=== PATIENT | female | born 1940 | race African-American/Black ===

== ENCOUNTER 2016-09-16 16:55 | Inpatient (IN) | payer MEDICARE, MEDICAID ==
[2016-09-16] MEDS ORDERED: INFLUENZA ADLT QUAD (36MOS+) 2016-17 VAC 0.5 ML SYR IM PRN (18:24)
[2016-09-16] MEDS: NORMAL SALINE 250 ML with FUROSEMIDE 250 MG IV PRN ×2 (20:54)
[2016-09-16 21:13] LABS: HEMATOCRIT 34.2 % (36.0-47.0); HEMOGLOBIN 11.1 g/dL (12.0-15.5); HGB HCT DIFFERENCE -0.9; MEAN CORPUSCULAR HEMOGLOBIN 28.9 pg (27.0-33.4); MEAN CORPUSCULAR HGB CONC 32.5 g/dL (32.0-36.0); MEAN CORPUSCULAR VOLUME 89 fl (80-97); RED BLOOD COUNT 3.84 10^6/uL (3.72-5.28); RED CELL DISTRIBUTION WIDTH 15.8 % (11.5-14.0); WHITE BLOOD COUNT 6.5 10^3/uL (4.0-10.5)
[2016-09-16 21:17] LABS: ALANINE AMINOTRANSFERASE 18 U/L (9-52); ALBUMIN 3.6 g/dL (3.5-5.0); ALKALINE PHOSPHATASE 238 U/L (38-126); ANION GAP 11 (5-19); ASPARTATE AMINO TRANSFERASE 14 U/L (14-36); BILIRUBIN,TOTAL 0.5 mg/dL (0.2-1.3); BLOOD UREA NITROGEN 15 mg/dL (7-20); CALCIUM 8.7 mg/dL (8.4-10.2); CARBON DIOXIDE 20 mmol/L (22-30); CHLORIDE 110 mmol/L (98-107); GLUCOSE 204 mg/dL (75-110); POTASSIUM 4.3 mmol/L (3.6-5.0); SODIUM 141.3 mmol/L (137-145); TOTAL PROTEIN 7.4 g/dL (6.3-8.2)
[2016-09-16] MEDS ORDERED: OXYCODONE HCL IR 5 MG TABLET PO ONE (23:45)
[2016-09-17 05:20] LABS: APPEARANCE,URINE SLIGHTLY-CLOUDY; BILIRUBIN,URINE NEGATIVE (NEGATIVE); GLUCOSE, URINE NEGATIVE (NEGATIVE); KETONES,URINE NEGATIVE (NEGATIVE); LEUKOCYTE ESTERASE,URINE LARGE (NEGATIVE); NITRITE,URINE NEGATIVE (NEGATIVE); PROTEIN,URINE NEGATIVE (NEGATIVE); URINE SPECIFIC GRAVITY 1.004; UROBILINOGEN,URINE NEGATIVE mg/dL (<2.0)
[2016-09-17] MEDS: OXYCODONE HCL IR 5 MG TABLET PO PRN ×2 (05:39→12:14)
[2016-09-17 06:34] LABS: ANION GAP 11 (5-19); BLOOD UREA NITROGEN 15 mg/dL (7-20); CALCIUM 8.6 mg/dL (8.4-10.2); CARBON DIOXIDE 23 mmol/L (22-30); CHLORIDE 109 mmol/L (98-107); CREATININE RESULT 0.98 mg/dL (0.52-1.25); GLUCOSE 119 mg/dL (75-110); POTASSIUM 3.8 mmol/L (3.6-5.0)
[2016-09-17] MEDS: ENOXAPARIN SODIUM INJ 40 MG/0.4 ML DISP.SYRIN SUBCUT SCH (09:40)
--- NOTE | 2016-09-17 15:01 | XCELERA REPORT ---
[address] [address] Transthoracic Echocardiogram Report Name: CINDY FERRO Age: 76 yrs Gender: Female : 1940 Patient Status: Inpatient Patient Location: 5\S\532\S\A Study Date: 09/17/2016 02:23 PM Height: 60 in Weight: 194 lb BSA: 1.8 m2 Procedure: A complete two-dimensional transthoracic echocardiogram was performed (2D, M-mode, spectral and color flow Doppler). The study was technically adequate with some images being suboptimal in quality. Reason For Study: Pulmonary pressure Ordering Physician: SHARDA MAYS Performed By: Cynthia Tyson Interpretation Summary The left ventricular ejection fraction is normal. Doppler measurements suggest pseudonormalized left ventricular relaxation, which is associated with grade II/IV or mild to moderate diastolic dysfunction There is mild concentric left ventricular hypertrophy. The left ventricle is grossly normal size. Wall motion cannot be accurately commented on, but no definite regional wall motion abnormalities noted. The right ventricular systolic function is normal. The left atrial size is normal. The right atrium is normal in size There is a mild amount of mitral regurgitation There is no mitral valve stenosis. No aortic regurgitation is present. There is no aortic valve stenosis There is a trace or physiologic amount of tricuspid regurgitation Tricuspid regurgitation jet envelope not well defined to measure RV systolic pressure accurately. The aortic root is not well visualized but is probably normal size. The inferior vena cava appeared normal and decreased > 50% with respiration (RAP 5-10 mmHg) There is no pericardial effusion. MMode/2D Measurements \T\ Calculations RVDd: 2.3 cm LVIDd: 3.8 cm FS: 39.4 % Ao root diam: 2.6 cm IVSd: 1.2 cm LVIDs: 2.3 cm EDV(Teich): 60.9 ml LVPWd: 1.1 cm ESV(Teich): 17.8 ml Ao root area: 5.1 cm2 EF(Teich): 70.7 % LA dimension: 2.8 cm Doppler Measurements \T\ Calculations MV E max erika: MV P1/2t max erika: Ao V2 max: LV V1 max P.4 cm/sec 73.4 cm/sec 126.8 cm/sec 4.7 mmHg MV A max erika: MV P1/2t: 39.7 msec Ao max PG: LV V1 max: 144.4 cm/sec 6.4 mmHg 108.6 cm/sec MV E/A: 0.51 MVA(P1/2t): 5.5 cm2 MV dec slope: 542.0 cm/sec2 MV dec time: 0.14 sec PA V2 max: TR max erika: 108.1 cm/sec 248.4 cm/sec PA max P.7 mmHgTR max P.7 mmHg Left Ventricle The left ventricle is grossly normal size. There is mild concentric left ventricular hypertrophy. The left ventricular ejection fraction is normal. Doppler measurements suggest pseudonormalized left ventricular relaxation, which is associated with grade II/IV or mild to moderate diastolic dysfunction. Wall motion cannot be accurately commented on, but no definite regional wall motion abnormalities noted. Right Ventricle The right ventricle is grossly normal size. There is normal right ventricular wall thickness. The right ventricular systolic function is normal. Atria The right atrium is normal in size. The left atrial size is normal. Interarterial septum not well visualized and not well dopplered. Cannot comment on ASD/PFO presence. Mitral Valve There is mild mitral leaflet calcification. There is no mitral valve stenosis. There is a mild amount of mitral regurgitation. Aortic Valve The aortic valve is mildly calcified. There is no aortic valve stenosis. No aortic regurgitation is present. Tricuspid Valve The tricuspid valve is not well visualized, but is grossly normal. There is no tricuspid stenosis. There is a trace or physiologic amount of tricuspid regurgitation. Tricuspid regurgitation jet envelope not well defined to measure RV systolic pressure accurately. Pulmonic Valve The pulmonic valve is not well visualized. Great Vessels The aortic root is not well visualized but is probably normal size. The inferior vena cava appeared normal and decreased > 50% with respiration (RAP 5-10 mmHg). Effusions There is no pericardial effusion. : SHARDA MAYS > Dante Canchola
[2016-09-17] MEDS ORDERED: (PENDING PHARMACY ID) (Morphine Sulfate/Naltrexone [Embeda Er 50-2 Mg Capsule] 1 CAP) PO SCH (17:00)
[2016-09-17] MEDS ORDERED: (PENDING PHARMACY ID) (Valsartan [Diovan] 320 MG) PO SCH (17:00)
[2016-09-17] MEDS ORDERED: ONDANSETRON 4 MG TAB.RAPDIS PO ONE (17:30)
--- NOTE | 2016-09-17 17:37 | PDOC H&P ---
History of Present Illness Admission Date/PCP: 09/16/16 16:55 SHARDA MAYS MD History of Present Illness: CINDY FERRO is a 76 year old female, she came to the office with the daughter because of lower extremity swelling, she has a history of complicated rheumatoid arthritis and she is presently wheelchair bound. She was seen and evaluated in the office, she has lower extremity ,it was pitting edema on palpation of the lower extremity. The differential diagnosis included, pulmonary hypertension, Nephrotic syndrome, right ventricular heart failure, because of the many differential diagnoses and the fact that could not rule out any of the differential she was admitted directly from the office into the hospital for evaluation. Past Medical History Cardiac Medical History: Reports: Hypertension, Peripheral Vascular Disease GI Medical History: Reports: Gastroesophageal Reflux Disease Musculoskeltal Medical History: Reports: Arthritis - Rheumatoid and osteoarthritis Past Surgical History Past Surgical History: Reports: Cholecystectomy, Hysterectomy, Orthopedic Surgery - Hip, Knee Social History Smoking Status: Current Some Day Smoker Cigarettes Packs Per Day: 0.2 Number of Years Smokin Last Time Smoked: 09/16/2016 Frequency of Alcohol Use: None Hx Recreational Drug Use: No Drugs: None Hx Prescription Drug Abuse: No Family History Family History: Reviewed & Not Pertinent Parental Family History Reviewed: Yes Children Family History Reviewed: Yes Sibling(s) Family History Reviewed.: Yes Medication/Allergy Home Medications: Amlodipine Besylate [Norvasc 10 mg Tablet] 10 mg PO DAILY 09/17/16 Clonidine HCl [Catapres 0.2 mg Tablet] 0.2 mg PO BID 09/17/16 Cyclobenzaprine HCl [Flexeril 10 mg Tablet] 10 mg PO TID 09/17/16 Diphenoxylate HCl/Atropine [Lomotil 2.5-0.025 mg Tablet] 1 tab PO QID 09/17/16 Eluxadoline [Viberzi] 100 mg PO BID 09/17/16 Lipase/Protease/Amylase [Zenpep Dr 15,000 Units Capsule] 3 cap PO TID 09/17/16 Metoprolol Tartrate [Lopressor 100 mg Tablet] 100 mg PO BID 09/17/16 Morphine Sulfate/Naltrexone [Embeda ER 50-2 mg Capsule] 1 cap PO DAILY 09/17/16 Ondansetron [Zofran Odt 4 mg Tablet] 4 mg PO Q8 09/17/16 Oxycodone HCl/Acetaminophen [Percocet 10-325 mg Tablet] 1 tab PO Q6 09/17/16 Pantoprazole Sodium [Protonix] 40 mg PO DAILY 09/17/16 Valsartan [Diovan] 320 mg PO DAILY 09/17/16 Allergies/Adverse Reactions: sulfamethoxazole [From Bactrim] Allergy (Verified 06/01/16 01:17) trimethoprim [From Bactrim] Allergy (Verified 06/01/16:) Review of Systems Constitutional: ABSENT: chills, fever(s), headache(s), weight gain, weight loss Eyes: ABSENT: visual disturbances Ears: ABSENT: hearing changes Cardiovascular: ABSENT: chest pain, dyspnea on exertion, edema, orthropnea, palpitations Respiratory: ABSENT: cough, hemoptysis Gastrointestinal: ABSENT: abdominal pain, constipation, diarrhea, hematemesis, hematochezia, nausea, vomiting Genitourinary: ABSENT: dysuria, hematuria Musculoskeletal: ABSENT: joint swelling Integumentary: ABSENT: rash, wounds Neurological: ABSENT: abnormal gait, abnormal speech, confusion, dizziness, focal weakness, syncope Psychiatric: ABSENT: anxiety, depression, homidical ideation, suicidal ideation Endocrine: ABSENT: cold intolerance, heat intolerance, menstrual abnormalities, polydipsia, polyuria Hematologic/Lymphatic: ABSENT: easy bleeding, easy bruising, lymphadenopathy Physical Exam Vital Signs: Temp Pulse Resp BP Pulse Ox 98.4 F 108 H 20 146/62 H 97 09/17/16 15:33 09/17/16 15:33 09/17/16 15:33 09/17/16 15:33 09/17/16 15:33 Intake & Output 09/16/16 09/17/16 09/18/16 06:59 06:59 06:59 Intake Total 440 500 Balance 440 500 Weight 88.45 kg General appearance: PRESENT: no acute distress, well-developed, well-nourished Head exam: PRESENT: atraumatic, normocephalic Eye exam: PRESENT: conjunctiva pink, EOMI, PERRLA Ear exam: PRESENT: normal external ear exam Mouth exam: PRESENT: moist, tongue midline Neck exam: PRESENT: full ROM Respiratory exam: PRESENT: clear to auscultation jamel Cardiovascular exam: PRESENT: RRR Vascular exam: PRESENT: normal capillary refill GI/Abdominal exam: PRESENT: normal bowel sounds, soft Rectal exam: PRESENT: deferred Extremities exam: PRESENT: pedal edema Neurological exam: PRESENT: alert, awake, oriented to person, oriented to place , oriented to time, oriented to situation, CN II-XII grossly intact Psychiatric exam: PRESENT: appropriate affect, normal mood Skin exam: PRESENT: dry, intact, warm Results Laboratory Results: 09/16/16 20:55 09/17/16 06:00 09/16/16 09/16/16 09/17/16 20:55 20:55 04:40 WBC 6.5 RBC 3.84 Hgb 11.1 L Hct 34.2 L MCV 89 MCH 28.9 MCHC 32.5 RDW 15.8 H Plt Count 196 Sodium 141.3 Potassium 4.3 Chloride 110 H Carbon Dioxide 20 L Anion Gap 11 BUN 15 Creatinine 0.80 Est GFR ( Amer) > 60 Est GFR (Non-Af Amer) > 60 Glucose 204 H Calcium 8.7 Total Bilirubin 0.5 AST 14 ALT 18 Alkaline Phosphatase 238 H Total Protein 7.4 Albumin 3.6 Urine Color STRAW Urine Appearance SLIGHTLY-CLOUDY Urine pH 5.0 Ur Specific [place] 1.004 Urine Protein NEGATIVE Urine Glucose (UA) NEGATIVE Urine Ketones NEGATIVE Urine Blood NEGATIVE Urine Nitrite NEGATIVE Ur Leukocyte Esterase LARGE H Urine WBC (Auto) 22 Urine RBC (Auto) 1 09/17/16 06:00 WBC RBC Hgb Hct MCV MCH MCHC RDW Plt Count Sodium 143.0 Potassium 3.8 Chloride 109 H Carbon Dioxide 23 Anion Gap 11 BUN 15 Creatinine 0.98 Est GFR ( Amer) > 60 Est GFR (Non-Af Amer) 55 L Glucose 119 H Calcium 8.6 Total Bilirubin AST ALT Alkaline Phosphatase Total Protein Albumin Urine Color Urine Appearance Urine pH Ur Specific [place] Urine Protein Urine Glucose (UA) Urine Ketones Urine Blood Urine Nitrite Ur Leukocyte Esterase Urine WBC (Auto) Urine RBC (Auto) Impressions: Chest X-Ray 09/17/16 08:00 IMPRESSION: Prominence of the pulmonary vasculature and interstitium suggestive underlying edema and/or atypical infection. No focal infiltrates. Assessment & Plan - Diagnosis (1) Anasarca Is this a current diagnosis for this admission?: YesPlan: Patient is admitted for observation and she will be treated with furosemide infusion
[2016-09-17] MEDS ORDERED: (PENDING PHARMACY ID) (Oxycodone Hcl/Acetaminophen [Percocet 10-325 Mg Tablet] 1 TAB) PO SCH (18:00)
[2016-09-17] MEDS ORDERED: ELUXADOLINE 100 MG PO SCH (18:00)
[2016-09-17] MEDS ORDERED: PROTEASE PO SCH (18:00)
[2016-09-17] MEDS ORDERED: AMYLASE PO SCH (18:00)
[2016-09-17] MEDS ORDERED: LIPASE PO SCH (18:00)
[2016-09-17] MEDS ORDERED: AMLODIPINE BESYLATE 10 MG TABLET PO ONE (18:00)
[2016-09-17] MEDS: OXYCODONE-ACETAMINOPHEN 5-325 MG TABLET PO SCH (18:25)
[2016-09-17] MEDS: DIPHENOXYLATE HCL/ATROP SULF 2.5-0.025 MG TABLET PO SCH ×2 (18:26→21:42)
[2016-09-17] MEDS: OXYCODONE HCL IR 5 MG TABLET PO SCH (18:26)
[2016-09-17] MEDS ORDERED: VALSARTAN 160 MG TABLET PO ONE (18:30)
[2016-09-17] MEDS ORDERED: LANSOPRAZOLE 30 MG TAB.RAP.DR PO ONE (18:30)
[2016-09-17] MEDS: NORMAL SALINE 250 ML with FUROSEMIDE 250 MG IV PRN ×2 (20:39)
[2016-09-17] MEDS: CLONIDINE HCL 0.2 MG TABLET PO SCH (21:41)
[2016-09-17] MEDS: ONDANSETRON 4 MG TAB.RAPDIS PO SCH (21:42)
[2016-09-17] MEDS: CYCLOBENZAPRINE HCL 10 MG TABLET PO SCH (21:43)
[2016-09-17] MEDS: METOPROLOL TARTRATE 100 MG TABLET PO SCH (21:43)
[2016-09-18] MEDS: OXYCODONE-ACETAMINOPHEN 5-325 MG TABLET PO SCH ×4 (00:10→18:17)
[2016-09-18] MEDS: OXYCODONE HCL IR 5 MG TABLET PO SCH ×4 (00:10→18:06)
[2016-09-18] MEDS: CYCLOBENZAPRINE HCL 10 MG TABLET PO SCH ×3 (05:40→21:33)
[2016-09-18] MEDS: ONDANSETRON 4 MG TAB.RAPDIS PO SCH ×3 (05:40→21:33)
[2016-09-18 07:17] LABS: ANION GAP 11 (5-19); BLOOD UREA NITROGEN 16 mg/dL (7-20); CALCIUM 8.1 mg/dL (8.4-10.2); CARBON DIOXIDE 27 mmol/L (22-30); CHLORIDE 102 mmol/L (98-107); CREATININE RESULT 1.15 mg/dL (0.52-1.25); GLUCOSE 122 mg/dL (75-110); POTASSIUM 3.7 mmol/L (3.6-5.0); SODIUM 140.2 mmol/L (137-145)
[2016-09-18] MEDS: VALSARTAN 160 MG TABLET PO SCH (09:33)
[2016-09-18] MEDS: METOPROLOL TARTRATE 100 MG TABLET PO SCH ×2 (09:33→21:33)
[2016-09-18] MEDS: LANSOPRAZOLE 30 MG TAB.RAP.DR PO SCH (09:34)
[2016-09-18] MEDS: DIPHENOXYLATE HCL/ATROP SULF 2.5-0.025 MG TABLET PO SCH ×4 (09:34→21:33)
[2016-09-18] MEDS: ENOXAPARIN SODIUM INJ 40 MG/0.4 ML DISP.SYRIN SUBCUT SCH (09:34)
[2016-09-18] MEDS: CLONIDINE HCL 0.2 MG TABLET PO SCH ×2 (09:34→21:34)
[2016-09-18] MEDS: AMLODIPINE BESYLATE 10 MG TABLET PO SCH (09:34)
--- NOTE | 2016-09-18 12:04 | XCELERA REPORT ---
[address] [address] Lower Extremity Venous Evaluation Name: CINDY FERRO Age: 76 yrs Gender: Female : 1940 Patient Status: Inpatient Patient Location: 5\S\532\S\A Study Date: 09/17/2016 02:00 PM Procedure: Color flow and duplex imaging bilaterally of the veins of the lower extremities as well as the Common Femoral veins. Reason For Study: BiLat leg ulcers Ordering Physician: SHARDA MAYS Performed By: Cynthia Tyson Right Sided Venous Evaluation Normal vessel filling wall to wall, compression and augmentation as well as Colour flow down to the infrageniculate veins. Left Sided Venous Evaluation Normal vessel filling wall to wall, compression and augmentation as well as Colour flow down to the infrageniculate veins. Interpretation Summary No duplex evidence of DVT or obstruction in the bilateral lower extremities. : SHARDA MAYS > Lorenzo Sanderson
--- NOTE | 2016-09-18 12:13 | Physician Advisory Note ---
Physician Advisor ProgressNote .: Pursuant to the plan for [facility], I have reviewed the medical record for this patient. Physician Advisor Statement: Possible documentation opportunities if attending agrees: 1. "Medical necessity" please explicitly document the reasons patient needed to be in hospital each day she has been here, so information technology auditor can't just say, "This pt had leg swelling, but no SOB or hypoxemia or fever or other acute issue - plenty of pts are managed in office for leg swelling - no real need for hospital - could have just increased outpatient diuretic therapy and had her return in a week or 2", or "reasonable to come in for 1 night, but here was no real medical reason not to send her home 09/17", .... Considerations: - She did have persistent tachycardia on 09/17 - did that concern attending or factor in decision to not d/c her that day? What were concerns? - Risks of what specific morbidity/mortality/adverse event if not kept in hospital? - Why needed Lasix IV in hospital with close monitoring of electrolytes/renal fn rather than outpt care as above? - What made outpt care too risky in this case? - Was she significantly different than her baseline in some way that required hospital? - Etc. As always, if concerned about any unstable VS or abnormal labs, please comment on them & note what doing about them, & please document each day the potential clinical problems you are concerned could occur if pt not kept in hospital for tx at this time. Thanks for your help with documentation accuracy/specificity improvement! Yue Troncoso MD [facility], [facility] Physician Advisor, Fellow of Hospital Medicine
[2016-09-18 19:11] LABS: APPEARANCE,URINE SLIGHTLY-CLOUDY; BILIRUBIN,URINE NEGATIVE (NEGATIVE); GLUCOSE, URINE NEGATIVE (NEGATIVE); KETONES,URINE NEGATIVE (NEGATIVE); LEUKOCYTE ESTERASE,URINE LARGE (NEGATIVE); NITRITE,URINE NEGATIVE (NEGATIVE); PROTEIN,URINE NEGATIVE (NEGATIVE); URINE SPECIFIC GRAVITY 1.006; UROBILINOGEN,URINE NEGATIVE mg/dL (<2.0)
--- NOTE | 2016-09-18 19:51 | PDOC DISCHARGE SUMMARY ---
General - Admit/Disc Date/PCP Admission Date/Primary Care Provider: 09/18/16 12:22 SHARDA MAYS MD Discharge Date: 09/18/16 - Discharge Diagnosis (1) Anasarca Is this a current diagnosis for this admission?: Yes (2) Essential hypertension Is this a current diagnosis for this admission?: Yes (3) Chronic pain syndrome Is this a current diagnosis for this admission?: Yes (4) Rheumatoid arthritis Is this a current diagnosis for this admission?: Yes - Additional Information Discharge Diet: As Tolerated Discharge Activity: Activity As Tolerated Home Medications: Amlodipine Besylate [Norvasc 10 mg Tablet] 10 mg PO DAILY 09/17/16 Clonidine HCl [Catapres 0.2 mg Tablet] 0.2 mg PO Q12 09/17/16 Cyclobenzaprine HCl [Flexeril 10 mg Tablet] 10 mg PO TID 09/17/16 Diphenoxylate HCl/Atropine [Lomotil 2.5-0.025 mg Tablet] 1 tab PO QID 09/17/16 Eluxadoline [Viberzi] 100 mg PO BID 09/17/16 Lipase/Protease/Amylase [Zenpep Dr 15,000 Units Capsule] 3 cap PO TID 09/17/16 Metoprolol Tartrate [Lopressor 100 mg Tablet] 100 mg PO Q12 09/17/16 Morphine Sulfate/Naltrexone [Embeda ER 50-2 mg Capsule] 1 cap PO DAILY 09/17/16 Ondansetron [Zofran Odt 4 mg Tablet] 4 mg PO Q8 09/17/16 Oxycodone HCl/Acetaminophen [Percocet 10-325 mg Tablet] 1 tab PO Q6 09/17/16 Pantoprazole Sodium [Protonix] 40 mg PO DAILY 09/17/16 Valsartan [Diovan] 320 mg PO DAILY 09/17/16 History of Present Illness History of Present Illness: CINDY FERRO is a 76 year old female, she came to the office with the daughter because of lower extremity swelling, she has a history of complicated rheumatoid arthritis and she is presently wheelchair bound. She was seen and evaluated in the office, she has lower extremity ,it was pitting edema on palpation of the lower extremity. The differential diagnosis included, pulmonary hypertension, Nephrotic syndrome, right ventricular heart failure, because of the many differential diagnoses and the fact that could not rule out any of the differential she was admitted directly from the office into the hospital for evaluation. Hospital Course Hospital Course: Patient was admitted because of anasarca due to lower extremity edema, a 2D echo was done he showed a preserved ejection fraction of the left ventricle, there was no pulmonary hypertension, the serum albumin was normal. She was treated with furosemide infusion and she diuresed very well. 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 She is encouraged to use compression stockings. Physical Exam Vital Signs: Temp Pulse Resp BP Pulse Ox 98.1 F 77 16 102/53 L 96 09/18/16 15:08 09/18/16 15:08 09/18/16 12:00 09/18/16 15:08 09/18/16 15:08 Intake & Output 09/17/16 09/18/16 09/19/16 06:59 06:59 06:59 Intake Total 440 1297 972 Balance 440 1297 972 Weight 88.45 kg General appearance: PRESENT: no acute distress Eye exam: PRESENT: PERRLA Respiratory exam: PRESENT: clear to auscultation jamel Cardiovascular exam: PRESENT: +S1, +S2 GI/Abdominal exam: PRESENT: soft Extremities exam: PRESENT: other - No edema Neurological exam: PRESENT: alert, CN II-XII grossly intact Results Laboratory Results: 09/16/16 20:55 09/18/16 06:15 09/18/16 09/18/16 06:15 17:20 Sodium 140.2 Potassium 3.7 Chloride 102 Carbon Dioxide 27 Anion Gap 11 BUN 16 Creatinine 1.15 Est GFR ( Amer) 56 L Est GFR (Non-Af Amer) 46 L Glucose 122 H Calcium 8.1 L Urine Color YELLOW Urine Appearance SLIGHTLY-CLOUDY Urine pH 7.0 Ur Specific [place] 1.006 Urine Protein NEGATIVE Urine Glucose (UA) NEGATIVE Urine Ketones NEGATIVE Urine Blood SMALL H Urine Nitrite NEGATIVE Ur Leukocyte Esterase LARGE H Urine WBC (Auto) 62 Urine RBC (Auto) 4 09/17/16 18:10 NT-Pro-B Natriuret Pep 212 Impressions: Chest X-Ray 09/17/16 08:00 IMPRESSION: Prominence of the pulmonary vasculature and interstitium suggestive underlying edema and/or atypical infection. No focal infiltrates.
[2016-09-18] MEDS: NORMAL SALINE 250 ML with FUROSEMIDE 250 MG IV PRN ×2 (20:03)
[2016-09-19] MEDS: OXYCODONE-ACETAMINOPHEN 5-325 MG TABLET PO SCH ×2 (00:31→05:25)
[2016-09-19] MEDS: OXYCODONE HCL IR 5 MG TABLET PO SCH ×2 (00:31→05:26)
[2016-09-19] MEDS: CYCLOBENZAPRINE HCL 10 MG TABLET PO SCH (05:25)
[2016-09-19] MEDS: ONDANSETRON 4 MG TAB.RAPDIS PO SCH (05:25)
[2016-09-19 06:29] LABS: ANION GAP 14 (5-19); BLOOD UREA NITROGEN 19 mg/dL (7-20); CALCIUM 8.2 mg/dL (8.4-10.2); CARBON DIOXIDE 25 mmol/L (22-30); CHLORIDE 101 mmol/L (98-107); CREATININE RESULT 1.27 mg/dL (0.52-1.25); GLUCOSE 129 mg/dL (75-110); POTASSIUM 3.4 mmol/L (3.6-5.0); SODIUM 140.1 mmol/L (137-145)
[2016-09-19] MEDS: DIPHENOXYLATE HCL/ATROP SULF 2.5-0.025 MG TABLET PO SCH (09:17)
[2016-09-19] MEDS: METOPROLOL TARTRATE 100 MG TABLET PO SCH (09:17)
[2016-09-19] MEDS: LANSOPRAZOLE 30 MG TAB.RAP.DR PO SCH (09:17)
[2016-09-19] MEDS: CLONIDINE HCL 0.2 MG TABLET PO SCH (09:17)
[2016-09-19] MEDS: VALSARTAN 160 MG TABLET PO SCH (09:17)
[2016-09-19] MEDS: AMLODIPINE BESYLATE 10 MG TABLET PO SCH (09:17)
[2016-09-19] MEDS: ENOXAPARIN SODIUM INJ 40 MG/0.4 ML DISP.SYRIN SUBCUT SCH (09:17)
[2016-09-19 09:50] VITALS: BP 100/66
[2016-09-19] MEDS ORDERED: PHARMACY COMMUNICATION ORDER MC SCH (18:00)
== END 2016-09-19 11:46 | disposition home health service (06) | DRG 948 ==
LOC: 5 16:55 → OBSVTOIN 09-18 12:22
PROVIDERS: ADMIT Internal Medicine; ATTEND Internal Medicine
PROC: 3E0234Z Introduction of Serum, Toxoid and Vaccine into Muscle, Percutaneous Approach (ICD-10-PCS; principal; 2016-09-19)
DX: R60.1 Generalized edema (principal); I73.9 Peripheral vascular disease, unspecified; I10 Essential (primary) hypertension; G89.4 Chronic pain syndrome; M06.9 Rheumatoid arthritis, unspecified; F17.210 Nicotine dependence, cigarettes, uncomplicated; Z99.3 Dependence on wheelchair; Z23 Encounter for immunization
CPT/HCPCS: 36415; 71020; 80048; 80076; 81001; 83880; 85027; 90471; 90686; 93306; 93970; G0008; G0378; G0379; J1642; J1650; J1940; J3490; J7050; S0119

== ENCOUNTER 2016-09-19 16:28 | Inpatient (IN) | payer MEDICARE, MEDICAID ==
--- NOTE | 2016-09-19 16:57 | ER Document Report ---
ED GI/ - General Chief Complaint: Abdominal Pain Stated Complaint: WEAKNESS Notes: The patient is a 76-year-old female, past medical history chronic pancreatitis ( on enzyme replacement), presents with a few hours of nausea, vomiting and epigastric abdominal pain, exactly similar to her prior pancreatitis episodes. She was discharged earlier today from the hospital after she was treated for anasarca. She denies hematemesis, diarrhea, chest pain, shortness of breath, back pain, fevers, rash or urinary symptoms. TRAVEL OUTSIDE OF THE [place] IN LAST 30 DAYS: No - Related Data Allergies/Adverse Reactions: sulfamethoxazole [From Bactrim] Allergy (Verified 09/19/16 16:46) trimethoprim [From Bactrim] Allergy (Verified 09/19/16 16:46) Past Medical History - General Information source: Patient, Relative - Daughter - Social History Smoking Status: Unknown if Ever Smoked Frequency of alcohol use: None Family History: Reviewed & Not Pertinent Patient has suicidal ideation: No Patient has homicidal ideation: No - Past Medical History Cardiac Medical History: Reports: Hx Hypertension, Hx Peripheral Vascular Disease Neurological Medical History: Reports: Hx Cerebrovascular Accident - aphasia. Denies: Hx Seizures Renal/ Medical History: Denies: Hx Peritoneal Dialysis GI Medical History: Reports: Hx Gastroesophageal Reflux Disease, Hx Ulcer - peptic Musculoskeltal Medical History: Reports Hx Arthritis - Rheumatoid and osteoarthritis Psychiatric Medical History: Denies: Hx Depression Past Surgical History: Reports: Hx Abdominal Surgery - Ulcer, Hx Bowel Surgery, Hx Cholecystectomy, Hx Hysterectomy, Hx Orthopedic Surgery - Hip, Knee - Immunizations Hx Pneumococcal Vaccination: 07/20/11 Review of Systems - Review of Systems Notes: REVIEW OF SYSTEMS: CONSTITUTIONAL: -fevers, -chills EENT: -eye pain, -difficulty swallowing, -nasal congestion CARDIOVASCULAR:-chest pain, -syncope. RESPIRATORY: -cough, -SOB GASTROINTESTINAL: +abdominal pain, +nausea, +vomiting, -diarrhea GENITOURINARY: -dysuria, -hematuria MUSCULOSKELETAL: -back pain, -neck pain SKIN: -rash or skin lesions. HEMATOLOGIC: -easy bruising or bleeding. LYMPHATIC: -swollen, enlarged glands. NEUROLOGICAL: -altered mental status or loss of consciousness, -headache, - neurologic symptoms PSYCHIATRIC: -anxiety, -depression. ALL OTHER SYSTEMS REVIEWED AND NEGATIVE. Physical Exam - Vital signs Vitals: Resp 17 09/19/16 18:40 - Notes Notes: PHYSICAL EXAMINATION: GENERAL: Well-appearing, well-nourished and in no acute distress. HEAD: Atraumatic, normocephalic. EYES: Pupils equal round and reactive to light, extraocular movements intact, sclera anicteric, conjunctiva are normal. ENT: nares patent, oropharynx clear without exudates. Moist mucous membranes. NECK: Normal range of motion, supple without lymphadenopathy LUNGS: Breath sounds clear to auscultation bilaterally and equal. No wheezes rales or rhonchi. HEART: Tachycardic, regular rhythm ABDOMEN: Moderate tenderness over epigastric and RUQ. Soft, normoactive bowel sounds. No guarding, no rebound. No masses appreciated. EXTREMITIES: Normal range of motion, no pitting or edema. No cyanosis. NEUROLOGICAL: Cranial nerves grossly intact. Normal speech, normal gait. Normal sensory, motor, and reflex exams. PSYCH: Normal mood, normal affect. SKIN: Warm, Dry, normal turgor, no rashes or lesions noted. Course - Re-evaluation Re-evalutation: Patient remains with nausea and vomiting despite Zofran and Reglan. CT A/P and RUQ does not show any evidence of cholecystitis. The cause patient is on chronic pancreatic enzyme replacement, her lipase is always normal, even when she has a pancreatitis flare. Spoke to Dr. Polanco and he has accepted patient to telemetry Obs. - Vital Signs Vital signs: Temp Pulse Resp BP Pulse Ox 21 H 172/71 H 99 09/19/16 20:01 09/19/16 20:00 09/19/16 18:41 - Laboratory Result Diagrams: 09/19/16 18:00 09/19/16 18:00 Laboratory results interpreted by me: 09/19/16 09/19/16 18:00 18:00 RDW 15.9 H Seg Neutrophils % 82.7 H Lymphocytes % 11.8 L BUN 24 H Creatinine 1.38 H Est GFR ( Amer) 45 L Est GFR (Non-Af Amer) 37 L Glucose 198 H AST 13 L Alkaline Phosphatase 266 H Total Protein 8.5 H - Diagnostic Test Radiology reviewed: Image reviewed, Reports reviewed Radiology results interpreted by me: RUQ US: GB sludge, no evidence of cholecystitis CT A/P: NAD - EKG Interpretation by Me EKG shows normal: Sinus rhythm, [place], Intervals, QRS Complexes, ST-T Waves - ST Depression in lateral leads Rate: Tachycardia Discharge - Discharge Clinical Impression: Epigastric abdominal pain Pancreatitis, chronic Qualifiers: Pancreatitis type: other Qualified Code(s): K86.1 - Other chronic pancreatitis Intractable vomiting with nausea Qualifiers: Vomiting type: unspecified Qualified Code(s): R11.2 - Nausea with vomiting, unspecified Condition: Stable Disposition: ADMITTED OBSERVATION Admitting Provider: [facility] Unit Admitted: Telemetry
[2016-09-19] MEDS ORDERED: NORMAL SALINE 1000 ML 1,000 ML IV ONE (16:58)
[2016-09-19] MEDS ORDERED: MORPHINE SULFATE 10 MG/ML INJ IV ONE ×2 (17:06→19:46)
[2016-09-19] MEDS ORDERED: ONDANSETRON HCL INJ/PF 4 MG/2 ML SDV IV ONE (17:07)
[2016-09-19] MEDS ORDERED: FAMOTIDINE INJ/PF 20 MG/2 ML SDV IV ONE (17:08)
--- NOTE | 2016-09-19 18:52 | EKG REPORT ---
SEVERITY:- ABNORMAL ECG - SINUS TACHYCARDIA PROBABLE LEFT ATRIAL ABNORMALITY LVH WITH SECONDARY REPOLARIZATION ABNORMALITY : Confirmed by: Edu Dick MD 19-Sep-2016 18:51:32
[2016-09-19 19:12] LABS: ALANINE AMINOTRANSFERASE 20 U/L (9-52); ALBUMIN 4.1 g/dL (3.5-5.0); ALKALINE PHOSPHATASE 266 U/L (38-126); ANION GAP 16 (5-19); ASPARTATE AMINO TRANSFERASE 13 U/L (14-36); BILIRUBIN,TOTAL 0.6 mg/dL (0.2-1.3); BLOOD UREA NITROGEN 24 mg/dL (7-20); CALCIUM 8.8 mg/dL (8.4-10.2); CARBON DIOXIDE 26 mmol/L (22-30); CHLORIDE 100 mmol/L (98-107); CREATINE KINASE 75 U/L (30-135); CREATININE RESULT 1.38 mg/dL (0.52-1.25); GLUCOSE 198 mg/dL (75-110); LIPASE 36.5 U/L (23-300); POTASSIUM 3.7 mmol/L (3.6-5.0); SODIUM 141.9 mmol/L (137-145); TOTAL PROTEIN 8.5 g/dL (6.3-8.2)
[2016-09-19 19:13] LABS: ABSOLUTE LYMPHOCYTES (AUTO) 1.1 10^3/uL (0.5-4.7); ABSOLUTE MONOCYTES (AUTO) 0.5 10^3/uL (0.1-1.4); BASOPHILS % (AUTO) 0.4 % (0-2); EOSINOPHILS % (AUTO) 0.2 % (0-6); HEMATOCRIT 40.9 % (36.0-47.0); LYMPHOCYTES % (AUTO) 11.8 % (13-45); MEAN CORPUSCULAR HEMOGLOBIN 28.9 pg (27.0-33.4); MEAN CORPUSCULAR HGB CONC 32.5 g/dL (32.0-36.0); MEAN CORPUSCULAR VOLUME 89 fl (80-97); MONOCYTES % (AUTO) 4.9 % (3-13); RED CELL DISTRIBUTION WIDTH 15.9 % (11.5-14.0); SEGMENTED NEUTROPHILS % (AUTO) 82.7 % (42-78); WHITE BLOOD COUNT 9.7 10^3/uL (4.0-10.5)
[2016-09-19 19:26] LABS: HEMOGLOBIN 13.3 g/dL (12.0-15.5)
[2016-09-19] MEDS ORDERED: METOCLOPRAMIDE HCL INJ/PF 10 MG/2 ML SDV IV ONE (19:45)
[2016-09-19] MEDS ORDERED: HYDROMORPHONE HCL 2 MG TABLET PO PRN (22:42)
[2016-09-20] MEDS ORDERED: METOPROLOL TARTRATE 100 MG TABLET PO ONE (00:15)
[2016-09-20] MEDS ORDERED: CLONIDINE HCL 0.2 MG TABLET PO ONE (00:15)
[2016-09-20] MEDS: HYDROMORPHONE HCL INJ/PF 2 MG/ML AMPULE IV PRN ×5 (00:19→22:44)
[2016-09-20] MEDS: ONDANSETRON 4 MG TAB.RAPDIS PO PRN ×2 (11:09→22:44)
[2016-09-20] MEDS: NORMAL SALINE 1000 ML 1,000 ML IV PRN (11:11)
[2016-09-20 16:39] LABS: APPEARANCE,URINE CLOUDY; BILIRUBIN,URINE NEGATIVE (NEGATIVE); GLUCOSE, URINE NEGATIVE (NEGATIVE); KETONES,URINE 20 mg/dL (NEGATIVE); LEUKOCYTE ESTERASE,URINE MODERATE (NEGATIVE); NITRITE,URINE NEGATIVE (NEGATIVE); PROTEIN,URINE 30 mg/dL (NEGATIVE); URINE SPECIFIC GRAVITY 1.018; UROBILINOGEN,URINE NEGATIVE mg/dL (<2.0)
[2016-09-20] MEDS ORDERED: PANTOPRAZOLE SODIUM 40 MG VIAL IV ONE (17:00)
[2016-09-21] MEDS: HYDROMORPHONE HCL INJ/PF 2 MG/ML AMPULE IV PRN ×6 (02:43→22:44)
[2016-09-21] MEDS: PANTOPRAZOLE SODIUM 40 MG VIAL IV SCH (09:57)
--- NOTE | 2016-09-21 13:11 | PDOC H&P ---
History of Present Illness Admission Date/PCP: 09/19/16 21:14 SHARDA MAYS MD History of Present Illness: NICKO FERRO is a 76 year old female, she was recently discharged this morning, she came to the emergency room because she was vomiting coffee-ground vomitus On 06/01/2016 she had episode of upper GI bleed on that admission she had EGD that showed duodenal ulcer. In the emergency room she was evaluated CT scan of the abdomen and pelvis was done and it was negative. She was just discharged this morning when she was admitted for anasarca, she was treated with intravenous furosemide and she diuresed quite well. She denies any passage of black stool, there is no hematochezia, there is associated upper abdominal pain. Past Medical History Cardiac Medical History: Reports: Hypertension, Peripheral Vascular Disease GI Medical History: Reports: Gastroesophageal Reflux Disease, Peptic Ulcer Disease Musculoskeltal Medical History: Reports: Arthritis - Rheumatoid and osteoarthritis, Other - Disabling rheumatoid arthritis Psychiatric Medical History: Denies: Depression Past Surgical History Past Surgical History: Reports: Cholecystectomy, Hysterectomy, Orthopedic Surgery - Hip, Knee Social History Smoking Status: Never Smoker Frequency of Alcohol Use: None Hx Recreational Drug Use: No Drugs: None Hx Prescription Drug Abuse: No Family History Family History: Reviewed & Not Pertinent Parental Family History Reviewed: Yes Children Family History Reviewed: Yes Sibling(s) Family History Reviewed.: Yes Medication/Allergy Home Medications: Amlodipine Besylate [Norvasc 10 mg Tablet] 10 mg PO DAILY 09/17/16 Clonidine HCl [Catapres 0.2 mg Tablet] 0.2 mg PO Q12 09/17/16 Cyclobenzaprine HCl [Flexeril 10 mg Tablet] 10 mg PO Q8HP PRN 09/17/16 Lipase/Protease/Amylase [Zenpep Dr 15,000 Units Capsule] 3 cap PO MEALS Metoprolol Tartrate [Lopressor 100 mg Tablet] 100 mg PO Q12 09/17/16 Morphine Sulfate/Naltrexone [Embeda ER 50-2 mg Capsule] 1 cap PO DAILY 09/17/16 Ondansetron [Zofran Odt 4 mg Tablet] 4 mg PO Q8HP PRN 09/17/16 Pantoprazole Sodium [Protonix] 40 mg PO BID 09/17/16 Valsartan [Diovan] 320 mg PO DAILY 09/17/16 Loperamide HCl [Imodium 2 mg Capsule] 8 mg PO ONCEP PRN 09/19/16 Oxycodone HCl 15 mg PO Q8HP PRN 09/19/16 Allergies/Adverse Reactions: sulfamethoxazole [From Bactrim] Allergy (Verified 09/19/16 16:46) trimethoprim [From Bactrim] Allergy (Verified 09/19/16 16:46) Review of Systems Constitutional: ABSENT: chills, fever(s), headache(s), weight gain, weight loss Eyes: ABSENT: visual disturbances Ears: ABSENT: hearing changes Cardiovascular: ABSENT: chest pain, dyspnea on exertion, edema, orthropnea, palpitations Respiratory: ABSENT: cough, hemoptysis Gastrointestinal: PRESENT: abdominal pain, vomiting Genitourinary: ABSENT: dysuria, hematuria Musculoskeletal: ABSENT: joint swelling Integumentary: ABSENT: rash, wounds Neurological: ABSENT: abnormal gait, abnormal speech, confusion, dizziness, focal weakness, syncope Psychiatric: ABSENT: anxiety, depression, homidical ideation, suicidal ideation Endocrine: ABSENT: cold intolerance, heat intolerance, menstrual abnormalities, polydipsia, polyuria Hematologic/Lymphatic: ABSENT: easy bleeding, easy bruising, lymphadenopathy Physical Exam Vital Signs: Temp Pulse Resp BP Pulse Ox 98.3 F 112 H 12 196/74 H 98 09/21/16 10:50 09/21/16 10:50 09/21/16 10:50 09/21/16 10:50 09/21/16 10:50 Intake & Output 09/20/16 09/21/16 09/22/16 06:59 06:59 06:59 Intake Total 0 2244 Balance 0 2244 Weight 71 kg General appearance: PRESENT: no acute distress, well-developed, well-nourished Head exam: PRESENT: atraumatic, normocephalic Eye exam: PRESENT: conjunctiva pink, EOMI, PERRLA. ABSENT: scleral icterus Ear exam: PRESENT: normal external ear exam Mouth exam: PRESENT: moist, tongue midline Neck exam: PRESENT: full ROM Cardiovascular exam: PRESENT: RRR Pulses: PRESENT: normal dorsalis pedis pul, +2 pedal pulses bilateral Vascular exam: PRESENT: normal capillary refill GI/Abdominal exam: PRESENT: normal bowel sounds, soft, tenderness - There is tenderness in the epigastrium. Rectal exam: PRESENT: deferred Neurological exam: PRESENT: alert, awake, oriented to person, oriented to place , oriented to time, oriented to situation, CN II-XII grossly intact Psychiatric exam: PRESENT: appropriate affect, normal mood Skin exam: PRESENT: dry, intact, warm Results Laboratory Results: 09/20/16 16:06 Urine Color YELLOW Urine Appearance CLOUDY Urine pH 8.0 Ur Specific [place] 1.018 Urine Protein 30 H Urine Glucose (UA) NEGATIVE Urine Ketones 20 H Urine Blood NEGATIVE Urine Nitrite NEGATIVE Ur Leukocyte Esterase MODERATE H Urine WBC (Auto) 179 Urine RBC (Auto) 4 Impressions: Abdomen Ultrasound 09/19/16 17:13 IMPRESSION: No acute biliary inflammatory changes. Mild gallbladder sludge. Abdomen/Pelvis CT 09/19/16 17:14 IMPRESSION: NO ACUTE FINDING IN THE ABDOMEN OR PELVIS ON CT SCAN WITH IV CONTRAST. Assessment & Plan - Diagnosis (1) Upper gastrointestinal hemorrhage Is this a current diagnosis for this admission?: YesPlan: She recently had EGD done on 06/03/2016 and at that time she was found to have duodenal ulcer. She will be kept n.p.o. on should be treated with IV Protonix (2) Essential hypertension Is this a current diagnosis for this admission?: Yes (3) Rheumatoid arthritis Qualifiers: Rheumatoid arthritis location: unspecified site Rheumatoid factor presence: without rheumatoid factor Qualified Code(s): M06.00 - Rheumatoid arthritis without rheumatoid factor, unspecified site Is this a current diagnosis for this admission?: Yes (4) Duodenal ulcer Is this a current diagnosis for this admission?: Yes
[2016-09-21 14:17] LABS: ALANINE AMINOTRANSFERASE 26 U/L (9-52); ALBUMIN 3.8 g/dL (3.5-5.0); ALKALINE PHOSPHATASE 223 U/L (38-126); ANION GAP 16 (5-19); ASPARTATE AMINO TRANSFERASE 17 U/L (14-36); BILIRUBIN,TOTAL 0.5 mg/dL (0.2-1.3); BLOOD UREA NITROGEN 12 mg/dL (7-20); CALCIUM 9.3 mg/dL (8.4-10.2); CARBON DIOXIDE 18 mmol/L (22-30); CHLORIDE 111 mmol/L (98-107); CREATININE RESULT 0.69 mg/dL (0.52-1.25); GLUCOSE 132 mg/dL (75-110); POTASSIUM 4.2 mmol/L (3.6-5.0); SODIUM 144.5 mmol/L (137-145); TOTAL PROTEIN 7.8 g/dL (6.3-8.2)
[2016-09-21] MEDS: NORMAL SALINE 1000 ML 1,000 ML IV PRN (15:31)
--- NOTE | 2016-09-21 15:43 | PDOC PROGRESS REPORT ---
Subjective Progress Note for:: 09/21/16 Subjective:: She was admitted for observation because of vomiting coffee-ground, she had a history of duodenal ulcer, should be kept n.p.o. since admission, GI consultation will be requested for upper endoscopy Physical Exam Vital Signs: Temp Pulse Resp BP Pulse Ox 98.3 F 112 H 12 196/74 H 98 09/21/16 10:50 09/21/16 10:50 09/21/16 10:50 09/21/16 10:50 09/21/16 10:50 Intake & Output 09/20/16 09/21/16 09/22/16 06:59 06:59 06:59 Intake Total 0 2244 Balance 0 2244 Weight 71 kg General appearance: PRESENT: no acute distress Eye exam: PRESENT: PERRLA Cardiovascular exam: PRESENT: +S1, +S2 GI/Abdominal exam: PRESENT: soft, tenderness Results Laboratory Results: 09/21/16 13:15 09/20/16 09/21/16 16:06 13:15 Sodium 144.5 Potassium 4.2 Chloride 111 H Carbon Dioxide 18 L Anion Gap 16 BUN 12 Creatinine 0.69 Est GFR ( Amer) > 60 Est GFR (Non-Af Amer) > 60 Glucose 132 H Calcium 9.3 Total Bilirubin 0.5 AST 17 ALT 26 Alkaline Phosphatase 223 H Total Protein 7.8 Albumin 3.8 Urine Color YELLOW Urine Appearance CLOUDY Urine pH 8.0 Ur Specific [place] 1.018 Urine Protein 30 H Urine Glucose (UA) NEGATIVE Urine Ketones 20 H Urine Blood NEGATIVE Urine Nitrite NEGATIVE Ur Leukocyte Esterase MODERATE H Urine WBC (Auto) 179 Urine RBC (Auto) 4 Impressions: Abdomen Ultrasound 09/19/16 17:13 IMPRESSION: No acute biliary inflammatory changes. Mild gallbladder sludge. Abdomen/Pelvis CT 09/19/16 17:14 IMPRESSION: NO ACUTE FINDING IN THE ABDOMEN OR PELVIS ON CT SCAN WITH IV CONTRAST. Assessment & Plan - Diagnosis (1) Upper gastrointestinal hemorrhage Is this a current diagnosis for this admission?: YesPlan: She has not had any more vomiting since admission, but she has ongoing upper abdominal pain, she will need upper endoscopy in light of a history of duodenal ulcer, the issue though is on the upper endoscopy be done outpatient or most the upper endoscopy be done now, because she has ongoing upper abdominal pain and she is tender on palpation on the fact that she is wheelchair bound it is reasonable and proper to have the upper endoscopy done now. She has been n.p.o. since she was admitted a blood pressure is running high she will be started on a regular medication for blood pressure control and also clear liquid diet until seen by GI (2) Essential hypertension Is this a current diagnosis for this admission?: Yes (3) Rheumatoid arthritis Qualifiers: Rheumatoid arthritis location: unspecified site Rheumatoid factor presence: without rheumatoid factor Qualified Code(s): M06.00 - Rheumatoid arthritis without rheumatoid factor, unspecified site Is this a current diagnosis for this admission?: Yes (4) Duodenal ulcer Is this a current diagnosis for this admission?: Yes
[2016-09-21] MEDS ORDERED: METOPROLOL TARTRATE 100 MG TABLET PO ONE (16:00)
[2016-09-21] MEDS ORDERED: CLONIDINE HCL 0.2 MG TABLET PO ONE (16:00)
[2016-09-21] MEDS ORDERED: AMLODIPINE BESYLATE 10 MG TABLET PO ONE (16:00)
[2016-09-21] MEDS ORDERED: PROTEASE PO SCH (17:00)
[2016-09-21] MEDS ORDERED: AMYLASE PO SCH (17:00)
[2016-09-21] MEDS ORDERED: LIPASE PO SCH (17:00)
[2016-09-21] MEDS: CLONIDINE HCL 0.2 MG TABLET PO SCH (21:05)
[2016-09-21] MEDS: METOPROLOL TARTRATE 100 MG TABLET PO SCH (21:05)
[2016-09-22] MEDS: HYDROMORPHONE HCL INJ/PF 2 MG/ML AMPULE IV PRN ×5 (03:12→20:16)
[2016-09-22] MEDS: NORMAL SALINE 1000 ML 1,000 ML IV PRN ×2 (05:35→20:08)
[2016-09-22] MEDS ORDERED: (PENDING PHARMACY ID) (Valsartan [Diovan] 320 MG) PO SCH (10:00)
[2016-09-22] MEDS: PANTOPRAZOLE SODIUM 40 MG VIAL IV SCH (10:21)
--- NOTE | 2016-09-22 10:35 | Physician Advisory Note ---
Physician Advisor ProgressNote .: [facility] I have reviewed the medical record for this patient. Physician Advisor Statement: Possible documentation opportunities if attending agrees: 1. "UGIBleed, likely due to " (have to explicitly state whether suspected due to the recent duod ulcer or some other source - coders aren't allowed to assume anything) 2. "acute abdominal pain, likely due to " 3. "acute kidney injury, now resolved" (baseline Cr 0.6's -> 1.38 on arrival) 4. "hypertensive urgency" 5. "Medical necessity": Difficult to determine from documentation so far - please address points here & bolded points under "status". - Pt w/recurrent tachycardia 09/20- but this isn't commented on as concerning attending, so reviewer will assume this was not a concerning finding in this case, - Pt w/UGIBleed suspected, but no indication of amount or recurrence - or repeat H/H, so reviewer will assume this was a minor issue. - Pt using IV Dilaudid 5x on 09/20 & 6x on 09/21: needing due to severity of acute abd pain, or just for her chronic pain that she usually takes high dose Percocet q6h for? - Overall, is main reason she hasn't gone ahead & had EGD & been discharged because of lack of GI healthcare risk control consultant over weekend? If so, she should not be Inpt - it is simply "delay of care". However, if she is actually acutely ill & medically concerning/unstable, & reasons are documented, she could be appropriate to make Inpt. 6. ? - "acute metabolic acidosis developing 09/21, suspect due to ____" - or .... ? As always, if concerned about any unstable VS or abnormal labs, please comment on them & note what doing about them, & please document each day the potential clinical problems you are concerned could occur if pt not kept in hospital for tx at this time. Discussion: 74yo female w/ chronic co-morbidities including chronic pancreatitis with lipase levels now always nl even with pancreatitis flares - is on replacement enzymes, HTN, PVD, CVA/aphasia, GERD, PUD with UGIBleed 06/01/16, RA, bowel surgery - presented 3/3 PM to ED w/N/Vepigastric pain. She has just been d/c'd after tx for anasarca. (+) mod tenderness epigastirc/RUQ, still w/N/V after Zofran & Reglan in ED. HR 112, BP 196/74, U/S=mild GB sludge, no acute changes. CT= no acute changes. Cr 1.38. AP 266. Attending ordered NPO, IV PPI, IVF @70, prn Dilaudid, prn NGTube. Status: Pt with coffee ground emesis & epigastric tenderness per H&P. Recent duod ulcer w/UGIBleed. Came into ED on Thu PM. First MN (09/19) was spent in ED trying to get control of N/V. 2nd MN (09/20) was spent in hospital NPO with IV PPI, monitoring for need for NGT for further N/V, treating ongoing acute abd pain, expecting EGD/GI consult. Needed IV Dilaudid 5x on 09/20, then 6x on 09/21 for abd pain. Due to ongoing abd pain, attending felt it necessary to have EGD done before d/c, even though no ongoing bleeding or severe H/H drop documented. Nsg notes through 09/21 22:00 document persistent abd tenderness since admission. There has been no BM per nsg notes since 09/19. They report nausea through at least 3/4 AM, & abd pain through at least 3/5 AM. On 09/21, pt's ABBI resolved but bicarb then low. Attending ordered now doses BP meds at 00:15 on 09/20 & 16:00 on 09/21. Pt has had recurrent tachycardia 09/20-. Allowed clear liquids on 5PM (Thursday) while awaiting GI consult. Attg ordered GI consult on 09/22 AM. Tx in inpatient hospital setting medically reasonable & necessary to protect pt' s health, safety, & medical condition? If so, please document explicitly. Thanks for your help with documentation accuracy/specificity improvement! Yue Troncoso MD [facility] Physician Advisor, Fellow of Hospital Medicine
[2016-09-22] MEDS: CLONIDINE HCL 0.2 MG TABLET PO SCH ×2 (12:03→21:14)
[2016-09-22] MEDS: METOPROLOL TARTRATE 100 MG TABLET PO SCH ×2 (12:04→21:13)
[2016-09-22] MEDS: AMLODIPINE BESYLATE 10 MG TABLET PO SCH (12:04)
[2016-09-22] MEDS: VALSARTAN 160 MG TABLET PO SCH (12:05)
--- NOTE | 2016-09-22 13:26 | PDOC CONSULTATION ---
Consultation Consult Date: 09/22/16 Attending physician:: LISA HYDE Consult reason:: Abdominal pain. nausea and vomiting. coffee ground emesisi. history of peptic ulcer in the past History of Present Illness Admission Date/PCP: 09/19/16 21:14 SHARDA MAYS MD History of Present Illness: Patient was admitted and noted to have abdominal pain patient states she has been similar pain to the one from previous admission she had a previous EGD done which showed a peptic ulcer no active bleeding patient states having epigastric discomfory again There is some nausea vomiting No dysphagia or odynophagia Coffee grounds is noted. Her seems to radiate to the back. Her appetite seems to be affected. Denies any chest pain or shortness of breath. She had previous Helicobacter pylori. Past Medical History Cardiac Medical History: Reports: Hypertension, Peripheral Vascular Disease Neurological Medical History: Denies: Seizures GI Medical History: Reports: Gastroesophageal Reflux Disease, Peptic Ulcer Disease Musculoskeltal Medical History: Reports: Arthritis - Rheumatoid and osteoarthritis, Other - Disabling rheumatoid arthritis Psychiatric Medical History: Denies: Depression Past Surgical History Past Surgical History: Reports: Cholecystectomy, Hysterectomy, Orthopedic Surgery - Hip, Knee Social History Smoking Status: Never Smoker Frequency of Alcohol Use: None Hx Recreational Drug Use: No Drugs: None Hx Prescription Drug Abuse: No Family History Family History: Reviewed & Not Pertinent Parental Family History Reviewed: Yes Children Family History Reviewed: Unknown Sibling(s) Family History Reviewed.: Unknown Medication/Allergy Home Medications: Amlodipine Besylate [Norvasc 10 mg Tablet] 10 mg PO DAILY 09/17/16 Clonidine HCl [Catapres 0.2 mg Tablet] 0.2 mg PO Q12 09/17/16 Cyclobenzaprine HCl [Flexeril 10 mg Tablet] 10 mg PO Q8HP PRN 09/17/16 Lipase/Protease/Amylase [Zenpep Dr 15,000 Units Capsule] 3 cap PO MEALS Metoprolol Tartrate [Lopressor 100 mg Tablet] 100 mg PO Q12 09/17/16 Morphine Sulfate/Naltrexone [Embeda ER 50-2 mg Capsule] 1 cap PO DAILY 09/17/16 Ondansetron [Zofran Odt 4 mg Tablet] 4 mg PO Q8HP PRN 09/17/16 Pantoprazole Sodium [Protonix] 40 mg PO BID 09/17/16 Valsartan [Diovan] 320 mg PO DAILY 09/17/16 Loperamide HCl [Imodium 2 mg Capsule] 8 mg PO ONCEP PRN 09/19/16 Oxycodone HCl 15 mg PO Q8HP PRN 09/19/16 Allergies/Adverse Reactions: sulfamethoxazole [From Bactrim] Allergy (Verified 09/19/16 16:46) trimethoprim [From Bactrim] Allergy (Verified 09/19/16 16:46) Review of Systems Constitutional: ABSENT: fever(s), headache(s), night sweats, weakness Eyes: ABSENT: visual disturbances Ears: ABSENT: hearing changes Nose, Mouth, and Throat: ABSENT: mouth pain Cardiovascular: ABSENT: edema, orthropnea Respiratory: ABSENT: dyspnea, hemoptysis Gastrointestinal: PRESENT: coffee ground emesis, nausea, vomiting. ABSENT: diarrhea, dysphagia Genitourinary: ABSENT: dysuria, hematuria Musculoskeletal: ABSENT: deformity, joint swelling Integumentary: ABSENT: lesions, pruritus Neurological: ABSENT: focal weakness, syncope, tremor(s), vertigo Endocrine: ABSENT: polydipsia, polyphagia, polyuria Hematologic/Lymphatic: PRESENT: easy bruising Physical Exam Vital Signs: Temp Pulse Resp BP Pulse Ox 97.8 F 80 16 169/66 H 100 09/22/16 10:32 09/22/16 10:32 09/22/16 10:32 09/22/16 10:32 09/22/16 10:32 Intake & Output 09/21/16 09/22/16 09/23/16 06:59 06:59 06:59 Intake Total 2244 2698 Balance 2244 2698 Weight 82.3 kg General appearance: PRESENT: no acute distress, well-developed, well-nourished Head exam: PRESENT: atraumatic, normocephalic Eye exam: PRESENT: EOMI, PERRLA. ABSENT: nystagmus, periorbital swelling, scleral icterus Mouth exam: PRESENT: moist Throat exam: ABSENT: tonsillar exudate, tonsillogmegaly Neck exam: ABSENT: meningismus, tenderness, thyromegaly Cardiovascular exam: PRESENT: RRR, +S1, +S2. ABSENT: rubs GI/Abdominal exam: PRESENT: normal bowel sounds, soft. ABSENT: Donovan's sign, rebound, rigid, tenderness Extremities exam: ABSENT: joint swelling Musculoskeletal exam: PRESENT: full ROM Neurological exam: PRESENT: oriented to person, oriented to place, oriented to time, oriented to situation, reflexes normal, CN II-XII grossly intact Psychiatric exam: PRESENT: appropriate affect Skin exam: PRESENT: normal color. ABSENT: mottled, pallor, petechiae, urticaria , vesicles Results Laboratory Results: 09/21/16 13:15 09/21/16 13:15 Sodium 144.5 Potassium 4.2 Chloride 111 H Carbon Dioxide 18 L Anion Gap 16 BUN 12 Creatinine 0.69 Est GFR ( Amer) > 60 Est GFR (Non-Af Amer) > 60 Glucose 132 H Calcium 9.3 Total Bilirubin 0.5 AST 17 ALT 26 Alkaline Phosphatase 223 H Total Protein 7.8 Albumin 3.8 Impressions: Abdomen Ultrasound 09/19/16 17:13 IMPRESSION: No acute biliary inflammatory changes. Mild gallbladder sludge. Abdomen/Pelvis CT 09/19/16 17:14 IMPRESSION: NO ACUTE FINDING IN THE ABDOMEN OR PELVIS ON CT SCAN WITH IV CONTRAST. Assessment & Plan - Diagnosis (1) Epigastric abdominal pain Plan: Patient noted to have previous ulcer in the past and biopsies were positive for Helicobacter pylori H&H is stable She will need repeat upper endoscopy to document healing of the ulcer, persistence of H. pylori. Risks benefits and alternatives of the procedure including risks of bleeding, perforation requiring surgery are explained to the patient detail and informed consent is obtained. Recommendations to follow. Any PPI for now H&H Transfuse as necessary - Time Time Spent: 50 to 70 Minutes
--- NOTE | 2016-09-22 19:50 | PDOC PROGRESS REPORT ---
Subjective Progress Note for:: 09/22/16 Subjective:: Patient was seen by laboratory associate Dr. Avilez today, patient needed to stay for EGD because of the fact that she was not stable enough to be discharged home she had persistent sinus tachycardia, in the setting of upper GI bleed she vomited coffee-ground vomitus and she was kept n.p.o. for 2 days. The pretest probability for a bleeding duodenal ulcer is very high, she had EGD done back in May 2016 she was found to have a relatively large duodenal ulcer. Physical Exam Vital Signs: Temp Pulse Resp BP Pulse Ox 97.8 F 63 16 147/64 H 100 09/22/16 10:32 09/22/16 15:28 09/22/16 10:32 09/22/16 15:28 09/22/16 15:28 Intake & Output 09/21/16 09/22/16 09/23/16 06:59 06:59 06:59 Intake Total 2244 2698 1192 Balance 2244 2698 1192 Weight 82.3 kg General appearance: PRESENT: mild distress Eye exam: PRESENT: PERRLA Respiratory exam: PRESENT: clear to auscultation jamel Cardiovascular exam: PRESENT: +S1, +S2 GI/Abdominal exam: PRESENT: tenderness - There is tenderness in the epigastrium Extremities exam: PRESENT: tenderness Results Laboratory Results: 09/21/16 13:15 Impressions: Abdomen Ultrasound 09/19/16 17:13 IMPRESSION: No acute biliary inflammatory changes. Mild gallbladder sludge. Abdomen/Pelvis CT 09/19/16 17:14 IMPRESSION: NO ACUTE FINDING IN THE ABDOMEN OR PELVIS ON CT SCAN WITH IV CONTRAST. Assessment & Plan - Diagnosis (1) Upper gastrointestinal hemorrhage Is this a current diagnosis for this admission?: YesPlan: She probably have upper GI bleed due to bleeding duodenal ulcer, she was seen by GI on she will have upper endoscopy tomorrow (2) Essential hypertension Is this a current diagnosis for this admission?: Yes (3) Rheumatoid arthritis Qualifiers: Rheumatoid arthritis location: unspecified site Rheumatoid factor presence: without rheumatoid factor Qualified Code(s): M06.00 - Rheumatoid arthritis without rheumatoid factor, unspecified site Is this a current diagnosis for this admission?: Yes (4) Duodenal ulcer Is this a current diagnosis for this admission?: Yes (5) Hypertensive urgency Is this a current diagnosis for this admission?: Yes
[2016-09-23] MEDS: HYDROMORPHONE HCL INJ/PF 2 MG/ML AMPULE IV PRN ×5 (00:11→17:35)
[2016-09-23] MEDS: AMLODIPINE BESYLATE 10 MG TABLET PO SCH (09:33)
[2016-09-23] MEDS: METOPROLOL TARTRATE 100 MG TABLET PO SCH (09:35)
[2016-09-23] MEDS: PANTOPRAZOLE SODIUM 40 MG VIAL IV SCH (09:35)
[2016-09-23] MEDS: CLONIDINE HCL 0.2 MG TABLET PO SCH (09:36)
[2016-09-23] MEDS: VALSARTAN 160 MG TABLET PO SCH (09:36)
--- NOTE | 2016-09-23 09:57 | Physician Advisory Note ---
Physician Advisor ProgressNote .: [facility], I have reviewed the medical record for this patient. Physician Advisor Statement: Nice documentation of likely cause UGI, of HTN-hema urgency, instability, concerns r.e. persistent tachycardia in setting of GIB & likely PUD. Thanks for clarifying! Possible documentation opportunities if attending agrees: 1. "acute kidney injury, now resolved" (baseline Cr 0.6's -> 1.38 on arrival ) 2. ? - "acute metabolic acidosis developing 09/21, suspect due to ____" - or .... ? 3. Pt using IV Dilaudid repeatedly - all due to severity of acute abd pain,? (She usually takes high dose Percocet q6h baseline.) As always, if concerned about any unstable VS or abnormal labs, please comment on them & note what doing about them, & please document each day the potential clinical problems you are concerned could occur if pt not kept in hospital for tx at this time. Discussion: 74yo female w/ chronic co-morbidities including chronic pancreatitis with lipase levels now always nl even with pancreatitis flares - is on replacement enzymes, HTN, PVD, CVA/aphasia, GERD, PUD with UGIBleed 06/01/16, RA, bowel surgery - presented 33 PM to ED w/N/Vepigastric pain. She has just been d/c'd after tx for anasarca. (+) mod tenderness epigastirc/RUQ, still w/N/V after Zofran & Reglan in ED. HR 112, BP 196/74, U/S=mild GB sludge, no acute changes. CT= no acute changes. Cr 1.38. AP 266. Attending ordered NPO, IV PPI, IVF @70, prn Dilaudid, prn NGTube. Status: Pt with coffee ground emesis & epigastric tenderness per H&P. Recent duod ulcer w/UGIBleed. Came into ED on Fri PM. First MN (09/19) was spent in ED trying to get control of N/V. 2nd MN (09/20) was spent in hospital NPO with IV PPI, monitoring for need for NGT for further N/V, treating ongoing acute abd pain. Pt with recurrent tachycardia & hypertensive urgency. Needed IV Dilaudid 5x on 09/20, then 6x on 09/21 for abd pain. Due to ongoing abd pain & past PUD, attending felt it necessary to have EGD done before d/c. Despite all this opioid which can drop BP & RR, she remained tachycardic & hypertensive to the point of hypertensive urgency often. There was no BM per nsg notes since 09/19. They reported nausea through at least 09/20 AM. She was kept NPO until 09/21 PM. Attending ordered 'now' doses BP meds at 00:15 on 09/20 & 16:00 on 09/21, & started metoprolol at scheduled dosing as of 09/21 PM to improve both BP & HR. Since then , pt has had episodic bradycardia with HR drops into the 50s at times on 09/22, & even as low as 48 on 09/23 AM. On 09/21, pt's ABBI resolved but bicarb then low. Pt still with recurrent tachycardia & hypertensive urgency. Allowed clear liquids for first time on 3M (Thursday) while awaiting GI consult. Attg ordered GI consult on 09/22 AM. On 09/22, nsg notes document persistent abd pain & tenderness. Pt required IV Dilaudid 5x on 09/22 for pain. M: Pt has had 2 BMs. EGD being done. Pt has already required IV DIlaudid 3x so far on 09/23 AM. Overall, pt has had persistent vital sign instability, ongoing abd pain for which she had needed repeated IV Dilaudid high dose, concerning attending that she was not sufficiently stable for d/c. Tx in inpatient hospital setting medically reasonable & necessary to protect pt' s health, safety, & medical condition due to instability of vital signs and ongoing attending concerns as documented.
[2016-09-23] MEDS: NORMAL SALINE 1000 ML 1,000 ML IV PRN (10:15)
[2016-09-23] MEDS ORDERED: NALOXONE HCL INJ/PF 0.4 MG/1 ML SDV ONE (11:29)
[2016-09-23] MEDS ORDERED: DIPHENHYDRAMINE HCL 50 MG/ML VIAL ONE (11:29)
[2016-09-23] MEDS ORDERED: PROMETHAZINE HCL INJ 25 MG/1 ML VIAL ONE (11:30)
[2016-09-23] MEDS ORDERED: ONDANSETRON HCL INJ/PF 4 MG/2 ML SDV ONE (11:30)
[2016-09-23] MEDS ORDERED: FENTANYL CITRATE INJ/PF 100 MCG/2 ML AMPUL ONE ×2 (11:30→11:31)
[2016-09-23] MEDS ORDERED: EPINEPHRINE INJ 1 MG/10 ML DISP.SYRIN ONE (11:31)
[2016-09-23] MEDS ORDERED: FLUMAZENIL INJ 0.5 MG/5 ML VIAL IV ONE (11:31)
[2016-09-23] MEDS ORDERED: GLUCAGON,HUMAN RECOMB 1 MG INJ ONE (11:31)
[2016-09-23] MEDS: MIDAZOLAM 2 MG/2 ML INJ ONE ×2 (12:00→12:05)
--- NOTE | 2016-09-23 12:31 | Operative Report ---
Operative Report DATE OF SURGERY: 09/23/16 Operative Report: The risks benefits and alternatives of the procedure explained to the patient in detail and informed consent is obtained that GIF Olympus video scope was inserted into the patient's mouth and hypopharynx the esophagus is identified intubated and insufflated the scope was then advanced through the esophagus stomach and duodenum retroflexion maneuver is done the esophagus stomach and first and second portions of the duodenum examined PREOPERATIVE DIAGNOSIS: Nausea vomiting. Coffee-ground emesis POSTOPERATIVE DIAGNOSIS: Nodular gastritis. Biopsies obtained to rule out for Helicobacter pylori OPERATION: EGD with biopsy SURGEON: LISA HYDE ANESTHESIA: Moderate Sedation - 4 milligrams of Versed, 75 g of fentanyl. Conscious sedation monitoring time 15 minutes. TISSUE REMOVED OR ALTERED: Gastric specimen obtained COMPLICATIONS: None. ESTIMATED BLOOD LOSS: none. INTRAOPERATIVE FINDINGS: As described above. No further ulceration PROCEDURE: Patient tolerated the procedure well. No immediate postprocedure complications are noted. Discharge activity in good condition. Discharge diet: Regular. Discharge activity: Regular. We'll await on biopsies Patient can be seen as outpatient
--- NOTE | 2016-09-23 18:14 | PDOC DISCHARGE SUMMARY ---
General - Admit/Disc Date/PCP Admission Date/Primary Care Provider: 09/23/16 08:00 SHARDA MAYS MD Discharge Date: 09/23/16 - Discharge Diagnosis (1) Upper gastrointestinal hemorrhage Is this a current diagnosis for this admission?: Yes (2) Essential hypertension Is this a current diagnosis for this admission?: Yes (3) Rheumatoid arthritis Is this a current diagnosis for this admission?: Yes (4) Duodenal ulcer Is this a current diagnosis for this admission?: Yes (5) Hypertensive urgency Is this a current diagnosis for this admission?: Yes - Additional Information Resuscitation Status: Full Code Home Medications: Amlodipine Besylate [Norvasc 10 mg Tablet] 10 mg PO DAILY 09/17/16 Clonidine HCl [Catapres 0.2 mg Tablet] 0.2 mg PO Q12 09/17/16 Cyclobenzaprine HCl [Flexeril 10 mg Tablet] 10 mg PO Q8HP PRN 09/17/16 Lipase/Protease/Amylase [Zenpep Dr 15,000 Units Capsule] 3 cap PO MEALS Metoprolol Tartrate [Lopressor 100 mg Tablet] 100 mg PO Q12 09/17/16 Morphine Sulfate/Naltrexone [Embeda ER 50-2 mg Capsule] 1 cap PO DAILY 09/17/16 Ondansetron [Zofran Odt 4 mg Tablet] 4 mg PO Q8HP PRN 09/17/16 Pantoprazole Sodium [Protonix] 40 mg PO BID 09/17/16 Valsartan [Diovan] 320 mg PO DAILY 09/17/16 Loperamide HCl [Imodium 2 mg Capsule] 8 mg PO ONCEP PRN 09/19/16 Oxycodone HCl 15 mg PO Q8HP PRN 09/19/16 History of Present Illness History of Present Illness: NICKO FERRO is a 76 year old female, she was recently discharged this morning, she came to the emergency room because she was vomiting coffee-ground vomitus On 06/01/2016 she had episode of upper GI bleed on that admission she had EGD that showed duodenal ulcer. In the emergency room she was evaluated CT scan of the abdomen and pelvis was done and it was negative. She was just discharged this morning when she was admitted for anasarca, she was treated with intravenous furosemide and she diuresed quite well. She denies any passage of black stool, there is no hematochezia, there is associated upper abdominal pain. Hospital Course Hospital Course: Patient was admitted because of vomiting coffee-ground vomitus, there was associated tachycardia, she has a history of a large duodenal ulcer she was initially admitted for observation she could not be discharged home after 24 hours because of hypertensive urgency she was kept n.p.o. 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 coder said she has severe gastritis Physical Exam Vital Signs: Temp Pulse Resp BP Pulse Ox 98.6 F 64 16 132/58 H 100 09/23/16 15:55 09/23/16 15:55 09/23/16 15:55 09/23/16 15:55 09/23/16 15:55 Intake & Output 09/22/16 09/23/16 09/24/16 06:59 06:59 06:59 Intake Total 100 Balance 100 General appearance: PRESENT: no acute distress Eye exam: PRESENT: PERRLA Respiratory exam: PRESENT: clear to auscultation jamel Cardiovascular exam: PRESENT: +S2 Murmur grade: 3 GI/Abdominal exam: PRESENT: soft Neurological exam: PRESENT: alert Results Impressions: Abdomen Ultrasound 09/19/16 17:13 IMPRESSION: No acute biliary inflammatory changes. Mild gallbladder sludge. Abdomen/Pelvis CT 09/19/16 17:14 IMPRESSION: NO ACUTE FINDING IN THE ABDOMEN OR PELVIS ON CT SCAN WITH IV CONTRAST.
[2016-09-23 20:28] VITALS: BP 147/77
== END 2016-09-23 20:29 | disposition home or self-care (01) | DRG 378 ==
LOC: ER 16:28 → UNDOADMOB 21:14 → EH 21:14 → 4W 22:30 → EH 23:31 → 4W 23:31 → OBSVTOIN 09-23 08:00
PROVIDERS: ADMIT Internal Medicine; ATTEND Internal Medicine
PROC: 0DB68ZX Excision of Stomach, Via Natural or Artificial Opening Endoscopic, Diagnostic (ICD-10-PCS; principal; 2016-09-23 12:30)
DX: K92.2 Gastrointestinal hemorrhage, unspecified (principal); K86.1 Other chronic pancreatitis; K29.70 Gastritis, unspecified, without bleeding; K26.9 Duodenal ulcer, unspecified as acute or chronic, without hemorrhage or perforation; I16.0 Hypertensive urgency; I10 Essential (primary) hypertension; I73.9 Peripheral vascular disease, unspecified; K21.9 Gastro-esophageal reflux disease without esophagitis; M06.9 Rheumatoid arthritis, unspecified; I69.320 Aphasia following cerebral infarction; Z88.2 Allergy status to sulfonamides
CPT/HCPCS: 36415; 43239; 74177; 76705; 80053; 81001; 82550; 83690; 84484; 85025; 88305; 88341; 93005; 93010; G0378; J0171; J1170; J1200; J1610; J2250; J2270; J2310; J2405; J2550; J2765; J3010; J3490; J7030; S0028; S0119; S0164

== ENCOUNTER 2017-06-08 11:36 | Inpatient (IN) | payer MEDICARE, MEDICAID ==
[2017-06-08] MEDS ORDERED: ONDANSETRON HCL INJ/PF 4 MG/2 ML SDV IV ONE ×2 (13:04→18:25)
[2017-06-08] MEDS ORDERED: NORMAL SALINE 1000 ML 1,000 ML IV ONE (13:04)
[2017-06-08] MEDS ORDERED: MORPHINE SULFATE 10 MG/ML INJ IV ONE ×3 (13:05→18:12)
--- NOTE | 2017-06-08 13:06 | ER Document Report ---
ED Medical Screen (RME) - General Chief Complaint: Swelling Stated Complaint: VOMITING BLOOD Time Seen by Provider: 06/08/17 13:03 Notes: Patient has a history of vaginal cancer with radiation. She has had pancreatitis several times since then. She presents now with vomiting and hematemesis. As well as diffuse abdominal pain. TRAVEL OUTSIDE OF THE [place] IN LAST 30 DAYS: No - Related Data Allergies/Adverse Reactions: sulfamethoxazole [From Bactrim] Allergy (Verified 06/08/17 11:43) trimethoprim [From Bactrim] Allergy (Verified 06/08/17 11:43) Past Medical History - Social History Chew tobacco use (# tins/day): No Frequency of alcohol use: None Drug Abuse: None - Past Medical History Cardiac Medical History: Reports: Hx Hypertension, Hx Peripheral Vascular Disease Neurological Medical History: Reports: Hx Cerebrovascular Accident - aphasia. Denies: Hx Seizures Renal/ Medical History: Denies: Hx Peritoneal Dialysis GI Medical History: Reports: Hx Gastroesophageal Reflux Disease, Hx Ulcer - peptic Musculoskeltal Medical History: Reports Hx Arthritis - RHEUMATOID, OSTEO Psychiatric Medical History: Denies: Hx Depression Past Surgical History: Reports: Hx Abdominal Surgery - STOMACH ULCER, Hx Bowel Surgery, Hx Cholecystectomy, Hx Hysterectomy, Hx Orthopedic Surgery - LT HIP REMOVAL OF "HEAD", SCREWS RT HIP, RT KNEE REPLACEMENT Physical Exam - Vital signs Vitals: Temp Pulse Resp BP Pulse Ox 98 F 92 22 H 160/87 H 100 06/08/17 11:45 06/08/17 11:45 06/08/17 11:45 06/08/17 11:45 06/08/17 11:45 Course - Vital Signs Vital signs: Temp Pulse Resp BP Pulse Ox 98 F 92 22 H 160/87 H 100 06/08/17 11:45 06/08/17 11:45 06/08/17 11:45 06/08/17 11:45 06/08/17 11:45
[2017-06-08 14:33] LABS: AMORPHOUS SEDIMENT,URINE TRACE /HPF; APPEARANCE,URINE CLOUDY; BILIRUBIN,URINE NEGATIVE (NEGATIVE); GLUCOSE, URINE NEGATIVE (NEGATIVE); KETONES,URINE 20 mg/dL (NEGATIVE); LEUKOCYTE ESTERASE,URINE SMALL (NEGATIVE); NITRITE,URINE NEGATIVE (NEGATIVE); PROTEIN,URINE NEGATIVE (NEGATIVE); UROBILINOGEN,URINE NEGATIVE mg/dL (<2.0)
[2017-06-08 15:01] LABS: ABSOLUTE BASOPHILS # (AUTO) 0.1 10^3/uL (0.0-0.2); ABSOLUTE LYMPHOCYTES (AUTO) 0.9 10^3/uL (0.5-4.7); ABSOLUTE MONOCYTES (AUTO) 0.5 10^3/uL (0.1-1.4); ABSOLUTE NEUT (AUTO) 6.4 10^3/uL (1.7-8.2); HEMATOCRIT 34.3 % (36.0-47.0); HEMOGLOBIN 11.3 g/dL (12.0-15.5); HGB HCT DIFFERENCE -0.4; LYMPHOCYTES % (AUTO) 11.8 % (13-45); MEAN CORPUSCULAR HEMOGLOBIN 29.7 pg (27.0-33.4); MEAN CORPUSCULAR VOLUME 90 fl (80-97); MONOCYTES % (AUTO) 6.5 % (3-13); RED BLOOD COUNT 3.81 10^6/uL (3.72-5.28); RED CELL DISTRIBUTION WIDTH 16.1 % (11.5-14.0); SEGMENTED NEUTROPHILS % (AUTO) 80.7 % (42-78); WHITE BLOOD COUNT 7.9 10^3/uL (4.0-10.5)
--- NOTE | 2017-06-08 15:22 | ER Document Report ---
ED GI/ - General Chief Complaint: Swelling Stated Complaint: VOMITING BLOOD Time Seen by Provider: 06/08/17 13:03 Notes: The patient is a 76-year-old female, past medical history chronic pancreatitis ( on enzyme replacement), vaginal cancer in 2010 ("cured"), gastric/duodenal ulcers, presents with epigastric pain, nausea and vomiting 2 times. She noticed a small streak of blood in the vomitus earlier today. Patient also noticed mild swelling of her legs and arms and says that normally 20 mg of Lasix will help. Patient takes 20 mg of oxycodone 4 times a day. She denies back pain, fevers, flank pain, urinary symptoms, increased diarrhea or constipation, black stools or bloody stools. TRAVEL OUTSIDE OF THE [place] IN LAST 30 DAYS: No - Related Data Allergies/Adverse Reactions: sulfamethoxazole [From Bactrim] Allergy (Verified 06/08/17 11:43) trimethoprim [From Bactrim] Allergy (Verified 06/08/17 11:43) Past Medical History - General Information source: Patient - Social History Smoking Status: Current Every Day Smoker Chew tobacco use (# tins/day): No Frequency of alcohol use: None Drug Abuse: None Family History: Reviewed & Not Pertinent Patient has suicidal ideation: No Patient has homicidal ideation: No - Past Medical History Cardiac Medical History: Reports: Hx Hypertension, Hx Peripheral Vascular Disease Neurological Medical History: Reports: Hx Cerebrovascular Accident - aphasia. Denies: Hx Seizures Renal/ Medical History: Denies: Hx Peritoneal Dialysis GI Medical History: Reports: Hx Gastroesophageal Reflux Disease, Hx Ulcer - peptic Musculoskeltal Medical History: Reports Hx Arthritis - RHEUMATOID, OSTEO Psychiatric Medical History: Denies: Hx Depression Past Surgical History: Reports: Hx Abdominal Surgery - STOMACH ULCER, Hx Bowel Surgery, Hx Cholecystectomy, Hx Hysterectomy, Hx Orthopedic Surgery - LT HIP REMOVAL OF "HEAD", SCREWS RT HIP, RT KNEE REPLACEMENT - Immunizations Hx Pneumococcal Vaccination: 07/20/11 Review of Systems - Review of Systems Notes: REVIEW OF SYSTEMS: CONSTITUTIONAL: -fevers, -chills EENT: -eye pain, -difficulty swallowing, -nasal congestion CARDIOVASCULAR:-chest pain, -syncope. RESPIRATORY: -cough, -SOB GASTROINTESTINAL: +epigastric abdominal pain, +nausea, +vomiting, -diarrhea GENITOURINARY: -dysuria, -hematuria MUSCULOSKELETAL: -back pain, -neck pain SKIN: -rash or skin lesions. HEMATOLOGIC: -easy bruising or bleeding. LYMPHATIC: -swollen, enlarged glands. NEUROLOGICAL: -altered mental status or loss of consciousness, -headache, - neurologic symptoms PSYCHIATRIC: -anxiety, -depression. ALL OTHER SYSTEMS REVIEWED AND NEGATIVE. Physical Exam - Vital signs Vitals: Temp Pulse Resp BP Pulse Ox 98 F 92 22 H 160/87 H 100 06/08/17 11:45 06/08/17 11:45 06/08/17 11:45 06/08/17 11:45 06/08/17 11:45 - Notes Notes: PHYSICAL EXAMINATION: GENERAL: Uncomfortable. HEAD: Atraumatic, normocephalic. EYES: Pupils equal round and reactive to light, extraocular movements intact, sclera anicteric, conjunctiva are normal. ENT: nares patent, oropharynx clear without exudates. Moist mucous membranes. NECK: Normal range of motion, supple without lymphadenopathy LUNGS: Breath sounds clear to auscultation bilaterally and equal. No wheezes rales or rhonchi. HEART: Regular rate and rhythm without murmurs ABDOMEN: Soft, mild epigastric tenderness, normoactive bowel sounds. No guarding, no rebound. No masses appreciated. EXTREMITIES: Normal range of motion, no pitting or edema. No cyanosis. NEUROLOGICAL: Cranial nerves grossly intact. Normal speech, normal gait. Normal sensory and motor exams. PSYCH: Normal mood, normal affect. SKIN: Warm, Dry, normal turgor, no rashes or lesions noted. Course - Re-evaluation Re-evalutation: Patient with epigastric pain, nausea and vomiting and now a small amount of blood in the vomitus. Her lipase is normal and rest of labs are unremarkable. Patient is on chronic enzyme replacement and mentioned that her lipase is always normal during her pancreatitis attacks due to this. Vital signs and CBC are also unremarkable. Despite multiple rounds of antiemetics and pain medicine , patient continues to have epigastric pain and vomiting. She requires inpatient admission for further monitoring and treatment. Spoke to Dr. Mays at 16:04 and will admit patient as inpatient to telemetry. - Vital Signs Vital signs: Temp Pulse Resp BP Pulse Ox 98 F 92 22 H 160/87 H 100 06/08/17 11:45 06/08/17 11:45 06/08/17 11:45 06/08/17 11:45 06/08/17 11:45 - Laboratory Result Diagrams: 06/08/17 14:37 06/08/17 14:37 Laboratory results interpreted by me: 06/08/17 06/08/17 06/08/17 14:00 14:37 14:37 Hgb 11.3 L Hct 34.3 L RDW 16.1 H Seg Neutrophils % 80.7 H Lymphocytes % 11.8 L Carbon Dioxide 20 L Glucose 135 H Calcium 8.3 L Alkaline Phosphatase 295 H Total Protein 8.4 H Urine Ketones 20 H Ur Leukocyte Esterase SMALL H Discharge - Discharge Clinical Impression: Epigastric pain Intractable vomiting with nausea Qualifiers: Vomiting type: unspecified Qualified Code(s): R11.2 - Nausea with vomiting, unspecified Condition: Stable Disposition: ADMITTED INPATIENT Admitting Provider: Sherri Unit Admitted: Telemetry Referrals: SHARDA MAYS MD [Primary Care Provider] - Follow up as needed
[2017-06-08 15:33] LABS: ALANINE AMINOTRANSFERASE 24 U/L (9-52); ALBUMIN 4.1 g/dL (3.5-5.0); ALKALINE PHOSPHATASE 295 U/L (38-126); ANION GAP 16 (5-19); ASPARTATE AMINO TRANSFERASE 15 U/L (14-36); BILIRUBIN,DIRECT 0.4 mg/dL (0.0-0.4); BILIRUBIN,TOTAL 0.5 mg/dL (0.2-1.3); BLOOD UREA NITROGEN 9 mg/dL (7-20); CALCIUM 8.3 mg/dL (8.4-10.2); CARBON DIOXIDE 20 mmol/L (22-30); CHLORIDE 107 mmol/L (98-107); CREATININE RESULT 0.58 mg/dL (0.52-1.25); GLUCOSE 135 mg/dL (75-110); LIPASE 40.5 U/L (23-300); POTASSIUM 4.1 mmol/L (3.6-5.0); SODIUM 143.3 mmol/L (137-145); TOTAL PROTEIN 8.4 g/dL (6.3-8.2)
[2017-06-08] MEDS ORDERED: METOCLOPRAMIDE HCL ORAL SOLN 10 MG/10 ML UDCUP PO ONE (15:41)
[2017-06-08] MEDS ORDERED: MAG HYDROX/AL HYDROX/SIMETH SUSP 30 ML UDCUP PO ONE (15:41)
[2017-06-08] MEDS ORDERED: LIDOCAINE 2% VISCOUS SOLN 20 ML UDCUP PO ONE (15:41)
[2017-06-08] MEDS ORDERED: PANTOPRAZOLE SODIUM 40 MG VIAL IV ONE (15:55)
[2017-06-08] MEDS ORDERED: METOCLOPRAMIDE HCL INJ/PF 10 MG/2 ML SDV IV ONE (16:00)
--- NOTE | 2017-06-08 19:31 | RADIOLOGY REPORT (SQ) ---
EXAM DESCRIPTION: CT ABD/PELVIS WITH IV ONLY COMPLETED DATE/TIME: 06/08/2017 6:48 pm REASON FOR STUDY: abdominal pain and vomiting COMPARISON: September 2016 TECHNIQUE: CT scan of the abdomen and pelvis performed using helical scanning technique with dynamic intravenous contrast injection. No oral contrast. Images reviewed with lung, soft tissue, and bone windows. Reconstructed coronal and sagittal MPR images reviewed. Delayed images for evaluation of the urinary system also acquired. All images stored on PACS. All CT scanners at this facility use dose modulation, iterative reconstruction, and/or weight based d osing when appropriate to reduce radiation dose to as low as reasonably achievable (ALARA). [facility]: Dose Right [facility]: CareDose [facility]: Dose Right [facility]: Teradose 4D [facility]: [employer] CONTRAST TYPE AND DOSE: contrast/concentration: Isovue 370.00 mg/ml; Total Contrast Delivered: 99.1 ml; Total Saline Delivered: 45.0 ml RENAL FUNCTION: Creatinine 0.58 RADIATION DOSE: Up-to-date CT equipment and radiation dose reduction techniques were employed. CTDIv ol: 10.8 - 11.8 mGy. DLP: 1013 mGy-cm.. LIMITATIONS: None. FINDINGS: LOWER CHEST: No significant findings. No nodules or infiltrates. LIVER: Normal size. No masses. There is some minimal prominent intrahepatic bile ducts presumably re lated to the gallbladder dilatation SPLEEN: Normal size. No focal lesions. PANCREAS: No masses. No significant calcifications. No adjacent inflammation or peripancreatic fluid collections. There is some prominence of the pancreatic duct. A definite mass is not identified. GALLBLADDER: No definite gallstones are identified. The gallbladder is distended. There is some thi ckening of the gallbladder woody. The possibility of cholecystitis should be considered. ADRENAL GLANDS: No significant masses or asymmetry. RIGHT KIDNEY AND URETER: Atrophic right kidney is again identified. No significant calcifications. There is hydronephrosis which may be related to UPJ obstruction. LEFT KIDNEY AND URETER: No solid masses. No significant calcifications. There is some dilatation of the left renal pelvis which may represent a UPJ obstruction. AORTA AND VESSELS: No aneurysm. No dissection. Renal arteries, SMA, celiac without stenosis. RETROPERITONEUM: No retroperitoneal adenopathy, hemorrhage or masses. BOWEL AND PERITONEAL CAVITY: No masses or inflammatory changes. No free fluid or peritoneal masses. APPENDIX: Not identified PELVIS: No mass. No free fluid. Urine distended bladder is identified. ABDOMINAL WALL: No masses. No hernias. BONES: There is grade 1 anterolisthesis of L 5 in relation to S1. There is chronic appearing deformi ty of the left hip. Patient is status post right hip pinning. An old fracture of the left inferior pubic ramus is seen. Lumbar scoliosis convex to the right is again identified. OTHER: No other significant finding. IMPRESSION: The gallbladder is distended and there is some thickening of the woody of the gallbladde r. The possibility of cholecystitis should be considered. Atrophic right kidney. Urine distended b ladder. Other findings as noted above TECHNICAL DOCUMENTATION: JOB ID: [id number] Quality ID # [id number]: Final reports with documentation of one or more dose reduction techniques (e.g., Au tomated exposure control, adjustment of the mA and/or kV according to patient size, use of iterative reconstruction technique) 2010 [employer] All Rights Reserved
[2017-06-08] MEDS: NORMAL SALINE 1000 ML 1,000 ML IV PRN (19:39)
[2017-06-08] MEDS ORDERED: DEXTROSE 50%-WATER 25 GM/50 ML DISP.SYRIN IV PRN ×2 (20:08)
[2017-06-08] MEDS ORDERED: DEXTROSE 40% GEL 15 GM TUBE PO PRN ×2 (20:08)
[2017-06-08] MEDS ORDERED: GLUCAGON,HUMAN RECOMB 1 MG INJ SUBCUT PRN (20:08)
[2017-06-08] MEDS: ENALAPRILAT DIHYDRATE INJ/PF 2.5 MG/2 ML SDV IV SCH (21:12)
[2017-06-08] MEDS: HEPARIN SOD (PORCINE) 5,000 UNIT/ML 1 ML SYRINGE SUBCUT SCH (21:23)
[2017-06-08] MEDS: AMPICILLIN SODIUM/SULBACTAM NA 3 GM in NORMAL SALINE 100 ML IV SCH (21:24)
[2017-06-08 21:34] LABS: PROTHROMBIN TIME 14.5 SEC (11.4-15.4)
[2017-06-08 21:35] LABS: PARTIAL THROMBOPLASTIN TIME 31.5 SEC (23.5-35.8)
[2017-06-08 21:37] LABS: MAGNESIUM 1.6 mg/dL (1.6-2.3); PHOSPHORUS 2.2 mg/dL (2.5-4.5)
[2017-06-08 22:09] LABS: THYROID STIMULATING HORMONE 0.46 uIU/mL (0.47-4.68)
[2017-06-08] MEDS: MORPHINE SULFATE 10 MG/ML INJ IV PRN (22:10)
[2017-06-08] MEDS: ONDANSETRON HCL INJ/PF 4 MG/2 ML SDV IV PRN (22:10)
--- NOTE | 2017-06-08 23:20 | EKG REPORT ---
SEVERITY:- ABNORMAL ECG - SINUS TACHYCARDIA LEFT ATRIAL ABNORMALITY BORDERLINE LEFT AXIS DEVIATION BORDERLINE T ABNORMALITIES, LATERAL LEADS : Confirmed by: Dante Canchola 08-Jun-2017 23:19:15
[2017-06-09] MEDS ORDERED: INFLUENZA ADLT QUAD (36MOS+) 2017-18 VAC 0.5 ML SYR IM PRN (00:30)
[2017-06-09] MEDS: ENALAPRILAT DIHYDRATE INJ/PF 2.5 MG/2 ML SDV IV SCH ×4 (03:10→21:22)
[2017-06-09] MEDS: AMPICILLIN SODIUM/SULBACTAM NA 3 GM in NORMAL SALINE 100 ML IV SCH ×4 (03:12→21:22)
[2017-06-09] MEDS: MORPHINE SULFATE 10 MG/ML INJ IV PRN ×4 (04:13→21:22)
[2017-06-09 05:01] LABS: ABSOLUTE BASOPHILS # (AUTO) 0.1 10^3/uL (0.0-0.2); ABSOLUTE LYMPHOCYTES (AUTO) 1.3 10^3/uL (0.5-4.7); ABSOLUTE MONOCYTES (AUTO) 1.1 10^3/uL (0.1-1.4); BASOPHILS % (AUTO) 0.7 % (0-2); EOSINOPHILS % (AUTO) 0.1 % (0-6); HEMATOCRIT 31.9 % (36.0-47.0); HEMOGLOBIN 10.6 g/dL (12.0-15.5); HGB HCT DIFFERENCE -0.1; LYMPHOCYTES % (AUTO) 15.4 % (13-45); MEAN CORPUSCULAR HEMOGLOBIN 29.6 pg (27.0-33.4); MEAN CORPUSCULAR HGB CONC 33.1 g/dL (32.0-36.0); MEAN CORPUSCULAR VOLUME 89 fl (80-97); MONOCYTES % (AUTO) 12.8 % (3-13); RED BLOOD COUNT 3.57 10^6/uL (3.72-5.28); RED CELL DISTRIBUTION WIDTH 16.5 % (11.5-14.0); WHITE BLOOD COUNT 8.5 10^3/uL (4.0-10.5)
[2017-06-09 05:20] LABS: ALANINE AMINOTRANSFERASE 20 U/L (9-52); ALBUMIN 3.6 g/dL (3.5-5.0); ALKALINE PHOSPHATASE 254 U/L (38-126); AMYLASE 61 U/L (30-110); ANION GAP 16 (5-19); ASPARTATE AMINO TRANSFERASE 14 U/L (14-36); BILIRUBIN,DIRECT 0.4 mg/dL (0.0-0.4); BILIRUBIN,TOTAL 0.6 mg/dL (0.2-1.3); BLOOD UREA NITROGEN 5 mg/dL (7-20); CALCIUM 7.7 mg/dL (8.4-10.2); CARBON DIOXIDE 19 mmol/L (22-30); CHLORIDE 110 mmol/L (98-107); CHOLESTEROL 150.34 mg/dL (0-200); CREATININE RESULT 0.63 mg/dL (0.52-1.25); Direct HDL 66 mg/dL (>40); GLUCOSE 114 mg/dL (75-110); LIPASE 55.6 U/L (23-300); POTASSIUM 3.7 mmol/L (3.6-5.0); SODIUM 144.7 mmol/L (137-145); TOTAL PROTEIN 7.5 g/dL (6.3-8.2); TRIGLYCERIDES 65 mg/dL (<150)
[2017-06-09 05:31] LABS: DIRECT LDL 60 mg/dL (<100)
[2017-06-09] MEDS: HEPARIN SOD (PORCINE) 5,000 UNIT/ML 1 ML SYRINGE SUBCUT SCH ×3 (05:33→21:22)
[2017-06-09] MEDS: ONDANSETRON HCL INJ/PF 4 MG/2 ML SDV IV PRN ×3 (06:01→21:22)
[2017-06-09] MEDS: NORMAL SALINE 1000 ML 1,000 ML IV PRN (08:38)
[2017-06-09] MEDS: LABETALOL HCL INJ 20 MG/4 ML DISP.SYRIN IV PRN (13:27)
--- NOTE | 2017-06-09 18:36 | PDOC H&P ---
History of Present Illness Admission Date/PCP: 06/09/17 15:00 SHARDA MAYS MD History of Present Illness: NICKO FERRO is a 76 year old female, she came to the emergency room for evaluation of vomiting, it was stated that she vomited blood, there was also abdominal pain. She was evaluated in the emergency room, she was offered hospital admission. CAT scan of the abdomen and pelvis with IV contrast was done, it showed distended gallbladder with thickening of the woody of the gallbladder cholecystitis was suspected on the basis of the CAT scan of the abdomen and pelvis. Also found was atrophic of the right kidney with right hydronephrosis due to UPJ obstruction. Past Medical History Cardiac Medical History: Reports: Hypertension, Peripheral Vascular Disease Renal/ Medical History: Reports: Other - Atrophic right kidney with hydronephrosis due to UPJ obstruction GI Medical History: Reports: Gastroesophageal Reflux Disease Musculoskeltal Medical History: Reports: Arthritis - failed left hip replacement , Other - Deformity of the left hip, anterolisthesis of L5 in relation to S1 lumbar Past Surgical History Past Surgical History: Reports: Cholecystectomy, Hysterectomy, Orthopedic Surgery - LT HIP REMOVAL OF "HEAD", SCREWS RT HIP, RT KNEE REPLACEMENT Social History Smoking Status: Current Every Day Smoker Frequency of Alcohol Use: None Hx Recreational Drug Use: No Drugs: None Hx Prescription Drug Abuse: No Family History Family History: Reviewed & Not Pertinent Parental Family History Reviewed: Yes Children Family History Reviewed: Yes Sibling(s) Family History Reviewed.: Yes Medication/Allergy Home Medications: Amlodipine Besylate [Norvasc 10 mg Tablet] 10 mg PO DAILY 06/08/17 Clonidine HCl [Catapres 0.2 mg Tablet] 0.2 mg PO Q12 06/08/17 Cyclobenzaprine HCl [Flexeril 10 mg Tablet] 10 mg PO Q8HP PRN 06/08/17 Lipase/Protease/Amylase [Zenpep Dr 15,000 Units Capsule] 3 cap PO MEALS Loperamide HCl [Imodium 2 mg Capsule] 2 mg PO DAILYP PRN 06/08/17 Metoprolol Tartrate [Lopressor 100 mg Tablet] 100 mg PO Q12 06/08/17 Morphine Sulfate/Naltrexone [Embeda ER 50-2 mg Capsule] 1 cap PO DAILY 06/08/17 Ondansetron [Zofran Odt 4 mg Tablet] 4 mg PO Q8HP PRN 06/08/17 Oxycodone HCl [Oxycodone HCl ER] 15 mg PO Q8HP PRN 06/08/17 Pantoprazole Sodium [Protonix] 40 mg PO BID 06/08/17 Valsartan [Diovan] 320 mg PO DAILY 06/08/17 Allergies/Adverse Reactions: sulfamethoxazole [From Bactrim] Allergy (Verified 06/08/17 11:43) trimethoprim [From Bactrim] Allergy (Verified 06/08/17 11:43) Review of Systems Constitutional: PRESENT: anorexia Eyes: ABSENT: visual disturbances Ears: ABSENT: hearing changes Cardiovascular: ABSENT: chest pain, dyspnea on exertion, edema, orthropnea, palpitations Respiratory: ABSENT: cough, hemoptysis Gastrointestinal: PRESENT: abdominal pain, nausea, vomiting Genitourinary: ABSENT: dysuria, hematuria Musculoskeletal: ABSENT: joint swelling Integumentary: ABSENT: rash, wounds Neurological: ABSENT: abnormal gait, abnormal speech, confusion, dizziness, focal weakness, syncope Psychiatric: ABSENT: anxiety, depression, homidical ideation, suicidal ideation Endocrine: ABSENT: cold intolerance, heat intolerance, menstrual abnormalities, polydipsia, polyuria Hematologic/Lymphatic: ABSENT: easy bleeding, easy bruising, lymphadenopathy Physical Exam Vital Signs: Temp Pulse Resp BP Pulse Ox 99.4 F 105 H 18 181/77 H 97 06/09/17 15:37 06/09/17 15:37 06/09/17 15:37 06/09/17 15:37 06/09/17 15:37 General appearance: PRESENT: mild distress Head exam: PRESENT: atraumatic, normocephalic Eye exam: PRESENT: PERRLA Ear exam: PRESENT: normal external ear exam Mouth exam: PRESENT: moist, tongue midline Neck exam: PRESENT: full ROM Respiratory exam: PRESENT: clear to auscultation jamel Cardiovascular exam: PRESENT: RRR, +S1, +S2 Pulses: PRESENT: normal dorsalis pedis pul, +2 pedal pulses bilateral Vascular exam: PRESENT: normal capillary refill GI/Abdominal exam: PRESENT: soft, tenderness Rectal exam: PRESENT: deferred Neurological exam: PRESENT: alert, awake, oriented to person, oriented to place , oriented to time, oriented to situation, CN II-XII grossly intact Psychiatric exam: PRESENT: appropriate affect, normal mood Skin exam: PRESENT: dry, intact, warm Results Impressions: Abdomen/Pelvis CT 06/08/17 00:00 IMPRESSION: The gallbladder is distended and there is some thickening of the woody of the gallbladder. The possibility of cholecystitis should be considered. Atrophic right kidney. Urine distended bladder. Other findings as noted above Assessment & Plan - Diagnosis (1) Acute cholecystitis Is this a current diagnosis for this admission?: Yes Plan: She will be started on Unasyn, IV antibiotic, HIDA scan to be ordered will be kept NPO (2) Hypertensive urgency Is this a current diagnosis for this admission?: Yes Plan: Start IV Vasotec 5 mg every 6 hours (3) Atrophy of right kidney Is this a current diagnosis for this admission?: Yes (4) Hydronephrosis with ureteropelvic junction (UPJ) obstruction Is this a current diagnosis for this admission?: Yes
--- NOTE | 2017-06-09 18:39 | PDOC PROGRESS REPORT ---
Subjective Progress Note for:: 06/09/17 Subjective:: She was admitted yesterday for the management of acute cholecystitis, hypertensive urgency she is to kept n.p.o. HIDA scan could not be done today because she had IV contrast yesterday when she had CAT scan of the abdomen and pelvis done. She is requiring for more pain medication and also her medication for nausea Physical Exam Vital Signs: Temp Pulse Resp BP Pulse Ox 99.4 F 105 H 18 181/77 H 97 06/09/17 15:37 06/09/17 15:37 06/09/17 15:37 06/09/17 15:37 06/09/17 15:37 Intake & Output 06/08/17 06/09/17 06/10/17 06:59 06:59 06:59 Weight 76.5 kg General appearance: PRESENT: mild distress Head exam: PRESENT: atraumatic, normocephalic Eye exam: PRESENT: conjunctiva pink, EOMI, PERRLA Ear exam: PRESENT: normal external ear exam Neck exam: PRESENT: full ROM Respiratory exam: PRESENT: clear to auscultation jamel Cardiovascular exam: PRESENT: RRR, +S1, +S2 Pulses: PRESENT: normal dorsalis pedis pul, +2 pedal pulses bilateral Vascular exam: PRESENT: normal capillary refill GI/Abdominal exam: PRESENT: normal bowel sounds, soft Rectal exam: PRESENT: deferred Neurological exam: PRESENT: alert, awake, oriented to person, oriented to place , oriented to time, oriented to situation, CN II-XII grossly intact Psychiatric exam: PRESENT: appropriate affect, normal mood Skin exam: PRESENT: dry, intact, warm Results Impressions: Abdomen/Pelvis CT 06/08/17 00:00 IMPRESSION: The gallbladder is distended and there is some thickening of the woody of the gallbladder. The possibility of cholecystitis should be considered. Atrophic right kidney. Urine distended bladder. Other findings as noted above Assessment & Plan - Diagnosis (1) Acute cholecystitis Is this a current diagnosis for this admission?: Yes Plan: Continue IV antibiotic, continue treatment (2) Hypertensive urgency Is this a current diagnosis for this admission?: Yes (3) Atrophy of right kidney Is this a current diagnosis for this admission?: Yes (4) Hydronephrosis with ureteropelvic junction (UPJ) obstruction Is this a current diagnosis for this admission?: Yes
[2017-06-10] MEDS: LABETALOL HCL INJ 20 MG/4 ML DISP.SYRIN IV PRN ×4 (01:28→23:45)
[2017-06-10] MEDS: ONDANSETRON HCL INJ/PF 4 MG/2 ML SDV IV PRN ×5 (01:28→20:19)
[2017-06-10] MEDS: MORPHINE SULFATE 10 MG/ML INJ IV PRN ×4 (01:39→20:08)
[2017-06-10] MEDS: ENALAPRILAT DIHYDRATE INJ/PF 2.5 MG/2 ML SDV IV SCH ×4 (03:54→20:09)
[2017-06-10] MEDS: AMPICILLIN SODIUM/SULBACTAM NA 3 GM in NORMAL SALINE 100 ML IV SCH ×4 (03:54→20:08)
[2017-06-10] MEDS: HEPARIN SOD (PORCINE) 5,000 UNIT/ML 1 ML SYRINGE SUBCUT SCH ×3 (06:43→21:17)
[2017-06-10 06:59] LABS: ABSOLUTE BASOPHILS # (AUTO) 0.1 10^3/uL (0.0-0.2); ABSOLUTE LYMPHOCYTES (AUTO) 1.6 10^3/uL (0.5-4.7); ABSOLUTE MONOCYTES (AUTO) 0.9 10^3/uL (0.1-1.4); BASOPHILS % (AUTO) 0.8 % (0-2); EOSINOPHILS % (AUTO) 0.3 % (0-6); HEMATOCRIT 32.2 % (36.0-47.0); HEMOGLOBIN 10.8 g/dL (12.0-15.5); HGB HCT DIFFERENCE 0.2; LYMPHOCYTES % (AUTO) 18.3 % (13-45); MEAN CORPUSCULAR HEMOGLOBIN 29.8 pg (27.0-33.4); MEAN CORPUSCULAR HGB CONC 33.6 g/dL (32.0-36.0); MEAN CORPUSCULAR VOLUME 89 fl (80-97); MONOCYTES % (AUTO) 10.7 % (3-13); RED BLOOD COUNT 3.63 10^6/uL (3.72-5.28); RED CELL DISTRIBUTION WIDTH 16.6 % (11.5-14.0); SEGMENTED NEUTROPHILS % (AUTO) 69.9 % (42-78); WHITE BLOOD COUNT 8.5 10^3/uL (4.0-10.5)
[2017-06-10 07:21] LABS: ALANINE AMINOTRANSFERASE 23 U/L (9-52); ALBUMIN 3.6 g/dL (3.5-5.0); ALKALINE PHOSPHATASE 228 U/L (38-126); AMYLASE 98 U/L (30-110); ANION GAP 18 (5-19); ASPARTATE AMINO TRANSFERASE 15 U/L (14-36); BILIRUBIN,DIRECT 0.5 mg/dL (0.0-0.4); BILIRUBIN,TOTAL 0.6 mg/dL (0.2-1.3); BLOOD UREA NITROGEN 5 mg/dL (7-20); CALCIUM 7.4 mg/dL (8.4-10.2); CARBON DIOXIDE 22 mmol/L (22-30); CHLORIDE 105 mmol/L (98-107); CREATININE RESULT 0.66 mg/dL (0.52-1.25); GLUCOSE 93 mg/dL (75-110); LIPASE 55.5 U/L (23-300); POTASSIUM 3.1 mmol/L (3.6-5.0); SODIUM 145.3 mmol/L (137-145); TOTAL PROTEIN 7.5 g/dL (6.3-8.2)
--- NOTE | 2017-06-10 11:55 | RADIOLOGY REPORT (SQ) ---
EXAM DESCRIPTION: NM HIDA SCAN COMPLETED DATE/TIME: 06/10/2017 11:44 am REASON FOR STUDY: suspect cholecystitis COMPARISON: CT abdomen pelvis 06/08/2017 RADIONUCLIDE AND DOSE: DOSAGE RADIONUCLIDE: 5.5 millicuries Tc99m Mebrofenin. DOSAGE MORPHINE: Not required. The route of agent administration: Intravenous TECHNIQUE: Patient was injected with the hepatobiliary agent, initial image was obtained demonstrati ng the liver. Patient refused delayed imaging 1 hour after injection. LIMITATIONS: None. FINDINGS: Patient refused imaging after injection of the macro fashion. An initial image demonstrat es activity in the liver. We attempted to get the patient back for 1 hour delayed imaging. She refused IMPRESSION: Nondiagnostic study TECHNICAL DOCUMENTATION: JOB ID: [id number] [employer]- All Rights Reserved
--- NOTE | 2017-06-10 14:09 | PDOC PROGRESS REPORT ---
Subjective Progress Note for:: 06/10/17 Subjective:: Patient was admitted for the management of suspected acute cholecystitis, hypertensive emergency. On admission the CAT scan of the abdomen and pelvis showed distended gallbladder, she was supposed to have a HIDA scan today but she did not cooperate with the cogeneration technician for the procedure. Consultation will be requested from surgery, she has been kept n.p.o. for the last 2 days, she will resume clear liquid diet as tolerated Physical Exam Vital Signs: Temp Pulse Resp BP Pulse Ox 99.0 F 98 16 174/68 H 98 06/10/17 12:18 06/10/17 12:18 06/10/17 12:18 06/10/17 12:18 06/10/17 12:18 Intake & Output 06/09/17 06/10/17 06/11/17 06:59 06:59 06:59 Intake Total 2252 0 Balance 2252 0 Weight 75.8 kg General appearance: PRESENT: mild distress Head exam: PRESENT: atraumatic, normocephalic Eye exam: PRESENT: PERRLA Neck exam: PRESENT: full ROM Respiratory exam: PRESENT: clear to auscultation jamel Cardiovascular exam: PRESENT: RRR, +S1, +S2 Pulses: PRESENT: normal dorsalis pedis pul, +2 pedal pulses bilateral Vascular exam: PRESENT: normal capillary refill GI/Abdominal exam: PRESENT: normal bowel sounds, soft, tenderness - Right upper quadrant of the abdomen Rectal exam: PRESENT: deferred Neurological exam: PRESENT: alert, awake, oriented to person, oriented to place , oriented to time, oriented to situation, CN II-XII grossly intact Psychiatric exam: PRESENT: appropriate affect, normal mood Skin exam: PRESENT: dry, intact, warm Results Laboratory Results: 06/10/17 06:45 06/10/17 06:45 06/10/17 06/10/17 06:45 06:45 WBC 8.5 RBC 3.63 L Hgb 10.8 L Hct 32.2 L MCV 89 MCH 29.8 MCHC 33.6 RDW 16.6 H Plt Count 204 Seg Neutrophils % 69.9 Lymphocytes % 18.3 Monocytes % 10.7 Eosinophils % 0.3 Basophils % 0.8 Absolute Neutrophils 6.0 Absolute Lymphocytes 1.6 Absolute Monocytes 0.9 Absolute Eosinophils 0.0 Absolute Basophils 0.1 Sodium 145.3 H Potassium 3.1 L Chloride 105 Carbon Dioxide 22 Anion Gap 18 BUN 5 L Creatinine 0.66 Est GFR ( Amer) > 60 Est GFR (Non-Af Amer) > 60 Glucose 93 Calcium 7.4 L Total Bilirubin 0.6 AST 15 ALT 23 Alkaline Phosphatase 228 H Total Protein 7.5 Albumin 3.6 Amylase 98 Lipase 55.5 Impressions: Abdomen/Pelvis CT 06/08/17 00:00 IMPRESSION: The gallbladder is distended and there is some thickening of the woody of the gallbladder. The possibility of cholecystitis should be considered. Atrophic right kidney. Urine distended bladder. Other findings as noted above Hepatobiliary Scan Nuclear Medicine 06/10/17 00:00 IMPRESSION: Nondiagnostic study Assessment & Plan - Diagnosis (1) Acute cholecystitis Is this a current diagnosis for this admission?: Yes (2) Hypertensive urgency Is this a current diagnosis for this admission?: Yes (3) Atrophy of right kidney Is this a current diagnosis for this admission?: Yes (4) Hydronephrosis with ureteropelvic junction (UPJ) obstruction Is this a current diagnosis for this admission?: Yes - Plan Summary Plan Summary: 1 surgical consultation ordered #2 reduce IV fluid infusion rate to KVO #3 change diet to clear liquid diet
[2017-06-10] MEDS ORDERED: NORMAL SALINE 1000 ML 1,000 ML IV PRN (14:10)
--- NOTE | 2017-06-10 17:23 | RADIOLOGY REPORT (SQ) ---
EXAM DESCRIPTION: U/S ABDOMEN COMPLETE W/O DOP COMPLETED DATE/TIME: 06/10/2017 5:07 pm REASON FOR STUDY: distended gallbladder on CT - abdominal pain COMPARISON: 09/19/2016 TECHNIQUE: Dynamic and static grayscale images acquired of the abdomen and recorded on PACS. Kori granados selected color Doppler and spectral images recorded. LIMITATIONS: None. FINDINGS: PANCREAS: Poorly seen. LIVER: 12.5 cm. Normal echotexture. LIVER VASCULATURE: Normal directional flow of the main portal vein and hepatic veins. GALLBLADDER: Distended. No stones. There is sludge in the gallbladder. ULTRASOUND-DETECTED NAZARIO'S SIGN: Negative. INTRAHEPATIC DUCTS AND COMMON DUCT: CBD and intrahepatic ducts normal caliber. No filling defects. INFERIOR VENA CAVA: Normal flow. AORTA: The proximal and mid aorta are normal. The distal aorta was obscured by gas. RIGHT KIDNEY: The right kidney appears to be atrophic. Poorly seen. LEFT KIDNEY: Not imaged. SPLEEN: Not imaged. PERITONEAL AND PLEURAL SPACES: No ascites or effusions. OTHER: No other significant finding. IMPRESSION: Limited study because of gas and body habitus. The gallbladder is distended and there i s sludge in the gallbladder. No stones are seen. There is no ductal dilatation. TECHNICAL DOCUMENTATION: JOB ID: [id number]- All Rights Reserved
--- NOTE | 2017-06-10 21:04 | PDOC CONSULTATION ---
History of Present Illness Admission Date/PCP: 06/09/17 15:00 SHARDA MAYS MD Patient complains of: abdominal pain History of Present Illness: NICKO FERRO is a 76 year old female who is admitted via the emergency room to the hospitalist for vomiting and abdominal pain. CT scan of the abdomen and pelvis with IV contrast in the ER done showed distended gallbladder with thickening of the wall of the gallbladder cholecystitis was suspected on the basis of this. Also found was atrophic of the right kidney with right hydronephrosis due to UPJ obstruction. She had an uncompleted HIDA scan today that was unreadable. A consult was placed for surgical evaluation. The patient does have a remote history of gastric surgery for peptic ulcer disease. Past Medical History Cardiac Medical History: Reports: Hypertension, Peripheral Vascular Disease Neurological Medical History: Denies: Seizures Renal/ Medical History: Reports: Other - Atrophic right kidney with hydronephrosis due to UPJ obstruction GI Medical History: Reports: Gastroesophageal Reflux Disease Musculoskeltal Medical History: Reports: Arthritis - failed left hip replacement , Other - Deformity of the left hip, anterolisthesis of L5 in relation to S1 lumbar Psychiatric Medical History: Denies: Depression Past Surgical History Past Surgical History: Reports: Cholecystectomy, Hysterectomy, Orthopedic Surgery - LT HIP REMOVAL OF "HEAD", SCREWS RT HIP, RT KNEE REPLACEMENT Social History Smoking Status: Current Every Day Smoker Frequency of Alcohol Use: None Hx Recreational Drug Use: No Drugs: None Hx Prescription Drug Abuse: No Family History Family History: Reviewed & Not Pertinent Parental Family History Reviewed: No Children Family History Reviewed: No Sibling(s) Family History Reviewed.: No Medication/Allergy Home Medications: Amlodipine Besylate [Norvasc 10 mg Tablet] 10 mg PO DAILY 06/08/17 Clonidine HCl [Catapres 0.2 mg Tablet] 0.2 mg PO Q12 06/08/17 Cyclobenzaprine HCl [Flexeril 10 mg Tablet] 10 mg PO Q8HP PRN 06/08/17 Lipase/Protease/Amylase [Zenpep Dr 15,000 Units Capsule] 3 cap PO MEALS Loperamide HCl [Imodium 2 mg Capsule] 2 mg PO DAILYP PRN 06/08/17 Metoprolol Tartrate [Lopressor 100 mg Tablet] 100 mg PO Q12 06/08/17 Morphine Sulfate/Naltrexone [Embeda ER 50-2 mg Capsule] 1 cap PO DAILY 06/08/17 Ondansetron [Zofran Odt 4 mg Tablet] 4 mg PO Q8HP PRN 06/08/17 Oxycodone HCl [Oxycodone HCl ER] 15 mg PO Q8HP PRN 06/08/17 Pantoprazole Sodium [Protonix] 40 mg PO BID 06/08/17 Valsartan [Diovan] 320 mg PO DAILY 06/08/17 Allergies/Adverse Reactions: sulfamethoxazole [From Bactrim] Allergy (Verified 06/08/17 11:43) trimethoprim [From Bactrim] Allergy (Verified 06/08/17 11:43) Review of Systems Constitutional: ABSENT: chills, fever(s), headache(s), weight gain, weight loss Eyes: ABSENT: visual disturbances Ears: ABSENT: hearing changes Cardiovascular: ABSENT: chest pain, dyspnea on exertion, edema, orthropnea, palpitations Respiratory: ABSENT: cough, hemoptysis Gastrointestinal: PRESENT: abdominal pain Genitourinary: ABSENT: dysuria, hematuria Musculoskeletal: ABSENT: joint swelling Integumentary: ABSENT: rash, wounds Neurological: ABSENT: abnormal gait, abnormal speech, confusion, dizziness, focal weakness, syncope Psychiatric: ABSENT: anxiety, depression, homidical ideation, suicidal ideation Endocrine: ABSENT: cold intolerance, heat intolerance, polydipsia, polyuria Hematologic/Lymphatic: ABSENT: easy bleeding, easy bruising Physical Exam Vital Signs: Temp Pulse Resp BP Pulse Ox 99.2 F 84 16 188/80 H 97 06/10/17 20:00 06/10/17 20:00 06/10/17 20:00 06/10/17 20:00 06/10/17 20:00 Intake & Output 06/09/17 06/10/17 06/11/17 06:59 06:59 06:59 Intake Total 2252 1603 Balance 2252 1603 Weight 75.8 kg General appearance: PRESENT: no acute distress Head exam: PRESENT: atraumatic, normocephalic Eye exam: PRESENT: conjunctiva pink Mouth exam: PRESENT: neck supple Respiratory exam: PRESENT: clear to auscultation jamel Cardiovascular exam: PRESENT: RRR, +S1, +S2 GI/Abdominal exam: PRESENT: other - midline epigastric laparotomy scar extending to the infraumbilical area. she has a curved/twisted torso. No masses palpable, Donovan's - negative. No direct tenderness. No rebound, no guarding Neurological exam: PRESENT: alert, awake, oriented to person, oriented to place , oriented to time, oriented to situation, CN II-XII grossly intact. ABSENT: motor sensory deficit Results Laboratory Results: 06/10/17 06:45 06/10/17 06:45 06/10/17 06/10/17 06:45 06:45 WBC 8.5 RBC 3.63 L Hgb 10.8 L Hct 32.2 L MCV 89 MCH 29.8 MCHC 33.6 RDW 16.6 H Plt Count 204 Seg Neutrophils % 69.9 Lymphocytes % 18.3 Monocytes % 10.7 Eosinophils % 0.3 Basophils % 0.8 Absolute Neutrophils 6.0 Absolute Lymphocytes 1.6 Absolute Monocytes 0.9 Absolute Eosinophils 0.0 Absolute Basophils 0.1 Sodium 145.3 H Potassium 3.1 L Chloride 105 Carbon Dioxide 22 Anion Gap 18 BUN 5 L Creatinine 0.66 Est GFR ( Amer) > 60 Est GFR (Non-Af Amer) > 60 Glucose 93 Calcium 7.4 L Total Bilirubin 0.6 AST 15 ALT 23 Alkaline Phosphatase 228 H Total Protein 7.5 Albumin 3.6 Amylase 98 Lipase 55.5 Impressions: Abdomen/Pelvis CT 06/08/17 00:00 IMPRESSION: The gallbladder is distended and there is some thickening of the woody of the gallbladder. The possibility of cholecystitis should be considered. Atrophic right kidney. Urine distended bladder. Other findings as noted above Abdomen Ultrasound 06/10/17 00:00 IMPRESSION: Limited study because of gas and body habitus. The gallbladder is distended and there is sludge in the gallbladder. No stones are seen. There is no ductal dilatation. Hepatobiliary Scan Nuclear Medicine 06/10/17 00:00 IMPRESSION: Nondiagnostic study Assessment & Plan - Diagnosis (1) Abdominal pain Qualifiers: Abdominal location: epigastric Qualified Code(s): R10.13 - Epigastric pain Plan: Will recommend an abdominal ultrasound for further evaluation of the gallbladder Will also require an EGD given her prior history of peptic ulcer disease.
[2017-06-11] MEDS: MORPHINE SULFATE 10 MG/ML INJ IV PRN ×4 (00:06→21:32)
[2017-06-11] MEDS: ONDANSETRON HCL INJ/PF 4 MG/2 ML SDV IV PRN ×3 (00:07→08:35)
[2017-06-11] MEDS: AMPICILLIN SODIUM/SULBACTAM NA 3 GM in NORMAL SALINE 100 ML IV SCH ×4 (03:48→20:07)
[2017-06-11] MEDS: ENALAPRILAT DIHYDRATE INJ/PF 2.5 MG/2 ML SDV IV SCH ×4 (03:58→20:08)
[2017-06-11] MEDS: HEPARIN SOD (PORCINE) 5,000 UNIT/ML 1 ML SYRINGE SUBCUT SCH ×3 (05:12→21:21)
[2017-06-11 05:24] LABS: ABSOLUTE BASOPHILS # (AUTO) 0.1 10^3/uL (0.0-0.2); ABSOLUTE EOSINOPHILS # (AUTO) 0.1 10^3/uL (0.0-0.6); ABSOLUTE LYMPHOCYTES (AUTO) 1.9 10^3/uL (0.5-4.7); BASOPHILS % (AUTO) 1.2 % (0-2); EOSINOPHILS % (AUTO) 1.2 % (0-6); HEMATOCRIT 34.2 % (36.0-47.0); HEMOGLOBIN 11.6 g/dL (12.0-15.5); HGB HCT DIFFERENCE 0.6; LYMPHOCYTES % (AUTO) 20.4 % (13-45); MEAN CORPUSCULAR HEMOGLOBIN 30.2 pg (27.0-33.4); MEAN CORPUSCULAR HGB CONC 33.9 g/dL (32.0-36.0); MEAN CORPUSCULAR VOLUME 89 fl (80-97); MONOCYTES % (AUTO) 11.3 % (3-13); RED BLOOD COUNT 3.84 10^6/uL (3.72-5.28); RED CELL DISTRIBUTION WIDTH 16.2 % (11.5-14.0); SEGMENTED NEUTROPHILS % (AUTO) 65.9 % (42-78); WHITE BLOOD COUNT 9.1 10^3/uL (4.0-10.5)
[2017-06-11 05:57] LABS: ALANINE AMINOTRANSFERASE 20 U/L (9-52); ALBUMIN 3.8 g/dL (3.5-5.0); ALKALINE PHOSPHATASE 239 U/L (38-126); AMYLASE 81 U/L (30-110); ANION GAP 18 (5-19); ASPARTATE AMINO TRANSFERASE 17 U/L (14-36); BILIRUBIN,DIRECT 0.4 mg/dL (0.0-0.4); BILIRUBIN,TOTAL 0.6 mg/dL (0.2-1.3); BLOOD UREA NITROGEN 7 mg/dL (7-20); CALCIUM 7.5 mg/dL (8.4-10.2); CARBON DIOXIDE 24 mmol/L (22-30); CHLORIDE 104 mmol/L (98-107); CREATININE RESULT 0.78 mg/dL (0.52-1.25); GLUCOSE 81 mg/dL (75-110); SODIUM 145.6 mmol/L (137-145); TOTAL PROTEIN 7.6 g/dL (6.3-8.2)
[2017-06-11 06:02] LABS: POTASSIUM 3.3 mmol/L (3.6-5.0)
[2017-06-11] MEDS ORDERED: POTASSI CL 20 MEQ/50 ML RIDER 20 MEQ/50 ML RTUPB IV SCH (08:16)
[2017-06-11] MEDS ORDERED: CYCLOBENZAPRINE HCL 10 MG TABLET PO PRN (08:17)
[2017-06-11] MEDS ORDERED: (PENDING PHARMACY ID) (Oxycodone Hcl [Oxycodone Hcl Er] 15 MG) PO PRN (08:17)
--- NOTE | 2017-06-11 08:45 | PDOC PROGRESS REPORT ---
Subjective Progress Note for:: 06/11/17 Subjective:: pain upper abdomen Physical Exam Vital Signs: Temp Pulse Resp BP Pulse Ox 99.1 F 99 16 165/88 H 98 06/11/17 07:56 06/11/17 07:56 06/11/17 07:56 06/11/17 07:56 06/11/17 07:56 Intake & Output 06/10/17 06/11/17 06/12/17 06:59 06:59 06:59 Intake Total 2251 2030 Balance 2251 2030 Weight 75.8 kg GI/Abdominal exam: PRESENT: tenderness - tenderness epigastric area no rebound , other Results Laboratory Results: 06/11/17 04:40 06/11/17 04:40 06/11/17 06/11/17 04:40 04:40 WBC 9.1 RBC 3.84 Hgb 11.6 L Hct 34.2 L MCV 89 MCH 30.2 MCHC 33.9 RDW 16.2 H Plt Count 229 Seg Neutrophils % 65.9 Lymphocytes % 20.4 Monocytes % 11.3 Eosinophils % 1.2 Basophils % 1.2 Absolute Neutrophils 6.0 Absolute Lymphocytes 1.9 Absolute Monocytes 1.0 Absolute Eosinophils 0.1 Absolute Basophils 0.1 Sodium 145.6 H Potassium 3.3 L Chloride 104 Carbon Dioxide 24 Anion Gap 18 BUN 7 Creatinine 0.78 Est GFR ( Amer) > 60 Est GFR (Non-Af Amer) > 60 Glucose 81 Calcium 7.5 L Total Bilirubin 0.6 AST 17 ALT 20 Alkaline Phosphatase 239 H Total Protein 7.6 Albumin 3.8 Amylase 81 Lipase 57.0 Impressions: Abdomen/Pelvis CT 06/08/17 00:00 IMPRESSION: The gallbladder is distended and there is some thickening of the woody of the gallbladder. The possibility of cholecystitis should be considered. Atrophic right kidney. Urine distended bladder. Other findings as noted above Abdomen Ultrasound 06/10/17 00:00 IMPRESSION: Limited study because of gas and body habitus. The gallbladder is distended and there is sludge in the gallbladder. No stones are seen. There is no ductal dilatation. Hepatobiliary Scan Nuclear Medicine 06/10/17 00:00 IMPRESSION: Nondiagnostic study Assessment & Plan - Plan Summary Plan Summary: possible cholecystitis Incmplete HIDA Monitor if pain persists will plan for lap trinity
--- NOTE | 2017-06-11 08:46 | PDOC PROGRESS REPORT ---
Subjective Progress Note for:: 06/11/17 Subjective:: Patient is feeling much better. Patient's denied any nausea no vomiting but still some have abdominal discomfort Since seen by general surgery and order the ultrasound of the abdomen and possible endoscopy pt had endoscopy was done in August Dr. Avilez and so some gastritis pt is on currently on all IV medications but currently on a clear liquid diets Physical Exam Vital Signs: Temp Pulse Resp BP Pulse Ox 99.1 F 99 16 165/88 H 98 06/11/17 07:56 06/11/17 07:56 06/11/17 07:56 06/11/17 07:56 06/11/17 07:56 Intake & Output 06/10/17 06/11/17 06/12/17 06:59 06:59 06:59 Intake Total 2251 2030 Balance 2251 2030 Weight 75.8 kg General appearance: PRESENT: no acute distress, well-developed, well-nourished Head exam: PRESENT: atraumatic, normocephalic Eye exam: PRESENT: conjunctiva pink, EOMI, PERRLA. ABSENT: scleral icterus Ear exam: PRESENT: normal external ear exam Mouth exam: PRESENT: moist, tongue midline Neck exam: PRESENT: full ROM. ABSENT: carotid bruit, JVD, lymphadenopathy, thyromegaly Respiratory exam: PRESENT: clear to auscultation jamel Cardiovascular exam: PRESENT: RRR. ABSENT: diastolic murmur, rubs, systolic murmur Pulses: PRESENT: normal dorsalis pedis pul, +2 pedal pulses bilateral Vascular exam: PRESENT: normal capillary refill GI/Abdominal exam: PRESENT: normal bowel sounds, soft. ABSENT: distended, guarding, mass, organolmegaly, rebound, tenderness Rectal exam: PRESENT: deferred Extremities exam: ABSENT: pedal edema Neurological exam: PRESENT: alert, awake, oriented to person, oriented to place , oriented to time, oriented to situation, CN II-XII grossly intact. ABSENT: motor sensory deficit Psychiatric exam: PRESENT: appropriate affect, normal mood. ABSENT: homicidal ideation, suicidal ideation Skin exam: PRESENT: dry, intact, warm. ABSENT: cyanosis, rash Results Laboratory Results: 06/11/17 04:40 06/11/17 04:40 06/11/17 06/11/17 04:40 04:40 WBC 9.1 RBC 3.84 Hgb 11.6 L Hct 34.2 L MCV 89 MCH 30.2 MCHC 33.9 RDW 16.2 H Plt Count 229 Seg Neutrophils % 65.9 Lymphocytes % 20.4 Monocytes % 11.3 Eosinophils % 1.2 Basophils % 1.2 Absolute Neutrophils 6.0 Absolute Lymphocytes 1.9 Absolute Monocytes 1.0 Absolute Eosinophils 0.1 Absolute Basophils 0.1 Sodium 145.6 H Potassium 3.3 L Chloride 104 Carbon Dioxide 24 Anion Gap 18 BUN 7 Creatinine 0.78 Est GFR ( Amer) > 60 Est GFR (Non-Af Amer) > 60 Glucose 81 Calcium 7.5 L Total Bilirubin 0.6 AST 17 ALT 20 Alkaline Phosphatase 239 H Total Protein 7.6 Albumin 3.8 Amylase 81 Lipase 57.0 Impressions: Abdomen/Pelvis CT 06/08/17 00:00 IMPRESSION: The gallbladder is distended and there is some thickening of the woody of the gallbladder. The possibility of cholecystitis should be considered. Atrophic right kidney. Urine distended bladder. Other findings as noted above Abdomen Ultrasound 06/10/17 00:00 IMPRESSION: Limited study because of gas and body habitus. The gallbladder is distended and there is sludge in the gallbladder. No stones are seen. There is no ductal dilatation. Hepatobiliary Scan Nuclear Medicine 06/10/17 00:00 IMPRESSION: Nondiagnostic study Assessment & Plan - Diagnosis (1) Acute cholecystitis Is this a current diagnosis for this admission?: Yes Plan: At this point so patient is currently doing well follow with the general surgery if it is not flowing for any surgery advance the diets (2) Epigastric abdominal pain Is this a current diagnosis for this admission?: Yes Plan: Continues to Protonix 40 mg p.o. twice a day (3) Hypertensive urgency Is this a current diagnosis for this admission?: Yes Plan: While patient is already on a p.o. and no surgery plan at this point restart the all the p.o. medications (4) Essential hypertension Is this a current diagnosis for this admission?: Yes Plan: Restart all p.o. 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
[2017-06-11] MEDS ORDERED: POTASSIUM CHLORIDE 10 MEQ TABLET.SA PO ONE (09:00)
[2017-06-11] MEDS ORDERED: GLYCOPYRROLATE INJ 0.4 MG/2 ML VIAL ONE (09:34)
[2017-06-11] MEDS ORDERED: SUCCINYLCHOLINE CHLORIDE INJ 200 MG/10 ML VIAL ONE (09:34)
[2017-06-11] MEDS ORDERED: LIDOCAINE 2% INJ-PF (20 MG/ML) 2 ML AMPUL ONE (09:34)
[2017-06-11] MEDS ORDERED: NEOSTIGMINE METHYLSULFATE 10 MG/10 ML VIAL ONE (09:34)
[2017-06-11] MEDS ORDERED: ONDANSETRON HCL INJ/PF 4 MG/2 ML SDV ONE (09:34)
[2017-06-11] MEDS ORDERED: METOCLOPRAMIDE HCL INJ/PF 10 MG/2 ML SDV ONE (09:34)
[2017-06-11] MEDS ORDERED: ROCURONIUM BROMIDE INJ 50 MG/5 ML VIAL IV ONE (09:34)
[2017-06-11] MEDS: CLONIDINE HCL 0.2 MG TABLET PO SCH (09:55)
[2017-06-11] MEDS: LANSOPRAZOLE 30 MG TAB.RAP.DR PO SCH (09:56)
[2017-06-11] MEDS: METOPROLOL TARTRATE 100 MG TABLET PO SCH (09:56)
[2017-06-11] MEDS: AMLODIPINE BESYLATE 10 MG TABLET PO SCH (09:56)
[2017-06-11] MEDS: LIPASE/PROTEASE/AMYLASE 1 CAP CAPSULE.DR PO SCH ×3 (11:38)
[2017-06-11] MEDS ORDERED: LIPASE PO SCH (12:00)
[2017-06-11] MEDS ORDERED: PROTEASE PO SCH (12:00)
[2017-06-11] MEDS ORDERED: AMYLASE PO SCH (12:00)
[2017-06-11] MEDS: OXYCODONE HCL IR 5 MG TABLET PO PRN (12:21)
[2017-06-11] MEDS ORDERED: HYDROMORPHONE HCL INJ/PF 2 MG/ML AMPULE ONE ×2 (15:29→15:30)
[2017-06-11] MEDS ORDERED: FENTANYL CITRATE INJ/PF 100 MCG/2 ML AMPUL ONE (15:29)
[2017-06-11] MEDS ORDERED: BUPIVACAINE HCL 0.5%-EPI 1:200000 INJ/PF 30 ML VIAL ONE (15:29)
[2017-06-11] MEDS ORDERED: IBUPROFEN INJ 800 MG/8 ML VIAL IV ONE (15:30)
[2017-06-11] MEDS ORDERED: PROPOFOL INJ 200 MG/20 ML VIAL IV ONE (15:30)
[2017-06-11] MEDS ORDERED: EPHEDRINE SULFATE INJ 50 MG/1 ML AMPULE ONE (15:30)
[2017-06-11] MEDS ORDERED: MIDAZOLAM 2 MG/2 ML INJ ONE (15:30)
[2017-06-11] MEDS ORDERED: FENTANYL CITRATE INJ/PF 100 MCG/2 ML AMPUL IV PRN ×3 (17:34)
[2017-06-11] MEDS ORDERED: PROMETHAZINE HCL INJ 25 MG/1 ML VIAL IV PRN (17:34)
[2017-06-11] MEDS ORDERED: ACETAMINOPHEN 100 ML IV ONE (18:28)
[2017-06-11] MEDS ORDERED: HYDROMORPHONE HCL INJ/PF 2 MG/ML AMPULE IV PRN (18:32)
[2017-06-11] MEDS ORDERED: ONDANSETRON HCL INJ/PF 4 MG/2 ML SDV IV PRN (18:33)
[2017-06-11] MEDS: PANTOPRAZOLE SODIUM 40 MG VIAL IV SCH (19:29)
[2017-06-11] MEDS: NORMAL SALINE 1000 ML 1,000 ML IV PRN (20:09)
[2017-06-11] MEDS: LEVOFLOXACIN 500 MG/D5W RTU 500 MG/100 ML RTUPB IV SCH (21:21)
[2017-06-12] MEDS: MORPHINE SULFATE 10 MG/ML INJ IV PRN ×2 (01:08→05:15)
[2017-06-12] MEDS: AMPICILLIN SODIUM/SULBACTAM NA 3 GM in NORMAL SALINE 100 ML IV SCH ×4 (03:18→20:17)
[2017-06-12] MEDS: ONDANSETRON HCL INJ/PF 4 MG/2 ML SDV IV PRN ×3 (03:19→21:47)
[2017-06-12] MEDS: ENALAPRILAT DIHYDRATE INJ/PF 2.5 MG/2 ML SDV IV SCH ×4 (03:20→20:16)
[2017-06-12] MEDS: PANTOPRAZOLE SODIUM 40 MG VIAL IV SCH (05:15)
[2017-06-12] MEDS: HEPARIN SOD (PORCINE) 5,000 UNIT/ML 1 ML SYRINGE SUBCUT SCH ×2 (05:16→13:38)
[2017-06-12 06:01] LABS: ABSOLUTE LYMPHOCYTES (AUTO) 1.1 10^3/uL (0.5-4.7); ABSOLUTE NEUT (AUTO) 10.1 10^3/uL (1.7-8.2); BASOPHILS % (AUTO) 0.3 % (0-2); HEMATOCRIT 35.1 % (36.0-47.0); HEMOGLOBIN 11.5 g/dL (12.0-15.5); HGB HCT DIFFERENCE -0.6; MEAN CORPUSCULAR HEMOGLOBIN 29.5 pg (27.0-33.4); MEAN CORPUSCULAR HGB CONC 32.9 g/dL (32.0-36.0); MEAN CORPUSCULAR VOLUME 90 fl (80-97); RED BLOOD COUNT 3.92 10^6/uL (3.72-5.28); RED CELL DISTRIBUTION WIDTH 16.2 % (11.5-14.0); SEGMENTED NEUTROPHILS % (AUTO) 82.7 % (42-78); WHITE BLOOD COUNT 12.2 10^3/uL (4.0-10.5)
[2017-06-12 06:19] LABS: ALANINE AMINOTRANSFERASE 45 U/L (9-52); ALBUMIN 3.6 g/dL (3.5-5.0); ALKALINE PHOSPHATASE 222 U/L (38-126); ANION GAP 19 (5-19); ASPARTATE AMINO TRANSFERASE 61 U/L (14-36); BILIRUBIN,DIRECT 0.5 mg/dL (0.0-0.4); BILIRUBIN,TOTAL 0.7 mg/dL (0.2-1.3); BLOOD UREA NITROGEN 9 mg/dL (7-20); CARBON DIOXIDE 19 mmol/L (22-30); CHLORIDE 105 mmol/L (98-107); CREATININE RESULT 0.75 mg/dL (0.52-1.25); GLUCOSE 84 mg/dL (75-110); POTASSIUM 3.6 mmol/L (3.6-5.0); SODIUM 142.5 mmol/L (137-145); TOTAL PROTEIN 7.3 g/dL (6.3-8.2)
--- NOTE | 2017-06-12 09:18 | PDOC PROGRESS REPORT ---
Subjective Progress Note for:: 06/12/17 Subjective:: Patient is currently doing fair And underwent for the lap trinity She is denied any chest pain denied any shortness of the breath Asking for the p.o. pain medications Patient currently taking clear liquid diet Physical Exam Vital Signs: Temp Pulse Resp BP Pulse Ox 98.9 F 112 H 20 179/73 H 94 06/12/17 07:13 06/12/17 07:13 06/12/17 07:13 06/12/17 07:13 06/12/17 07:13 Intake & Output 06/11/17 06/12/17 06/13/17 06:59 06:59 06:59 Intake Total 2030 3641 Output Total 915 Balance 2030 272 Weight 75.9 kg General appearance: PRESENT: no acute distress, well-developed, well-nourished Head exam: PRESENT: atraumatic, normocephalic Eye exam: PRESENT: conjunctiva pink, EOMI, PERRLA. ABSENT: scleral icterus Ear exam: PRESENT: normal external ear exam Mouth exam: PRESENT: moist, tongue midline Neck exam: PRESENT: full ROM. ABSENT: carotid bruit, JVD, lymphadenopathy, thyromegaly Respiratory exam: PRESENT: clear to auscultation jamel Cardiovascular exam: PRESENT: RRR. ABSENT: diastolic murmur, rubs, systolic murmur Pulses: PRESENT: normal dorsalis pedis pul, +2 pedal pulses bilateral Vascular exam: PRESENT: normal capillary refill GI/Abdominal exam: PRESENT: normal bowel sounds, soft. ABSENT: distended, guarding, mass, organolmegaly, rebound, tenderness Additonal comments: Surgical drain is present Rectal exam: PRESENT: deferred Extremities exam: ABSENT: full ROM, left AKA, right AKA, left BKA, right BKA, calf tenderness, joint swelling, pedal edema, tenderness, other Neurological exam: PRESENT: alert, awake, oriented to person, oriented to place , oriented to time, oriented to situation, CN II-XII grossly intact. ABSENT: motor sensory deficit Psychiatric exam: PRESENT: appropriate affect, normal mood. ABSENT: homicidal ideation, suicidal ideation Skin exam: PRESENT: dry, intact, warm. ABSENT: cyanosis, rash Results Laboratory Results: 06/12/17 05:00 06/12/17 05:00 1106/12/17 06/12/17 17:10 05:00 05:00 WBC 12.2 H RBC 3.92 Hgb 11.5 L Hct 35.1 L MCV 90 MCH 29.5 MCHC 32.9 RDW 16.2 H Plt Count 205 Seg Neutrophils % 82.7 H Lymphocytes % 9.0 L Monocytes % 8.0 Eosinophils % 0.0 Basophils % 0.3 Absolute Neutrophils 10.1 H Absolute Lymphocytes 1.1 Absolute Monocytes 1.0 Absolute Eosinophils 0.0 Absolute Basophils 0.0 Sodium 142.5 Potassium 3.6 Chloride 105 Carbon Dioxide 19 L Anion Gap 19 BUN 9 Creatinine 0.75 Est GFR ( Amer) > 60 Est GFR (Non-Af Amer) > 60 Glucose 84 Calcium 7.0 L* Total Bilirubin 0.7 AST 61 H ALT 45 Alkaline Phosphatase 222 H Total Protein 7.3 Albumin 3.6 Lipase 37.0 Blood Type A POSITIVE Antibody Screen NEGATIVE Impressions: Abdomen/Pelvis CT 06/08/17 00:00 IMPRESSION: The gallbladder is distended and there is some thickening of the woody of the gallbladder. The possibility of cholecystitis should be considered. Atrophic right kidney. Urine distended bladder. Other findings as noted above Abdomen Ultrasound 06/10/17 00:00 IMPRESSION: Limited study because of gas and body habitus. The gallbladder is distended and there is sludge in the gallbladder. No stones are seen. There is no ductal dilatation. Hepatobiliary Scan Nuclear Medicine 06/10/17 00:00 IMPRESSION: Nondiagnostic study Assessment & Plan - Diagnosis (1) Acute cholecystitis Is this a current diagnosis for this admission?: Yes Plan: Status post lap trinity follow with the general surgery (2) Epigastric abdominal pain Is this a current diagnosis for this admission?: Yes Plan: Currently all stable continues to Protonix (3) Hypertensive urgency Is this a current diagnosis for this admission?: Yes Plan: As the patient's taking fully p.o. restart all the p.o. blood pressure medications (4) Essential hypertension Is this a current diagnosis for this admission?: Yes Plan: Restart all p.o. 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
[2017-06-12] MEDS: OXYCODONE HCL IR 5 MG TABLET PO PRN ×2 (10:19→18:05)
--- NOTE | 2017-06-12 12:01 | OPERATIVE REPORT E ---
Operative Report NAME: NICKO FERRO : 1940 AGE: 76Y DATE OF SURGERY: 06/11/2017 ROOM: 314 PREOPERATIVE DIAGNOSIS: A 76-year-old female patient with distended obstructed gallbladder, cholecystitis, abdominal pain. POSTOPERATIVE DIAGNOSIS: Acute cholecystitis with obstructed gallbladder, mucosa of the gallbladder with multiple adhesions. OPERATION: 1. Laparoscopic lysis of adhesions. 2. Laparoscopic cholecystectomy. SURGEON: MANNIE ASHFORD M.D. ANESTHESIA: General. ESTIMATED BLOOD LOSS: 10 mL. TISSUE REMOVED OR ALTERED: Gallbladder contents. INDICATIONS: Patient admitted with history of abdominal pain. She has history of cholecystitis and gallbladder problems, history of ERCPs, history of an enlarged common bile duct in the past most likely due to passing of stones. Patient had recurrent gallbladder episodes as well as the patient's abdominal pain. The CT scan revealed a thickened gallbladder wall with distension with a lot of sludge in the gallbladder. She continued to have pain and tenderness in the right upper quadrant area. For that reason, she needed a cholecystectomy. Explained to the patient and patient's family about indications of the operation, risks, benefits and complications including but not limited to infection, bleeding, pain, possibility of bile duct leak following the operation, possibility of further interventions including biliary tract injuries, biliary tract reconstruction, ERCPs, etc. and was taken to the operating room after informed consent. DESCRIPTION OF OPERATION: General anesthesia. Supine position. SCD boots. Abdomen was cleaned and draped for sterile field. The patient basically has a lot of deformity, had to work with quite a bit of positioning. The midabdominal scar where the initial access was right upper quadrant area although laterally with a variation in Optiview we were able to enter the abdominal cavity, peritoneal cavity in a clear area where we determined there were no adhesions. After the 12 mm trocar inserted into the right side subcostal plane where there were no adhesions, we did 2 trocars initially lysed adhesions and one of them in between omentum and abdominal wall. After that, was able to insert the 2 final trocars under clear visualization after lysing omental adhesions, and was able to contain a safe area created for a good operation. The gallbladder was distended, thick walled, including cholecystitis and obstruction. Gallbladder was dissected down from the liver, from the FUNDUS down. Once we reached the gallbladder neck, carefully from the cystic artery, small branch. It was divided between the Hem-o-lock clips and . The cystic duct was really long. It was dissected all around up to the gallbladder neck. Then close to the gallbladder neck, it was divided and then cystic duct stump was double ligated with a 0 looped PDS and also Vicryl. Afterwards, the gallbladder was decompressed. Abdominal cavity copiously irrigated and suctioned out completely, found to be hemostatic. No bile leaks. All clear. Then a #15 Lee drain inserted in the subcostal plane on the right side and brought out through a 5 mm . All the trocars . Closure was 0 Vicryl for fascia, 3-0 and 4-0 Monocryl for the skin. The patient was stable . The patient did not encounter any problems. She was taken to recovery room in stable condition. DICTATING PHYSICIAN: MANNIE ASHFORD M.D. [id number] PHY#: [id number] ID: [id number] JOB#: [id number] ACCT: [id number] cc:MANNIE ASHFORD M.D. > MTDD
--- NOTE | 2017-06-12 13:29 | PDOC PROGRESS REPORT ---
Subjective Progress Note for:: 06/12/17 Subjective:: FEELING BETTER Physical Exam Vital Signs: Temp Pulse Resp BP Pulse Ox 98.9 F 112 H 20 179/73 H 94 06/12/17 07:13 06/12/17 07:13 06/12/17 07:13 06/12/17 07:13 06/12/17 07:13 Intake & Output 06/11/17 06/12/17 06/13/17 06:59 06:59 06:59 Intake Total 2030 3641 100 Output Total 915 Balance 2030 2726 100 Weight 75.9 kg GI/Abdominal exam: PRESENT: other - aBDOMEN SOFT NOn tender BETY drain - serous Results Laboratory Results: 06/12/17 05:00 06/12/17 05:00 06/11/17 06/12/17 06/12/17 17:10 05:00 05:00 WBC 12.2 H RBC 3.92 Hgb 11.5 L Hct 35.1 L MCV 90 MCH 29.5 MCHC 32.9 RDW 16.2 H Plt Count 205 Seg Neutrophils % 82.7 H Lymphocytes % 9.0 L Monocytes % 8.0 Eosinophils % 0.0 Basophils % 0.3 Absolute Neutrophils 10.1 H Absolute Lymphocytes 1.1 Absolute Monocytes 1.0 Absolute Eosinophils 0.0 Absolute Basophils 0.0 Sodium 142.5 Potassium 3.6 Chloride 105 Carbon Dioxide 19 L Anion Gap 19 BUN 9 Creatinine 0.75 Est GFR ( Amer) > 60 Est GFR (Non-Af Amer) > 60 Glucose 84 Calcium 7.0 L* Total Bilirubin 0.7 AST 61 H ALT 45 Alkaline Phosphatase 222 H Total Protein 7.3 Albumin 3.6 Lipase 37.0 Blood Type A POSITIVE Antibody Screen NEGATIVE Impressions: Abdomen/Pelvis CT 06/08/17 00:00 IMPRESSION: The gallbladder is distended and there is some thickening of the woody of the gallbladder. The possibility of cholecystitis should be considered. Atrophic right kidney. Urine distended bladder. Other findings as noted above Abdomen Ultrasound 06/10/17 00:00 IMPRESSION: Limited study because of gas and body habitus. The gallbladder is distended and there is sludge in the gallbladder. No stones are seen. There is no ductal dilatation. Hepatobiliary Scan Nuclear Medicine 06/10/17 00:00 IMPRESSION: Nondiagnostic study Assessment & Plan - Plan Summary Plan Summary: Post op Lap trinity , lysis of adhesions Doing well
[2017-06-12] MEDS: NORMAL SALINE 1000 ML 1,000 ML IV PRN (15:03)
[2017-06-12 15:45] LABS: ABSOLUTE LYMPHOCYTES (AUTO) 1.3 10^3/uL (0.5-4.7); ABSOLUTE MONOCYTES (AUTO) 1.1 10^3/uL (0.1-1.4); BASOPHILS % (AUTO) 0.3 % (0-2); EOSINOPHILS % (AUTO) 0.1 % (0-6); HEMATOCRIT 35.1 % (36.0-47.0); HEMOGLOBIN 11.5 g/dL (12.0-15.5); HGB HCT DIFFERENCE -0.6; LYMPHOCYTES % (AUTO) 10.5 % (13-45); MEAN CORPUSCULAR HEMOGLOBIN 29.4 pg (27.0-33.4); MEAN CORPUSCULAR HGB CONC 32.9 g/dL (32.0-36.0); MEAN CORPUSCULAR VOLUME 89 fl (80-97); MONOCYTES % (AUTO) 8.9 % (3-13); RED BLOOD COUNT 3.93 10^6/uL (3.72-5.28); RED CELL DISTRIBUTION WIDTH 16.4 % (11.5-14.0); SEGMENTED NEUTROPHILS % (AUTO) 80.2 % (42-78); WHITE BLOOD COUNT 12.5 10^3/uL (4.0-10.5)
[2017-06-12 16:01] LABS: ALANINE AMINOTRANSFERASE 39 U/L (9-52); ALBUMIN 3.5 g/dL (3.5-5.0); ALKALINE PHOSPHATASE 215 U/L (38-126); ASPARTATE AMINO TRANSFERASE 39 U/L (14-36); BILIRUBIN,DIRECT 0.5 mg/dL (0.0-0.4); BILIRUBIN,TOTAL 0.7 mg/dL (0.2-1.3); TOTAL PROTEIN 6.8 g/dL (6.3-8.2)
[2017-06-12] MEDS: LIPASE/PROTEASE/AMYLASE 1 CAP CAPSULE.DR PO SCH ×3 (16:47)
[2017-06-12] MEDS ORDERED: VALSARTAN 160 MG TABLET PO ONE (18:00)
[2017-06-12] MEDS: ENOXAPARIN SODIUM INJ 30 MG/0.3 ML DISP.SYRIN SUBCUT SCH (18:08)
[2017-06-12] MEDS: CLONIDINE HCL 0.2 MG TABLET PO SCH (21:15)
[2017-06-12] MEDS: METOPROLOL TARTRATE 100 MG TABLET PO SCH (21:15)
[2017-06-12] MEDS: LEVOFLOXACIN 500 MG/D5W RTU 500 MG/100 ML RTUPB IV SCH (22:50)
[2017-06-13] MEDS: ENALAPRILAT DIHYDRATE INJ/PF 2.5 MG/2 ML SDV IV SCH ×2 (02:05→08:55)
[2017-06-13] MEDS: AMPICILLIN SODIUM/SULBACTAM NA 3 GM in NORMAL SALINE 100 ML IV SCH ×4 (02:08→20:25)
[2017-06-13] MEDS: OXYCODONE HCL IR 5 MG TABLET PO PRN ×3 (02:09→20:23)
[2017-06-13] MEDS: LABETALOL HCL INJ 20 MG/4 ML DISP.SYRIN IV PRN (04:56)
[2017-06-13 07:38] LABS: ABSOLUTE BASOPHILS # (AUTO) 0.1 10^3/uL (0.0-0.2); ABSOLUTE LYMPHOCYTES (AUTO) 1.4 10^3/uL (0.5-4.7); ABSOLUTE MONOCYTES (AUTO) 0.9 10^3/uL (0.1-1.4); BASOPHILS % (AUTO) 0.5 % (0-2); EOSINOPHILS % (AUTO) 0.4 % (0-6); HEMATOCRIT 32.9 % (36.0-47.0); HEMOGLOBIN 10.8 g/dL (12.0-15.5); HGB HCT DIFFERENCE -0.5; MEAN CORPUSCULAR HEMOGLOBIN 29.3 pg (27.0-33.4); MEAN CORPUSCULAR HGB CONC 32.9 g/dL (32.0-36.0); MEAN CORPUSCULAR VOLUME 89 fl (80-97); MONOCYTES % (AUTO) 7.9 % (3-13); RED BLOOD COUNT 3.68 10^6/uL (3.72-5.28); RED CELL DISTRIBUTION WIDTH 16.3 % (11.5-14.0); SEGMENTED NEUTROPHILS % (AUTO) 79.2 % (42-78); WHITE BLOOD COUNT 11.4 10^3/uL (4.0-10.5)
[2017-06-13 07:50] LABS: ALANINE AMINOTRANSFERASE 37 U/L (9-52); ALBUMIN 3.2 g/dL (3.5-5.0); ALKALINE PHOSPHATASE 190 U/L (38-126); ANION GAP 15 (5-19); ASPARTATE AMINO TRANSFERASE 21 U/L (14-36); BILIRUBIN,DIRECT 0.5 mg/dL (0.0-0.4); BILIRUBIN,TOTAL 0.6 mg/dL (0.2-1.3); BLOOD UREA NITROGEN 8 mg/dL (7-20); CALCIUM 7.4 mg/dL (8.4-10.2); CARBON DIOXIDE 22 mmol/L (22-30); CHLORIDE 105 mmol/L (98-107); CREATININE RESULT 0.73 mg/dL (0.52-1.25); GLUCOSE 121 mg/dL (75-110); POTASSIUM 3.1 mmol/L (3.6-5.0); SODIUM 141.6 mmol/L (137-145); TOTAL PROTEIN 6.9 g/dL (6.3-8.2)
[2017-06-13] MEDS: LIPASE/PROTEASE/AMYLASE 1 CAP CAPSULE.DR PO SCH ×9 (08:54→17:59)
[2017-06-13] MEDS: ENOXAPARIN SODIUM INJ 30 MG/0.3 ML DISP.SYRIN SUBCUT SCH (08:55)
[2017-06-13] MEDS: ONDANSETRON HCL INJ/PF 4 MG/2 ML SDV IV PRN (09:06)
--- NOTE | 2017-06-13 09:20 | PDOC PROGRESS REPORT ---
Subjective Progress Note for:: 06/13/17 Subjective:: Patient is currently doing fair Patient's denied any chest pain denied any shortness of the breath Since for some nauseating but no abdominal pain She is currently on a clear liquid diets Physical Exam Vital Signs: Temp Pulse Resp BP Pulse Ox 98.4 F 102 H 18 160/60 H 90 L 06/13/17 08:14 06/13/17 08:14 06/13/17 08:14 06/13/17 08:14 06/13/17 08:14 Intake & Output 06/12/17 06/13/17 06/14/17 06:59 06:59 06:59 Intake Total 3641 2701 Output Total 915 25 15 Balance 5166 2676 -15 Weight 75.9 kg 76.2 kg General appearance: PRESENT: no acute distress, well-developed, well-nourished Head exam: PRESENT: atraumatic, normocephalic Eye exam: PRESENT: conjunctiva pink, EOMI, PERRLA. ABSENT: scleral icterus Ear exam: PRESENT: normal external ear exam Mouth exam: PRESENT: moist, tongue midline Neck exam: PRESENT: full ROM. ABSENT: carotid bruit, JVD, lymphadenopathy, thyromegaly Respiratory exam: PRESENT: clear to auscultation jamel Cardiovascular exam: PRESENT: RRR. ABSENT: diastolic murmur, rubs, systolic murmur Pulses: PRESENT: normal dorsalis pedis pul, +2 pedal pulses bilateral Vascular exam: PRESENT: normal capillary refill GI/Abdominal exam: PRESENT: normal bowel sounds, soft. ABSENT: distended, guarding, mass, organolmegaly, rebound, tenderness Additonal comments: Surgical drain is present Rectal exam: PRESENT: deferred Neurological exam: PRESENT: alert, awake, oriented to person, oriented to place , oriented to time, oriented to situation, CN II-XII grossly intact. ABSENT: motor sensory deficit Psychiatric exam: PRESENT: appropriate affect, normal mood. ABSENT: homicidal ideation, suicidal ideation Skin exam: PRESENT: dry, intact, warm. ABSENT: cyanosis, rash Results Laboratory Results: 06/13/17 07:10 06/13/17 07:10 06/12/17 06/12/17 06/13/17 15:15 15:15 07:10 WBC 12.5 H 11.4 H RBC 3.93 3.68 L Hgb 11.5 L 10.8 L Hct 35.1 L 32.9 L MCV 89 89 MCH 29.4 29.3 MCHC 32.9 32.9 RDW 16.4 H 16.3 H Plt Count 211 191 Seg Neutrophils % 80.2 H 79.2 H Lymphocytes % 10.5 L 12.0 L Monocytes % 8.9 7.9 Eosinophils % 0.1 0.4 Basophils % 0.3 0.5 Absolute Neutrophils 10.0 H 9.0 H Absolute Lymphocytes 1.3 1.4 Absolute Monocytes 1.1 0.9 Absolute Eosinophils 0.0 0.0 Absolute Basophils 0.0 0.1 Sodium Potassium Chloride Carbon Dioxide Anion Gap BUN Creatinine Est GFR ( Amer) Est GFR (Non-Af Amer) Glucose Calcium Total Bilirubin 0.7 AST 39 H ALT 39 Alkaline Phosphatase 215 H Total Protein 6.8 Albumin 3.5 06/13/17 07:10 WBC RBC Hgb Hct MCV MCH MCHC RDW Plt Count Seg Neutrophils % Lymphocytes % Monocytes % Eosinophils % Basophils % Absolute Neutrophils Absolute Lymphocytes Absolute Monocytes Absolute Eosinophils Absolute Basophils Sodium 141.6 Potassium 3.1 L Chloride 105 Carbon Dioxide 22 Anion Gap 15 BUN 8 Creatinine 0.73 Est GFR ( Amer) > 60 Est GFR (Non-Af Amer) > 60 Glucose 121 H Calcium 7.4 L Total Bilirubin 0.6 AST 21 ALT 37 Alkaline Phosphatase 190 H Total Protein 6.9 Albumin 3.2 L Impressions: Abdomen/Pelvis CT 06/08/17 00:00 IMPRESSION: The gallbladder is distended and there is some thickening of the woody of the gallbladder. The possibility of cholecystitis should be considered. Atrophic right kidney. Urine distended bladder. Other findings as noted above Abdomen Ultrasound 06/10/17 00:00 IMPRESSION: Limited study because of gas and body habitus. The gallbladder is distended and there is sludge in the gallbladder. No stones are seen. There is no ductal dilatation. Hepatobiliary Scan Nuclear Medicine 06/10/17 00:00 IMPRESSION: Nondiagnostic study Assessment & Plan - Diagnosis (1) Acute cholecystitis Is this a current diagnosis for this admission?: Yes Plan: Status post surgery Follow with the general surgery and advance the diet (2) Epigastric abdominal pain Is this a current diagnosis for this admission?: Yes Plan: Currently all stable continues to Protonix (3) Hypertensive urgency Is this a current diagnosis for this admission?: Yes Plan: We will resume all p.o. medications (4) Essential hypertension Is this a current diagnosis for this admission?: Yes Plan: Restart all p.o. medications (5) Chronic pain syndrome Is this a current diagnosis for this admission?: Yes Plan: Patient is currently taking the pain medications for pain management will continues the pain medications - Time Time Spent with patient: 15-24 minutes Medications reviewed and adjusted accordingly: Yes Anticipated discharge: Home Within: Other - Inpatient Certification Medical Necessity: Need Close Monitoring Due to Risk of Patient Decompensation, Need For IV Fluids Post Hospital Care: D/C Bookmaker Map Documentation - Plan Summary Plan Summary: We will replace the potassiums Advance the diet With general surgery
[2017-06-13] MEDS: VALSARTAN 160 MG TABLET PO SCH (10:53)
[2017-06-13] MEDS: AMLODIPINE BESYLATE 10 MG TABLET PO SCH (10:55)
[2017-06-13] MEDS: METOPROLOL TARTRATE 100 MG TABLET PO SCH ×2 (10:55→21:41)
[2017-06-13] MEDS: LANSOPRAZOLE 30 MG TAB.RAP.DR PO SCH (10:55)
[2017-06-13] MEDS: CLONIDINE HCL 0.2 MG TABLET PO SCH ×2 (10:55→21:42)
[2017-06-13] MEDS: POTASSI CL 20 MEQ/50 ML RIDER 20 MEQ/50 ML RTUPB IV SCH ×2 (10:56→12:56)
--- NOTE | 2017-06-13 15:23 | PDOC PROGRESS REPORT ---
Subjective Progress Note for:: 06/13/17 Subjective:: feeling better Physical Exam Vital Signs: Temp Pulse Resp BP Pulse Ox 98.2 F 102 H 16 165/76 H 93 06/13/17 11:26 06/13/17 11:26 06/13/17 11:26 06/13/17 11:26 06/13/17 11:26 Intake & Output 06/12/17 06/13/17 06/14/17 06:59 06:59 06:59 Intake Total 3641 2701 290 Output Total 915 25 15 Balance 2726 2676 275 Weight 75.9 kg 76.2 kg GI/Abdominal exam: PRESENT: other - Soft, non tender BETY dran - serous Results Laboratory Results: 06/13/17 07:10 06/13/17 07:10 06/12/17 06/12/17 06/13/17 15:15 15:15 07:10 WBC 12.5 H 11.4 H RBC 3.93 3.68 L Hgb 11.5 L 10.8 L Hct 35.1 L 32.9 L MCV 89 89 MCH 29.4 29.3 MCHC 32.9 32.9 RDW 16.4 H 16.3 H Plt Count 211 191 Seg Neutrophils % 80.2 H 79.2 H Lymphocytes % 10.5 L 12.0 L Monocytes % 8.9 7.9 Eosinophils % 0.1 0.4 Basophils % 0.3 0.5 Absolute Neutrophils 10.0 H 9.0 H Absolute Lymphocytes 1.3 1.4 Absolute Monocytes 1.1 0.9 Absolute Eosinophils 0.0 0.0 Absolute Basophils 0.0 0.1 Sodium Potassium Chloride Carbon Dioxide Anion Gap BUN Creatinine Est GFR ( Amer) Est GFR (Non-Af Amer) Glucose Calcium Total Bilirubin 0.7 AST 39 H ALT 39 Alkaline Phosphatase 215 H Total Protein 6.8 Albumin 3.5 06/13/17 07:10 WBC RBC Hgb Hct MCV MCH MCHC RDW Plt Count Seg Neutrophils % Lymphocytes % Monocytes % Eosinophils % Basophils % Absolute Neutrophils Absolute Lymphocytes Absolute Monocytes Absolute Eosinophils Absolute Basophils Sodium 141.6 Potassium 3.1 L Chloride 105 Carbon Dioxide 22 Anion Gap 15 BUN 8 Creatinine 0.73 Est GFR ( Amer) > 60 Est GFR (Non-Af Amer) > 60 Glucose 121 H Calcium 7.4 L Total Bilirubin 0.6 AST 21 ALT 37 Alkaline Phosphatase 190 H Total Protein 6.9 Albumin 3.2 L Impressions: Abdomen/Pelvis CT 06/08/17 00:00 IMPRESSION: The gallbladder is distended and there is some thickening of the woody of the gallbladder. The possibility of cholecystitis should be considered. Atrophic right kidney. Urine distended bladder. Other findings as noted above Abdomen Ultrasound 06/10/17 00:00 IMPRESSION: Limited study because of gas and body habitus. The gallbladder is distended and there is sludge in the gallbladder. No stones are seen. There is no ductal dilatation. Hepatobiliary Scan Nuclear Medicine 06/10/17 00:00 IMPRESSION: Nondiagnostic study Assessment & Plan - Plan Summary Plan Summary: s/p laparoscopic cholecysctomy Doing well DC BETY drain May DC home from surgical point FU in 2 weeks in Surgical clinic
[2017-06-13] MEDS: LEVOFLOXACIN 500 MG/D5W RTU 500 MG/100 ML RTUPB IV SCH (21:43)
[2017-06-14] MEDS: ONDANSETRON HCL INJ/PF 4 MG/2 ML SDV IV PRN ×3 (00:40→20:16)
[2017-06-14] MEDS: AMPICILLIN SODIUM/SULBACTAM NA 3 GM in NORMAL SALINE 100 ML IV SCH ×2 (02:08→09:00)
[2017-06-14] MEDS: OXYCODONE HCL IR 5 MG TABLET PO PRN ×3 (04:29→22:38)
[2017-06-14 06:38] LABS: ANION GAP 14 (5-19); BLOOD UREA NITROGEN 12 mg/dL (7-20); CALCIUM 7.3 mg/dL (8.4-10.2); CARBON DIOXIDE 20 mmol/L (22-30); CHLORIDE 108 mmol/L (98-107); CREATININE RESULT 0.85 mg/dL (0.52-1.25); GLUCOSE 97 mg/dL (75-110); POTASSIUM 3.7 mmol/L (3.6-5.0); SODIUM 142.1 mmol/L (137-145)
[2017-06-14 07:01] LABS: ABSOLUTE BASOPHILS # (AUTO) 0.1 10^3/uL (0.0-0.2); ABSOLUTE EOSINOPHILS # (AUTO) 0.2 10^3/uL (0.0-0.6); ABSOLUTE LYMPHOCYTES (AUTO) 2.2 10^3/uL (0.5-4.7); ABSOLUTE NEUT (AUTO) 7.8 10^3/uL (1.7-8.2); BASOPHILS % (AUTO) 0.9 % (0-2); EOSINOPHILS % (AUTO) 1.6 % (0-6); HEMATOCRIT 30.4 % (36.0-47.0); HGB HCT DIFFERENCE -0.4; LYMPHOCYTES % (AUTO) 19.6 % (13-45); MEAN CORPUSCULAR HEMOGLOBIN 29.7 pg (27.0-33.4); MEAN CORPUSCULAR VOLUME 90 fl (80-97); MONOCYTES % (AUTO) 8.5 % (3-13); RED BLOOD COUNT 3.38 10^6/uL (3.72-5.28); RED CELL DISTRIBUTION WIDTH 16.8 % (11.5-14.0); SEGMENTED NEUTROPHILS % (AUTO) 69.4 % (42-78); WHITE BLOOD COUNT 11.3 10^3/uL (4.0-10.5)
[2017-06-14] MEDS: LIPASE/PROTEASE/AMYLASE 1 CAP CAPSULE.DR PO SCH ×9 (08:24→17:46)
[2017-06-14] MEDS: ENOXAPARIN SODIUM INJ 30 MG/0.3 ML DISP.SYRIN SUBCUT SCH (08:24)
--- NOTE | 2017-06-14 09:17 | PDOC PROGRESS REPORT ---
Subjective Progress Note for:: 06/14/17 Subjective:: Patient is currently doing fair patient's denied any abdominal pain No nausea no vomiting Patient's blood pressures under well control Is currently living with her daughter but patient is unable to walk patients wants to go home tomorrow not today to make some management Physical Exam Vital Signs: Temp Pulse Resp BP Pulse Ox 98.6 F 96 17 143/62 H 93 06/14/17 08:14 06/14/17 08:14 06/14/17 08:14 06/14/17 08:14 06/14/17 08:14 Intake & Output 06/13/17 06/14/17 06/15/17 06:59 06:59 06:59 Intake Total 2702059 Output Total 25 15 Balance 2672044 Weight 76.2 kg 80 kg General appearance: PRESENT: no acute distress, well-developed, well-nourished Head exam: PRESENT: atraumatic, normocephalic Eye exam: PRESENT: conjunctiva pink, EOMI, PERRLA. ABSENT: scleral icterus Ear exam: PRESENT: normal external ear exam Mouth exam: PRESENT: moist, tongue midline Neck exam: PRESENT: full ROM. ABSENT: carotid bruit, JVD, lymphadenopathy, thyromegaly Respiratory exam: PRESENT: clear to auscultation jamel Cardiovascular exam: PRESENT: RRR. ABSENT: diastolic murmur, rubs, systolic murmur Pulses: PRESENT: normal dorsalis pedis pul, +2 pedal pulses bilateral Vascular exam: PRESENT: normal capillary refill GI/Abdominal exam: PRESENT: normal bowel sounds, soft. ABSENT: distended, guarding, mass, organolmegaly, rebound, tenderness Rectal exam: PRESENT: deferred Neurological exam: PRESENT: alert, awake, oriented to person, oriented to place , oriented to time, oriented to situation, CN II-XII grossly intact. ABSENT: motor sensory deficit Psychiatric exam: PRESENT: appropriate affect, normal mood. ABSENT: homicidal ideation, suicidal ideation Skin exam: PRESENT: dry, intact, warm. ABSENT: cyanosis, rash Results Laboratory Results: 06/14/17 06:49 06/14/17 06:00 06/14/17 06/14/17 06:00 06:49 WBC 11.3 H RBC 3.38 L Hgb 10.0 L Hct 30.4 L MCV 90 MCH 29.7 MCHC 33.0 RDW 16.8 H Plt Count 189 Seg Neutrophils % 69.4 Lymphocytes % 19.6 Monocytes % 8.5 Eosinophils % 1.6 Basophils % 0.9 Absolute Neutrophils 7.8 Absolute Lymphocytes 2.2 Absolute Monocytes 1.0 Absolute Eosinophils 0.2 Absolute Basophils 0.1 Sodium 142.1 Potassium 3.7 Chloride 108 H Carbon Dioxide 20 L Anion Gap 14 BUN 12 Creatinine 0.85 Est GFR ( Amer) > 60 Est GFR (Non-Af Amer) > 60 Glucose 97 Calcium 7.3 L Impressions: Abdomen/Pelvis CT 06/08/17 00:00 IMPRESSION: The gallbladder is distended and there is some thickening of the woody of the gallbladder. The possibility of cholecystitis should be considered. Atrophic right kidney. Urine distended bladder. Other findings as noted above Abdomen Ultrasound 06/10/17 00:00 IMPRESSION: Limited study because of gas and body habitus. The gallbladder is distended and there is sludge in the gallbladder. No stones are seen. There is no ductal dilatation. Hepatobiliary Scan Nuclear Medicine 06/10/17 00:00 IMPRESSION: Nondiagnostic study Assessment & Plan - Diagnosis (1) Acute cholecystitis Is this a current diagnosis for this admission?: Yes Plan: Patient is currently doing fair (2) Epigastric abdominal pain Is this a current diagnosis for this admission?: Yes Plan: all resolved (3) Hypertensive urgency Is this a current diagnosis for this admission?: Yes Plan: We will resume all p.o. medications (4) Essential hypertension Is this a current diagnosis for this admission?: Yes Plan: Restart all p.o. medications (5) Chronic pain syndrome Is this a current diagnosis for this admission?: Yes Plan: Patient is currently taking the pain medications for pain management will continues the pain medications - Time Time Spent with patient: 15-24 minutes Medications reviewed and adjusted accordingly: Yes Anticipated discharge: Home Within: within 24 hours - Inpatient Certification Medical Necessity: Need Close Monitoring Due to Risk of Patient Decompensation Post Hospital Care: D/C Nutrition Instructor Documentation - Plan Summary Plan Summary: Currently doing well
[2017-06-14] MEDS: LEVOFLOXACIN 500 MG TABLET PO SCH (09:57)
[2017-06-14] MEDS: METOPROLOL TARTRATE 100 MG TABLET PO SCH ×2 (09:57→22:38)
[2017-06-14] MEDS: AMLODIPINE BESYLATE 10 MG TABLET PO SCH (09:58)
[2017-06-14] MEDS: LANSOPRAZOLE 30 MG TAB.RAP.DR PO SCH (09:58)
[2017-06-14] MEDS: CLONIDINE HCL 0.2 MG TABLET PO SCH ×2 (09:58→22:37)
[2017-06-14] MEDS: VALSARTAN 160 MG TABLET PO SCH (10:00)
[2017-06-15 07:08] LABS: ANION GAP 15 (5-19); BLOOD UREA NITROGEN 12 mg/dL (7-20); CALCIUM 7.7 mg/dL (8.4-10.2); CARBON DIOXIDE 18 mmol/L (22-30); CHLORIDE 109 mmol/L (98-107); CREATININE RESULT 0.84 mg/dL (0.52-1.25); GLUCOSE 99 mg/dL (75-110); POTASSIUM 4.2 mmol/L (3.6-5.0); SODIUM 141.5 mmol/L (137-145)
[2017-06-15] MEDS: LIPASE/PROTEASE/AMYLASE 1 CAP CAPSULE.DR PO SCH ×9 (08:48→17:26)
[2017-06-15] MEDS: ENOXAPARIN SODIUM INJ 30 MG/0.3 ML DISP.SYRIN SUBCUT SCH (08:48)
[2017-06-15] MEDS: VALSARTAN 160 MG TABLET PO SCH (10:35)
[2017-06-15] MEDS: OXYCODONE HCL IR 5 MG TABLET PO PRN ×2 (10:35→18:46)
[2017-06-15] MEDS: CLONIDINE HCL 0.2 MG TABLET PO SCH ×2 (10:36→21:41)
[2017-06-15] MEDS: LANSOPRAZOLE 30 MG TAB.RAP.DR PO SCH (10:36)
[2017-06-15] MEDS: METOPROLOL TARTRATE 100 MG TABLET PO SCH ×2 (10:36→21:40)
[2017-06-15] MEDS: LEVOFLOXACIN 500 MG TABLET PO SCH (10:36)
[2017-06-15] MEDS: AMLODIPINE BESYLATE 10 MG TABLET PO SCH (10:37)
[2017-06-15] MEDS: ONDANSETRON HCL INJ/PF 4 MG/2 ML SDV IV PRN (14:24)
--- NOTE | 2017-06-15 21:21 | PDOC PROGRESS REPORT ---
Subjective Progress Note for:: 06/15/17 Subjective:: Patient was seen by the bedside, she is status post laparoscopic cholecystectomy Reason For Visit: PROBABLE CHOLECYSTITIS,HTN,N/V Physical Exam Vital Signs: Temp Pulse Resp BP Pulse Ox 99.2 F 87 20 131/73 H 97 06/15/17 20:59 06/15/17 20:59 06/15/17 20:59 06/15/17 20:59 06/15/17 20:59 Intake & Output 06/14/17 06/15/17 06/16/17 06:59 06:59 06:59 Intake Total 0 705 220 Output Total 15 Balance 2044 705 220 Weight 80 kg 79.9 kg General appearance: PRESENT: no acute distress, well-developed, well-nourished Head exam: PRESENT: atraumatic, normocephalic Eye exam: PRESENT: conjunctiva pink, EOMI, PERRLA Ear exam: PRESENT: normal external ear exam Mouth exam: PRESENT: moist, tongue midline Neck exam: PRESENT: full ROM Respiratory exam: PRESENT: clear to auscultation jamel Cardiovascular exam: PRESENT: RRR, +S1, +S2 Pulses: PRESENT: normal dorsalis pedis pul, +2 pedal pulses bilateral Vascular exam: PRESENT: normal capillary refill GI/Abdominal exam: PRESENT: normal bowel sounds, soft Rectal exam: PRESENT: deferred Neurological exam: PRESENT: alert, awake, oriented to person, oriented to place , oriented to time, oriented to situation, CN II-XII grossly intact Psychiatric exam: PRESENT: appropriate affect, normal mood Skin exam: PRESENT: dry, intact, warm Results Laboratory Results: 06/14/17 06:49 06/15/17 06:36 06/15/17 06:36 Sodium 141.5 Potassium 4.2 Chloride 109 H Carbon Dioxide 18 L Anion Gap 15 BUN 12 Creatinine 0.84 Est GFR ( Amer) > 60 Est GFR (Non-Af Amer) > 60 Glucose 99 Calcium 7.7 L Impressions: Abdomen/Pelvis CT 06/08/17 00:00 IMPRESSION: The gallbladder is distended and there is some thickening of the woody of the gallbladder. The possibility of cholecystitis should be considered. Atrophic right kidney. Urine distended bladder. Other findings as noted above Abdomen Ultrasound 06/10/17 00:00 IMPRESSION: Limited study because of gas and body habitus. The gallbladder is distended and there is sludge in the gallbladder. No stones are seen. There is no ductal dilatation. Hepatobiliary Scan Nuclear Medicine 06/10/17 00:00 IMPRESSION: Nondiagnostic study Assessment & Plan - Diagnosis (1) Acute cholecystitis Is this a current diagnosis for this admission?: Yes (2) Hypertensive urgency Is this a current diagnosis for this admission?: Yes (3) Atrophy of right kidney Is this a current diagnosis for this admission?: Yes (4) Hydronephrosis with ureteropelvic junction (UPJ) obstruction Is this a current diagnosis for this admission?: Yes
--- NOTE | 2017-06-15 21:30 | PDOC DISCHARGE SUMMARY ---
General - Admit/Disc Date/PCP Admission Date/Primary Care Provider: 06/09/17 15:00 SHARDA MAYS MD Discharge Date: 06/15/17 - Discharge Diagnosis (1) Acute cholecystitis Is this a current diagnosis for this admission?: Yes (2) Hypertensive urgency Is this a current diagnosis for this admission?: Yes (3) Atrophy of right kidney Is this a current diagnosis for this admission?: Yes (4) Hydronephrosis with ureteropelvic junction (UPJ) obstruction Is this a current diagnosis for this admission?: Yes - Additional Information Resuscitation Status: Full Code Discharge Diet: As Tolerated Home Medications: Amlodipine Besylate [Norvasc 10 mg Tablet] 10 mg PO DAILY 06/08/17 Clonidine HCl [Catapres 0.2 mg Tablet] 0.2 mg PO Q12 06/08/17 Cyclobenzaprine HCl [Flexeril 10 mg Tablet] 10 mg PO Q8HP PRN 06/08/17 Lipase/Protease/Amylase [Zenpep Dr 15,000 Units Capsule] 3 cap PO MEALS Loperamide HCl [Imodium 2 mg Capsule] 2 mg PO DAILYP PRN 06/08/17 Metoprolol Tartrate [Lopressor 100 mg Tablet] 100 mg PO Q12 06/08/17 Morphine Sulfate/Naltrexone [Embeda ER 50-2 mg Capsule] 1 cap PO DAILY 06/08/17 Ondansetron [Zofran Odt 4 mg Tablet] 4 mg PO Q8HP PRN 06/08/17 Oxycodone HCl [Oxycodone HCl ER] 15 mg PO Q8HP PRN 06/08/17 Pantoprazole Sodium [Protonix] 40 mg PO BID 06/08/17 Valsartan [Diovan] 320 mg PO DAILY 06/08/17 History of Present Illness History of Present Illness: NICKO FERRO is a 76 year old female, she came to the emergency room for evaluation of vomiting, it was stated that she vomited blood, there was also abdominal pain. She was evaluated in the emergency room, she was offered hospital admission. CAT scan of the abdomen and pelvis with IV contrast was done, it showed distended gallbladder with thickening of the woody of the gallbladder cholecystitis was suspected on the basis of the CAT scan of the abdomen and pelvis. Also found was atrophic of the right kidney with right hydronephrosis due to UPJ obstruction. Hospital Course Hospital Course: Patient was admitted for the management of hypertensive urgency, acute acalculous cholecystitis, CAT scan of the abdomen and pelvis with IV contrast was done, it showed distended gallbladder also found was atrophic right kidney. HIDA scan was ordered but patient did not cooperate for this procedure, consultation was requested from surgery and she underwent laparoscopic cholecystectomy on 06/11/2017 without any complications.She was kept n.p.o. initially for almost 3 days the elevated blood pressure was treated with IV Vasotec and also IV nitroglycerin infusion Physical Exam Vital Signs: Temp Pulse Resp BP Pulse Ox 99.2 F 87 20 131/73 H 97 06/15/17 20:59 06/15/17 20:59 06/15/17 20:59 06/15/17 20:59 06/15/17 20:59 Intake & Output 06/14/17 06/15/17 06/16/17 06:59 06:59 06:59 Intake Total 0 705 220 Output Total 15 Balance 2044 705 220 Weight 80 kg 79.9 kg General appearance: PRESENT: no acute distress Respiratory exam: PRESENT: clear to auscultation jamel Cardiovascular exam: PRESENT: +S1, +S2 GI/Abdominal exam: PRESENT: soft Neurological exam: PRESENT: alert Results Laboratory Results: 06/14/17 06:49 06/15/17 06:36 06/15/17 06:36 Sodium 141.5 Potassium 4.2 Chloride 109 H Carbon Dioxide 18 L Anion Gap 15 BUN 12 Creatinine 0.84 Est GFR ( Amer) > 60 Est GFR (Non-Af Amer) > 60 Glucose 99 Calcium 7.7 L Impressions: Abdomen/Pelvis CT 06/08/17 00:00 IMPRESSION: The gallbladder is distended and there is some thickening of the woody of the gallbladder. The possibility of cholecystitis should be considered. Atrophic right kidney. Urine distended bladder. Other findings as noted above Abdomen Ultrasound 06/10/17 00:00 IMPRESSION: Limited study because of gas and body habitus. The gallbladder is distended and there is sludge in the gallbladder. No stones are seen. There is no ductal dilatation. Hepatobiliary Scan Nuclear Medicine 06/10/17 00:00 IMPRESSION: Nondiagnostic study
[2017-06-15] MEDS ORDERED: LOPERAMIDE HCL 2 MG CAPSULE PO PRN (23:59)
[2017-06-16] MEDS: OXYCODONE HCL IR 5 MG TABLET PO PRN ×2 (03:08→11:38)
[2017-06-16 07:10] LABS: ANION GAP 13 (5-19); BLOOD UREA NITROGEN 12 mg/dL (7-20); CALCIUM 8.1 mg/dL (8.4-10.2); CARBON DIOXIDE 19 mmol/L (22-30); CHLORIDE 108 mmol/L (98-107); GLUCOSE 105 mg/dL (75-110); SODIUM 140.4 mmol/L (137-145)
[2017-06-16] MEDS: LANSOPRAZOLE 30 MG TAB.RAP.DR PO SCH (09:49)
[2017-06-16] MEDS: METOPROLOL TARTRATE 100 MG TABLET PO SCH (09:49)
[2017-06-16] MEDS: ENOXAPARIN SODIUM INJ 30 MG/0.3 ML DISP.SYRIN SUBCUT SCH (09:50)
[2017-06-16] MEDS: LIPASE/PROTEASE/AMYLASE 1 CAP CAPSULE.DR PO SCH ×6 (09:52→12:56)
[2017-06-16] MEDS: CLONIDINE HCL 0.2 MG TABLET PO SCH (09:52)
[2017-06-16] MEDS: LEVOFLOXACIN 500 MG TABLET PO SCH (09:53)
[2017-06-16] MEDS: VALSARTAN 160 MG TABLET PO SCH (09:53)
[2017-06-16] MEDS: AMLODIPINE BESYLATE 10 MG TABLET PO SCH (09:53)
[2017-06-16 11:26] VITALS: BP 153/71
== END 2017-06-16 13:15 | disposition home health service (06) | DRG 418 ==
LOC: ER 11:36 → EH 16:45 → INTOOBSV 16:45 → 4W 20:10 → 3W 06-09 07:38 → OBSVTOIN 06-09 15:00
PROVIDERS: ADMIT Internal Medicine; ATTEND Internal Medicine
PROC: 0FT44ZZ Resection of Gallbladder, Percutaneous Endoscopic Approach (ICD-10-PCS; principal; 2017-06-11 16:00)
DX: K81.0 Acute cholecystitis (principal); N13.0 Hydronephrosis with ureteropelvic junction obstruction; I16.0 Hypertensive urgency; K21.9 Gastro-esophageal reflux disease without esophagitis; Z79.899 Other long term (current) drug therapy; I73.9 Peripheral vascular disease, unspecified; M19.90 Unspecified osteoarthritis, unspecified site; Z88.1 Allergy status to other antibiotic agents; Z90.49 Acquired absence of other specified parts of digestive tract; Z96.651 Presence of right artificial knee joint; F17.200 Nicotine dependence, unspecified, uncomplicated; Z90.710 Acquired absence of both cervix and uterus
CPT/HCPCS: 36415; 36591; 74177; 76700; 78226; 790; 80048; 80053; 80061; 80076; 81001; 82140; 82150; 82550; 82962; 83036; 83690; 83735; 84100; 84439; 84443; 84484; 85025; 85610; 85730; 86850; 86900; 86901; 87040; 87077; 88304; 90686; 93005; 93010; 96361; 96365; 96375; 96376; 99285; A9537; G0378; J0131; J0295; J0330; J1170; J1644; J1650; J1741; J1956; J2250; J2270; J2405; J2704; J2765; J3010; J3480; J3490; J7030; Q9969; S0164

== ENCOUNTER 2017-09-25 22:12 | Observation (INO) | payer MEDICARE, MEDICAID ==
[2017-09-26] MEDS ORDERED: ONDANSETRON HCL INJ/PF 4 MG/2 ML SDV IV ONE (00:25)
[2017-09-26] MEDS ORDERED: RINGERS SOLUTION,LACTATED 1,000 ML IV ONE (00:25)
[2017-09-26] MEDS ORDERED: FENTANYL CITRATE INJ/PF 100 MCG/2 ML AMPUL IV ONE ×3 (00:25→03:14)
[2017-09-26 01:59] LABS: ABSOLUTE LYMPHOCYTES (AUTO) 1.1 10^3/uL (0.5-4.7); ABSOLUTE MONOCYTES (AUTO) 0.4 10^3/uL (0.1-1.4); ABSOLUTE NEUT (AUTO) 6.5 10^3/uL (1.7-8.2); BASOPHILS % (AUTO) 0.5 % (0-2); HEMATOCRIT 38.7 % (36.0-47.0); HEMOGLOBIN 12.9 g/dL (12.0-15.5); MEAN CORPUSCULAR HGB CONC 33.3 g/dL (32.0-36.0); MEAN CORPUSCULAR VOLUME 90 fl (80-97); MONOCYTES % (AUTO) 4.6 % (3-13); PLATELET COUNT 183 10^3/uL (150-450); RED BLOOD COUNT 4.31 10^6/uL (3.72-5.28); RED CELL DISTRIBUTION WIDTH 17.6 % (11.5-14.0); SEGMENTED NEUTROPHILS % (AUTO) 80.9 % (42-78); TOTAL CELLS COUNTED % (AUTO) 100 %
[2017-09-26 02:18] LABS: ALANINE AMINOTRANSFERASE 33 U/L (9-52); ALBUMIN 4.1 g/dL (3.5-5.0); ALKALINE PHOSPHATASE 276 U/L (38-126); ANION GAP 16 (5-19); ASPARTATE AMINO TRANSFERASE 26 U/L (14-36); BILIRUBIN,DIRECT 0.4 mg/dL (0.0-0.4); BILIRUBIN,TOTAL 0.4 mg/dL (0.2-1.3); BLOOD UREA NITROGEN 9 mg/dL (7-20); CALCIUM 7.7 mg/dL (8.4-10.2); CARBON DIOXIDE 17 mmol/L (22-30); CHLORIDE 107 mmol/L (98-107); GLUCOSE 161 mg/dL (75-110); LIPASE 64.7 U/L (23-300); POTASSIUM 3.9 mmol/L (3.6-5.0); SODIUM 139.5 mmol/L (137-145); TOTAL PROTEIN 8.8 g/dL (6.3-8.2)
[2017-09-26 02:27] LABS: APPEARANCE,URINE CLEAR; BILIRUBIN,URINE NEGATIVE (NEGATIVE); COLOR,URINE STRAW; GLUCOSE, URINE NEGATIVE (NEGATIVE); KETONES,URINE 20 mg/dL (NEGATIVE); LEUKOCYTE ESTERASE,URINE NEGATIVE (NEGATIVE); NITRITE,URINE NEGATIVE (NEGATIVE); PROTEIN,URINE 30 mg/dL (NEGATIVE); URINE SPECIFIC GRAVITY 1.009; UROBILINOGEN,URINE NEGATIVE mg/dL (<2.0)
[2017-09-26] MEDS ORDERED: NORMAL SALINE 1000 ML 1,000 ML IV ONE (02:27)
--- NOTE | 2017-09-26 02:28 | ER Document Report ---
ED General - General Chief Complaint: Nausea/Vomiting Stated Complaint: NAUSEA Time Seen by Provider: 09/26/17 00:10 Information source: Patient TRAVEL OUTSIDE OF THE [place] IN LAST 30 DAYS: No - HPI Patient complains to provider of: nausea/abd pain Onset: This afternoon Onset/Duration: Gradual Severity: Moderate Associated symptoms: Nausea, Vomiting Exacerbated by: Movement Relieved by: Denies Similar symptoms previously: Yes Recently seen / treated by doctor: Yes Notes: Patient states that she thinks she has her pancreatitis back. She states she has nausea vomiting and abdominal pain which is diffuse but more so in the center of her abdomen. - Related Data Allergies/Adverse Reactions: sulfamethoxazole [From Bactrim] Allergy (Verified 09/25/17 22:14) trimethoprim [From Bactrim] Allergy (Verified 09/25/17 22:14) Past Medical History - General Information source: Patient - Social History Smoking Status: Current Every Day Smoker Chew tobacco use (# tins/day): No Frequency of alcohol use: None Drug Abuse: None Family History: Reviewed & Not Pertinent Patient has suicidal ideation: No Patient has homicidal ideation: No - Past Medical History Cardiac Medical History: Reports: Hx Hypertension, Hx Peripheral Vascular Disease Pulmonary Medical History: Reports: None Neurological Medical History: Reports: Hx Cerebrovascular Accident - aphasia. Denies: Hx Seizures Endocrine Medical History: Reports: None Renal/ Medical History: Reports: Other - vaginal cancer s/p radiation. Denies : Hx Peritoneal Dialysis Malignancy Medical History: Reports: None GI Medical History: Reports: Hx Gastroesophageal Reflux Disease, Hx Ulcer - peptic Musculoskeltal Medical History: Reports Hx Arthritis - failed left hip replacement Psychiatric Medical History: Reports: None Denies: Hx Depression Past Surgical History: Reports: Hx Abdominal Surgery - STOMACH ULCER, Hx Bowel Surgery, Hx Cholecystectomy - 05/2017, Hx Hysterectomy, Hx Orthopedic Surgery - LT HIP REMOVAL OF "HEAD", SCREWS RT HIP, RT KNEE REPLACEMENT, Other - lysis of adhesions - Immunizations Hx Pneumococcal Vaccination: 07/20/11 Review of Systems - Review of Systems Constitutional: No symptoms reported EENT: No symptoms reported Cardiovascular: No symptoms reported Respiratory: No symptoms reported Gastrointestinal: Abdominal pain, Nausea, Vomiting. denies: Abdomen distended, Diarrhea Genitourinary: No symptoms reported Female Genitourinary: No symptoms reported Musculoskeletal: No symptoms reported Skin: No symptoms reported Hematologic/Lymphatic: No symptoms reported Neurological/Psychological: No symptoms reported Physical Exam - Vital signs Vitals: Temp Pulse Resp BP Pulse Ox 98.4 F 87 16 178/84 H 100 09/25/17 22:22 09/25/17 22:22 09/25/17 22:22 09/25/17 22:22 09/25/17 22:22 - Notes Notes: PHYSICAL EXAMINATION: GENERAL: Sitting in bed complaining of abdominal pain in mild distress with dry heaving. HEAD: Atraumatic, normocephalic. EYES: Pupils equal round and reactive to light, extraocular movements intact, conjunctiva are normal. ENT: Nares patent, oropharynx clear without exudates. Dry mucous membranes. NECK: Normal range of motion, supple without lymphadenopathy LUNGS: Breath sounds clear to auscultation bilaterally and equal. No wheezes rales or rhonchi. HEART: Regular rate and rhythm without murmurs ABDOMEN: She has diffuse abdominal pain, positive bowel sounds, nondistended abdomen. No guarding, no rebound. No masses appreciated. Female : deferred Musculoskeletal: Normal range of motion, no pitting or edema. No cyanosis. NEUROLOGICAL: Cranial nerves grossly intact. Mild aphasia due to old CVA. Normal sensory, motor exams PSYCH: Normal mood, normal affect. SKIN: Warm, Dry, normal turgor, no rashes or lesions noted. Course - Vital Signs Vital signs: Temp Pulse Resp BP Pulse Ox 98.4 F 87 16 178/84 H 100 09/25/17 22:22 09/25/17 22:22 09/25/17 22:22 09/25/17 22:22 09/25/17 22:22 - Laboratory Result Diagrams: 09/26/17 01:00 09/26/17 01:00 Laboratory results interpreted by me: 09/26/17 09/26/17 09/26/17 01:00 01:00 02:05 RDW 17.6 H Seg Neutrophils % 80.9 H Carbon Dioxide 17 L Glucose 161 H Calcium 7.7 L Alkaline Phosphatase 276 H Total Protein 8.8 H Urine Protein 30 H Urine Ketones 20 H Discharge - Discharge Clinical Impression: Hyperglycemia, Vomiting, Abdominal pain Disposition: ADMITTED OBSERVATION Admitting Provider: Sherri Unit Admitted: Medical Floor Referrals: SHARDA MAYS MD [Primary Care Provider] - Follow up as needed
[2017-09-26 03:09] LABS: VENOUS BLOOD BASE EXCESS -4.5 mmol/L; VENOUS BLOOD HCO3 20.5 mmol/L (20-32); VENOUS BLOOD PCO2 37.5 mmHg (35-63); VENOUS BLOOD PH 7.36 (7.30-7.42)
[2017-09-26] MEDS ORDERED: METOCLOPRAMIDE HCL ORAL SOLN 10 MG/10 ML UDCUP PO ONE (03:18)
[2017-09-26] MEDS ORDERED: LIDOCAINE 2% VISCOUS SOLN 20 ML UDCUP PO ONE (03:18)
[2017-09-26] MEDS ORDERED: MAG HYDROX/AL HYDROX/SIMETH SUSP 30 ML UDCUP PO ONE (03:18)
--- NOTE | 2017-09-26 03:53 | RADIOLOGY REPORT (SQ) ---
EXAM DESCRIPTION: CT ABDOMEN AND PELVIS WITH CONTRAST CLINICAL HISTORY: Diffuse abdominal pain. COMPARISON: 06/08/2017 TECHNIQUE: CT of the abdomen and pelvis are performed during IV bolus administration of 65 mL of Isovue-370. DLP: 1736.97 mGycm FINDINGS: Abdomen: The liver has normal size and density. No intrahepatic mass. Mild prominence of the common bile duct is likely related to prior cholecystectomy. Prior cholecystectomy. The spleen, pancreas, and adrenal glands are unremarkable. Atrophy of the left kidney aortoiliac atherosclerosis. IVC is unremarkable. The portal vein is patent. The proximal visceral and renal arteries are patent. No free intraperitoneal air. The stomach and duodenum have normal course. Pelvis: No adnexal masses. Urinary bladder is unremarkable. No free pelvic fluid or lymphadenopathy. No dilated loops of large or small bowel. Under distention versus wall thickening of the descending and sigmoid colon. No evidence of appendicitis. The visualized lusng bases imaging minimal dependent atelectasis or scar. Postoperative change of the right hip. Dysplasia of the left hip. Degenerative changes of the pubic symphysis and sacroiliac joints. Degenerative changes of the spine. Remote left inferior pubic ramus fracture. There is a convex scoliosis of the lumbar spine. IMPRESSION: 1. Mild wall thickening of the colon. This may be related to under distention however mild nonspecific colitis could produce a similar appearance. Colitis could be of infectious, inflammatory, or ischemic etiology. 2. No other acute findings identified. This exam was performed according to our departmental dose-optimization program, which includes automated exposure control, adjustment of the mA and/or kV according to patient size and/or use of iterative reconstruction technique.
[2017-09-26] MEDS ORDERED: CYCLOBENZAPRINE HCL 10 MG TABLET PO PRN (04:34)
[2017-09-26] MEDS ORDERED: ONDANSETRON 4 MG TAB.RAPDIS PO PRN (04:34)
[2017-09-26 05:39] LABS: FREE T4 (FREE THYROXINE) 1.27 ng/dL (0.78-2.19)
[2017-09-26 05:53] LABS: THYROID STIMULATING HORMONE 0.28 uIU/mL (0.47-4.68)
[2017-09-26] MEDS ORDERED: LIPASE/PROTEASE/AMYLASE 1 CAP CAPSULE.DR PO SCH (08:00)
[2017-09-26] MEDS ORDERED: OXYCODONE HCL IR 5 MG TABLET PO PRN ×2 (08:14→08:19)
[2017-09-26] MEDS ORDERED: OXYCODONE HCL IR 5 MG TABLET PO ONE (09:00)
[2017-09-26 10:00] VITALS: BP 179/78
[2017-09-26] MEDS ORDERED: LANSOPRAZOLE 30 MG TAB.RAP.DR PO SCH (10:00)
[2017-09-26] MEDS ORDERED: DICYCLOMINE HCL 20 MG TABLET PO SCH (10:00)
[2017-09-26] MEDS ORDERED: CLONIDINE HCL 0.2 MG TABLET PO SCH (10:00)
[2017-09-26] MEDS ORDERED: VALSARTAN 160 MG TABLET PO SCH (10:00)
[2017-09-26] MEDS ORDERED: METOPROLOL TARTRATE 100 MG TABLET PO SCH (10:00)
[2017-09-26] MEDS ORDERED: ENOXAPARIN SODIUM INJ 30 MG/0.3 ML DISP.SYRIN SUBCUT SCH (10:00)
[2017-09-26] MEDS ORDERED: AMLODIPINE BESYLATE 10 MG TABLET PO SCH (10:00)
--- NOTE | 2017-09-26 14:54 | PDOC H&P ---
History of Present Illness Admission Date/PCP: 09/26/17 04:04 SHARDA MAYS MD History of Present Illness: NICKO FERRO is a 77 year old female, she came to the emergency room this morning for evaluation of abdominal pain, she was seen by the ED physician, CAT scan of the abdomen and pelvis was done it was negative, the blood work was negative. She has chronic pain and she is dependent on narcotic the abdominal pain she is experiencing is chronic, probably related to chronic narcotic use. She left AMA before I was able to evaluate, I did not see this patient physically Past Medical History Cardiac Medical History: Reports: Hypertension, Peripheral Vascular Disease Pulmonary Medical History: Reports: None Endocrine Medical History: Reports: None Renal/ Medical History: Reports: Other - vaginal cancer s/p radiation Malignancy Medical History: Reports: None GI Medical History: Reports: Gastroesophageal Reflux Disease Musculoskeltal Medical History: Reports: Arthritis - failed left hip replacement Psychiatric Medical History: Reports: None Past Surgical History Past Surgical History: Reports: Cholecystectomy - 05/2017, Hysterectomy, Orthopedic Surgery - LT HIP REMOVAL OF "HEAD", SCREWS RT HIP, RT KNEE REPLACEMENT, Other - lysis of adhesions Social History Smoking Status: Current Every Day Smoker Frequency of Alcohol Use: None Hx Recreational Drug Use: No Drugs: None Hx Prescription Drug Abuse: No Family History Family History: Reviewed & Not Pertinent Parental Family History Reviewed: Yes Children Family History Reviewed: Yes Sibling(s) Family History Reviewed.: Yes Medication/Allergy Home Medications: Amlodipine Besylate [Norvasc 10 mg Tablet] 10 mg PO DAILY 06/08/17 Clonidine HCl [Catapres 0.2 mg Tablet] 0.2 mg PO Q12 06/08/17 Cyclobenzaprine HCl [Flexeril 10 mg Tablet] 10 mg PO Q8HP PRN 06/08/17 Lipase/Protease/Amylase [Zenpep Dr 15,000 Unit Capsule] 3 cap PO MEALS 06/08/17 Metoprolol Tartrate [Lopressor 100 mg Tablet] 100 mg PO Q12 06/08/17 Ondansetron [Zofran Odt 4 mg Tablet] 4 mg PO Q8HP PRN 06/08/17 Oxycodone HCl [Oxycodone HCl ER] 15 mg PO Q8HP PRN 06/08/17 Pantoprazole Sodium [Protonix] 40 mg PO BID 06/08/17 Valsartan [Diovan] 320 mg PO DAILY 06/08/17 Allergies/Adverse Reactions: sulfamethoxazole [From Bactrim] Allergy (Verified 09/25/17 22:14) trimethoprim [From Bactrim] Allergy (Verified 09/25/17 22:14) Physical Exam Vital Signs: Temp Pulse Resp BP Pulse Ox 98.0 F 88 18 179/78 H 97 09/26/17 09:50 09/26/17 09:50 09/26/17 09:50 09/26/17 09:50 09/26/17 09:50 Results Impressions: Abdomen/Pelvis CT 09/26/17 02:27 IMPRESSION: 1. Mild wall thickening of the colon. This may be related to under distention however mild nonspecific colitis could produce a similar appearance. Colitis could be of infectious, inflammatory, or ischemic etiology. 2. No other acute findings identified. This exam was performed according to our departmental dose-optimization program, which includes automated exposure control, adjustment of the mA and/or kV according to patient size and/or use of iterative reconstruction technique. Assessment & Plan - Diagnosis (1) Abdominal pain Qualifiers: Abdominal location: unspecified location Qualified Code(s): R10.9 - Unspecified abdominal pain Is this a current diagnosis for this admission?: Yes
== END 2017-09-26 09:58 | disposition left against medical advice (07) ==
LOC: ER 22:12 → EH 09-26 04:04
PROVIDERS: ADMIT Internal Medicine; ATTEND Internal Medicine
DX: R10.9 Unspecified abdominal pain (principal); G89.29 Other chronic pain; F11.20 Opioid dependence, uncomplicated; I10 Essential (primary) hypertension; Z53.21 Procedure and treatment not carried out due to patient leaving prior to being seen by health care provider; I73.9 Peripheral vascular disease, unspecified; K21.9 Gastro-esophageal reflux disease without esophagitis; R11.2 Nausea with vomiting, unspecified; I69.320 Aphasia following cerebral infarction; R73.9 Hyperglycemia, unspecified; F17.200 Nicotine dependence, unspecified, uncomplicated; Z79.899 Other long term (current) drug therapy; Z92.3 Personal history of irradiation; Z85.44 Personal history of malignant neoplasm of other female genital organs; Z90.49 Acquired absence of other specified parts of digestive tract; Z90.710 Acquired absence of both cervix and uterus; Z98.890 Other specified postprocedural states; Z87.11 Personal history of peptic ulcer disease; Z87.19 Personal history of other diseases of the digestive system
CPT/HCPCS: 36591; 96376; 99285; 96361; 96374; 96375; 36415; 84439; 83690; 84443; 85025; 80053; 81001; 82803; 74177; A9270 ×3; J3010; J3490; J2405; J7030; J7120; S0119

== ENCOUNTER 2017-12-29 12:41 | Emergency (ER) | payer MEDICARE, MEDICAID ==
--- NOTE | 2017-12-29 14:29 | ER Document Report ---
ED General - General Chief Complaint: Arm Problem Stated Complaint: ARM PAIN Time Seen by Provider: 12/29/17 13:55 TRAVEL OUTSIDE OF THE [place] IN LAST 30 DAYS: No - HPI Patient complains to provider of: Left arm pain Notes: Patient coming in for swelling pain today approximate 4 days ago started to swell and had acute pain. Patient denies any fevers chills nausea vomiting diarrhea states the swelling will decrease with ice and elevation. Patient upon my evaluation has no obvious slight deformity of the ulna with pain at that site capillary refill is intact distally. The site of the pain is slightly swollen - Related Data Allergies/Adverse Reactions: sulfamethoxazole [From Bactrim] Allergy (Verified 12/29/17 12:45) trimethoprim [From Bactrim] Allergy (Verified 12/29/17 12:45) Past Medical History - Social History Smoking Status: Current Every Day Smoker Chew tobacco use (# tins/day): No Frequency of alcohol use: None Drug Abuse: None Family History: Reviewed & Not Pertinent Patient has suicidal ideation: No Patient has homicidal ideation: No - Past Medical History Cardiac Medical History: Reports: Hx Congestive Heart Failure, Hx Hypertension, Hx Peripheral Vascular Disease Neurological Medical History: Reports: Hx Cerebrovascular Accident - aphasia. Denies: Hx Seizures Renal/ Medical History: Denies: Hx Peritoneal Dialysis GI Medical History: Reports: Hx Gastroesophageal Reflux Disease, Hx Ulcer - peptic Musculoskeltal Medical History: Reports Hx Arthritis - RA Psychiatric Medical History: Denies: Hx Depression Past Surgical History: Reports: Hx Abdominal Surgery - STOMACH ULCER, Hx Bowel Surgery, Hx Cholecystectomy - 05/2017, Hx Hysterectomy, Hx Orthopedic Surgery - LT HIP REMOVAL OF "HEAD", SCREWS RT HIP, RT KNEE REPLACEMENT, Other - lysis of adhesions - Immunizations Hx Pneumococcal Vaccination: 07/20/11 Review of Systems - Review of Systems Constitutional: No symptoms reported EENT: No symptoms reported Cardiovascular: No symptoms reported Respiratory: No symptoms reported Gastrointestinal: No symptoms reported Genitourinary: No symptoms reported Female Genitourinary: No symptoms reported Musculoskeletal: Other - Arm pain Skin: No symptoms reported Hematologic/Lymphatic: No symptoms reported Neurological/Psychological: No symptoms reported -: Yes All other systems reviewed and negative Physical Exam - Vital signs Vitals: Temp Pulse Resp BP Pulse Ox 99.0 F 58 L 18 149/67 H 96 12/29/17 12:57 12/29/17 12:57 12/29/17 12:57 12/29/17 12:57 12/29/17 12:57 Interpretation: Normal - General General appearance: Appears well, Alert - HEENT Head: Normocephalic, Atraumatic Eyes: Normal Pupils: PERRL - Respiratory Respiratory status: No respiratory distress Chest status: Nontender Breath sounds: Normal Chest palpation: Normal - Cardiovascular Rhythm: Regular Heart sounds: Normal auscultation Murmur: No - Abdominal Inspection: Normal Distension: No distension Bowel sounds: Normal Tenderness: Nontender Organomegaly: No organomegaly - Back Back: Normal, Nontender - Extremities General upper extremity: Tender, Normal color, Normal ROM - Painful, Normal temperature. No: Normal inspection - Slight deformity of the distal forearm above the wrist tenderness to palpation some swelling capillary refill intact distally General lower extremity: Normal inspection, Nontender, Normal color, Normal ROM , Normal temperature, Normal weight bearing - Neurological Neuro grossly intact: Yes Cognition: Normal Orientation: AAOx4 [place] Coma Scale Eye Opening: Spontaneous [place] Coma Scale Verbal: Oriented [place] Coma Scale Motor: Obeys Commands [place] Coma Scale Total: 15 Speech: Normal Motor strength normal: LUE, RUE, LLE, RLE Sensory: Normal - Psychological Associated symptoms: Normal affect, Normal mood - Skin Skin Temperature: Warm Skin Moisture: Dry Skin Color: Normal Course - Re-evaluation Re-evalutation: 12/29/17 20:29 Patient has a healing fracture of the ulna and an acute fracture of the radius of the left side. Patient was placed in a sugar tong splint was given orthopedic follow-up patient states she has pain medication that she will take at home for patient was placed in a sling grateful for her care discharged home. - Vital Signs Vital signs: Temp Pulse Resp BP Pulse Ox 97.7 F 61 18 166/68 H 99 12/29/17 14:56 12/29/17 14:56 12/29/17 13:55 12/29/17 14:56 12/29/17 14:56 Discharge - Discharge Clinical Impression: Left forearm fracture Qualifiers: Encounter type: initial encounter Fracture type: closed Qualified Code(s): S52.92XA - Unspecified fracture of left forearm, initial encounter for closed fracture Condition: Good Disposition: HOME, SELF-CARE Instructions: Fractured Radius and Ulna ([facility]) Additional Instructions: X-ray today shows that you have fractured your radius also look to have a healing fracture of your ulna of the 2 bones that are in the forearm. We will place you in a splint today would recommend following up with orthopedic doctor provided and also he can follow-up with your primary care physician. Will recommend taking Tylenol for pain control. He may place a cloth over the splint and place compresses on the cough to help out with swelling and pain to as well. sHe can continue with your medications at home Referrals: SHARDA MAYS MD [Primary Care Provider] - Follow up as needed SARAH ARVIZU MD [ACTIVE STAFF] - Follow up as needed
--- NOTE | 2017-12-29 14:36 | RADIOLOGY REPORT (SQ) ---
EXAM DESCRIPTION: WRIST LEFT 3 VIEWS COMPLETED DATE/TIME: 12/29/2017 2:23 pm REASON FOR STUDY: pain COMPARISON: None. NUMBER OF VIEWS: Three views. TECHNIQUE: AP, lateral, and oblique radiographic images acquired of the left wrist. LIMITATIONS: None. FINDINGS: MINERALIZATION: Normal. BONES: Transverse fracture of the distal shaft of the ulnar few cm proximal to the joint with exubera nt callus formation. Oblique fracture of the distal shaft of the radius in close proximity to the ul kerline fracture without callus formation. Minimal displacement. SOFT TISSUES: No soft tissue swelling. No foreign body. OTHER: Advanced osteoarthritic change 1st carpometacarpal joint. IMPRESSION: Nondisplaced fracture of the distal shaft of the ulna that may be subacute or chronic ba sed on exuberant callus formation. Fracture of the distal shaft of the radius may be acute based on radiographic appearance. Recommend clinical correlation. TECHNICAL DOCUMENTATION: JOB ID: [id number] [employer]- All Rights Reserved Reading location - IP/workstation name: [email or web address]
--- NOTE | 2017-12-29 14:49 | RADIOLOGY REPORT (SQ) ---
EXAM DESCRIPTION: FOREARM LEFT COMPLETED DATE/TIME: 12/29/2017 2:25 pm REASON FOR STUDY: pain COMPARISON: Left wrist, 12/29/2017 NUMBER OF VIEWS: Two views. TECHNIQUE: Two radiographic images acquired of the left forearm, including elbow and wrist in at [facility] one projection. LIMITATIONS: None. FINDINGS: MINERALIZATION: Normal. BONES: Fractures of the distal shafts of the radius and ulna again noted as described on today is wri st examination. Radial and ulnar shafts proximal to the fractures unremarkable. SOFT TISSUES: No obvious swelling or foreign body. OTHER: No other significant finding. IMPRESSION: Recently described fractures of the distal shafts of the ulna and radius. See report of the left wrist. No other fractures of the radius ulna proximal to these fractures. TECHNICAL DOCUMENTATION: JOB ID: [id number] [employer]- All Rights Reserved Reading location - IP/workstation name: [email or web address]
[2017-12-29 14:59] VITALS: BP 166/68
== END 2017-12-29 14:59 | disposition home or self-care (01) ==
LOC: ER 12:41
PROC: 2W3DX1Z Immobilization of Left Lower Arm using Splint (ICD-10-PCS; principal; 2017-12-29)
DX: S52.92XA Unspecified fracture of left forearm, initial encounter for closed fracture (principal); M79.602 Pain in left arm; X58.XXXA Exposure to other specified factors, initial encounter; F17.200 Nicotine dependence, unspecified, uncomplicated; I50.9 Heart failure, unspecified; I10 Essential (primary) hypertension; Z88.3 Allergy status to other anti-infective agents; Z86.73 Personal history of transient ischemic attack (TIA), and cerebral infarction without residual deficits; Z90.49 Acquired absence of other specified parts of digestive tract; Z90.710 Acquired absence of both cervix and uterus; Z96.651 Presence of right artificial knee joint
CPT/HCPCS: 99283

== ENCOUNTER 2018-01-09 20:36 | Inpatient (IN) | payer MEDICARE, MEDICAID ==
[2018-01-09] MEDS ORDERED: NORMAL SALINE 1000 ML 500 ML IV ONE (20:57)
[2018-01-09] MEDS ORDERED: MORPHINE SULFATE 10 MG/ML INJ IV ONE ×2 (20:58→22:11)
[2018-01-09] MEDS ORDERED: ONDANSETRON 4 MG TAB.RAPDIS PO ONE (20:58)
--- NOTE | 2018-01-09 21:00 | ER Document Report ---
ED GI/ - General Chief Complaint: Abdominal Pain Stated Complaint: NAUSE AND VOMITING Time Seen by Provider: 01/09/18 20:50 Notes: Patient is a 77-year-old female who comes to the emergency department by EMS for chief complaint of upper abdominal pain and vomiting, symptoms started this afternoon, she states she has vomited 3 times. She does not report any particular back pain, she denies dizziness, chest pain, difficulty breathing. She denies fever or chills, dysuria. She states that she had a normal bowel movement earlier today, nonbloody, she denies hematemesis. Past medical history includes cholecystectomy, hysterectomy, peptic ulcer disease, CHF, peripheral vascular disease, hypertension, CVA with aphasia, and "vaginal" cancer (no chemo/radiation since 2009, denies metastasis). Patient states that right now she just feels very nauseated. TRAVEL OUTSIDE OF THE [place] IN LAST 30 DAYS: No - Related Data Allergies/Adverse Reactions: sulfamethoxazole [From Bactrim] Allergy (Verified 12/29/17 12:45) trimethoprim [From Bactrim] Allergy (Verified 12/29/17 12:45) Past Medical History - General Information source: Patient - Social History Smoking Status: Never Smoker Drug Abuse: None Lives with: Family Family History: Reviewed & Not Pertinent Patient has suicidal ideation: No Patient has homicidal ideation: No - Past Medical History Cardiac Medical History: Reports: Hx Congestive Heart Failure, Hx Hypertension, Hx Peripheral Vascular Disease Neurological Medical History: Reports: Hx Cerebrovascular Accident - aphasia. Denies: Hx Seizures Renal/ Medical History: Denies: Hx Peritoneal Dialysis GI Medical History: Reports: Hx Gastroesophageal Reflux Disease, Hx Ulcer - peptic Musculoskeltal Medical History: Reports Hx Arthritis - RA Psychiatric Medical History: Denies: Hx Depression Past Surgical History: Reports: Hx Abdominal Surgery - STOMACH ULCER, Hx Bowel Surgery, Hx Cholecystectomy - 05/2017, Hx Hysterectomy, Hx Orthopedic Surgery - LT HIP REMOVAL OF "HEAD", SCREWS RT HIP, RT KNEE REPLACEMENT, Other - lysis of adhesions - Immunizations Hx Pneumococcal Vaccination: 07/20/11 Review of Systems - Review of Systems Constitutional: No symptoms reported EENT: No symptoms reported Cardiovascular: No symptoms reported Respiratory: No symptoms reported Gastrointestinal: See HPI Genitourinary: No symptoms reported Female Genitourinary: No symptoms reported Musculoskeletal: No symptoms reported Skin: No symptoms reported Hematologic/Lymphatic: No symptoms reported Neurological/Psychological: No symptoms reported Physical Exam - Vital signs Vitals: Resp BP Pulse Ox 14 184/81 H 100 01/09/18 20:47 01/09/18 20:47 01/09/18 20:47 - Notes Notes: GENERAL: Alert, interacts well. HEAD: Normocephalic, atraumatic. EYES: Pupils equal, round, and reactive to light. Extraocular movements intact. ENT: Oral mucosa moist, tongue midline. NECK: Full range of motion. Supple. Trachea midline. LUNGS: Clear to auscultation bilaterally, no wheezes, rales, or rhonchi. No respiratory distress. HEART: Regular rate and rhythm. No murmur ABDOMEN: Mild upper abdominal tenderness which is generalized, no rigidity or guarding, lower abdomen unremarkable. EXTREMITIES: Moves all 4 extremities spontaneously. Chronic lower extremity swelling and skin changes. Normal distal neurovascular exam. BACK: no cervical, thoracic, lumbar midline tenderness. No saddle anesthesia, normal distal neurovascular exam. NEUROLOGICAL: Alert and oriented x3. Normal speech. [cranial nerves II through XII grossly intact]. PSYCH: Normal affect, normal mood. SKIN: Warm, dry, normal turgor. No rashes or lesions noted. Course - Re-evaluation Re-evalutation: Patient had recently vomited to I entered the room, however she is alert, well- appearing, denies headache, denies chest pain, does report generalized upper abdominal pain. Abdomen shows some tenderness but no guarding or rigidity. Patient is hypertensive, vital signs otherwise unremarkable. CBC unremarkable, chemistry unremarkable, lipase is not elevated. Urine is unremarkable. Reevaluated patient, daughter at bedside, she states that patient takes pancreatic enzymes and has had pancreatitis multiple times in the past with no elevation of lipase. In addition to this patient is elderly with vomiting, she vomited again after initial nausea and pain medications. She states she actually does feel improved however. CAT scan with no acute findings. Suggests gastritis with patient's history of peptic ulcer disease. Patient vomited once more. Remedicated again. Patient has not been able to take her home medications including her blood pressure medication, blood pressures trending upwards. Will discuss for admission for gastritis, uncontrolled vomiting, unable to take home medications. Discussed with Dr. Freedman. Discussed with Dr. Eaton, on-call for Dr. Polanco patient's provider, patient will be admitted to telemetry observation. Patient and daughter stated agreement. - Vital Signs Vital signs: Temp Pulse Resp BP Pulse Ox 99.0 F 103 H 16 211/85 H 100 01/10/18 04:16 01/10/18 04:16 01/10/18 04:16 01/10/18 04:16 01/10/18 04:16 - Laboratory Result Diagrams: 01/09/18 21:15 01/09/18 21:15 Laboratory results interpreted by me: 01/09/18 01/09/18 01/09/18 21:15 21:15 22:30 RDW 17.2 H Seg Neutrophils % 87.2 H Lymphocytes % 9.4 L Sodium 145.1 H Chloride 109 H Carbon Dioxide 21 L Glucose 198 H Alkaline Phosphatase 361 H Total Protein 9.0 H Urine Protein 30 H Urine Ketones 20 H Urine Ascorbic Acid 20 H Discharge - Discharge Clinical Impression: Upper abdominal pain Intractable vomiting Qualifiers: Vomiting type: unspecified Nausea presence: with nausea Qualified Code(s): R11.2 - Nausea with vomiting, unspecified Condition: Stable Disposition: ADMITTED OBSERVATION Admitting Provider: [facility] Unit Admitted: Telemetry
[2018-01-09] MEDS ORDERED: METOCLOPRAMIDE HCL INJ/PF 10 MG/2 ML SDV IV ONE (21:24)
[2018-01-09 21:36] LABS: ABSOLUTE LYMPHOCYTES (AUTO) 0.7 10^3/uL (0.5-4.7); ABSOLUTE MONOCYTES (AUTO) 0.2 10^3/uL (0.1-1.4); ABSOLUTE NEUT (AUTO) 6.7 10^3/uL (1.7-8.2); BASOPHILS % (AUTO) 0.4 % (0-2); HEMATOCRIT 37.8 % (36.0-47.0); HEMOGLOBIN 12.5 g/dL (12.0-15.5); LYMPHOCYTES % (AUTO) 9.4 % (13-45); MEAN CORPUSCULAR HEMOGLOBIN 30.1 pg (27.0-33.4); MEAN CORPUSCULAR HGB CONC 33.2 g/dL (32.0-36.0); MEAN CORPUSCULAR VOLUME 91 fl (80-97); PLATELET COUNT 207 10^3/uL (150-450); RED BLOOD COUNT 4.16 10^6/uL (3.72-5.28); RED CELL DISTRIBUTION WIDTH 17.2 % (11.5-14.0); SEGMENTED NEUTROPHILS % (AUTO) 87.2 % (42-78); TOTAL CELLS COUNTED % (AUTO) 100 %; WHITE BLOOD COUNT 7.7 10^3/uL (4.0-10.5)
[2018-01-09 21:50] LABS: ALANINE AMINOTRANSFERASE 20 U/L (9-52); ALBUMIN 4.2 g/dL (3.5-5.0); ALKALINE PHOSPHATASE 361 U/L (38-126); ANION GAP 15 (5-19); ASPARTATE AMINO TRANSFERASE 17 U/L (14-36); BILIRUBIN,DIRECT 0.4 mg/dL (0.0-0.4); BILIRUBIN,TOTAL 0.4 mg/dL (0.2-1.3); BLOOD UREA NITROGEN 7 mg/dL (7-20); CALCIUM 8.6 mg/dL (8.4-10.2); CARBON DIOXIDE 21 mmol/L (22-30); CHLORIDE 109 mmol/L (98-107); GLUCOSE 198 mg/dL (75-110); LIPASE 24.9 U/L (23-300); POTASSIUM 3.9 mmol/L (3.6-5.0); SODIUM 145.1 mmol/L (137-145)
[2018-01-09 23:07] LABS: APPEARANCE,URINE SLIGHTLY-CLOUDY; BILIRUBIN,URINE NEGATIVE (NEGATIVE); COLOR,URINE YELLOW; GLUCOSE, URINE NEGATIVE (NEGATIVE); KETONES,URINE 20 mg/dL (NEGATIVE); LEUKOCYTE ESTERASE,URINE NEGATIVE (NEGATIVE); NITRITE,URINE NEGATIVE (NEGATIVE); PROTEIN,URINE 30 mg/dL (NEGATIVE); URINE SPECIFIC GRAVITY 1.012; UROBILINOGEN,URINE NEGATIVE mg/dL (<2.0)
[2018-01-10] MEDS ORDERED: HYDROMORPHONE HCL INJ/PF 2 MG/ML AMPULE IV ONE (00:31)
[2018-01-10] MEDS ORDERED: METOCLOPRAMIDE HCL INJ/PF 10 MG/2 ML SDV IV ONE (01:04)
--- NOTE | 2018-01-10 01:31 | RADIOLOGY REPORT (SQ) ---
EXAM DESCRIPTION: CT ABDOMEN PELVIS WITH IV CONTRAST COMPLETED DATE/TME: 01/09/2018 22:12 CLINICAL HISTORY: 77 years Female, persistent vomiting, upper abdominal pain Comparison: 09.26.17 Technique: IV contrast. Coronal and sagittal reformat. This exam was performed according to our departmental dose-optimization program, which includes automated exposure control, adjustment of the mA and/or kV according to patient size and/or use of iterative reconstruction technique.[facility]: Dose Right [facility]: CareDose [facility]: Dose Right [facility]: Teradose 4D [facility]: [employer] LIMITATIONS: Position. Findings: Three screw fixation of the right proximal femur with mid screw tip in the right paracentral pelvis, right total knee arthroplasty, severe lytic erosion/absence of the left acetabulum, fragmentation/resection of the left femoral head, diffuse demineralization, deformity of the left inferior pubic ramus, fracture deformity of the anterior column of the left acetabulum, consistent with prior exam, 09/26/2017 severe atrophy of the right kidney. Moderate bilateral extrarenal pelvis. Small gas bubbles in the urinary bladder. Cardiac stimulator leads. Asymmetric excretion of contrast in the left renal collecting system on post excretion imaging. Grade one L5 anterolisthesis, mild posterior L5 vertebral height loss, moderate L5-S1 vacuum disc desiccation. No ascites. Inferior thorax, liver, cholecystectomy, pancreas, spleen, adrenals, gastrointestinal tract, pelvic organs, lymphatics, vasculature, and musculoskeleton appear otherwise unremarkable. IMPRESSION: No acute findings. No suspicious interval change.
[2018-01-10] MEDS ORDERED: ENALAPRILAT DIHYDRATE INJ/PF 2.5 MG/2 ML SDV IV ONE ×2 (03:40→04:00)
[2018-01-10] MEDS ORDERED: HYDROMORPHONE HCL INJ/PF 2 MG/ML AMPULE IV PRN (03:56)
[2018-01-10] MEDS ORDERED: ONDANSETRON HCL INJ/PF 4 MG/2 ML SDV IV PRN (03:57)
[2018-01-10] MEDS ORDERED: DEXTROSE 40% GEL 15 GM TUBE PO PRN ×2 (04:57)
[2018-01-10] MEDS ORDERED: DEXTROSE 50%-WATER 25 GM/50 ML DISP.SYRIN IV PRN ×2 (04:57)
[2018-01-10] MEDS ORDERED: GLUCAGON,HUMAN RECOMB 1 MG INJ SUBCUT PRN (04:57)
[2018-01-10] MEDS ORDERED: MORPHINE SULFATE 10 MG/ML INJ ONE (05:09)
[2018-01-10] MEDS ORDERED: HYDRALAZINE HCL INJ/PF 20 MG/1 ML SDV IV PRN (05:37)
[2018-01-10] MEDS ORDERED: HYDRALAZINE HCL INJ/PF 20 MG/1 ML SDV ONE (05:40)
[2018-01-10] MEDS: METOCLOPRAMIDE HCL INJ/PF 10 MG/2 ML SDV IV PRN ×2 (07:47→18:12)
--- NOTE | 2018-01-10 09:56 | EKG REPORT ---
SEVERITY:- ABNORMAL ECG - SINUS RHYTHM PROBABLE LEFT ATRIAL ABNORMALITY PROBABLE LVH WITH SECONDARY REPOL ABNRM : Confirmed by: Dante Canchola 10-Jan-2018 09:55:02
[2018-01-10] MEDS ORDERED: FAMOTIDINE INJ/PF 20 MG/2 ML SDV IV SCH (10:00)
[2018-01-10] MEDS: MORPHINE SULFATE 10 MG/ML INJ IV PRN ×3 (12:02→20:14)
[2018-01-10] MEDS: ENOXAPARIN SODIUM INJ 40 MG/0.4 ML DISP.SYRIN SUBCUT SCH (12:02)
--- NOTE | 2018-01-10 14:23 | PDOC H&P ---
History of Present Illness Admission Date/PCP: 01/10/18 02:43 SHARDA MAYS MD Patient complains of: Nausea, vomiting and abdominal pain History of Present Illness: NICKO FERRO is a 77 year old female patient of Dr Mays who was brought to the ED by EMS complaining about new onset abdominal pain with associated recurrent nausea and vomiting. Patient reported that she has not been able to keep any food down or take her medication for couple of days. She localized her pain to epigastric and LUQ regions. Her pain and symptoms are worsen with any attempt to eat or drink fluid. She denied any radiation of pain to her back. She reported associated loss of appetite. denied any diarrhea or constipation. No tarry or bloody stool. She denied oral NSAID usage, particularly OTC BC or Goodie powder. She reported taking Oxycodone for pain management. No fever or chills. No dysuria, hematuria or flank pain. Her initial evaluation in the ED was unrevealing for any acute cause for her symptoms but she had witnessed repeat episode of nausea and vomiting despite treatment. She was advised hospitalization for further evaluation and management of observation status. Her morbidities include Congestive Heart Failure, Hypertension, Peripheral Vascular Disease, history of stroke with aphasia, Gastroesophageal Reflux Disease, Ulcer - peptic, Rheumatoid arthritis, and chronic pain syndrome. Recent left forearm osteoporosis related fracture. Past Medical History Cardiac Medical History: Reports: Congestive Heart Failure, Hypertension, Peripheral Vascular Disease Neurological Medical History: Denies: Seizures GI Medical History: Reports: Gastroesophageal Reflux Disease Musculoskeltal Medical History: Reports: Arthritis - RA Psychiatric Medical History: Denies: Depression Past Surgical History Past Surgical History: Reports: Cholecystectomy - 05/2017, Hysterectomy, Orthopedic Surgery - LT HIP REMOVAL OF "HEAD", SCREWS RT HIP, RT KNEE REPLACEMENT, Other - lysis of adhesions Social History Lives with: Family Smoking Status: Never Smoker Cigarettes Packs Per Day: 0.5 Number of Years Smokin Frequency of Alcohol Use: None Hx Recreational Drug Use: No Drugs: None Hx Prescription Drug Abuse: No Family History Family History: Reviewed & Not Pertinent Parental Family History Reviewed: Yes Children Family History Reviewed: Yes Sibling(s) Family History Reviewed.: Yes Medication/Allergy Home Medications: Amlodipine Besylate [Norvasc 10 mg Tablet] 10 mg PO DAILY 01/10/18 Clonidine HCl [Catapres 0.2 mg Tablet] 0.2 mg PO Q12 01/10/18 Cyclobenzaprine HCl [Flexeril 10 mg Tablet] 10 mg PO Q8HP PRN 01/10/18 Dicyclomine HCl [Bentyl 10 mg Capsule] 10 mg PO QID 01/10/18 Duloxetine HCl [Cymbalta] 60 mg PO DAILY 01/10/18 Lipase/Protease/Amylase [Zenpep Dr 15,000 Unit Capsule] 3 cap PO TID 01/10/18 Metoprolol Tartrate [Lopressor 100 mg Tablet] 100 mg PO Q12 01/10/18 Morphine Sulfate/Naltrexone [Embeda ER 50-2 mg Capsule] 1 cap PO DAILY 01/10/18 Ondansetron [Zofran Odt 4 mg Tablet] 4 mg PO Q8HP PRN 01/10/18 Oxycodone HCl 15 mg PO Q4HP PRN 01/10/18 Pantoprazole Sodium [Protonix] 40 mg PO BID 01/10/18 Valsartan [Diovan] 320 mg PO DAILY 01/10/18 Allergies/Adverse Reactions: sulfamethoxazole [From Bactrim] Allergy (Verified 12/29/17 12:45) trimethoprim [From Bactrim] Allergy (Verified 12/29/17 12:45) Review of Systems Constitutional: ABSENT: chills, fever(s), headache(s), weight gain, weight loss Eyes: ABSENT: visual disturbances Ears: ABSENT: hearing changes Nose, Mouth, and Throat: ABSENT: as per HPI, headache(s), mouth pain, sore throat, vertigo, other Cardiovascular: ABSENT: chest pain, dyspnea on exertion, edema, orthropnea, palpitations Respiratory: ABSENT: cough, hemoptysis Gastrointestinal: PRESENT: abdominal pain, nausea, vomiting. ABSENT: as per HPI , bloating, coffee ground emesis, constipation, diarrhea, dysphagia, heartburn, hematemesis, hematochezia, melena, other Genitourinary: ABSENT: difficulty urinating, dysuria, hematuria Musculoskeletal: ABSENT: joint swelling Integumentary: ABSENT: rash, wounds Neurological: ABSENT: abnormal speech, confusion, dizziness, focal weakness Psychiatric: ABSENT: anxiety, depression, homidical ideation, suicidal ideation Endocrine: ABSENT: cold intolerance, heat intolerance, polydipsia, polyuria Hematologic/Lymphatic: ABSENT: easy bleeding, easy bruising, lymphadenopathy Allergic/Immunologic: ABSENT: seasonal rhinorrhea Physical Exam Vital Signs: Temp Pulse Resp BP Pulse Ox 99.2 F 104 H 17 208/81 H 100 01/10/18 11:56 01/10/18 11:56 01/10/18 11:56 01/10/18 11:56 01/10/18 11:56 Intake & Output 01/09/18 01/10/18 01/11/18 06:59 06:59 06:59 Intake Total 20 Output Total 200 Balance -180 Weight 63.2 kg General appearance: PRESENT: no acute distress, well-developed, well-nourished Head exam: PRESENT: atraumatic, normocephalic Eye exam: PRESENT: conjunctiva pink, EOMI, PERRLA. ABSENT: scleral icterus Ear exam: PRESENT: normal external ear exam Mouth exam: PRESENT: moist, tongue midline Neck exam: PRESENT: full ROM. ABSENT: carotid bruit, JVD, tenderness, thyromegaly, tracheostomy Respiratory exam: PRESENT: clear to auscultation jamel, decreased breath sounds - at lung bases Cardiovascular exam: PRESENT: RRR. ABSENT: diastolic murmur, rubs, systolic murmur Vascular exam: ABSENT: pallor GI/Abdominal exam: PRESENT: guarding, soft, tenderness - epigastric and LUQ region to palaption. ABSENT: organolmegaly, rebound Rectal exam: PRESENT: deferred Extremities exam: PRESENT: other - left forearm external splint in use due to recent osteoporosis related fracture per patient's report. ABSENT: pedal edema Musculoskeletal exam: PRESENT: deformity - related to her RA and osteoarthritis Neurological exam: PRESENT: alert, awake, oriented to person, oriented to place , oriented to time, oriented to situation, CN II-XII grossly intact. ABSENT: motor sensory deficit Psychiatric exam: PRESENT: appropriate affect, normal mood. ABSENT: homicidal ideation, suicidal ideation Skin exam: PRESENT: dry, warm Results Laboratory Results: I reviewed her recent lab results on [facility] and form significant aspect of my medial decision making. Impressions: Abdomen/Pelvis CT 01/09/18 22:12 IMPRESSION: No acute findings. No suspicious interval change. Assessment & Plan - Diagnosis (1) Peptic ulcer disease Is this a current diagnosis for this admission?: Yes Plan: See covering admitting physician orders. (2) Upper abdominal pain Is this a current diagnosis for this admission?: Yes Plan: See covering admitting physician orders. (3) Epigastric abdominal pain Is this a current diagnosis for this admission?: Yes Plan: See covering admitting physician orders. (4) Intractable vomiting with nausea Qualifiers: Vomiting type: unspecified Qualified Code(s): R11.2 - Nausea with vomiting , unspecified Is this a current diagnosis for this admission?: Yes Plan: See covering admitting physician orders. (5) Essential hypertension Is this a current diagnosis for this admission?: Yes Plan: See covering admitting physician orders. (6) Rheumatoid arthritis Qualifiers: Rheumatoid arthritis location: unspecified site Rheumatoid factor presence : without rheumatoid factor Qualified Code(s): M06.00 - Rheumatoid arthritis without rheumatoid factor, unspecified site Is this a current diagnosis for this admission?: Yes Plan: See covering admitting physician orders. - Time Time Spent: 50 to 70 Minutes Medications reviewed and adjusted accordingly: Yes Anticipated discharge: Home with Homehealth Within: Other - Plan Summary Plan Summary: See covering admitting physician orders.
[2018-01-10] MEDS: HYDRALAZINE HCL INJ/PF 20 MG/1 ML SDV IV PRN (14:55)
[2018-01-10] MEDS ORDERED: PANTOPRAZOLE SODIUM 40 MG VIAL IV ONE (15:00)
[2018-01-10] MEDS ORDERED: METOPROLOL TARTRATE 100 MG TABLET PO ONE (16:30)
[2018-01-10] MEDS: METOPROLOL TARTRATE 100 MG TABLET PO SCH (21:38)
[2018-01-10] MEDS: PANTOPRAZOLE SODIUM 40 MG VIAL IV SCH (21:38)
[2018-01-11] MEDS: HYDRALAZINE HCL INJ/PF 20 MG/1 ML SDV IV PRN (00:02)
[2018-01-11] MEDS: MORPHINE SULFATE 10 MG/ML INJ IV PRN ×6 (00:18→21:22)
--- NOTE | 2018-01-11 06:34 | PDOC CONSULTATION ---
Consultation Consult Date: 01/11/18 Consult reason:: Left forearm fracture History of Present Illness Admission Date/PCP: 01/10/18 02:43 SHARDA MAYS MD History of Present Illness: NICKO FERRO is a 77 year old female The patient is a 77-year-old black female admitted for abdominal/ gastrointestinal issues who presents with a splint on the left upper extremity. The patient reports in significant trauma on December 26 leading to a forearm fracture. There are x-rays in the [facility] system demonstrating what appears to be an older distal third ulna fracture with abundant callus and potentially superimposed more recent radius fracture. There are no treatment notes. At some point the patient has been placed in a splint presumably with the intent of nonoperative therapy. The patient is not able to enlighten me in terms of the treatment that has been initiated. Past Medical History Cardiac Medical History: Reports: Congestive Heart Failure, Hypertension, Peripheral Vascular Disease Neurological Medical History: Denies: Seizures GI Medical History: Reports: Gastroesophageal Reflux Disease Musculoskeltal Medical History: Reports: Arthritis - RA Psychiatric Medical History: Denies: Depression Past Surgical History Past Surgical History: Reports: Cholecystectomy - 05/2017, Hysterectomy, Orthopedic Surgery - LT HIP REMOVAL OF "HEAD", SCREWS RT HIP, RT KNEE REPLACEMENT, Other - lysis of adhesions Social History Information Source: Patient, [facility] Records Lives with: Family Smoking Status: Never Smoker Cigarettes Packs Per Day: 0.5 Number of Years Smokin Frequency of Alcohol Use: None Hx Recreational Drug Use: No Drugs: None Hx Prescription Drug Abuse: No Family History Family History: Reviewed & Not Pertinent Parental Family History Reviewed: No Children Family History Reviewed: No Sibling(s) Family History Reviewed.: No Medication/Allergy Home Medications: Amlodipine Besylate [Norvasc 10 mg Tablet] 10 mg PO DAILY 01/10/18 Clonidine HCl [Catapres 0.2 mg Tablet] 0.2 mg PO Q12 01/10/18 Cyclobenzaprine HCl [Flexeril 10 mg Tablet] 10 mg PO Q8HP PRN 01/10/18 Dicyclomine HCl [Bentyl 10 mg Capsule] 10 mg PO QID 01/10/18 Duloxetine HCl [Cymbalta] 60 mg PO DAILY 01/10/18 Lipase/Protease/Amylase [Zenpep Dr 15,000 Unit Capsule] 3 cap PO TID 01/10/18 Metoprolol Tartrate [Lopressor 100 mg Tablet] 100 mg PO Q12 01/10/18 Morphine Sulfate/Naltrexone [Embeda ER 50-2 mg Capsule] 1 cap PO DAILY 01/10/18 Ondansetron [Zofran Odt 4 mg Tablet] 4 mg PO Q8HP PRN 01/10/18 Oxycodone HCl 15 mg PO Q4HP PRN 01/10/18 Pantoprazole Sodium [Protonix] 40 mg PO BID 01/10/18 Valsartan [Diovan] 320 mg PO DAILY 01/10/18 Allergies/Adverse Reactions: sulfamethoxazole [From Bactrim] Allergy (Verified 12/29/17 12:45) trimethoprim [From Bactrim] Allergy (Verified 12/29/17 12:45) Physical Exam Vital Signs: Temp Pulse Resp BP Pulse Ox 37.1 C 87 20 187/80 H 99 01/11/18 03:30 01/11/18 03:30 01/11/18 03:30 01/11/18 03:30 01/11/18 03:30 Intake & Output 01/09/18 01/10/18 01/11/18 06:59 06:59 06:59 Intake Total 20 340 Output Total 200 Balance -180 340 Weight 63.2 kg 60.6 kg Results Impressions: Abdomen/Pelvis CT 01/09/18 22:12 IMPRESSION: No acute findings. No suspicious interval change. Assessment & Plan - Diagnosis (1) Left forearm fracture Is this a current diagnosis for this admission?: Yes Plan: The patient has been placed in the left upper extremity splint with the intent of nonoperative therapy by a physician other than myself. The history that I am obtaining from the patient is not consistent with the radiographic record that is available. At this point I think continued nonoperative therapy is probably in her best interest. The splint can be changed to a long-arm cast on an outpatient basis. Alternatively the patient can return to the original treating physician which may be better from a continuity standpoint. (2) Displaced fracture of right femoral neck Is this a current diagnosis for this admission?: Yes Plan: Of note on the abdominal CT scan in September 2017 there is a failed attempt at a right femoral neck internal fixation of the screws were not protruding into the pelvis. - Time Time Spent: 50 to 70 Minutes Anticipated discharge: Other Within: Other
--- NOTE | 2018-01-11 08:48 | Physician Advisory Note ---
Physician Advisor ProgressNote .: Pursuant to the plan for Cherry Katz, I have reviewed the medical record for this patient. Physician Advisor Statement: Please consider documenting, if you agree: 1. "Chronic diastolic CHF" (per ECHO 2017 report) - CHF dx always needs specification of whether acute/chronic, syst/diast. 2. "Opioid dependence" ? (usually on morphine/naloxone 30/2 daily + prn oxycodone) Status: Appropriately brought in as Obs for abd pain/N/V. Medicare pt, has now needed 2 MNs in hospital care, still having N/V of bile w/abd pain & tenderness & guarding on PM of 2nd day per nursing note (despite PRN REglan IV, etc.), & also at that point, per nursing, having inability to lie flat, mod thin yellow sputum which has not be documented previously. Therefore, requiring a 2nd MN of hospital care/monitoring. Appropriate for conversion to Inpatient status as of 01/10 PM. Thanks! CK
[2018-01-11] MEDS: METOPROLOL TARTRATE 100 MG TABLET PO SCH ×2 (09:53→21:24)
[2018-01-11] MEDS: PANTOPRAZOLE SODIUM 40 MG VIAL IV SCH ×2 (10:09→21:22)
[2018-01-11] MEDS: ENOXAPARIN SODIUM INJ 40 MG/0.4 ML DISP.SYRIN SUBCUT SCH (10:16)
[2018-01-11] MEDS: PROMETHAZINE HCL INJ 25 MG/1 ML VIAL IV PRN ×3 (12:19→22:40)
--- NOTE | 2018-01-11 21:08 | PDOC PROGRESS REPORT ---
Subjective Progress Note for:: 01/11/18 Subjective:: Patient was admitted for evaluation and management of upper abdominal pain, she continues to vomit, she was n.p.o. since admission, the lab showed hyperproteinemia, she sustained spontaneous fracture of the left forearm there was no fall or injury, with hyperproteinemia, paraproteinemia needs to be rule out in this case especially multiple myeloma. Protein, urine and serum Electrophoresis is ordered Reason For Visit: PEPTIC ULCER DISEASE INTRACTABLE VOMITING LEFT Physical Exam Vital Signs: Temp Pulse Resp BP Pulse Ox 98.6 F 83 18 177/79 H 99 01/11/18 15:45 01/11/18 18:58 01/11/18 15:45 01/11/18 15:45 01/11/18 15:45 Intake & Output 01/10/18 01/11/18 01/12/18 06:59 06:59 06:59 Intake Total 444 Balance 444 General appearance: PRESENT: mild distress Eye exam: PRESENT: PERRLA Respiratory exam: PRESENT: clear to auscultation jamel Cardiovascular exam: PRESENT: +S1, +S2 GI/Abdominal exam: PRESENT: tenderness Extremities exam: PRESENT: other - She has lower extremity edema especially in the thigh area left more than right Neurological exam: PRESENT: alert Results Impressions: Abdomen/Pelvis CT 01/09/18 22:12 IMPRESSION: No acute findings. No suspicious interval change. Assessment & Plan - Diagnosis (1) Upper abdominal pain Is this a current diagnosis for this admission?: Yes (2) Hyperproteinemia Is this a current diagnosis for this admission?: Yes (3) Hypertensive urgency Is this a current diagnosis for this admission?: Yes (4) Persistent vomiting Is this a current diagnosis for this admission?: Yes (5) Rheumatoid arthritis Qualifiers: Rheumatoid arthritis location: unspecified site Rheumatoid factor presence : without rheumatoid factor Qualified Code(s): M06.00 - Rheumatoid arthritis without rheumatoid factor, unspecified site Is this a current diagnosis for this admission?: Yes
[2018-01-11] MEDS ORDERED: LIPASE PO SCH (21:15)
[2018-01-11] MEDS ORDERED: PROTEASE PO SCH (21:15)
[2018-01-11] MEDS ORDERED: AMYLASE PO SCH (21:15)
[2018-01-11 21:22] LABS: ABSOLUTE BASOPHILS # (AUTO) 0.1 10^3/uL (0.0-0.2); ABSOLUTE LYMPHOCYTES (AUTO) 1.7 10^3/uL (0.5-4.7); ABSOLUTE MONOCYTES (AUTO) 1.3 10^3/uL (0.1-1.4); ABSOLUTE NEUT (AUTO) 9.3 10^3/uL (1.7-8.2); BASOPHILS % (AUTO) 0.5 % (0-2); EOSINOPHILS % (AUTO) 0.2 % (0-6); HEMATOCRIT 39.5 % (36.0-47.0); HEMOGLOBIN 13.4 g/dL (12.0-15.5); LYMPHOCYTES % (AUTO) 13.8 % (13-45); MEAN CORPUSCULAR HEMOGLOBIN 30.5 pg (27.0-33.4); MEAN CORPUSCULAR HGB CONC 33.8 g/dL (32.0-36.0); MEAN CORPUSCULAR VOLUME 90 fl (80-97); MONOCYTES % (AUTO) 10.2 % (3-13); PLATELET COUNT 202 10^3/uL (150-450); RED BLOOD COUNT 4.38 10^6/uL (3.72-5.28); RED CELL DISTRIBUTION WIDTH 16.7 % (11.5-14.0); SEGMENTED NEUTROPHILS % (AUTO) 75.3 % (42-78); TOTAL CELLS COUNTED % (AUTO) 100 %; WHITE BLOOD COUNT 12.3 10^3/uL (4.0-10.5)
[2018-01-11] MEDS: CLONIDINE HCL 0.2 MG TABLET PO SCH (21:23)
[2018-01-11 21:36] LABS: ALANINE AMINOTRANSFERASE 17 U/L (9-52); ALBUMIN 3.7 g/dL (3.5-5.0); ALKALINE PHOSPHATASE 301 U/L (38-126); ANION GAP 12 (5-19); ASPARTATE AMINO TRANSFERASE 21 U/L (14-36); BILIRUBIN,DIRECT 0.5 mg/dL (0.0-0.4); BILIRUBIN,TOTAL 0.6 mg/dL (0.2-1.3); BLOOD UREA NITROGEN 10 mg/dL (7-20); CALCIUM 8.6 mg/dL (8.4-10.2); CARBON DIOXIDE 23 mmol/L (22-30); CHLORIDE 109 mmol/L (98-107); GLUCOSE 105 mg/dL (75-110); POTASSIUM 3.2 mmol/L (3.6-5.0); SODIUM 143.5 mmol/L (137-145); TOTAL PROTEIN 7.7 g/dL (6.3-8.2)
[2018-01-11] MEDS ORDERED: AMLODIPINE BESYLATE 10 MG TABLET PO ONE (22:00)
[2018-01-11 22:16] LABS: UR PRO/CREAT RATIO RESULT 1.1 mg/mg (0.0-0.2); URINE CREATININE 35.3 mg/dL (15-278); URINE PROTEIN 37.4 mg/dL (<12)
[2018-01-12] MEDS: MORPHINE SULFATE 10 MG/ML INJ IV PRN ×6 (01:06→21:45)
[2018-01-12] MEDS: HYDRALAZINE HCL INJ/PF 20 MG/1 ML SDV IV PRN (01:07)
[2018-01-12] MEDS: PROMETHAZINE HCL INJ 25 MG/1 ML VIAL IV PRN ×4 (04:15→21:46)
[2018-01-12 05:39] LABS: ABSOLUTE LYMPHOCYTES (AUTO) 1.7 10^3/uL (0.5-4.7); ABSOLUTE MONOCYTES (AUTO) 1.1 10^3/uL (0.1-1.4); ABSOLUTE NEUT (AUTO) 8.6 10^3/uL (1.7-8.2); BASOPHILS % (AUTO) 0.4 % (0-2); EOSINOPHILS % (AUTO) 0.2 % (0-6); HEMATOCRIT 41.2 % (36.0-47.0); HEMOGLOBIN 13.8 g/dL (12.0-15.5); LYMPHOCYTES % (AUTO) 14.7 % (13-45); MEAN CORPUSCULAR HEMOGLOBIN 30.4 pg (27.0-33.4); MEAN CORPUSCULAR HGB CONC 33.6 g/dL (32.0-36.0); MEAN CORPUSCULAR VOLUME 90 fl (80-97); MONOCYTES % (AUTO) 9.7 % (3-13); PLATELET COUNT 193 10^3/uL (150-450); RED BLOOD COUNT 4.56 10^6/uL (3.72-5.28); RED CELL DISTRIBUTION WIDTH 16.8 % (11.5-14.0); TOTAL CELLS COUNTED % (AUTO) 100 %; WHITE BLOOD COUNT 11.5 10^3/uL (4.0-10.5)
[2018-01-12 06:09] LABS: ALANINE AMINOTRANSFERASE 16 U/L (9-52); ALBUMIN 3.7 g/dL (3.5-5.0); ALKALINE PHOSPHATASE 299 U/L (38-126); ANION GAP 14 (5-19); ASPARTATE AMINO TRANSFERASE 19 U/L (14-36); BILIRUBIN,DIRECT 0.5 mg/dL (0.0-0.4); BILIRUBIN,TOTAL 0.7 mg/dL (0.2-1.3); BLOOD UREA NITROGEN 11 mg/dL (7-20); CALCIUM 8.5 mg/dL (8.4-10.2); CARBON DIOXIDE 23 mmol/L (22-30); CHLORIDE 108 mmol/L (98-107); GLUCOSE 106 mg/dL (75-110); POTASSIUM 3.4 mmol/L (3.6-5.0); SODIUM 144.7 mmol/L (137-145); TOTAL PROTEIN 7.8 g/dL (6.3-8.2)
[2018-01-12] MEDS: AMLODIPINE BESYLATE 10 MG TABLET PO SCH (11:47)
[2018-01-12] MEDS: CLONIDINE HCL 0.2 MG TABLET PO SCH ×2 (11:48→21:49)
[2018-01-12] MEDS: METOPROLOL TARTRATE 100 MG TABLET PO SCH ×2 (11:48→21:48)
[2018-01-12] MEDS: PANTOPRAZOLE SODIUM 40 MG VIAL IV SCH ×2 (11:49→21:44)
[2018-01-12] MEDS: ENOXAPARIN SODIUM INJ 40 MG/0.4 ML DISP.SYRIN SUBCUT SCH (11:50)
--- NOTE | 2018-01-12 20:38 | PDOC PROGRESS REPORT ---
Subjective Progress Note for:: 01/12/18 Subjective:: Patient was seen by the bedside still have abdominal pain Reason For Visit: PEPTIC ULCER DISEASE INTRACTABLE VOMITING LEFT Physical Exam Vital Signs: Temp Pulse Resp BP Pulse Ox 98.3 F 68 19 156/84 H 96 01/12/18 15:57 01/12/18 15:57 01/12/18 15:57 01/12/18 15:57 01/12/18 15:57 Intake & Output 01/11/18 01/12/18 01/13/18 06:59 06:59 06:59 Intake Total 784 444 Balance 784 444 Weight 59.4 kg General appearance: PRESENT: no acute distress Eye exam: PRESENT: PERRLA Respiratory exam: PRESENT: clear to auscultation jamel Cardiovascular exam: PRESENT: +S1, +S2 GI/Abdominal exam: PRESENT: soft Neurological exam: PRESENT: alert, CN II-XII grossly intact Results Laboratory Results: 01/12/18 04:10 01/12/18 04:10 01/11/18 01/11/18 01/11/18 21:15 21:15 21:45 WBC 12.3 H RBC 4.38 Hgb 13.4 Hct 39.5 MCV 90 MCH 30.5 MCHC 33.8 RDW 16.7 H Plt Count 202 Seg Neutrophils % 75.3 Lymphocytes % 13.8 Monocytes % 10.2 Eosinophils % 0.2 Basophils % 0.5 Absolute Neutrophils 9.3 H Absolute Lymphocytes 1.7 Absolute Monocytes 1.3 Absolute Eosinophils 0.0 Absolute Basophils 0.1 Sodium 143.5 Potassium 3.2 L Chloride 109 H Carbon Dioxide 23 Anion Gap 12 BUN 10 Creatinine 0.67 Est GFR ( Amer) > 60 Est GFR (Non-Af Amer) > 60 Glucose 105 Calcium 8.6 Total Bilirubin 0.6 AST 21 ALT 17 Alkaline Phosphatase 301 H Total Protein 7.7 Albumin 3.7 Ur Albumin 24 Hour Cancelled Ur Total Protein 24 Hr Cancelled U PEP M-Yuri % 24 Hr Cancelled U PEP M-Yuri 24 Hr Cancelled 01/12/18 01/12/18 04:10 04:10 WBC 11.5 H RBC 4.56 Hgb 13.8 Hct 41.2 MCV 90 MCH 30.4 MCHC 33.6 RDW 16.8 H Plt Count 193 Seg Neutrophils % 75.0 Lymphocytes % 14.7 Monocytes % 9.7 Eosinophils % 0.2 Basophils % 0.4 Absolute Neutrophils 8.6 H Absolute Lymphocytes 1.7 Absolute Monocytes 1.1 Absolute Eosinophils 0.0 Absolute Basophils 0.0 Sodium 144.7 Potassium 3.4 L Chloride 108 H Carbon Dioxide 23 Anion Gap 14 BUN 11 Creatinine 0.69 Est GFR ( Amer) > 60 Est GFR (Non-Af Amer) > 60 Glucose 106 Calcium 8.5 Total Bilirubin 0.7 AST 19 ALT 16 Alkaline Phosphatase 299 H Total Protein 7.8 Albumin 3.7 Ur Albumin 24 Hour Ur Total Protein 24 Hr U PEP M-Yuri % 24 Hr U PEP M-Yuri 24 Hr Impressions: Abdomen/Pelvis CT 01/09/18 22:12 IMPRESSION: No acute findings. No suspicious interval change. Assessment & Plan - Diagnosis (1) Upper abdominal pain Is this a current diagnosis for this admission?: Yes Plan: Continue treatment (2) Hyperproteinemia Is this a current diagnosis for this admission?: Yes (3) Hypertensive urgency Is this a current diagnosis for this admission?: Yes (4) Persistent vomiting Is this a current diagnosis for this admission?: Yes (5) Rheumatoid arthritis Qualifiers: Rheumatoid arthritis location: unspecified site Rheumatoid factor presence : without rheumatoid factor Qualified Code(s): M06.00 - Rheumatoid arthritis without rheumatoid factor, unspecified site Is this a current diagnosis for this admission?: Yes
[2018-01-13] MEDS: PROMETHAZINE HCL INJ 25 MG/1 ML VIAL IV PRN ×5 (03:31→23:16)
[2018-01-13] MEDS: MORPHINE SULFATE 10 MG/ML INJ IV PRN ×5 (03:31→23:15)
[2018-01-13] MEDS: ENOXAPARIN SODIUM INJ 40 MG/0.4 ML DISP.SYRIN SUBCUT SCH (09:38)
[2018-01-13] MEDS: METOPROLOL TARTRATE 100 MG TABLET PO SCH ×2 (09:39→22:48)
[2018-01-13] MEDS: CLONIDINE HCL 0.2 MG TABLET PO SCH ×2 (09:39→22:47)
[2018-01-13] MEDS: PANTOPRAZOLE SODIUM 40 MG VIAL IV SCH (09:39)
[2018-01-13] MEDS: AMLODIPINE BESYLATE 10 MG TABLET PO SCH (09:45)
[2018-01-13] MEDS ORDERED: POLYETHYLENE GLYCOL 3350 POWDER 17 GM/1 PACKET PO SCH (10:00)
--- NOTE | 2018-01-13 11:54 | RADIOLOGY REPORT (SQ) ---
EXAM DESCRIPTION: VENOUS BILATERAL LOWER COMPLETED DATE/TIME: 01/13/2018 11:38 am REASON FOR STUDY: swelling of legs COMPARISON: 09/17/2016 lower extremity venous Doppler TECHNIQUE: Dynamic and static herrera scale and color images acquired of both lower extremity venous sy stems. Selected spectral images acquired with additional compression and augmentation maneuvers. Imag es stored on PACS. LIMITATIONS: None. FINDINGS: RIGHT LEG COMMON FEMORAL AND FEMORAL: Normal phasicity, compression and augmentation. No visualized echogenic m aterial on herrera scale. No defects on color images. POPLITEAL: Normal compression and augmentation. No visualized echogenic material on herrera scale. No de fects on color images. CALF VESSELS: Normal compression and augmentation. No visualized echogenic material on herrera scale. No defects on color image. GSV AND SSV: Normal compression. No visualized echogenic material on herrera scale. No defects on color images. ANY DEEP VENOUS INSUFFICIENCY: Not evaluated. ANY EVIDENCE OF POPLITEAL CYST: No. OTHER: No other significant finding. LEFT LEG COMMON FEMORAL AND FEMORAL: Normal phasicity, compression and augmentation. No visualized echogenic m aterial on herrera scale. No defects on color images. POPLITEAL: Normal compression and augmentation. No visualized echogenic material on herrera scale. No de fects on color images. CALF VESSELS: Peroneal veins were very difficult to visualize. There is color flow within 1 of the p aired peroneal veins. The posterior tibial veins and anterior tibial veins demonstrate normal compre ssion and augmentation. No visualized echogenic material on herrera scale. No defects on color images. GSV AND SSV: Normal compression. No visualized echogenic material on herrera scale. No defects on color images. ANY DEEP VENOUS INSUFFICIENCY: Not evaluated. ANY EVIDENCE POPLITEAL CYST: No. OTHER: No other significant finding. IMPRESSION: Left peroneal veins were difficult to visualize. There is flow in 1 of the paired peron eal veins on the left. Otherwise unremarkable bilateral lower extremity venous Doppler. TECHNICAL DOCUMENTATION: JOB ID: [id number]- All Rights Reserved Reading location - IP/workstation name: [facility]
[2018-01-13 15:39] LABS: A/G RATIO 0.7 (0.7-1.7); ALPHA-2-GLOBULIN 2 1.1 g/dL (0.4-1.0); BETA GLOBULINS 1.1 g/dL (0.7-1.3); GAMMA GLOBULIN 1.8 g/dL (0.4-1.8); GLOBULIN TOTAL 4.3 g/dL (2.2-3.9); PROTEIN TOTAL SERUM 7.3 g/dL (6.0-8.5)
--- NOTE | 2018-01-13 18:34 | PDOC PROGRESS REPORT ---
Subjective Progress Note for:: 01/13/18 Subjective:: The M spike was positive, she was screened for paraproteinemia because of hyperproteinemia on the fact that she has spontaneous fracture of the left forearm Reason For Visit: PEPTIC ULCER DISEASE INTRACTABLE VOMITING LEFT Physical Exam Vital Signs: Temp Pulse Resp BP Pulse Ox 98.6 F 66 16 136/66 H 100 01/13/18 16:33 01/13/18 16:33 01/13/18 16:33 01/13/18 16:33 01/13/18 16:33 Intake & Output 01/12/18 01/13/18 01/14/18 06:59 06:59 06:59 Intake Total 784 1055 803 Balance 784 1055 803 Weight 59.4 kg 62.4 kg General appearance: PRESENT: mild distress Head exam: PRESENT: atraumatic, normocephalic Eye exam: PRESENT: PERRLA Ear exam: PRESENT: normal external ear exam Mouth exam: PRESENT: moist, tongue midline Neck exam: PRESENT: full ROM Respiratory exam: PRESENT: clear to auscultation jamel Cardiovascular exam: PRESENT: RRR, +S1, +S2 Vascular exam: PRESENT: normal capillary refill GI/Abdominal exam: PRESENT: normal bowel sounds, soft Rectal exam: PRESENT: deferred Neurological exam: PRESENT: alert Psychiatric exam: PRESENT: appropriate affect, normal mood Skin exam: PRESENT: dry, intact, warm Results Laboratory Results: 01/12/18 04:10 01/12/18 04:10 Impressions: Abdomen/Pelvis CT 01/09/18 22:12 IMPRESSION: No acute findings. No suspicious interval change. Venous Doppler Study 01/13/18 00:00 IMPRESSION: Left peroneal veins were difficult to visualize. There is flow in 1 of the paired peroneal veins on the left. Otherwise unremarkable bilateral lower extremity venous Doppler. Assessment & Plan - Diagnosis (1) Upper abdominal pain Is this a current diagnosis for this admission?: Yes (2) Hyperproteinemia Is this a current diagnosis for this admission?: Yes (3) Hypertensive urgency Is this a current diagnosis for this admission?: Yes (4) Persistent vomiting Is this a current diagnosis for this admission?: Yes (5) Rheumatoid arthritis Qualifiers: Rheumatoid arthritis location: unspecified site Rheumatoid factor presence : without rheumatoid factor Qualified Code(s): M06.00 - Rheumatoid arthritis without rheumatoid factor, unspecified site Is this a current diagnosis for this admission?: Yes (6) Monoclonal paraproteinemia Is this a current diagnosis for this admission?: Yes Plan: She may need bone marrow biopsy
[2018-01-13 18:43] LABS: ABSOLUTE BASOPHILS # (AUTO) 0.1 10^3/uL (0.0-0.2); ABSOLUTE EOSINOPHILS # (AUTO) 0.1 10^3/uL (0.0-0.6); ABSOLUTE LYMPHOCYTES (AUTO) 2.4 10^3/uL (0.5-4.7); ABSOLUTE MONOCYTES (AUTO) 0.7 10^3/uL (0.1-1.4); ABSOLUTE NEUT (AUTO) 4.9 10^3/uL (1.7-8.2); BASOPHILS % (AUTO) 0.7 % (0-2); EOSINOPHILS % (AUTO) 0.9 % (0-6); HEMOGLOBIN 12.5 g/dL (12.0-15.5); LYMPHOCYTES % (AUTO) 29.4 % (13-45); MEAN CORPUSCULAR HEMOGLOBIN 29.9 pg (27.0-33.4); MEAN CORPUSCULAR HGB CONC 32.9 g/dL (32.0-36.0); MEAN CORPUSCULAR VOLUME 91 fl (80-97); MONOCYTES % (AUTO) 8.2 % (3-13); PLATELET COUNT 175 10^3/uL (150-450); RED BLOOD COUNT 4.18 10^6/uL (3.72-5.28); RED CELL DISTRIBUTION WIDTH 16.4 % (11.5-14.0); SEGMENTED NEUTROPHILS % (AUTO) 60.8 % (42-78); TOTAL CELLS COUNTED % (AUTO) 100 %; WHITE BLOOD COUNT 8.1 10^3/uL (4.0-10.5)
[2018-01-13 18:59] LABS: ALANINE AMINOTRANSFERASE 17 U/L (9-52); ALBUMIN 3.4 g/dL (3.5-5.0); ALKALINE PHOSPHATASE 234 U/L (38-126); ANION GAP 13 (5-19); ASPARTATE AMINO TRANSFERASE 18 U/L (14-36); BILIRUBIN,DIRECT 0.4 mg/dL (0.0-0.4); BILIRUBIN,TOTAL 0.5 mg/dL (0.2-1.3); BLOOD UREA NITROGEN 14 mg/dL (7-20); CALCIUM 7.9 mg/dL (8.4-10.2); CARBON DIOXIDE 20 mmol/L (22-30); CHLORIDE 111 mmol/L (98-107); GLUCOSE 161 mg/dL (75-110); POTASSIUM 3.1 mmol/L (3.6-5.0); SODIUM 143.8 mmol/L (137-145); TOTAL PROTEIN 7.3 g/dL (6.3-8.2)
[2018-01-14] MEDS: MORPHINE SULFATE 10 MG/ML INJ IV PRN ×5 (03:20→20:10)
[2018-01-14] MEDS: PROMETHAZINE HCL INJ 25 MG/1 ML VIAL IV PRN ×5 (03:20→20:09)
[2018-01-14 07:22] LABS: MONOCLONAL SPIKE 0.4 g/dL (Not Observ)
[2018-01-14] MEDS: AMLODIPINE BESYLATE 10 MG TABLET PO SCH (09:25)
[2018-01-14] MEDS: ENOXAPARIN SODIUM INJ 40 MG/0.4 ML DISP.SYRIN SUBCUT SCH (09:26)
[2018-01-14] MEDS: CLONIDINE HCL 0.2 MG TABLET PO SCH ×2 (09:26→21:53)
[2018-01-14] MEDS: METOPROLOL TARTRATE 100 MG TABLET PO SCH ×2 (09:26→21:52)
[2018-01-14 09:28] LABS: ALANINE AMINOTRANSFERASE 17 U/L (9-52); ALBUMIN 3.3 g/dL (3.5-5.0); ALKALINE PHOSPHATASE 217 U/L (38-126); ANION GAP 11 (5-19); ASPARTATE AMINO TRANSFERASE 16 U/L (14-36); BILIRUBIN,DIRECT 0.3 mg/dL (0.0-0.4); BILIRUBIN,TOTAL 0.4 mg/dL (0.2-1.3); BLOOD UREA NITROGEN 16 mg/dL (7-20); CALCIUM 7.5 mg/dL (8.4-10.2); CARBON DIOXIDE 23 mmol/L (22-30); CHLORIDE 108 mmol/L (98-107); GLUCOSE 148 mg/dL (75-110); POTASSIUM 3.2 mmol/L (3.6-5.0)
[2018-01-14] MEDS ORDERED: POTASSIUM CHLORIDE 10 MEQ CAPSULE.ER PO ONE ×2 (13:00→23:00)
[2018-01-14 15:39] LABS: ALBUMIN UR 45.4 % (.); ALPHA-1-GLOBULIN URINE 4.2 % (.); ALPHA-2-GLOBULIN URINE 14.1 % (.); GAMMA GLOBULIN URINE 17.2 % (.); M-SPIKE % UR Not Observed % (Not Observ); PROTEIN TOTAL URINE 39.3 mg/dL (Not Estab.)
--- NOTE | 2018-01-14 20:34 | PDOC PROGRESS REPORT ---
Subjective Progress Note for:: 01/14/18 Subjective:: She was seen by the bedside the protein electrophoresis was positive for M spike Reason For Visit: PEPTIC ULCER DISEASE INTRACTABLE VOMITING LEFT Physical Exam Vital Signs: Temp Pulse Resp BP Pulse Ox 99.0 F 90 18 111/57 L 97 01/14/18 19:47 01/14/18 19:47 01/14/18 19:47 01/14/18 19:47 01/14/18 19:47 Intake & Output 01/13/18 01/14/18 01/15/18 06:59 06:59 06:59 Intake Total 1055 1355 537 Balance 1055 1355 537 Weight 62.4 kg 63 kg General appearance: PRESENT: no acute distress Eye exam: PRESENT: PERRLA Respiratory exam: PRESENT: clear to auscultation jamel Cardiovascular exam: PRESENT: +S1, +S2 GI/Abdominal exam: PRESENT: soft Neurological exam: PRESENT: alert Results Laboratory Results: 01/13/18 18:30 01/14/18 08:50 01/11/18 01/14/18 21:45 08:50 Sodium 142.0 Potassium 3.2 L Chloride 108 H Carbon Dioxide 23 Anion Gap 11 BUN 16 Creatinine 0.81 Est GFR ( Amer) > 60 Est GFR (Non-Af Amer) > 60 Glucose 148 H Calcium 7.5 L Total Bilirubin 0.4 AST 16 ALT 17 Alkaline Phosphatase 217 H Total Protein 7.3 7.0 Albumin 3.0 3.3 L Impressions: Abdomen/Pelvis CT 01/09/18 22:12 IMPRESSION: No acute findings. No suspicious interval change. Venous Doppler Study 01/13/18 00:00 IMPRESSION: Left peroneal veins were difficult to visualize. There is flow in 1 of the paired peroneal veins on the left. Otherwise unremarkable bilateral lower extremity venous Doppler. Assessment & Plan - Diagnosis (1) Upper abdominal pain Is this a current diagnosis for this admission?: Yes (2) Hyperproteinemia Is this a current diagnosis for this admission?: Yes (3) Hypertensive urgency Is this a current diagnosis for this admission?: Yes (4) Persistent vomiting Is this a current diagnosis for this admission?: Yes (5) Rheumatoid arthritis Qualifiers: Rheumatoid arthritis location: unspecified site Rheumatoid factor presence : without rheumatoid factor Qualified Code(s): M06.00 - Rheumatoid arthritis without rheumatoid factor, unspecified site Is this a current diagnosis for this admission?: Yes (6) Monoclonal paraproteinemia Is this a current diagnosis for this admission?: Yes
[2018-01-15] MEDS: PROMETHAZINE HCL INJ 25 MG/1 ML VIAL IV PRN ×6 (00:52→22:53)
[2018-01-15] MEDS: MORPHINE SULFATE 10 MG/ML INJ IV PRN ×6 (00:53→22:53)
[2018-01-15] MEDS: LANSOPRAZOLE 30 MG TAB.RAP.DR PO SCH (05:38)
[2018-01-15] MEDS: POTASSIUM CHLORIDE 10 MEQ CAPSULE.ER PO SCH (09:28)
[2018-01-15] MEDS: CLONIDINE HCL 0.2 MG TABLET PO SCH ×2 (09:29→21:57)
[2018-01-15] MEDS: METOPROLOL TARTRATE 100 MG TABLET PO SCH ×2 (09:29→21:57)
[2018-01-15] MEDS: AMLODIPINE BESYLATE 10 MG TABLET PO SCH (09:30)
[2018-01-15] MEDS: ENOXAPARIN SODIUM INJ 40 MG/0.4 ML DISP.SYRIN SUBCUT SCH (09:31)
[2018-01-15 14:40] LABS: A/G RATIO. 0.7 (0.7-1.7); ALBUMIN 3 3.1 g/dL (2.9-4.4); ALPHA-1-GLOBULIN 0.3 g/dL (0.0-0.4); BETA GLOBULIN 1.4 g/dL (0.7-1.3); GAMMA GLOBULINS 1.6 g/dL (0.4-1.8); IMMUNOGLOBULIN A 768 mg/dL (64-422); IMMUNOGLOBULIN G 1465 mg/dL (700-1600); IMMUNOGLOBULIN M 286 mg/dL (26-217); MONOCLONAL-SPIKE Not Observed g/dL (Not Observ); PROTEIN TOTAL SERUM 7.6 g/dL (6.0-8.5)
[2018-01-15] MEDS: DIPHENHYDRAMINE HCL 50 MG/ML VIAL IV PRN (17:53)
[2018-01-15] MEDS: DIPHENOXYLATE HCL/ATROP SULF 2.5-0.025 MG TABLET PO PRN (17:53)
--- NOTE | 2018-01-15 20:23 | PDOC PROGRESS REPORT ---
Subjective Progress Note for:: 01/15/18 Subjective:: I saw patient by the bedside, I had a long discussion with patient's daughter about the probability of patient having multiple myeloma, the protein electrophoresis showed M spike, she will need to have a bone marrow biopsy this will be ordered to be done under CT guidance. Patient's daughter was very tearful today she said she can no longer take care of her mother , she would like her placed in a detention home or preferably assisted living facility because of her own poor health and the fact that her mother is a total care. She has to lift ,push and pull at all times she is wheelchair- bound. Discharge planning is making arrangement for placement in assisted living facility. Today is Thursday I am not sure radiology get to the CT-guided biopsy of the bone marrow today this probably be done on Thursday or over the weekend though unlikely Reason For Visit: PEPTIC ULCER DISEASE INTRACTABLE VOMITING LEFT Physical Exam Vital Signs: Temp Pulse Resp BP Pulse Ox 98.2 F 89 18 120/51 L 99 01/15/18 19:55 01/15/18 19:55 01/15/18 19:55 01/15/18 19:55 01/15/18 19:55 Intake & Output 01/14/18 01/15/18 01/16/18 06:59 06:59 06:59 Intake Total 1355 601 750 Output Total 200 Balance 1355 601 550 Weight 63 kg 63.3 kg General appearance: PRESENT: no acute distress Eye exam: PRESENT: PERRLA Respiratory exam: PRESENT: clear to auscultation jamel Cardiovascular exam: PRESENT: +S1, +S2 GI/Abdominal exam: PRESENT: soft Neurological exam: PRESENT: alert Results Laboratory Results: 01/13/18 18:30 01/14/18 08:50 Impressions: Abdomen/Pelvis CT 01/09/18 22:12 IMPRESSION: No acute findings. No suspicious interval change. Venous Doppler Study 01/13/18 00:00 IMPRESSION: Left peroneal veins were difficult to visualize. There is flow in 1 of the paired peroneal veins on the left. Otherwise unremarkable bilateral lower extremity venous Doppler. Assessment & Plan - Diagnosis (1) Upper abdominal pain Is this a current diagnosis for this admission?: Yes (2) Hyperproteinemia Is this a current diagnosis for this admission?: Yes (3) Hypertensive urgency Is this a current diagnosis for this admission?: Yes (4) Persistent vomiting Is this a current diagnosis for this admission?: Yes (5) Rheumatoid arthritis Qualifiers: Rheumatoid arthritis location: unspecified site Rheumatoid factor presence : without rheumatoid factor Qualified Code(s): M06.00 - Rheumatoid arthritis without rheumatoid factor, unspecified site Is this a current diagnosis for this admission?: Yes (6) Monoclonal paraproteinemia Is this a current diagnosis for this admission?: Yes Plan: CT-guided bone marrow biopsy is ordered
[2018-01-15] MEDS ORDERED: TUBERCULIN,PURIF.PROT.DERIV. 5 TU/0.1 ML TEST 1 ML VIAL ID ONE (21:00)
[2018-01-16] MEDS: MORPHINE SULFATE 10 MG/ML INJ IV PRN ×5 (04:29→21:36)
[2018-01-16] MEDS: PROMETHAZINE HCL INJ 25 MG/1 ML VIAL IV PRN ×5 (04:29→21:37)
[2018-01-16] MEDS: LANSOPRAZOLE 30 MG TAB.RAP.DR PO SCH (05:59)
[2018-01-16] MEDS: DIPHENHYDRAMINE HCL 50 MG/ML VIAL IV PRN ×3 (08:52→18:05)
[2018-01-16] MEDS: CLONIDINE HCL 0.2 MG TABLET PO SCH ×2 (11:14→21:32)
[2018-01-16] MEDS: METOPROLOL TARTRATE 100 MG TABLET PO SCH ×2 (11:14→21:33)
[2018-01-16] MEDS: AMLODIPINE BESYLATE 10 MG TABLET PO SCH (11:14)
[2018-01-16] MEDS: POTASSIUM CHLORIDE 10 MEQ CAPSULE.ER PO SCH (11:15)
[2018-01-16] MEDS: ENOXAPARIN SODIUM INJ 40 MG/0.4 ML DISP.SYRIN SUBCUT SCH (11:16)
--- NOTE | 2018-01-16 14:37 | PDOC PROGRESS REPORT ---
Subjective Progress Note for:: 01/16/18 Subjective:: She was by the bedside, there is no new complaints Reason For Visit: PEPTIC ULCER DISEASE INTRACTABLE VOMITING LEFT Physical Exam Vital Signs: Temp Pulse Resp BP Pulse Ox 98.1 F 74 16 103/43 L 97 01/16/18 12:46 01/16/18 14:00 01/16/18 12:46 01/16/18 12:46 01/16/18 12:46 Intake & Output 01/15/18 01/16/18 01/17/18 06:59 06:59 06:59 Intake Total 601 750 Output Total 200 Balance 601 550 Weight 63.3 kg 63.5 kg General appearance: PRESENT: no acute distress Eye exam: PRESENT: PERRLA Respiratory exam: PRESENT: clear to auscultation jamel Cardiovascular exam: PRESENT: +S1, +S2 GI/Abdominal exam: PRESENT: soft Neurological exam: PRESENT: alert Results Laboratory Results: 01/13/18 18:30 01/14/18 08:50 Impressions: Abdomen/Pelvis CT 01/09/18 22:12 IMPRESSION: No acute findings. No suspicious interval change. Venous Doppler Study 01/13/18 00:00 IMPRESSION: Left peroneal veins were difficult to visualize. There is flow in 1 of the paired peroneal veins on the left. Otherwise unremarkable bilateral lower extremity venous Doppler. Assessment & Plan - Diagnosis (1) Upper abdominal pain Is this a current diagnosis for this admission?: Yes (2) Hyperproteinemia Is this a current diagnosis for this admission?: Yes (3) Hypertensive urgency Is this a current diagnosis for this admission?: Yes (4) Persistent vomiting Is this a current diagnosis for this admission?: Yes (5) Rheumatoid arthritis Qualifiers: Rheumatoid arthritis location: unspecified site Rheumatoid factor presence : without rheumatoid factor Qualified Code(s): M06.00 - Rheumatoid arthritis without rheumatoid factor, unspecified site Is this a current diagnosis for this admission?: Yes (6) Monoclonal paraproteinemia Is this a current diagnosis for this admission?: Yes
[2018-01-16] MEDS: DIPHENOXYLATE HCL/ATROP SULF 2.5-0.025 MG TABLET PO PRN ×2 (14:45→23:10)
[2018-01-17] MEDS: MORPHINE SULFATE 10 MG/ML INJ IV PRN ×5 (04:05→22:06)
[2018-01-17] MEDS: PROMETHAZINE HCL INJ 25 MG/1 ML VIAL IV PRN ×5 (04:06→22:07)
[2018-01-17] MEDS: LANSOPRAZOLE 30 MG TAB.RAP.DR PO SCH (06:07)
[2018-01-17] MEDS: DIPHENHYDRAMINE HCL 50 MG/ML VIAL IV PRN ×3 (08:19→18:24)
[2018-01-17] MEDS: DIPHENOXYLATE HCL/ATROP SULF 2.5-0.025 MG TABLET PO PRN ×2 (08:23→15:54)
[2018-01-17] MEDS: AMLODIPINE BESYLATE 10 MG TABLET PO SCH (12:22)
[2018-01-17] MEDS: POTASSIUM CHLORIDE 10 MEQ CAPSULE.ER PO SCH (12:23)
[2018-01-17] MEDS: METOPROLOL TARTRATE 100 MG TABLET PO SCH ×2 (12:25→22:02)
[2018-01-17] MEDS: CLONIDINE HCL 0.2 MG TABLET PO SCH ×2 (12:25→22:02)
--- NOTE | 2018-01-17 15:19 | PDOC PROGRESS REPORT ---
Subjective Progress Note for:: 01/17/18 Subjective:: She was seen today in the room, she is scheduled for a bone marrow biopsy tomorrow, she has monoclonal paraproteinemia suspicious for multiple myeloma. Patient daughter said she is no longer able to take care of her mother and she wants are placed in the prison home or assisted living facility, discharge planning is working on that. She has chronic pain, she continues to require opioids for pain control Reason For Visit: PEPTIC ULCER DISEASE INTRACTABLE VOMITING LEFT Physical Exam Vital Signs: Temp Pulse Resp BP Pulse Ox 99.7 F 92 16 131/60 H 98 01/17/18 12:08 01/17/18 12:08 01/17/18 12:08 01/17/18 12:08 01/17/18 12:08 Intake & Output 01/16/18 01/17/18 01/18/18 06:59 06:59 06:59 Intake Total 750 1130 592 Output Total 200 Balance 550 1130 592 Weight 63.5 kg 63.5 kg General appearance: PRESENT: mild distress Eye exam: PRESENT: PERRLA Respiratory exam: PRESENT: clear to auscultation jamel Cardiovascular exam: PRESENT: +S1, +S2 GI/Abdominal exam: PRESENT: soft Results Laboratory Results: 01/13/18 18:30 01/14/18 08:50 01/11/18 21:15 Total Protein 7.6 Albumin 3.1 01/15/18 11:15 Stool - Stool - Final 01/15/18 11:15 Stool - Stool Stool Culture - Final NO SALMONELLA, SHIGELLA, CAMPYLOBACTER, OR E.COLI 0157 RECOVERED. NEGATIVE FOR SHIGA TOXINS 1&2. Impressions: Abdomen/Pelvis CT 01/09/18 22:12 IMPRESSION: No acute findings. No suspicious interval change. Venous Doppler Study 01/13/18 00:00 IMPRESSION: Left peroneal veins were difficult to visualize. There is flow in 1 of the paired peroneal veins on the left. Otherwise unremarkable bilateral lower extremity venous Doppler. Assessment & Plan - Diagnosis (1) Upper abdominal pain Is this a current diagnosis for this admission?: Yes (2) Hyperproteinemia Is this a current diagnosis for this admission?: Yes (3) Hypertensive urgency Is this a current diagnosis for this admission?: Yes (4) Persistent vomiting Is this a current diagnosis for this admission?: Yes (5) Rheumatoid arthritis Qualifiers: Rheumatoid arthritis location: unspecified site Rheumatoid factor presence : without rheumatoid factor Qualified Code(s): M06.00 - Rheumatoid arthritis without rheumatoid factor, unspecified site Is this a current diagnosis for this admission?: Yes (6) Monoclonal paraproteinemia Is this a current diagnosis for this admission?: Yes (7) Chronic, continuous use of opioids Is this a current diagnosis for this admission?: Yes
[2018-01-17 16:16] LABS: ALANINE AMINOTRANSFERASE 19 U/L (9-52); ALKALINE PHOSPHATASE 192 U/L (38-126); ANION GAP 10 (5-19); ASPARTATE AMINO TRANSFERASE 12 U/L (14-36); BILIRUBIN,DIRECT 0.2 mg/dL (0.0-0.4); BILIRUBIN,TOTAL 0.2 mg/dL (0.2-1.3); BLOOD UREA NITROGEN 19 mg/dL (7-20); CALCIUM 7.1 mg/dL (8.4-10.2); CARBON DIOXIDE 18 mmol/L (22-30); CHLORIDE 116 mmol/L (98-107); GLUCOSE 84 mg/dL (75-110); POTASSIUM 4.9 mmol/L (3.6-5.0); SODIUM 144.4 mmol/L (137-145); TOTAL PROTEIN 5.9 g/dL (6.3-8.2)
[2018-01-18] MEDS: MORPHINE SULFATE 10 MG/ML INJ IV PRN ×5 (02:17→23:57)
[2018-01-18] MEDS: PROMETHAZINE HCL INJ 25 MG/1 ML VIAL IV PRN ×5 (02:17→23:58)
[2018-01-18] MEDS: LANSOPRAZOLE 30 MG TAB.RAP.DR PO SCH (05:09)
[2018-01-18 05:23] LABS: ABSOLUTE BASOPHILS # (AUTO) 0.1 10^3/uL (0.0-0.2); ABSOLUTE EOSINOPHILS # (AUTO) 0.3 10^3/uL (0.0-0.6); ABSOLUTE LYMPHOCYTES (AUTO) 1.6 10^3/uL (0.5-4.7); ABSOLUTE MONOCYTES (AUTO) 0.7 10^3/uL (0.1-1.4); ABSOLUTE NEUT (AUTO) 3.8 10^3/uL (1.7-8.2); BASOPHILS % (AUTO) 0.8 % (0-2); EOSINOPHILS % (AUTO) 4.6 % (0-6); HEMATOCRIT 30.7 % (36.0-47.0); HEMOGLOBIN 9.9 g/dL (12.0-15.5); LYMPHOCYTES % (AUTO) 24.3 % (13-45); MEAN CORPUSCULAR HEMOGLOBIN 29.8 pg (27.0-33.4); MEAN CORPUSCULAR HGB CONC 32.4 g/dL (32.0-36.0); MEAN CORPUSCULAR VOLUME 92 fl (80-97); MONOCYTES % (AUTO) 11.1 % (3-13); PLATELET COUNT 183 10^3/uL (150-450); RED BLOOD COUNT 3.34 10^6/uL (3.72-5.28); SEGMENTED NEUTROPHILS % (AUTO) 59.2 % (42-78); TOTAL CELLS COUNTED % (AUTO) 100 %; WHITE BLOOD COUNT 6.4 10^3/uL (4.0-10.5)
[2018-01-18 05:30] LABS: INTERNATIONAL RATION (INR) 1.02; PROTHROMBIN TIME 13.9 SEC (11.4-15.4)
[2018-01-18 05:31] LABS: PARTIAL THROMBOPLASTIN TIME 29.2 SEC (23.5-35.8)
[2018-01-18 06:00] LABS: ANION GAP 9 (5-19); BLOOD UREA NITROGEN 17 mg/dL (7-20); CALCIUM 7.4 mg/dL (8.4-10.2); CARBON DIOXIDE 19 mmol/L (22-30); CHLORIDE 117 mmol/L (98-107); GLUCOSE 93 mg/dL (75-110); POTASSIUM 4.5 mmol/L (3.6-5.0); SODIUM 144.5 mmol/L (137-145)
[2018-01-18] MEDS ORDERED: MIDAZOLAM 2 MG/2 ML INJ ONE (13:46)
[2018-01-18] MEDS ORDERED: FENTANYL CITRATE INJ/PF 250 MCG/5 ML AMPULE ONE (13:46)
[2018-01-18] MEDS ORDERED: LIDOCAINE 1% INJ-PF (10 MG/ML) 30 ML SDV ONE (13:47)
--- NOTE | 2018-01-18 15:42 | RADIOLOGY REPORT (SQ) ---
EXAM DESCRIPTION: CT BIOPSY BONE MARROW, NEEDLE; CT NEEDLE PLACEMENT COMPLETED DATE/TIME: 01/18/2018 2:50 pm REASON FOR STUDY: paraproteinemia ? multiple myloma ; PARAPROTEINEMIA, MUTIPLE MYELOMA COMPARISON: CT abdomen pelvis 01/10/2018 TECHNIQUE: CT guided biopsy of the right performed with conscious sedation. CT Fluoroscopy Time: 6.[address] scanners at this facility use dose modulation, iterative reconstruction, and/or weight based d osing when appropriate to reduce radiation dose to as low as reasonably achievable (ALARA). [facility]: Dose Right [facility]: CareDose [facility]: Dose Right [facility]: Teradose 4D [facility]: [employer] RADIATION DOSE: mGy. FINDINGS: After obtaining informed consent and explaining the risks and benefits of conscious sedati on,the patient agreed to the procedure. Prior to the procedure, a time out was performed to verify th e patient's identity and planned procedure. IV conscious sedation was administered and physician direction by the registered nurse using 1 millig karoline of Versed and 50 micrograms of fentanyl. Physiologic monitoring was provided before, during, and after sedation. The total sedation time was 30 minutes. Documentation face to face time, the performing proceduralist, spent monitoring the patient: [address] scanning was performed to localize the percutaneous site for the biopsy approach. After sterile skin prep and local lidocaine for skin and deep tissue anesthesia, a coaxial biopsy nee dle was used to obtain a bone marrow aspirate, and a bone marrow core of tissue. The biopsy tissue wa s received by Priscilla to be sent out for evaluation. There were no immediate complications. Pathology is pending at the time of dictation. IMPRESSION: CT GUIDED ASPIRATE AND CORE BIOPSY OF THE RIGHT POSTERIOR ILIAC CREST BONE MARROW PERFOR MED WITHOUT IMMEDIATE COMPLICATION. PATHOLOGY PENDING. IV CONSCIOUS SEDATION WITHOUT COMPLICATION. COMMENT: Quality ID 145: Final reports for procedures using fluoroscopy that document radiation exp osure indices, or exposure time and number of fluorographic images (if radiation exposure indices are not available) Patient medication list reviewed: Yes- Quality ID# [id number]:Eligible professional attests to documenting i n the medical record they obtained, updated, or reviewed the patient's current medications.. TECHNICAL DOCUMENTATION: JOB ID: [id number] Quality ID# 436: Final reports with documentation of one or more dose reduction techniques (e.g., Aut omated exposure control, adjustment of the mA and/or kV according to patient size, use of iterative r econstruction technique) 2010 [employer]- All Rights Reserved Reading location - IP/workstation name: [email or web address]
--- NOTE | 2018-01-18 15:46 | RADIOLOGY REPORT (SQ) ---
EXAM DESCRIPTION: CT BIOPSY BONE MARROW, NEEDLE; CT NEEDLE PLACEMENT COMPLETED DATE/TIME: 01/18/2018 2:50 pm REASON FOR STUDY: paraproteinemia ? multiple myloma ; PARAPROTEINEMIA, MUTIPLE MYELOMA COMPARISON: CT abdomen pelvis 01/10/2018 TECHNIQUE: CT guided biopsy of the right performed with conscious sedation. CT Fluoroscopy Time: 6.[address] scanners at this facility use dose modulation, iterative reconstruction, and/or weight based d osing when appropriate to reduce radiation dose to as low as reasonably achievable (ALARA). [facility]: Dose Right [facility]: CareDose [facility]: Dose Right [facility]: Teradose 4D [facility]: [employer] RADIATION DOSE: mGy. FINDINGS: After obtaining informed consent and explaining the risks and benefits of conscious sedati on,the patient agreed to the procedure. Prior to the procedure, a time out was performed to verify th e patient's identity and planned procedure. IV conscious sedation was administered and physician direction by the registered nurse using 1 millig karoline of Versed and 50 micrograms of fentanyl. Physiologic monitoring was provided before, during, and after sedation. The total sedation time was 30 minutes. Documentation face to face time, the performing proceduralist, spent monitoring the patient: [address] scanning was performed to localize the percutaneous site for the biopsy approach. After sterile skin prep and local lidocaine for skin and deep tissue anesthesia, a coaxial biopsy nee dle was used to obtain a bone marrow aspirate, and a bone marrow core of tissue. The biopsy tissue wa s received by Priscilla to be sent out for evaluation. There were no immediate complications. Pathology is pending at the time of dictation. IMPRESSION: CT GUIDED ASPIRATE AND CORE BIOPSY OF THE RIGHT POSTERIOR ILIAC CREST BONE MARROW PERFOR MED WITHOUT IMMEDIATE COMPLICATION. PATHOLOGY PENDING. IV CONSCIOUS SEDATION WITHOUT COMPLICATION. COMMENT: Quality ID 145: Final reports for procedures using fluoroscopy that document radiation exp osure indices, or exposure time and number of fluorographic images (if radiation exposure indices are not available) Patient medication list reviewed: Yes- Quality ID# [id number]:Eligible professional attests to documenting i n the medical record they obtained, updated, or reviewed the patient's current medications.. TECHNICAL DOCUMENTATION: JOB ID: [id number] Quality ID# 436: Final reports with documentation of one or more dose reduction techniques (e.g., Aut omated exposure control, adjustment of the mA and/or kV according to patient size, use of iterative r econstruction technique) 2010 [employer]- All Rights Reserved Reading location - IP/workstation name: [facility]-[email or web address]
[2018-01-18] MEDS: AMLODIPINE BESYLATE 10 MG TABLET PO SCH (18:25)
[2018-01-18] MEDS: DIPHENOXYLATE HCL/ATROP SULF 2.5-0.025 MG TABLET PO PRN (18:26)
[2018-01-18] MEDS: METOPROLOL TARTRATE 100 MG TABLET PO SCH ×2 (19:03→21:21)
[2018-01-18] MEDS: CLONIDINE HCL 0.2 MG TABLET PO SCH ×2 (19:03→21:21)
[2018-01-18] MEDS: POTASSIUM CHLORIDE 10 MEQ CAPSULE.ER PO SCH (19:03)
--- NOTE | 2018-01-18 19:59 | PDOC PROGRESS REPORT ---
Subjective Progress Note for:: 01/18/18 Subjective:: She had the bone marrow biopsy today, she was seen by the bedside, the plan is to [facility] to prison for rehab and probably long-term stay Reason For Visit: PEPTIC ULCER DISEASE INTRACTABLE VOMITING LEFT Physical Exam Vital Signs: Temp Pulse Resp BP Pulse Ox 99.4 F 96 20 170/69 H 99 01/18/18 15:35 01/18/18 15:35 01/18/18 15:35 01/18/18 15:35 01/18/18 15:35 Intake & Output 01/17/18 01/18/18 01/19/18 06:59 06:59 06:59 Intake Total 1130 1728 110 Balance 1130 1728 110 Weight 63.5 kg 63.5 kg General appearance: PRESENT: no acute distress Eye exam: PRESENT: PERRLA Respiratory exam: PRESENT: clear to auscultation jamel Cardiovascular exam: PRESENT: +S1, +S2 GI/Abdominal exam: PRESENT: soft Neurological exam: PRESENT: alert Results Laboratory Results: 01/18/18 05:05 01/18/18 05:05 01/18/18 01/18/18 05:05 05:05 WBC 6.4 RBC 3.34 L Hgb 9.9 L Hct 30.7 L MCV 92 MCH 29.8 MCHC 32.4 RDW 17.0 H Plt Count 183 Seg Neutrophils % 59.2 Lymphocytes % 24.3 Monocytes % 11.1 Eosinophils % 4.6 Basophils % 0.8 Absolute Neutrophils 3.8 Absolute Lymphocytes 1.6 Absolute Monocytes 0.7 Absolute Eosinophils 0.3 Absolute Basophils 0.1 Sodium 144.5 Potassium 4.5 Chloride 117 H Carbon Dioxide 19 L Anion Gap 9 BUN 17 Creatinine 0.71 Est GFR ( Amer) > 60 Est GFR (Non-Af Amer) > 60 Glucose 93 Calcium 7.4 L Magnesium 1.6 Impressions: Abdomen/Pelvis CT 01/09/18 22:12 IMPRESSION: No acute findings. No suspicious interval change. Venous Doppler Study 01/13/18 00:00 IMPRESSION: Left peroneal veins were difficult to visualize. There is flow in 1 of the paired peroneal veins on the left. Otherwise unremarkable bilateral lower extremity venous Doppler. Guidance Needle Placement CT 01/18/18 00:00 IMPRESSION: CT GUIDED ASPIRATE AND CORE BIOPSY OF THE RIGHT POSTERIOR ILIAC CREST BONE MARROW PERFORMED WITHOUT IMMEDIATE COMPLICATION. PATHOLOGY PENDING. IV CONSCIOUS SEDATION WITHOUT COMPLICATION. Bone Marrow Biopsy w/ CT 01/18/18 08:00 IMPRESSION: CT GUIDED ASPIRATE AND CORE BIOPSY OF THE RIGHT POSTERIOR ILIAC CREST BONE MARROW PERFORMED WITHOUT IMMEDIATE COMPLICATION. PATHOLOGY PENDING. IV CONSCIOUS SEDATION WITHOUT COMPLICATION. Assessment & Plan - Diagnosis (1) Upper abdominal pain Is this a current diagnosis for this admission?: Yes (2) Hyperproteinemia Is this a current diagnosis for this admission?: Yes (3) Hypertensive urgency Is this a current diagnosis for this admission?: Yes (4) Persistent vomiting Is this a current diagnosis for this admission?: Yes (5) Rheumatoid arthritis Qualifiers: Rheumatoid arthritis location: unspecified site Rheumatoid factor presence : without rheumatoid factor Qualified Code(s): M06.00 - Rheumatoid arthritis without rheumatoid factor, unspecified site Is this a current diagnosis for this admission?: Yes (6) Monoclonal paraproteinemia Is this a current diagnosis for this admission?: Yes (7) Chronic, continuous use of opioids Is this a current diagnosis for this admission?: Yes
[2018-01-19] MEDS: PROMETHAZINE HCL INJ 25 MG/1 ML VIAL IV PRN ×5 (04:29→21:39)
[2018-01-19] MEDS: MORPHINE SULFATE 10 MG/ML INJ IV PRN ×5 (04:29→21:39)
[2018-01-19] MEDS: LANSOPRAZOLE 30 MG TAB.RAP.DR PO SCH (05:27)
[2018-01-19] MEDS: DIPHENOXYLATE HCL/ATROP SULF 2.5-0.025 MG TABLET PO PRN ×2 (08:53→17:29)
[2018-01-19] MEDS: POTASSIUM CHLORIDE 10 MEQ CAPSULE.ER PO SCH (09:25)
[2018-01-19] MEDS: AMLODIPINE BESYLATE 10 MG TABLET PO SCH (09:26)
[2018-01-19] MEDS: METOPROLOL TARTRATE 100 MG TABLET PO SCH ×2 (09:26→21:38)
[2018-01-19] MEDS: CLONIDINE HCL 0.2 MG TABLET PO SCH ×2 (09:27→21:39)
[2018-01-19] MEDS: ENOXAPARIN SODIUM INJ 40 MG/0.4 ML DISP.SYRIN SUBCUT SCH (13:20)
--- NOTE | 2018-01-19 19:26 | PDOC PROGRESS REPORT ---
Subjective Progress Note for:: 01/19/18 Subjective:: Patient is seen by the bedside there is no new complaints Reason For Visit: PEPTIC ULCER DISEASE INTRACTABLE VOMITING LEFT Physical Exam Vital Signs: Temp Pulse Resp BP Pulse Ox 99.6 F 72 14 121/53 L 98 01/19/18 16:41 01/19/18 16:41 01/19/18 16:41 01/19/18 16:41 01/19/18 16:41 Intake & Output 01/18/18 01/19/18 01/20/18 06:59 06:59 06:59 Intake Total 1728 110 730 Balance 1728 110 730 Weight 63.5 kg General appearance: PRESENT: no acute distress Eye exam: PRESENT: PERRLA Respiratory exam: PRESENT: clear to auscultation jamel Cardiovascular exam: PRESENT: +S1, +S2 GI/Abdominal exam: PRESENT: soft Results Laboratory Results: 01/18/18 05:05 01/18/18 05:05 Impressions: Abdomen/Pelvis CT 01/09/18 22:12 IMPRESSION: No acute findings. No suspicious interval change. Venous Doppler Study 01/13/18 00:00 IMPRESSION: Left peroneal veins were difficult to visualize. There is flow in 1 of the paired peroneal veins on the left. Otherwise unremarkable bilateral lower extremity venous Doppler. Guidance Needle Placement CT 01/18/18 00:00 IMPRESSION: CT GUIDED ASPIRATE AND CORE BIOPSY OF THE RIGHT POSTERIOR ILIAC CREST BONE MARROW PERFORMED WITHOUT IMMEDIATE COMPLICATION. PATHOLOGY PENDING. IV CONSCIOUS SEDATION WITHOUT COMPLICATION. Bone Marrow Biopsy w/ CT 01/18/18 08:00 IMPRESSION: CT GUIDED ASPIRATE AND CORE BIOPSY OF THE RIGHT POSTERIOR ILIAC CREST BONE MARROW PERFORMED WITHOUT IMMEDIATE COMPLICATION. PATHOLOGY PENDING. IV CONSCIOUS SEDATION WITHOUT COMPLICATION. Assessment & Plan - Diagnosis (1) Upper abdominal pain Is this a current diagnosis for this admission?: Yes (2) Hyperproteinemia Is this a current diagnosis for this admission?: Yes (3) Hypertensive urgency Is this a current diagnosis for this admission?: Yes (4) Persistent vomiting Is this a current diagnosis for this admission?: Yes (5) Rheumatoid arthritis Qualifiers: Rheumatoid arthritis location: unspecified site Rheumatoid factor presence : without rheumatoid factor Qualified Code(s): M06.00 - Rheumatoid arthritis without rheumatoid factor, unspecified site Is this a current diagnosis for this admission?: Yes (6) Monoclonal paraproteinemia Is this a current diagnosis for this admission?: Yes (7) Chronic, continuous use of opioids Is this a current diagnosis for this admission?: Yes
[2018-01-20] MEDS: PROMETHAZINE HCL INJ 25 MG/1 ML VIAL IV PRN ×4 (02:21→20:38)
[2018-01-20] MEDS: MORPHINE SULFATE 10 MG/ML INJ IV PRN ×5 (02:21→20:38)
[2018-01-20] MEDS: LANSOPRAZOLE 30 MG TAB.RAP.DR PO SCH (05:19)
[2018-01-20] MEDS: DIPHENOXYLATE HCL/ATROP SULF 2.5-0.025 MG TABLET PO PRN ×2 (06:30→19:44)
[2018-01-20] MEDS: METOPROLOL TARTRATE 100 MG TABLET PO SCH ×2 (10:45→21:56)
[2018-01-20] MEDS: AMLODIPINE BESYLATE 10 MG TABLET PO SCH (10:46)
[2018-01-20] MEDS: POTASSIUM CHLORIDE 10 MEQ CAPSULE.ER PO SCH (10:46)
[2018-01-20] MEDS: CLONIDINE HCL 0.2 MG TABLET PO SCH ×2 (10:46→21:56)
[2018-01-20] MEDS: DIPHENHYDRAMINE HCL 50 MG/ML VIAL IV PRN (10:47)
[2018-01-20] MEDS: ENOXAPARIN SODIUM INJ 40 MG/0.4 ML DISP.SYRIN SUBCUT SCH (10:50)
--- NOTE | 2018-01-20 17:41 | PDOC PROGRESS REPORT ---
Subjective Progress Note for:: 01/20/18 Subjective:: She was seen by the bedside today, discharge planning is making arrangement for placement in a prison home Reason For Visit: PEPTIC ULCER DISEASE INTRACTABLE VOMITING LEFT Physical Exam Vital Signs: Temp Pulse Resp BP Pulse Ox 99.5 F 65 16 104/55 L 95 01/20/18 16:36 01/20/18 16:36 01/20/18 16:36 01/20/18 16:36 01/20/18 16:36 Intake & Output 01/19/18 01/20/18 01/21/18 06:59 06:59 06:59 Intake Total 110 730 Balance 110 730 General appearance: PRESENT: no acute distress Head exam: PRESENT: atraumatic, normocephalic Eye exam: PRESENT: conjunctiva pink, EOMI, PERRLA Neck exam: PRESENT: full ROM Respiratory exam: PRESENT: clear to auscultation jamel Cardiovascular exam: PRESENT: RRR, +S1, +S2 Pulses: PRESENT: normal dorsalis pedis pul, +2 pedal pulses bilateral Vascular exam: PRESENT: normal capillary refill GI/Abdominal exam: PRESENT: normal bowel sounds, soft Rectal exam: PRESENT: deferred Neurological exam: PRESENT: alert Psychiatric exam: PRESENT: appropriate affect, normal mood Skin exam: PRESENT: dry, intact, warm. ABSENT: cyanosis, rash Results Laboratory Results: 01/18/18 05:05 01/18/18 05:05 Impressions: Abdomen/Pelvis CT 01/09/18 22:12 IMPRESSION: No acute findings. No suspicious interval change. Venous Doppler Study 01/13/18 00:00 IMPRESSION: Left peroneal veins were difficult to visualize. There is flow in 1 of the paired peroneal veins on the left. Otherwise unremarkable bilateral lower extremity venous Doppler. Guidance Needle Placement CT 01/18/18 00:00 IMPRESSION: CT GUIDED ASPIRATE AND CORE BIOPSY OF THE RIGHT POSTERIOR ILIAC CREST BONE MARROW PERFORMED WITHOUT IMMEDIATE COMPLICATION. PATHOLOGY PENDING. IV CONSCIOUS SEDATION WITHOUT COMPLICATION. Bone Marrow Biopsy w/ CT 01/18/18 08:00 IMPRESSION: CT GUIDED ASPIRATE AND CORE BIOPSY OF THE RIGHT POSTERIOR ILIAC CREST BONE MARROW PERFORMED WITHOUT IMMEDIATE COMPLICATION. PATHOLOGY PENDING. IV CONSCIOUS SEDATION WITHOUT COMPLICATION. Assessment & Plan - Diagnosis (1) Upper abdominal pain Is this a current diagnosis for this admission?: Yes (2) Hyperproteinemia Is this a current diagnosis for this admission?: Yes (3) Hypertensive urgency Is this a current diagnosis for this admission?: Yes (4) Persistent vomiting Is this a current diagnosis for this admission?: Yes (5) Rheumatoid arthritis Qualifiers: Rheumatoid arthritis location: unspecified site Rheumatoid factor presence : without rheumatoid factor Qualified Code(s): M06.00 - Rheumatoid arthritis without rheumatoid factor, unspecified site Is this a current diagnosis for this admission?: Yes (6) Monoclonal paraproteinemia Is this a current diagnosis for this admission?: Yes (7) Chronic, continuous use of opioids Is this a current diagnosis for this admission?: Yes
[2018-01-21] MEDS: PROMETHAZINE HCL INJ 25 MG/1 ML VIAL IV PRN ×5 (03:42→22:35)
[2018-01-21] MEDS: MORPHINE SULFATE 10 MG/ML INJ IV PRN ×5 (03:42→22:35)
[2018-01-21] MEDS: LANSOPRAZOLE 30 MG TAB.RAP.DR PO SCH (05:49)
[2018-01-21] MEDS: DIPHENOXYLATE HCL/ATROP SULF 2.5-0.025 MG TABLET PO PRN ×3 (05:50→22:03)
[2018-01-21] MEDS: CLONIDINE HCL 0.2 MG TABLET PO SCH ×2 (10:13→22:03)
[2018-01-21] MEDS: POTASSIUM CHLORIDE 10 MEQ CAPSULE.ER PO SCH (10:14)
[2018-01-21] MEDS: METOPROLOL TARTRATE 100 MG TABLET PO SCH ×2 (10:14→22:03)
[2018-01-21] MEDS: AMLODIPINE BESYLATE 10 MG TABLET PO SCH (10:14)
[2018-01-21] MEDS: ENOXAPARIN SODIUM INJ 40 MG/0.4 ML DISP.SYRIN SUBCUT SCH (10:15)
--- NOTE | 2018-01-21 19:43 | PDOC TRANSFER SUMMARY ---
General - Admit/Disc Date/PCP Admission Date/Primary Care Provider: 01/11/18 16:55 SHARDA MAYS MD Discharge Date: 01/22/18 - Discharge Diagnosis (1) Upper abdominal pain Is this a current diagnosis for this admission?: Yes (2) Hyperproteinemia Is this a current diagnosis for this admission?: Yes (3) Hypertensive urgency Is this a current diagnosis for this admission?: Yes (4) Persistent vomiting Is this a current diagnosis for this admission?: Yes (5) Rheumatoid arthritis Is this a current diagnosis for this admission?: Yes (6) Monoclonal paraproteinemia Is this a current diagnosis for this admission?: Yes (7) Chronic, continuous use of opioids Is this a current diagnosis for this admission?: Yes - Additional Information Home Medications: Amlodipine Besylate [Norvasc 10 mg Tablet] 10 mg PO DAILY 01/10/18 Clonidine HCl [Catapres 0.2 mg Tablet] 0.2 mg PO Q12 01/10/18 Cyclobenzaprine HCl [Flexeril 10 mg Tablet] 10 mg PO Q8HP PRN 01/10/18 Dicyclomine HCl [Bentyl 10 mg Capsule] 10 mg PO QID 01/10/18 Duloxetine HCl [Cymbalta] 60 mg PO DAILY 01/10/18 Lipase/Protease/Amylase [Zenpep Dr 15,000 Unit Capsule] 3 cap PO TID 01/10/18 Metoprolol Tartrate [Lopressor 100 mg Tablet] 100 mg PO Q12 01/10/18 Morphine Sulfate/Naltrexone [Embeda ER 50-2 mg Capsule] 1 cap PO DAILY 01/10/18 Ondansetron [Zofran Odt 4 mg Tablet] 4 mg PO Q8HP PRN 01/10/18 Oxycodone HCl 15 mg PO Q4HP PRN 01/10/18 Pantoprazole Sodium [Protonix] 40 mg PO BID 01/10/18 Valsartan [Diovan] 320 mg PO DAILY 01/10/18 History of Present Illness Admission Date/PCP: 01/11/18 16:55 SHARDA MAYS MD History of Present Illness: NICKO FERRO is a 77 year old female.Patient was admitted when she presented to the emergency room for evaluation of vomiting and abdominal pain. She has a history of recurrent pancreatitis, peptic ulcer disease with multiple hospital admission for the management of abdominal pain related to both conditions Hospital Course Hospital Course: She was admitted for the management of abdominal pain, vomiting, hypertensive urgency that requires intravenous nitroglycerin infusion for control of blood pressure. She had a spontaneous unprovoked fracture of the left forearm, she was found to have hyperproteinemia because of these 2 findings she was screened for multiple myeloma, the protein electrophoresis was positive for monoclonal paraproteinemia, M spike, a marrow biopsy was done on this admission result is pending, patient came from home but she is being discharged to assisted living facility because patient has daughter said she could no longer take care of her mother because of the daughter health conditions.. 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 she is essentially wheelchair-bound Physical Exam Vital Signs: Temp Pulse Resp BP Pulse Ox 99.0 F 81 18 113/55 L 98 01/21/18 15:13 01/21/18 19:00 01/21/18 15:13 01/21/18 15:13 01/21/18 15:13 Intake & Output 01/20/18 01/21/18 01/22/18 06:59 06:59 06:59 Intake Total 730 853 45 Balance 730 853 45 Weight 64.1 kg General appearance: PRESENT: no acute distress Eye exam: PRESENT: PERRLA Respiratory exam: PRESENT: clear to auscultation jamel Cardiovascular exam: PRESENT: +S1, +S2 GI/Abdominal exam: PRESENT: soft Neurological exam: PRESENT: alert Results Laboratory Results: 01/18/18 05:05 01/18/18 05:05 Impressions: Abdomen/Pelvis CT 01/09/18 22:12 IMPRESSION: No acute findings. No suspicious interval change. Venous Doppler Study 01/13/18 00:00 IMPRESSION: Left peroneal veins were difficult to visualize. There is flow in 1 of the paired peroneal veins on the left. Otherwise unremarkable bilateral lower extremity venous Doppler. Guidance Needle Placement CT 01/18/18 00:00 IMPRESSION: CT GUIDED ASPIRATE AND CORE BIOPSY OF THE RIGHT POSTERIOR ILIAC CREST BONE MARROW PERFORMED WITHOUT IMMEDIATE COMPLICATION. PATHOLOGY PENDING. IV CONSCIOUS SEDATION WITHOUT COMPLICATION. Bone Marrow Biopsy w/ CT 01/18/18 08:00 IMPRESSION: CT GUIDED ASPIRATE AND CORE BIOPSY OF THE RIGHT POSTERIOR ILIAC CREST BONE MARROW PERFORMED WITHOUT IMMEDIATE COMPLICATION. PATHOLOGY PENDING. IV CONSCIOUS SEDATION WITHOUT COMPLICATION. Transfer Plan - Disposition Transfer Plan: Patient should follow with oncology regarding the monoclonal paraproteinemia, bone marrow biopsy was done result is pending this is very important because patient is being discharged to assisted living facility, the facility is to make arrangement for oncology follow-up She has chronic pain ,she follows with pain management ,[facility] pain management the facility should make sure patient follows with pain clinic Qualifiers - * PATIENT BEING DISCHARGED WITH ANY OF THE FOLLOWING DIAGNOSIS: No
[2018-01-21] MEDS: DIPHENHYDRAMINE HCL 50 MG/ML VIAL IV PRN (22:03)
[2018-01-22] MEDS: MORPHINE SULFATE 10 MG/ML INJ IV PRN ×5 (02:52→20:44)
[2018-01-22] MEDS: PROMETHAZINE HCL INJ 25 MG/1 ML VIAL IV PRN ×5 (02:53→20:44)
[2018-01-22] MEDS: LANSOPRAZOLE 30 MG TAB.RAP.DR PO SCH (05:40)
[2018-01-22] MEDS: DIPHENOXYLATE HCL/ATROP SULF 2.5-0.025 MG TABLET PO PRN ×2 (05:41→12:31)
[2018-01-22] MEDS: METOPROLOL TARTRATE 100 MG TABLET PO SCH ×2 (11:09→22:05)
[2018-01-22] MEDS: CLONIDINE HCL 0.2 MG TABLET PO SCH ×2 (11:09→22:05)
[2018-01-22] MEDS: POTASSIUM CHLORIDE 10 MEQ CAPSULE.ER PO SCH (11:09)
[2018-01-22] MEDS: AMLODIPINE BESYLATE 10 MG TABLET PO SCH (11:10)
[2018-01-22] MEDS: ENOXAPARIN SODIUM INJ 40 MG/0.4 ML DISP.SYRIN SUBCUT SCH (11:10)
[2018-01-23] MEDS: MORPHINE SULFATE 10 MG/ML INJ IV PRN ×5 (02:19→19:53)
[2018-01-23] MEDS: PROMETHAZINE HCL INJ 25 MG/1 ML VIAL IV PRN ×5 (02:19→19:54)
[2018-01-23] MEDS: LANSOPRAZOLE 30 MG TAB.RAP.DR PO SCH (05:08)
[2018-01-23] MEDS: POTASSIUM CHLORIDE 10 MEQ CAPSULE.ER PO SCH (09:17)
[2018-01-23] MEDS: AMLODIPINE BESYLATE 10 MG TABLET PO SCH (09:17)
[2018-01-23] MEDS: CLONIDINE HCL 0.2 MG TABLET PO SCH ×2 (09:17→21:38)
[2018-01-23] MEDS: ENOXAPARIN SODIUM INJ 40 MG/0.4 ML DISP.SYRIN SUBCUT SCH (09:18)
[2018-01-23] MEDS: METOPROLOL TARTRATE 100 MG TABLET PO SCH ×2 (09:18→21:38)
[2018-01-23] MEDS: DIPHENHYDRAMINE HCL 50 MG/ML VIAL IV PRN (11:05)
[2018-01-23] MEDS: DIPHENOXYLATE HCL/ATROP SULF 2.5-0.025 MG TABLET PO PRN (11:11)
[2018-01-24] MEDS: DIPHENHYDRAMINE HCL 50 MG/ML VIAL IV PRN ×2 (00:36→12:54)
[2018-01-24] MEDS: MORPHINE SULFATE 10 MG/ML INJ IV PRN ×6 (00:36→21:44)
[2018-01-24] MEDS: PROMETHAZINE HCL INJ 25 MG/1 ML VIAL IV PRN ×6 (00:37→21:44)
[2018-01-24] MEDS: LANSOPRAZOLE 30 MG TAB.RAP.DR PO SCH (04:52)
--- NOTE | 2018-01-24 10:10 | PDOC PROGRESS REPORT ---
Subjective Progress Note for:: 01/24/18 Subjective:: Patient is currently doing well Patient is waiting to transfer assisted facility Reason For Visit: PEPTIC ULCER DISEASE INTRACTABLE VOMITING LEFT Physical Exam Vital Signs: Temp Pulse Resp BP Pulse Ox 98.6 F 64 16 127/52 H 100 01/24/18 07:23 01/24/18 07:23 01/24/18 07:23 01/24/18 07:23 01/24/18 07:23 Intake & Output 01/23/18 01/24/18 01/25/18 06:59 06:59 06:59 Intake Total 1494 919 Balance 1494 919 Weight 63.5 kg General appearance: PRESENT: no acute distress, well-developed, well-nourished Head exam: PRESENT: atraumatic, normocephalic Eye exam: PRESENT: conjunctiva pink, EOMI, PERRLA. ABSENT: scleral icterus Ear exam: PRESENT: normal external ear exam Mouth exam: PRESENT: moist, tongue midline Neck exam: PRESENT: full ROM. ABSENT: carotid bruit, JVD, lymphadenopathy, thyromegaly Respiratory exam: PRESENT: clear to auscultation jamel Cardiovascular exam: PRESENT: RRR. ABSENT: diastolic murmur, rubs, systolic murmur Pulses: PRESENT: normal dorsalis pedis pul, +2 pedal pulses bilateral Vascular exam: PRESENT: normal capillary refill GI/Abdominal exam: PRESENT: normal bowel sounds, soft. ABSENT: distended, guarding, mass, organolmegaly, rebound, tenderness Rectal exam: PRESENT: deferred Neurological exam: PRESENT: alert, awake, oriented to person, oriented to place , oriented to time, oriented to situation. ABSENT: motor sensory deficit Psychiatric exam: PRESENT: appropriate affect, normal mood. ABSENT: homicidal ideation, suicidal ideation Skin exam: PRESENT: dry, intact, warm. ABSENT: cyanosis, rash Results Laboratory Results: 01/18/18 05:05 01/18/18 05:05 Impressions: Abdomen/Pelvis CT 01/09/18 22:12 IMPRESSION: No acute findings. No suspicious interval change. Venous Doppler Study 01/13/18 00:00 IMPRESSION: Left peroneal veins were difficult to visualize. There is flow in 1 of the paired peroneal veins on the left. Otherwise unremarkable bilateral lower extremity venous Doppler. Guidance Needle Placement CT 01/18/18 00:00 IMPRESSION: CT GUIDED ASPIRATE AND CORE BIOPSY OF THE RIGHT POSTERIOR ILIAC CREST BONE MARROW PERFORMED WITHOUT IMMEDIATE COMPLICATION. PATHOLOGY PENDING. IV CONSCIOUS SEDATION WITHOUT COMPLICATION. Bone Marrow Biopsy w/ CT 01/18/18 08:00 IMPRESSION: CT GUIDED ASPIRATE AND CORE BIOPSY OF THE RIGHT POSTERIOR ILIAC CREST BONE MARROW PERFORMED WITHOUT IMMEDIATE COMPLICATION. PATHOLOGY PENDING. IV CONSCIOUS SEDATION WITHOUT COMPLICATION. Assessment & Plan - Diagnosis (1) Displaced fracture of right femoral neck Is this a current diagnosis for this admission?: Yes (2) Peptic ulcer disease Is this a current diagnosis for this admission?: Yes (4) Essential hypertension Is this a current diagnosis for this admission?: Yes - Time Time Spent with patient: 15-24 minutes Medications reviewed and adjusted accordingly: Yes Anticipated discharge: Other Within: when bed available - Inpatient Certification Medical Necessity: Need Close Monitoring Due to Risk of Patient Decompensation - Plan Summary Plan Summary: Continues to current medication
[2018-01-24] MEDS: ENOXAPARIN SODIUM INJ 40 MG/0.4 ML DISP.SYRIN SUBCUT SCH (10:29)
[2018-01-24] MEDS: POTASSIUM CHLORIDE 10 MEQ CAPSULE.ER PO SCH (10:29)
[2018-01-24] MEDS: AMLODIPINE BESYLATE 10 MG TABLET PO SCH (10:30)
[2018-01-24] MEDS: CLONIDINE HCL 0.2 MG TABLET PO SCH ×2 (10:30→21:44)
[2018-01-24] MEDS: METOPROLOL TARTRATE 100 MG TABLET PO SCH ×2 (10:30→21:44)
[2018-01-24] MEDS: DIPHENOXYLATE HCL/ATROP SULF 2.5-0.025 MG TABLET PO PRN ×2 (16:15→23:54)
[2018-01-25] MEDS: PROMETHAZINE HCL INJ 25 MG/1 ML VIAL IV PRN ×5 (03:54→22:33)
[2018-01-25] MEDS: MORPHINE SULFATE 10 MG/ML INJ IV PRN ×5 (03:54→22:33)
[2018-01-25] MEDS: DIPHENHYDRAMINE HCL 50 MG/ML VIAL IV PRN ×2 (03:57→09:43)
[2018-01-25] MEDS: LANSOPRAZOLE 30 MG TAB.RAP.DR PO SCH (05:30)
[2018-01-25] MEDS: ENOXAPARIN SODIUM INJ 40 MG/0.4 ML DISP.SYRIN SUBCUT SCH (09:53)
[2018-01-25] MEDS: POTASSIUM CHLORIDE 10 MEQ CAPSULE.ER PO SCH (09:53)
[2018-01-25] MEDS: METOPROLOL TARTRATE 100 MG TABLET PO SCH ×2 (09:54→21:22)
[2018-01-25] MEDS: AMLODIPINE BESYLATE 10 MG TABLET PO SCH (09:55)
[2018-01-25] MEDS: CLONIDINE HCL 0.2 MG TABLET PO SCH ×2 (09:55→21:22)
[2018-01-25] MEDS: DIPHENOXYLATE HCL/ATROP SULF 2.5-0.025 MG TABLET PO PRN ×2 (14:31→22:58)
--- NOTE | 2018-01-25 15:18 | RADIOLOGY REPORT (SQ) ---
EXAM DESCRIPTION: CHEST 2 VIEWS COMPLETED DATE/TIME: 01/25/2018 3:05 pm REASON FOR STUDY: Right rib pain COMPARISON: Two-view chest 09/17/2016 EXAM PARAMETERS: NUMBER OF VIEWS: two views TECHNIQUE: Digital Frontal and Lateral radiographic views of the chest acquired. RADIATION DOSE: NA LIMITATIONS: none FINDINGS: LUNGS AND PLEURA: No acute infiltrates. No pleural effusion. No pneumothorax. MEDIASTINUM AND HILAR STRUCTURES: No masses or contour abnormalities. HEART AND VASCULAR STRUCTURES: Stable mild cardiomegaly BONES: No acute findings. HARDWARE: Left-sided permanent central line tip superior vena cava. OTHER: No other significant finding. IMPRESSION: No acute infiltrates. No pleural effusions. TECHNICAL DOCUMENTATION: JOB ID: [id number] [employer]- All Rights Reserved Reading location - IP/workstation name: [email or web address]
[2018-01-26] MEDS: MORPHINE SULFATE 10 MG/ML INJ IV PRN ×4 (04:14→19:27)
[2018-01-26] MEDS: PROMETHAZINE HCL INJ 25 MG/1 ML VIAL IV PRN ×4 (04:14→19:27)
[2018-01-26] MEDS: LANSOPRAZOLE 30 MG TAB.RAP.DR PO SCH (05:08)
[2018-01-26] MEDS: DIPHENHYDRAMINE HCL 50 MG/ML VIAL IV PRN ×2 (06:21→14:41)
[2018-01-26] MEDS: ENOXAPARIN SODIUM INJ 40 MG/0.4 ML DISP.SYRIN SUBCUT SCH (09:19)
[2018-01-26] MEDS: POTASSIUM CHLORIDE 10 MEQ CAPSULE.ER PO SCH (09:20)
[2018-01-26] MEDS: AMLODIPINE BESYLATE 10 MG TABLET PO SCH (09:20)
[2018-01-26] MEDS: METOPROLOL TARTRATE 100 MG TABLET PO SCH ×2 (09:20→21:57)
[2018-01-26] MEDS: CLONIDINE HCL 0.2 MG TABLET PO SCH ×2 (09:20→21:57)
[2018-01-26] MEDS: DIPHENOXYLATE HCL/ATROP SULF 2.5-0.025 MG TABLET PO PRN (11:10)
[2018-01-27] MEDS: MORPHINE SULFATE 10 MG/ML INJ IV PRN ×3 (01:47→10:37)
[2018-01-27] MEDS: DIPHENHYDRAMINE HCL 50 MG/ML VIAL IV PRN ×2 (01:47→10:44)
[2018-01-27] MEDS: PROMETHAZINE HCL INJ 25 MG/1 ML VIAL IV PRN (06:13)
[2018-01-27] MEDS: LANSOPRAZOLE 30 MG TAB.RAP.DR PO SCH ×2 (06:14→10:49)
[2018-01-27] MEDS: POTASSIUM CHLORIDE 10 MEQ CAPSULE.ER PO SCH (10:39)
[2018-01-27] MEDS: METOPROLOL TARTRATE 100 MG TABLET PO SCH ×2 (10:42→22:43)
[2018-01-27] MEDS: CLONIDINE HCL 0.2 MG TABLET PO SCH ×2 (10:42→22:43)
[2018-01-27] MEDS: ENOXAPARIN SODIUM INJ 40 MG/0.4 ML DISP.SYRIN SUBCUT SCH (10:43)
[2018-01-27] MEDS: AMLODIPINE BESYLATE 10 MG TABLET PO SCH (10:43)
[2018-01-27] MEDS: DIPHENOXYLATE HCL/ATROP SULF 2.5-0.025 MG TABLET PO PRN (15:15)
[2018-01-27] MEDS: MORPHINE SULFATE 10 MG/5 ML ORAL SOLUTION UDCUP PO PRN (20:34)
[2018-01-27] MEDS: PROMETHAZINE HCL 25 MG TABLET PO PRN (20:34)
[2018-01-28] MEDS: MORPHINE SULFATE 10 MG/5 ML ORAL SOLUTION UDCUP PO PRN ×3 (05:33→20:02)
[2018-01-28] MEDS: PROMETHAZINE HCL 25 MG TABLET PO PRN ×2 (05:33→12:32)
[2018-01-28] MEDS ORDERED: (PENDING PHARMACY ID) (Morphine Sulfate/Naltrexone [Embeda Er 50-2 Mg Capsule] 1 CAP) PO SCH (10:00)
[2018-01-28] MEDS: AMLODIPINE BESYLATE 10 MG TABLET PO SCH (10:48)
[2018-01-28] MEDS: METOPROLOL TARTRATE 100 MG TABLET PO SCH ×2 (10:49→22:11)
[2018-01-28] MEDS: POTASSIUM CHLORIDE 10 MEQ CAPSULE.ER PO SCH (10:50)
[2018-01-28] MEDS: CLONIDINE HCL 0.2 MG TABLET PO SCH ×2 (10:51→22:11)
[2018-01-28] MEDS: ENOXAPARIN SODIUM INJ 40 MG/0.4 ML DISP.SYRIN SUBCUT SCH (10:51)
[2018-01-28] MEDS: DIPHENOXYLATE HCL/ATROP SULF 2.5-0.025 MG TABLET PO PRN (11:00)
--- NOTE | 2018-01-28 20:57 | PDOC PROGRESS REPORT ---
Subjective Progress Note for:: 01/28/18 Subjective:: Patient was discharged about 5 days ago to assisted living facility, discharge planners yet to get placement for her, I saw her by the bedside, she complained of diarrhea, this was negative for C. difficile Reason For Visit: PEPTIC ULCER DISEASE INTRACTABLE VOMITING LEFT Physical Exam Vital Signs: Temp Pulse Resp BP Pulse Ox 99.2 F 59 L 20 128/59 H 98 01/28/18 19:20 01/28/18 19:20 01/28/18 19:20 01/28/18 19:20 01/28/18 19:20 Intake & Output 01/27/18 01/28/18 01/29/18 06:59 06:59 06:59 Intake Total 1044 1251 1465 Balance 1044 1251 1465 Weight 64 kg 65.4 kg General appearance: PRESENT: no acute distress Eye exam: PRESENT: PERRLA Respiratory exam: PRESENT: clear to auscultation jamel Cardiovascular exam: PRESENT: +S1, +S2 GI/Abdominal exam: PRESENT: soft Neurological exam: PRESENT: alert Results Laboratory Results: 01/18/18 05:05 01/18/18 05:05 Impressions: Abdomen/Pelvis CT 01/09/18 22:12 IMPRESSION: No acute findings. No suspicious interval change. Venous Doppler Study 01/13/18 00:00 IMPRESSION: Left peroneal veins were difficult to visualize. There is flow in 1 of the paired peroneal veins on the left. Otherwise unremarkable bilateral lower extremity venous Doppler. Guidance Needle Placement CT 01/18/18 00:00 IMPRESSION: CT GUIDED ASPIRATE AND CORE BIOPSY OF THE RIGHT POSTERIOR ILIAC CREST BONE MARROW PERFORMED WITHOUT IMMEDIATE COMPLICATION. PATHOLOGY PENDING. IV CONSCIOUS SEDATION WITHOUT COMPLICATION. Bone Marrow Biopsy w/ CT 01/18/18 08:00 IMPRESSION: CT GUIDED ASPIRATE AND CORE BIOPSY OF THE RIGHT POSTERIOR ILIAC CREST BONE MARROW PERFORMED WITHOUT IMMEDIATE COMPLICATION. PATHOLOGY PENDING. IV CONSCIOUS SEDATION WITHOUT COMPLICATION. Chest X-Ray 01/25/18 00:00 IMPRESSION: No acute infiltrates. No pleural effusions. Assessment & Plan - Diagnosis (1) Upper abdominal pain Is this a current diagnosis for this admission?: Yes (2) Hyperproteinemia Is this a current diagnosis for this admission?: Yes (3) Hypertensive urgency Is this a current diagnosis for this admission?: Yes (4) Persistent vomiting Is this a current diagnosis for this admission?: Yes (5) Rheumatoid arthritis Qualifiers: Rheumatoid arthritis location: unspecified site Rheumatoid factor presence : without rheumatoid factor Qualified Code(s): M06.00 - Rheumatoid arthritis without rheumatoid factor, unspecified site Is this a current diagnosis for this admission?: Yes (6) Monoclonal paraproteinemia Is this a current diagnosis for this admission?: Yes (7) Chronic, continuous use of opioids Is this a current diagnosis for this admission?: Yes
[2018-01-29] MEDS: MORPHINE SULFATE 10 MG/5 ML ORAL SOLUTION UDCUP PO PRN ×3 (04:17→17:01)
[2018-01-29] MEDS: PROMETHAZINE HCL 25 MG TABLET PO PRN ×3 (04:17→17:01)
[2018-01-29] MEDS: LANSOPRAZOLE 30 MG TAB.RAP.DR PO SCH (05:39)
[2018-01-29] MEDS: CLONIDINE HCL 0.2 MG TABLET PO SCH ×2 (09:19→22:36)
[2018-01-29] MEDS: POTASSIUM CHLORIDE 10 MEQ CAPSULE.ER PO SCH (09:19)
[2018-01-29] MEDS: ENOXAPARIN SODIUM INJ 40 MG/0.4 ML DISP.SYRIN SUBCUT SCH (09:20)
[2018-01-29] MEDS: METOPROLOL TARTRATE 100 MG TABLET PO SCH ×2 (09:20→22:36)
[2018-01-29] MEDS: AMLODIPINE BESYLATE 10 MG TABLET PO SCH (09:20)
[2018-01-29 10:09] LABS: ABSOLUTE BASOPHILS # (AUTO) 0.1 10^3/uL (0.0-0.2); ABSOLUTE EOSINOPHILS # (AUTO) 0.3 10^3/uL (0.0-0.6); ABSOLUTE LYMPHOCYTES (AUTO) 1.7 10^3/uL (0.5-4.7); ABSOLUTE MONOCYTES (AUTO) 0.5 10^3/uL (0.1-1.4); ABSOLUTE NEUT (AUTO) 3.2 10^3/uL (1.7-8.2); BASOPHILS % (AUTO) 0.9 % (0-2); EOSINOPHILS % (AUTO) 5.3 % (0-6); HEMATOCRIT 33.9 % (36.0-47.0); HEMOGLOBIN 11.2 g/dL (12.0-15.5); LYMPHOCYTES % (AUTO) 29.8 % (13-45); MEAN CORPUSCULAR HEMOGLOBIN 30.3 pg (27.0-33.4); MEAN CORPUSCULAR VOLUME 92 fl (80-97); MONOCYTES % (AUTO) 9.3 % (3-13); PLATELET COUNT 253 10^3/uL (150-450); RED BLOOD COUNT 3.69 10^6/uL (3.72-5.28); RED CELL DISTRIBUTION WIDTH 16.7 % (11.5-14.0); SEGMENTED NEUTROPHILS % (AUTO) 54.7 % (42-78); TOTAL CELLS COUNTED % (AUTO) 100 %; WHITE BLOOD COUNT 5.8 10^3/uL (4.0-10.5)
[2018-01-29 10:30] LABS: ANION GAP 11 (5-19); BLOOD UREA NITROGEN 10 mg/dL (7-20); CALCIUM 8.5 mg/dL (8.4-10.2); CARBON DIOXIDE 18 mmol/L (22-30); CHLORIDE 114 mmol/L (98-107); GLUCOSE 116 mg/dL (75-110); POTASSIUM 4.8 mmol/L (3.6-5.0); SODIUM 143.4 mmol/L (137-145)
--- NOTE | 2018-01-29 20:28 | RADIOLOGY REPORT (SQ) ---
EXAM DESCRIPTION: FOREARM LEFT COMPLETED DATE/TIME: 01/29/2018 7:08 pm REASON FOR STUDY: f/u x-ray of left forearm fracture COMPARISON: 12/29/2017 NUMBER OF VIEWS: Two views. TECHNIQUE: Two radiographic images acquired of the left forearm, including elbow and wrist in at [facility] [address] one projection. LIMITATIONS: None. FINDINGS: Healing fractures of the distal radial and ulnar diaphyses. No acute findings. OTHER: No other significant finding. IMPRESSION: Healing fractures of the distal radial and ulnar diaphyses. No acute findings. TECHNICAL DOCUMENTATION: JOB ID: [id number] [employer] All Rights Reserved Reading location - IP/workstation name: [email or web address]
--- NOTE | 2018-01-29 20:52 | PDOC PROGRESS REPORT ---
Subjective Progress Note for:: 01/29/18 Subjective:: The bone marrow biopsy results was negative Reason For Visit: PEPTIC ULCER DISEASE INTRACTABLE VOMITING LEFT Physical Exam Vital Signs: Temp Pulse Resp BP Pulse Ox 99.1 F 62 20 113/50 L 98 01/29/18 19:08 01/29/18 19:08 01/29/18 19:08 01/29/18 19:08 01/29/18 19:08 Intake & Output 01/28/18 01/29/18 01/30/18 06:59 06:59 06:59 Intake Total 1251 1917 647 Balance 1251 1917 647 Weight 65.4 kg General appearance: PRESENT: no acute distress Eye exam: PRESENT: PERRLA Respiratory exam: PRESENT: clear to auscultation jamel Cardiovascular exam: PRESENT: +S1, +S2 GI/Abdominal exam: PRESENT: soft Neurological exam: PRESENT: alert Results Laboratory Results: 01/29/18 09:43 01/29/18 09:43 01/29/18 01/29/18 09:43 09:43 WBC 5.8 RBC 3.69 L Hgb 11.2 L Hct 33.9 L MCV 92 MCH 30.3 MCHC 33.0 RDW 16.7 H Plt Count 253 Seg Neutrophils % 54.7 Lymphocytes % 29.8 Monocytes % 9.3 Eosinophils % 5.3 Basophils % 0.9 Absolute Neutrophils 3.2 Absolute Lymphocytes 1.7 Absolute Monocytes 0.5 Absolute Eosinophils 0.3 Absolute Basophils 0.1 Sodium 143.4 Potassium 4.8 Chloride 114 H Carbon Dioxide 18 L Anion Gap 11 BUN 10 Creatinine 0.68 Est GFR ( Amer) > 60 Est GFR (Non-Af Amer) > 60 Glucose 116 H Calcium 8.5 Impressions: Abdomen/Pelvis CT 01/09/18 22:12 IMPRESSION: No acute findings. No suspicious interval change. Venous Doppler Study 01/13/18 00:00 IMPRESSION: Left peroneal veins were difficult to visualize. There is flow in 1 of the paired peroneal veins on the left. Otherwise unremarkable bilateral lower extremity venous Doppler. Guidance Needle Placement CT 01/18/18 00:00 IMPRESSION: CT GUIDED ASPIRATE AND CORE BIOPSY OF THE RIGHT POSTERIOR ILIAC CREST BONE MARROW PERFORMED WITHOUT IMMEDIATE COMPLICATION. PATHOLOGY PENDING. IV CONSCIOUS SEDATION WITHOUT COMPLICATION. Bone Marrow Biopsy w/ CT 01/18/18 08:00 IMPRESSION: CT GUIDED ASPIRATE AND CORE BIOPSY OF THE RIGHT POSTERIOR ILIAC CREST BONE MARROW PERFORMED WITHOUT IMMEDIATE COMPLICATION. PATHOLOGY PENDING. IV CONSCIOUS SEDATION WITHOUT COMPLICATION. Chest X-Ray 01/25/18 00:00 IMPRESSION: No acute infiltrates. No pleural effusions. Forearm X-Ray 01/29/18 00:00 IMPRESSION: Healing fractures of the distal radial and ulnar diaphyses. No acute findings. Assessment & Plan - Diagnosis (1) Upper abdominal pain Is this a current diagnosis for this admission?: Yes (2) Hyperproteinemia Is this a current diagnosis for this admission?: Yes (3) Hypertensive urgency Is this a current diagnosis for this admission?: Yes (4) Persistent vomiting Is this a current diagnosis for this admission?: Yes (5) Rheumatoid arthritis Qualifiers: Rheumatoid arthritis location: unspecified site Rheumatoid factor presence : without rheumatoid factor Qualified Code(s): M06.00 - Rheumatoid arthritis without rheumatoid factor, unspecified site Is this a current diagnosis for this admission?: Yes (6) Monoclonal paraproteinemia Is this a current diagnosis for this admission?: Yes (7) Chronic, continuous use of opioids Is this a current diagnosis for this admission?: Yes
[2018-01-29] MEDS: DIPHENHYDRAMINE HCL 25 MG CAPSULE PO PRN (22:37)
[2018-01-30] MEDS: MORPHINE SULFATE 10 MG/5 ML ORAL SOLUTION UDCUP PO PRN ×3 (00:26→17:46)
[2018-01-30] MEDS: LANSOPRAZOLE 30 MG TAB.RAP.DR PO SCH (05:32)
[2018-01-30] MEDS: PROMETHAZINE HCL 25 MG TABLET PO PRN ×2 (08:37→17:46)
[2018-01-30] MEDS: AMLODIPINE BESYLATE 10 MG TABLET PO SCH (09:26)
[2018-01-30] MEDS: ENOXAPARIN SODIUM INJ 40 MG/0.4 ML DISP.SYRIN SUBCUT SCH (09:26)
[2018-01-30] MEDS: METOPROLOL TARTRATE 100 MG TABLET PO SCH ×2 (09:26→22:22)
[2018-01-30] MEDS: CLONIDINE HCL 0.2 MG TABLET PO SCH ×2 (09:26→22:23)
[2018-01-30] MEDS: POTASSIUM CHLORIDE 10 MEQ CAPSULE.ER PO SCH (09:27)
[2018-01-30] MEDS: DIPHENHYDRAMINE HCL 25 MG CAPSULE PO PRN ×2 (12:38→22:22)
--- NOTE | 2018-01-30 13:56 | PDOC PROGRESS REPORT ---
Subjective Progress Note for:: 01/30/18 Subjective:: She was seen by the bedside, patient still awaiting Medicaid approval for prison placement, she was informed of the bone marrow biopsy results, she does not have multiple myeloma, this was suspected on the basis of monoclonal paraproteinemia. Reason For Visit: PEPTIC ULCER DISEASE INTRACTABLE VOMITING LEFT Physical Exam Vital Signs: Temp Pulse Resp BP Pulse Ox 98.3 F 63 18 131/57 H 97 01/30/18 12:01 01/30/18 12:01 01/30/18 12:01 01/30/18 12:01 01/30/18 12:01 Intake & Output 01/29/18 01/30/18 01/31/18 06:59 06:59 06:59 Intake Total 1917 897 459 Balance 1917 897 459 General appearance: PRESENT: no acute distress Eye exam: PRESENT: PERRLA Respiratory exam: PRESENT: clear to auscultation jamel Cardiovascular exam: PRESENT: +S1, +S2 GI/Abdominal exam: PRESENT: soft Neurological exam: PRESENT: alert Results Laboratory Results: 01/29/18 09:43 01/29/18 09:43 Impressions: Abdomen/Pelvis CT 01/09/18 22:12 IMPRESSION: No acute findings. No suspicious interval change. Venous Doppler Study 01/13/18 00:00 IMPRESSION: Left peroneal veins were difficult to visualize. There is flow in 1 of the paired peroneal veins on the left. Otherwise unremarkable bilateral lower extremity venous Doppler. Guidance Needle Placement CT 01/18/18 00:00 IMPRESSION: CT GUIDED ASPIRATE AND CORE BIOPSY OF THE RIGHT POSTERIOR ILIAC CREST BONE MARROW PERFORMED WITHOUT IMMEDIATE COMPLICATION. PATHOLOGY PENDING. IV CONSCIOUS SEDATION WITHOUT COMPLICATION. Bone Marrow Biopsy w/ CT 01/18/18 08:00 IMPRESSION: CT GUIDED ASPIRATE AND CORE BIOPSY OF THE RIGHT POSTERIOR ILIAC CREST BONE MARROW PERFORMED WITHOUT IMMEDIATE COMPLICATION. PATHOLOGY PENDING. IV CONSCIOUS SEDATION WITHOUT COMPLICATION. Chest X-Ray 01/25/18 00:00 IMPRESSION: No acute infiltrates. No pleural effusions. Forearm X-Ray 01/29/18 00:00 IMPRESSION: Healing fractures of the distal radial and ulnar diaphyses. No acute findings. Assessment & Plan - Diagnosis (1) Upper abdominal pain Is this a current diagnosis for this admission?: Yes (2) Hyperproteinemia Is this a current diagnosis for this admission?: Yes (3) Hypertensive urgency Is this a current diagnosis for this admission?: Yes (4) Persistent vomiting Is this a current diagnosis for this admission?: Yes (5) Rheumatoid arthritis Qualifiers: Rheumatoid arthritis location: unspecified site Rheumatoid factor presence : without rheumatoid factor Qualified Code(s): M06.00 - Rheumatoid arthritis without rheumatoid factor, unspecified site Is this a current diagnosis for this admission?: Yes (6) Monoclonal paraproteinemia Is this a current diagnosis for this admission?: Yes (7) Chronic, continuous use of opioids Is this a current diagnosis for this admission?: Yes - Plan Summary Plan Summary: Downgrade to medical floor
[2018-01-31] MEDS: PROMETHAZINE HCL 25 MG TABLET PO PRN ×4 (03:10→21:25)
[2018-01-31] MEDS: MORPHINE SULFATE 10 MG/5 ML ORAL SOLUTION UDCUP PO PRN ×3 (03:10→21:36)
[2018-01-31] MEDS: LANSOPRAZOLE 30 MG TAB.RAP.DR PO SCH (05:11)
[2018-01-31] MEDS: METOPROLOL TARTRATE 100 MG TABLET PO SCH ×2 (10:44→21:26)
[2018-01-31] MEDS: AMLODIPINE BESYLATE 10 MG TABLET PO SCH (10:44)
[2018-01-31] MEDS: CLONIDINE HCL 0.2 MG TABLET PO SCH ×2 (10:44→21:25)
[2018-01-31] MEDS: DIPHENHYDRAMINE HCL 25 MG CAPSULE PO PRN (10:44)
[2018-01-31] MEDS: ENOXAPARIN SODIUM INJ 40 MG/0.4 ML DISP.SYRIN SUBCUT SCH (10:45)
--- NOTE | 2018-01-31 15:16 | PDOC PROGRESS REPORT ---
Subjective Progress Note for:: 01/31/18 Subjective:: She was seen by the bedside, she continues to have diarrhea, noninfectious. The x-ray of the left forearm demonstrated healing fractures of the distal radius and ulna Reason For Visit: PEPTIC ULCER DISEASE INTRACTABLE VOMITING LEFT Physical Exam Vital Signs: Temp Pulse Resp BP Pulse Ox 98.4 F 61 16 122/56 L 96 01/31/18 11:23 01/31/18 11:23 01/31/18 11:23 01/31/18 11:23 01/31/18 11:23 Intake & Output 01/30/18 01/31/18 02/01/18 06:59 06:59 06:59 Intake Total 897 499 459 Balance 897 499 459 Weight 65 kg General appearance: PRESENT: no acute distress Eye exam: PRESENT: PERRLA Respiratory exam: PRESENT: clear to auscultation jamel Cardiovascular exam: PRESENT: +S1, +S2 Neurological exam: PRESENT: alert Results Laboratory Results: 01/29/18 09:43 01/29/18 09:43 Impressions: Abdomen/Pelvis CT 01/09/18 22:12 IMPRESSION: No acute findings. No suspicious interval change. Venous Doppler Study 01/13/18 00:00 IMPRESSION: Left peroneal veins were difficult to visualize. There is flow in 1 of the paired peroneal veins on the left. Otherwise unremarkable bilateral lower extremity venous Doppler. Guidance Needle Placement CT 01/18/18 00:00 IMPRESSION: CT GUIDED ASPIRATE AND CORE BIOPSY OF THE RIGHT POSTERIOR ILIAC CREST BONE MARROW PERFORMED WITHOUT IMMEDIATE COMPLICATION. PATHOLOGY PENDING. IV CONSCIOUS SEDATION WITHOUT COMPLICATION. Bone Marrow Biopsy w/ CT 01/18/18 08:00 IMPRESSION: CT GUIDED ASPIRATE AND CORE BIOPSY OF THE RIGHT POSTERIOR ILIAC CREST BONE MARROW PERFORMED WITHOUT IMMEDIATE COMPLICATION. PATHOLOGY PENDING. IV CONSCIOUS SEDATION WITHOUT COMPLICATION. Chest X-Ray 01/25/18 00:00 IMPRESSION: No acute infiltrates. No pleural effusions. Forearm X-Ray 01/29/18 00:00 IMPRESSION: Healing fractures of the distal radial and ulnar diaphyses. No acute findings. Assessment & Plan - Diagnosis (1) Upper abdominal pain Is this a current diagnosis for this admission?: Yes (2) Hyperproteinemia Is this a current diagnosis for this admission?: Yes (3) Hypertensive urgency Is this a current diagnosis for this admission?: Yes (4) Persistent vomiting Is this a current diagnosis for this admission?: Yes (5) Rheumatoid arthritis Qualifiers: Rheumatoid arthritis location: unspecified site Rheumatoid factor presence : without rheumatoid factor Qualified Code(s): M06.00 - Rheumatoid arthritis without rheumatoid factor, unspecified site Is this a current diagnosis for this admission?: Yes (6) Monoclonal paraproteinemia Is this a current diagnosis for this admission?: Yes (7) Chronic, continuous use of opioids Is this a current diagnosis for this admission?: Yes
[2018-01-31] MEDS: DIPHENOXYLATE HCL/ATROP SULF 2.5-0.025 MG TABLET PO PRN (16:28)
[2018-01-31] MEDS: OXYCODONE HCL IR 5 MG TABLET PO PRN (17:27)
[2018-02-01] MEDS: PROMETHAZINE HCL 25 MG TABLET PO PRN ×3 (03:22→19:57)
[2018-02-01] MEDS: MORPHINE SULFATE 10 MG/5 ML ORAL SOLUTION UDCUP PO PRN ×3 (03:22→19:57)
[2018-02-01] MEDS: LANSOPRAZOLE 30 MG TAB.RAP.DR PO SCH (06:03)
[2018-02-01] MEDS: DIPHENOXYLATE HCL/ATROP SULF 2.5-0.025 MG TABLET PO PRN ×2 (08:31→21:20)
[2018-02-01] MEDS: OXYCODONE HCL IR 5 MG TABLET PO PRN (08:32)
[2018-02-01] MEDS: METOPROLOL TARTRATE 100 MG TABLET PO SCH ×2 (10:03→21:21)
[2018-02-01] MEDS: ENOXAPARIN SODIUM INJ 40 MG/0.4 ML DISP.SYRIN SUBCUT SCH (10:03)
[2018-02-01] MEDS: CLONIDINE HCL 0.2 MG TABLET PO SCH ×2 (10:04→21:20)
[2018-02-01] MEDS: AMLODIPINE BESYLATE 10 MG TABLET PO SCH (10:04)
[2018-02-02] MEDS: PROMETHAZINE HCL 25 MG TABLET PO PRN (05:12)
[2018-02-02] MEDS: LANSOPRAZOLE 30 MG TAB.RAP.DR PO SCH (05:12)
[2018-02-02] MEDS: MORPHINE SULFATE 10 MG/5 ML ORAL SOLUTION UDCUP PO PRN (05:12)
[2018-02-02] MEDS: OXYCODONE HCL IR 5 MG TABLET PO PRN (08:07)
[2018-02-02 09:41] VITALS: BP 144/68
[2018-02-02] MEDS: ENOXAPARIN SODIUM INJ 40 MG/0.4 ML DISP.SYRIN SUBCUT SCH (09:41)
[2018-02-02] MEDS: CLONIDINE HCL 0.2 MG TABLET PO SCH (09:41)
[2018-02-02] MEDS: AMLODIPINE BESYLATE 10 MG TABLET PO SCH (09:41)
[2018-02-02] MEDS: METOPROLOL TARTRATE 100 MG TABLET PO SCH (09:41)
== END 2018-02-02 10:55 | disposition short-term general hospital (02) | DRG 305 ==
LOC: ER 20:36 → EH 01-10 02:43 → 3W 01-10 04:11 → OBSVTOIN 01-11 16:55
PROVIDERS: ADMIT Internal Medicine; ATTEND Internal Medicine
PROC: 07DR3ZX Extraction of Iliac Bone Marrow, Percutaneous Approach, Diagnostic (ICD-10-PCS; principal; 2018-01-18)
DX: I16.0 Hypertensive urgency (principal); M80.832A Other osteoporosis with current pathological fracture, left forearm, initial encounter for fracture; D47.2 Monoclonal gammopathy; K27.9 Peptic ulcer, site unspecified, unspecified as acute or chronic, without hemorrhage or perforation; R11.2 Nausea with vomiting, unspecified; M06.00 Rheumatoid arthritis without rheumatoid factor, unspecified site; I11.0 Hypertensive heart disease with heart failure; I50.9 Heart failure, unspecified; I49.3 Ventricular premature depolarization; G89.4 Chronic pain syndrome; K21.9 Gastro-esophageal reflux disease without esophagitis; I69.320 Aphasia following cerebral infarction; Z79.891 Long term (current) use of opiate analgesic; Z79.899 Other long term (current) drug therapy; Z88.3 Allergy status to other anti-infective agents; Z88.2 Allergy status to sulfonamides; Z90.49 Acquired absence of other specified parts of digestive tract; Z90.710 Acquired absence of both cervix and uterus
CPT/HCPCS: 36415; 38221; 51701; 71046; 74177; 77012; 80048; 80053; 81001; 82570; 83605; 83690; 83735; 84156; 84165; 84166; 84484; 85025; 85610; 85730; 86320; 87045; 87205; 87493; 93005; 93010; 93970; 96361; 96374; 96375; 96376; 99285; G0378; J0360; J1170; J1200; J1650; J2250; J2270; J2550; J2765; J3010; J3490; J7030; S0028; S0119; S0164

== ENCOUNTER 2018-02-10 13:01 | Emergency (ER) | payer MEDICARE, MEDICAID ==
[2018-02-10] MEDS ORDERED: NORMAL SALINE 1000 ML 1,000 ML IV ONE (13:16)
[2018-02-10] MEDS ORDERED: ONDANSETRON HCL INJ/PF 4 MG/2 ML SDV IV ONE (13:16)
[2018-02-10] MEDS ORDERED: FAMOTIDINE INJ/PF 20 MG/2 ML SDV IV ONE (13:26)
--- NOTE | 2018-02-10 13:27 | ER Document Report ---
ED GI/ - General Chief Complaint: Nausea/Vomiting/Diarrhea Stated Complaint: NAUSEA Time Seen by Provider: 02/10/18 13:16 Notes: 77-year-old female patient emergency department chief complaint of nausea vomiting abdominal pain. Patient has chronic pancreatitis abdominal pain. Has recently transitioned to a nursing facility because daughter is unable to care for her at home anymore. Patient states that she began with abdominal pain and nausea today. Was recently in the hospital for the same. Followed by Dr. Mays. Denies any fever, chills, sweats. Denies any chest pain or shortness of breath. Denies any swelling of her legs. TRAVEL OUTSIDE OF THE [place] IN LAST 30 DAYS: No - HPI Patient complains to provider of: Abdominal pain, Vomiting. No: Diarrhea Onset: Just prior to arrival Timing/Duration: Gradual, Constant Quality of pain: Achy - Related Data Allergies/Adverse Reactions: sulfamethoxazole [From Bactrim] Allergy (Verified 12/29/17 12:45) trimethoprim [From Bactrim] Allergy (Verified 12/29/17 12:45) Past Medical History - General Information source: Patient, Relative, H Records, Outside Facility Records - Social History Smoking Status: Current Every Day Smoker Cigarette use (# per day): Yes Frequency of alcohol use: None Drug Abuse: None Lives with: [facility] Family History: Reviewed & Not Pertinent - Past Medical History Cardiac Medical History: Reports: Hx Congestive Heart Failure, Hx Hypertension, Hx Peripheral Vascular Disease Neurological Medical History: Reports: Hx Cerebrovascular Accident - aphasia. Denies: Hx Seizures Renal/ Medical History: Denies: Hx Peritoneal Dialysis GI Medical History: Reports: Hx Gastroesophageal Reflux Disease, Hx Ulcer - peptic Musculoskeletal Medical History: Reports Hx Arthritis - RA Psychiatric Medical History: Denies: Hx Depression Past Surgical History: Reports: Hx Abdominal Surgery - STOMACH ULCER, Hx Bowel Surgery, Hx Cholecystectomy - 05/2017, Hx Hysterectomy, Hx Orthopedic Surgery - LT HIP REMOVAL OF "HEAD", SCREWS RT HIP, RT KNEE REPLACEMENT, Other - lysis of adhesions - Immunizations Hx Pneumococcal Vaccination: 07/20/11 Review of Systems - Review of Systems Constitutional: denies: Fever, Malaise, Weakness EENT: denies: Blurred vision, Ear pain, Difficulty swallowing, Mouth pain Cardiovascular: denies: Chest pain, Palpitations, Heart racing Respiratory: denies: Cough, Hurts to breathe, Short of breath, Wheezing Gastrointestinal: Abdominal pain, Nausea, Vomiting. denies: Diarrhea Genitourinary: denies: Dysuria, Discharge, Flank pain, Hematuria Skin: denies: Change in color, Dryness, Lesions, Lumps, Rash Neurological/Psychological: denies: Confusion, Weakness, Numbness Physical Exam - Vital signs Vitals: Resp Pulse Ox 13 100 02/10/18 13:13 02/10/18 13:13 Interpretation: Normal - General General appearance: Appears well, Alert - HEENT Head: Normocephalic, Atraumatic Eyes: Normal Pupils: PERRL - Respiratory Respiratory status: No respiratory distress Chest status: Nontender Breath sounds: Normal Chest palpation: Normal - Cardiovascular Rhythm: Regular Heart sounds: Normal auscultation Murmur: No - Abdominal Inspection: Normal Distension: No distension Bowel sounds: Normal Tenderness: Tender, Other - Midepigastric tenderness Organomegaly: No organomegaly - Back Back: Normal, Nontender - Extremities General upper extremity: Nontender, Normal color, Normal ROM, Normal temperature , Other - Left upper extremity in cast General lower extremity: Normal inspection, Nontender, Normal color, Normal ROM , Normal temperature. No: Viktoria's sign - Neurological Neuro grossly intact: Yes Cognition: Normal Orientation: AAOx4 [place] Coma Scale Eye Opening: Spontaneous [place] Coma Scale Verbal: Oriented [place] Coma Scale Motor: Obeys Commands [place] Coma Scale Total: 15 Speech: Normal Motor strength normal: LUE, RUE, LLE, RLE Sensory: Normal - Psychological Associated symptoms: Normal affect, Normal mood - Skin Skin Temperature: Warm Skin Moisture: Dry Skin Color: Normal Course - Re-evaluation Re-evalutation: 02/10/18 14:47 Patient with chronic abdominal pain with chronic pancreatitis. Relatively well- appearing. Will give some pain medication, fluids, check labs and reassess. 02/10/18 15:08 Laboratory 02/10/18 02/10/18 02/10/18 13:45 13:45 13:45 WBC 8.1 RBC 4.08 Hgb 12.2 Hct 37.1 MCV 91 MCH 29.9 MCHC 32.9 RDW 16.1 H Plt Count 245 Seg Neutrophils % 83.6 H Lymphocytes % 12.5 L Monocytes % 3.0 Eosinophils % 0.1 Basophils % 0.8 Absolute Neutrophils 6.8 Absolute Lymphocytes 1.0 Absolute Monocytes 0.2 Absolute Eosinophils 0.0 Absolute Basophils 0.1 Sodium 146.0 H Potassium 3.4 L Chloride 109 H Carbon Dioxide 20 L Anion Gap 17 BUN 7 Creatinine 0.54 Est GFR ( Amer) > 60 Est GFR (Non-Af Amer) > 60 Glucose 168 H Calcium 8.5 Total Bilirubin 0.4 Direct Bilirubin 0.3 Neonat Total Bilirubin Not Reportable Neonat Direct Bilirubin Not Reportable Neonat Indirect Bili Not Reportable AST 13 L ALT 17 Alkaline Phosphatase 284 H Troponin I < 0.012 Total Protein 8.9 H Albumin 4.1 Lipase 25.2 Acute Abdomen Series 02/10/18 13:31 IMPRESSION: Nonspecific bowel-gas pattern. 02/10/18 15:23 Patient feeling a little bit better. Has chronic nausea, vomiting and diarrhea. At this time she is willing to try to get something to eat and drink. We will give her another dose of some nausea medicine. At this time I find no compelling evidence to admit her to the hospital. No evidence of pancreatitis today. No evidence of LA. No elevated white blood cell count. Stable in my opinion. 02/10/18 16:09 Patient is sitting up. Eating and drinking crackers and water. Does not meet criteria for admission in my opinion. Will DC. Has prescription already for Zofran. - Vital Signs Vital signs: Temp Pulse Resp BP Pulse Ox 14 203/102 H 100 02/10/18 15:00 02/10/18 14:03 02/10/18 15:00 - Laboratory Result Diagrams: 02/10/18 13:45 02/10/18 13:45 Laboratory results interpreted by me: 02/10/18 02/10/18 13:45 13:45 RDW 16.1 H Seg Neutrophils % 83.6 H Lymphocytes % 12.5 L Sodium 146.0 H Potassium 3.4 L Chloride 109 H Carbon Dioxide 20 L Glucose 168 H AST 13 L Alkaline Phosphatase 284 H Total Protein 8.9 H Discharge - Discharge Clinical Impression: Chronic abdominal pain, Chronic vomiting Condition: Good Disposition: SNF-Other Instructions: Abdominal Pain ([facility]), Vomiting ([facility]) Additional Instructions: If symptoms persist or get worse please return for repeat evaluation or follow- up with your regular doctor. Prescriptions: Promethazine HCl [Phenergan] 12.5 mg RC TID 5 Days #15 supp.rect Referrals: SHARDA MAYS MD [Primary Care Provider] - Follow up as needed
[2018-02-10 14:01] LABS: ABSOLUTE BASOPHILS # (AUTO) 0.1 10^3/uL (0.0-0.2); ABSOLUTE MONOCYTES (AUTO) 0.2 10^3/uL (0.1-1.4); ABSOLUTE NEUT (AUTO) 6.8 10^3/uL (1.7-8.2); BASOPHILS % (AUTO) 0.8 % (0-2); EOSINOPHILS % (AUTO) 0.1 % (0-6); HEMATOCRIT 37.1 % (36.0-47.0); HEMOGLOBIN 12.2 g/dL (12.0-15.5); LYMPHOCYTES % (AUTO) 12.5 % (13-45); MEAN CORPUSCULAR HEMOGLOBIN 29.9 pg (27.0-33.4); MEAN CORPUSCULAR HGB CONC 32.9 g/dL (32.0-36.0); MEAN CORPUSCULAR VOLUME 91 fl (80-97); PLATELET COUNT 245 10^3/uL (150-450); RED BLOOD COUNT 4.08 10^6/uL (3.72-5.28); RED CELL DISTRIBUTION WIDTH 16.1 % (11.5-14.0); SEGMENTED NEUTROPHILS % (AUTO) 83.6 % (42-78); TOTAL CELLS COUNTED % (AUTO) 100 %; WHITE BLOOD COUNT 8.1 10^3/uL (4.0-10.5)
[2018-02-10] MEDS ORDERED: MORPHINE SULFATE 10 MG/ML INJ IV ONE (14:06)
[2018-02-10 14:17] LABS: ALANINE AMINOTRANSFERASE 17 U/L (9-52); ALBUMIN 4.1 g/dL (3.5-5.0); ALKALINE PHOSPHATASE 284 U/L (38-126); ANION GAP 17 (5-19); ASPARTATE AMINO TRANSFERASE 13 U/L (14-36); BILIRUBIN,DIRECT 0.3 mg/dL (0.0-0.4); BILIRUBIN,TOTAL 0.4 mg/dL (0.2-1.3); BLOOD UREA NITROGEN 7 mg/dL (7-20); CALCIUM 8.5 mg/dL (8.4-10.2); CARBON DIOXIDE 20 mmol/L (22-30); CHLORIDE 109 mmol/L (98-107); GLUCOSE 168 mg/dL (75-110); LIPASE 25.2 U/L (23-300); POTASSIUM 3.4 mmol/L (3.6-5.0); TOTAL PROTEIN 8.9 g/dL (6.3-8.2)
--- NOTE | 2018-02-10 15:01 | RADIOLOGY REPORT (SQ) ---
EXAM DESCRIPTION: ACUTE ABDOMEN SERIES COMPLETED DATE/TIME: 02/10/2018 2:43 pm REASON FOR STUDY: abd pain COMPARISON: None. NUMBER OF VIEWS: Three views. TECHNIQUE: Frontal chest, supine abdomen and upright/decubitus abdomen radiographic images acquired. LIMITATIONS: None. FINDINGS: CHEST: The heart is normal with aortic atherosclerosis. Chronic bilateral interstitial ch anges. No acute infiltrates or effusions. FREE AIR: None. No abnormal gas collections. BOWEL GAS PATTERN: Nonobstructive pattern. No dilated loops or air fluid levels. CALCIFICATIONS: No suspicious calcifications. HARDWARE: None in the abdomen. SOFT TISSUES: Soft tissue density in pelvis felt represent bladder. BONES: Rotoscoliosis thoracolumbar spine. Compression screws are noted within the left femoral head and acetabulum. Resorption of the left femoral head with residual left femoral shaft subluxed superi christoph. Adjacent soft tissue calcification. Distortion of the OTHER: Port-A-Cath overlying right atrium. Surgical clips right upper abdomen. IMPRESSION: Nonspecific bowel-gas pattern. TECHNICAL DOCUMENTATION: JOB ID: [id number] [id number] 2010 [employer]- All Rights Reserved Reading location - IP/workstation name: [email or web address]
[2018-02-10 15:07] VITALS: BP 203/102
--- NOTE | 2018-02-10 15:09 | EKG REPORT ---
SEVERITY:- BORDERLINE ECG - SINUS RHYTHM BORDERLINE T WAVE ABNORMALITIES BORDERLINE PROLONGED QT INTERVAL : Confirmed by: Britany Kenny MD 10-Feb-2018 15:08:51
[2018-02-10] MEDS ORDERED: PROCHLORPERAZINE EDISYLATE INJ 10 MG/2 ML VIAL IV ONE (15:22)
== END 2018-02-10 18:16 ==
LOC: ER 13:01
DX: R10.9 Unspecified abdominal pain (principal); G89.29 Other chronic pain; R10.816 Epigastric abdominal tenderness; R11.2 Nausea with vomiting, unspecified; F17.210 Nicotine dependence, cigarettes, uncomplicated; I10 Essential (primary) hypertension; Z88.1 Allergy status to other antibiotic agents; Z87.11 Personal history of peptic ulcer disease; Z87.19 Personal history of other diseases of the digestive system
CPT/HCPCS: 93005; 36591; 99285; 96361; 96374; 96375; 36415; 83690; 85025; 80053; 84484; 74022; 93010; J2270; J0780; J2405; J7030; S0028

== ENCOUNTER 2018-08-18 11:55 | Emergency (ER) | payer MEDICARE, MEDICAID ==
[2018-08-18] MEDS ORDERED: MORPHINE SULFATE 10 MG/ML INJ IV ONE (12:14)
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
[2018-08-18 13:52] LABS: ABSOLUTE BASOPHILS # (AUTO) 0.1 10^3/uL (0.0-0.2); ABSOLUTE EOSINOPHILS # (AUTO) 0.3 10^3/uL (0.0-0.6); ABSOLUTE LYMPHOCYTES (AUTO) 1.6 10^3/uL (0.5-4.7); ABSOLUTE MONOCYTES (AUTO) 0.9 10^3/uL (0.1-1.4); ABSOLUTE NEUT (AUTO) 5.5 10^3/uL (1.7-8.2); BASOPHILS % (AUTO) 0.8 % (0-2); EOSINOPHILS % (AUTO) 3.3 % (0-6); HEMATOCRIT 29.7 % (36.0-47.0); HEMOGLOBIN 9.8 g/dL (12.0-15.5); LYMPHOCYTES % (AUTO) 19.5 % (13-45); MEAN CORPUSCULAR HEMOGLOBIN 28.4 pg (27.0-33.4); MEAN CORPUSCULAR HGB CONC 33.1 g/dL (32.0-36.0); MEAN CORPUSCULAR VOLUME 86 fl (80-97); MONOCYTES % (AUTO) 10.5 % (3-13); PLATELET COUNT 205 10^3/uL (150-450); RED BLOOD COUNT 3.46 10^6/uL (3.72-5.28); RED CELL DISTRIBUTION WIDTH 17.8 % (11.5-14.0); SEGMENTED NEUTROPHILS % (AUTO) 65.9 % (42-78); TOTAL CELLS COUNTED % (AUTO) 100 %; WHITE BLOOD COUNT 8.3 10^3/uL (4.0-10.5)
--- NOTE | 2018-08-18 13:56 | EKG REPORT ---
SEVERITY:- BORDERLINE ECG - SINUS RHYTHM PROBABLE LEFT ATRIAL ABNORMALITY BORDERLINE T WAVE ABNORMALITIES : Confirmed by: Edu Dick MD 18-Aug-2018 13:55:52
[2018-08-18 14:08] LABS: ALANINE AMINOTRANSFERASE 14 U/L (9-52); ALKALINE PHOSPHATASE 384 U/L (38-126); ANION GAP 7 (5-19); ASPARTATE AMINO TRANSFERASE 13 U/L (14-36); BILIRUBIN,DIRECT 0.2 mg/dL (0.0-0.4); BILIRUBIN,TOTAL 0.3 mg/dL (0.2-1.3); BLOOD UREA NITROGEN 9 mg/dL (7-20); CARBON DIOXIDE 24 mmol/L (22-30); CHLORIDE 112 mmol/L (98-107); GLUCOSE 113 mg/dL (75-110); POTASSIUM 3.8 mmol/L (3.6-5.0); SODIUM 143.3 mmol/L (137-145); TOTAL PROTEIN 6.6 g/dL (6.3-8.2)
--- NOTE | 2018-08-18 14:09 | RADIOLOGY REPORT (SQ) ---
EXAM DESCRIPTION: CHEST SINGLE VIEW COMPLETED DATE/TIME: 08/18/2018 1:49 pm REASON FOR STUDY: jaw pain COMPARISON: Chest films 01/25/2018, 09/17/2016 EXAM PARAMETERS: NUMBER OF VIEWS: One view. TECHNIQUE: Single frontal radiographic view of the chest acquired. RADIATION DOSE: NA LIMITATIONS: None. FINDINGS: LUNGS AND PLEURA: Skin fold projected over the right posterior upper chest. No acute infi ltrates. No pleural effusion. No pneumothorax. MEDIASTINUM AND HILAR STRUCTURES: No masses. Contour normal. HEART AND VASCULAR STRUCTURES: Marked cardiomegaly BONES: No acute findings. HARDWARE: Left-sided permanent central line tip right atrium. OTHER: No other significant finding. IMPRESSION: Cardiomegaly. No acute infiltrates TECHNICAL DOCUMENTATION: JOB ID: [id number] [employer]- All Rights Reserved Reading location - IP/workstation name: [email or web address]
[2018-08-18 14:17] LABS: CALCIUM 6.2 mg/dL (8.4-10.2)
--- NOTE | 2018-08-18 14:23 | RADIOLOGY REPORT (SQ) ---
EXAM DESCRIPTION: CT FACIAL AREA WITHOUT COMPLETED DATE/TIME: 08/18/2018 1:59 pm REASON FOR STUDY: jaw pain COMPARISON: None. TECHNIQUE: Noncontrasted images through the facial bones and orbits windowed for bone and soft tissu e. Additional coronal and sagittal reconstructed images reviewed. All images stored on PACS. All CT scanners at this facility use dose modulation, iterative reconstruction, and/or weight based d osing when appropriate to reduce radiation dose to as low as reasonably achievable (ALARA). [facility]: Dose Right [facility]: CareDose [facility]: Dose Right [facility]: Teradose 4D [facility]: [employer] RADIATION DOSE: CT Rad equipment meets quality standard of care and radiation dose reduction techniq ues were employed. CTDIvol: 13.2 mGy. DLP: 230 mGy-cm. mGy. LIMITATIONS: None. FINDINGS: FACIAL BONES: No fracture or bone lesion. ORBITS: Intact. No fracture. Symmetric intact globes and retroorbital soft tissues. PARANASAL SINUSES: Clear. No significant mucosal thickening, mass or fluid. No nasal polyps. Maxill giovani sinus outlets are patent. SOFT TISSUES: No mass or edema. INFERIOR BRAIN: Limited view. No acute findings. OTHER: Temporomandibular joint osteoarthritis bilaterally with joint space narrowing and mild bony sp urring. IMPRESSION: NO ACUTE FINDINGS. TECHNICAL DOCUMENTATION: JOB ID: [id number] Quality ID # [id number]: Final reports with documentation of one or more dose reduction techniques (e.g., Au tomated exposure control, adjustment of the mA and/or kV according to patient size, use of iterative reconstruction technique) 2010 [employer]- All Rights Reserved Reading location - IP/workstation name: [email or web address]
[2018-08-18 15:01] LABS: APPEARANCE,URINE SLIGHTLY-CLOUDY; BILIRUBIN,URINE NEGATIVE (NEGATIVE); COLOR,URINE YELLOW; GLUCOSE, URINE NEGATIVE (NEGATIVE); KETONES,URINE NEGATIVE (NEGATIVE); LEUKOCYTE ESTERASE,URINE LARGE (NEGATIVE); NITRITE,URINE NEGATIVE (NEGATIVE); PROTEIN,URINE 100 mg/dL (NEGATIVE); URINE SPECIFIC GRAVITY 1.013; UROBILINOGEN,URINE NEGATIVE mg/dL (<2.0)
--- NOTE | 2018-08-18 16:05 | RADIOLOGY REPORT (SQ) ---
EXAM DESCRIPTION: CT CHEST WITH COMPLETED DATE/TIME: 08/18/2018 3:51 pm REASON FOR STUDY: fall, pain, previous nodules? COMPARISON: CT chest, 06/08/2009 TECHNIQUE: CT scan of the chest performed using helical scanning technique with dynamic intravenous contrast injection. Images reviewed with lung, soft tissue and bone windows. Reconstructed coronal and sagittal MPR and MIP images reviewed. All images stored on PACS. All CT scanners at this facility use dose modulation, iterative reconstruction, and/or weight based d osing when appropriate to reduce radiation dose to as low as reasonably achievable (ALARA). [facility]: Dose Right [facility]: CareDose [facility]: Dose Right [facility]: Teradose 4D [facility]: [employer] CONTRAST TYPE AND DOSE: Not reported, please refer to written technologist documentation RENAL FUNCTION: GFR > 60. RADIATION DOSE: CT Rad equipment meets quality standard of care and radiation dose reduction techniq ues were employed. CTDIvol: 8.4 mGy. DLP: 303 mGy-cm. . LIMITATIONS: None. FINDINGS: LUNGS AND PLEURA: No opacities, nodules, masses. Bibasilar scarring or atelectasis. No p neumothorax. No effusions. HILAR AND MEDIASTINAL STRUCTURES: No identified masses or abnormal nodes. Calcified left hilar lymph nodes. HEART AND VASCULAR STRUCTURES: No aneurysm or dissection. No central pulmonary emboli. No pericardi al effusion. HARDWARE: None in the chest. UPPER ABDOMEN: Status post right nephrectomy. Status post cholecystectomy with postprocedural pneumo bilia. THYROID AND OTHER SOFT TISSUES: No masses. No adenopathy. BONES: Dextroscoliosis. There are numerous bilateral partially callused fracture deformities of the ribs and of the transverse processes of the partially imaged lumbar spine. There are no definite acu te displaced fractures. OTHER: No other significant finding. IMPRESSION: 1. There are numerous bilateral partially callused fracture deformities of the ribs and of the transverse processes of the partially imaged lumbar spine. There are no definite acute displac ed fractures. No pneumothorax or pleural effusion. 2. Dextroscoliosis of the thoracic spine. TECHNICAL DOCUMENTATION: JOB ID: [id number] Quality ID # [id number]: Final reports with documentation of one or more dose reduction techniques (e.g., Au tomated exposure control, adjustment of the mA and/or kV according to patient size, use of iterative reconstruction technique) 2010 [employer]- All Rights Reserved Reading location - IP/workstation name: [email or web address]
[2018-08-18 17:02] VITALS: BP 129/71
== END 2018-08-18 17:02 | disposition home or self-care (01) ==
LOC: ER 11:55
DX: R68.84 Jaw pain (principal); R22.2 Localized swelling, mass and lump, trunk; E83.51 Hypocalcemia; N39.0 Urinary tract infection, site not specified; I10 Essential (primary) hypertension; Z99.3 Dependence on wheelchair; Z88.1 Allergy status to other antibiotic agents; L89.891 Pressure ulcer of other site, stage 1; Z85.42 Personal history of malignant neoplasm of other parts of uterus; Z97.2 Presence of dental prosthetic device (complete) (partial)
CPT/HCPCS: 93005; 99284; 51701; 96374; 36415; 87086; 85025; 87088; 80053; 81001; 84484; 87186; 71045; 70486; 71260; 93010; J2270

== ENCOUNTER 2018-08-29 14:06 | Inpatient (IN) | payer MEDICARE, MEDICAID ==
[2018-08-29] MEDS ORDERED: MORPHINE SULFATE 10 MG/ML INJ IV ONE ×2 (14:58→17:49)
[2018-08-29] MEDS ORDERED: ONDANSETRON HCL INJ/PF 4 MG/2 ML SDV IV ONE ×2 (14:58→17:49)
[2018-08-29 15:19] LABS: ABSOLUTE BASOPHILS # (AUTO) 0.1 10^3/uL (0.0-0.2); ABSOLUTE EOSINOPHILS # (AUTO) 0.2 10^3/uL (0.0-0.6); ABSOLUTE MONOCYTES (AUTO) 0.7 10^3/uL (0.1-1.4); ABSOLUTE NEUT (AUTO) 4.6 10^3/uL (1.7-8.2); BASOPHILS % (AUTO) 0.9 % (0-2); EOSINOPHILS % (AUTO) 2.9 % (0-6); HEMATOCRIT 28.7 % (36.0-47.0); HEMOGLOBIN 9.4 g/dL (12.0-15.5); LYMPHOCYTES % (AUTO) 15.4 % (13-45); MEAN CORPUSCULAR HEMOGLOBIN 28.2 pg (27.0-33.4); MEAN CORPUSCULAR HGB CONC 32.8 g/dL (32.0-36.0); MEAN CORPUSCULAR VOLUME 86 fl (80-97); MONOCYTES % (AUTO) 10.8 % (3-13); PLATELET COUNT 270 10^3/uL (150-450); RED BLOOD COUNT 3.33 10^6/uL (3.72-5.28); RED CELL DISTRIBUTION WIDTH 18.6 % (11.5-14.0); TOTAL CELLS COUNTED % (AUTO) 100 %; WHITE BLOOD COUNT 6.5 10^3/uL (4.0-10.5)
[2018-08-29 15:29] LABS: ALANINE AMINOTRANSFERASE 22 U/L (9-52); ALKALINE PHOSPHATASE 338 U/L (38-126); ANION GAP 7 (5-19); ASPARTATE AMINO TRANSFERASE 16 U/L (14-36); BILIRUBIN,DIRECT 0.2 mg/dL (0.0-0.4); BILIRUBIN,TOTAL 0.3 mg/dL (0.2-1.3); BLOOD UREA NITROGEN 16 mg/dL (7-20); CARBON DIOXIDE 23 mmol/L (22-30); CHLORIDE 112 mmol/L (98-107); CREATINE KINASE 104 U/L (30-135); GLUCOSE 106 mg/dL (75-110); POTASSIUM 4.5 mmol/L (3.6-5.0); SODIUM 141.7 mmol/L (137-145); TOTAL PROTEIN 7.1 g/dL (6.3-8.2)
[2018-08-29 15:39] LABS: CALCIUM 6.1 mg/dL (8.4-10.2)
[2018-08-29 15:41] LABS: CREATINE KINASE MB 1.56 ng/mL (<4.55); NT PRO BNP 345 pg/mL (<450)
[2018-08-29 15:43] LABS: TROPONIN I < 0.012 ng/mL
[2018-08-29 15:47] LABS: APPEARANCE,URINE CLOUDY; BILIRUBIN,URINE NEGATIVE (NEGATIVE); COLOR,URINE AMBER; GLUCOSE, URINE NEGATIVE (NEGATIVE); KETONES,URINE NEGATIVE (NEGATIVE); LEUKOCYTE ESTERASE,URINE LARGE (NEGATIVE); NITRITE,URINE NEGATIVE (NEGATIVE); PROTEIN,URINE 100 mg/dL (NEGATIVE); URINE SPECIFIC GRAVITY 1.013; UROBILINOGEN,URINE NEGATIVE mg/dL (<2.0)
[2018-08-29] MEDS: CIPROFLOXACIN 400 MG/D5W RTU 400 MG/200 ML RTUPB IV SCH (16:32)
--- NOTE | 2018-08-29 17:02 | RADIOLOGY REPORT (SQ) ---
EXAM DESCRIPTION: CHEST SINGLE VIEW COMPLETED DATE/TIME: 08/29/2018 4:31 pm REASON FOR STUDY: edema, dyspnea on exertion COMPARISON: None. EXAM PARAMETERS: NUMBER OF VIEWS: One view. TECHNIQUE: Single frontal radiographic view of the chest acquired. RADIATION DOSE: NA LIMITATIONS: None. FINDINGS: LUNGS AND PLEURA: No acute infiltrates or effusions. . MEDIASTINUM AND HILAR STRUCTURES: Calcified perihilar nodes. HEART AND VASCULAR STRUCTURES: Borderline cardiomegaly with aortic atherosclerosis. BONES: Marked degenerative changes of the shoulders. Old healed right rib fractures. HARDWARE: None in the chest. OTHER: Left trans venous Port-A-Cath with tip in right atrium. IMPRESSION: NO ACUTE DISEASE. TECHNICAL DOCUMENTATION: JOB ID: [id number] SC-[id number] 2010 [employer]- All Rights Reserved Reading location - IP/workstation name: [email or web address]
--- NOTE | 2018-08-29 17:29 | ER Document Report ---
ED General - General Chief Complaint: Swelling Stated Complaint: URINARY ISSUES/BODY PAIN Time Seen by Provider: 08/29/18 14:15 Primary Care Provider: SHARDA MAYS MD [Primary Care Provider] - Follow up as needed TRAVEL OUTSIDE OF THE [place] IN LAST 30 DAYS: No - HPI Notes: Patient presents to the emergency department for evaluation via EMS. History is obtained from the patient as well as her daughter. Evidently the patient has had progressive swelling in her legs, increased weakness. She is also had a urinary tract infection. This was diagnosed recently, but she has not started antibiotics. 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 The daughter has not yet administered the antibiotics. She has had progressive weakness. She is having increasing leg pain secondary to the edema. - Related Data Allergies/Adverse Reactions: sulfamethoxazole [From Bactrim] Allergy (Verified 12/29/17 12:45) trimethoprim [From Bactrim] Allergy (Verified 12/29/17 12:45) Past Medical History - General Information source: Patient, Relative - Social History Smoking Status: Unknown if Ever Smoked Lives with: Family Family History: Reviewed & Not Pertinent - Past Medical History Cardiac Medical History: Reports: Hx Congestive Heart Failure, Hx Hypertension, Hx Peripheral Vascular Disease Neurological Medical History: Reports: Hx Cerebrovascular Accident - aphasia. Denies: Hx Seizures Renal/ Medical History: Denies: Hx Peritoneal Dialysis GI Medical History: Reports: Hx Gastroesophageal Reflux Disease, Hx Ulcer - peptic Musculoskeletal Medical History: Reports Hx Arthritis - RA Psychiatric Medical History: Denies: Hx Depression Past Surgical History: Reports: Hx Abdominal Surgery - STOMACH ULCER, Hx Bowel Surgery, Hx Cholecystectomy - 05/2017, Hx Hysterectomy, Hx Orthopedic Surgery - LT HIP REMOVAL OF "HEAD", SCREWS RT HIP, RT KNEE REPLACEMENT, Other - lysis of adhesions - Immunizations Hx Pneumococcal Vaccination: 07/20/11 Physical Exam - Vital signs Vitals: Temp 98.4 F 08/29/18 14:32 - Notes Notes: Patient is awake, alert, oriented x3. Head is normocephalic atraumatic. Pupils are equal round reactive to light. Oral mucosa is moist. Heart regular rate and rhythm, lungs are clear to auscultation bilaterally. Abdomen is soft nontender with normoactive bowel sounds. Extremities show 4+ pitting edema with chronic venous stasis and peripheral artery disease changes. Course - Re-evaluation Re-evalutation: 08/29/18 17:52 Patient presents to the emergency department for evaluation of multiple symptoms. She has significant leg pain and edema. This is limiting her mobility and her ability to help her daughter with pivots and transfers. She is given IV Lasix for this. She is also found to have a urinary tract infection. IV Cipro was ordered. She is found to be hypocalcemic as well. Given her multiple medical issues and comorbidities, will admit the patient for further care. - Vital Signs Vital signs: Temp Pulse Resp BP Pulse Ox 98.4 F 08/29/18 14:32 - Laboratory Result Diagrams: 08/29/18 14:54 08/29/18 14:54 Laboratory results interpreted by me: 08/29/18 08/29/18 08/29/18 14:54 14:54 14:54 RBC 3.33 L Hgb 9.4 L Hct 28.7 L RDW 18.6 H Chloride 112 H Calcium 6.1 L* Alkaline Phosphatase 338 H Albumin 3.0 L Urine Protein 100 H Urine Blood MODERATE H Ur Leukocyte Esterase LARGE H - Diagnostic Test Radiology reviewed: Reports reviewed - EKG Interpretation by Mn EKG shows normal: Sinus rhythm Additional EKG results interpreted by me: 08/29/18 17:51 Sinus mechanism with a rate of 86 bpm. Normal axis and intervals, no acute ST changes concerning for ischemia or infarction. - Consults Sherri Time consulted: 17:48 - We will admit the patient Discharge - Discharge Clinical Impression: Hypocalcemia, Edema, Urinary tract infection Disposition: ADMITTED INPATIENT Admitting Provider: Sherri Unit Admitted: Medical Floor Referrals: SHARDA MAYS MD [Primary Care Provider] - Follow up as needed
[2018-08-29] MEDS ORDERED: FUROSEMIDE INJ/PF 20 MG/2 ML SDV IV ONE (17:49)
[2018-08-29] MEDS: NORMAL SALINE 1000 ML 1,000 ML IV PRN (19:58)
[2018-08-29 20:04] LABS: URINE AMPHETAMINES SCREEN NEGATIVE; URINE BARBITURATES SCREEN NEGATIVE; URINE BENZODIAZEPINES SCREEN NEGATIVE; URINE COCAINE SCREEN NEGATIVE; URINE MARIJUANA (THC) SCREEN NEGATIVE; URINE METHADONE SCREEN NEGATIVE; URINE PHENCYCLIDINE SCREEN NEGATIVE
[2018-08-29 20:20] LABS: INTERNATIONAL RATION (INR) 1.14; PARTIAL THROMBOPLASTIN TIME 35.1 SEC (23.5-35.8); PROTHROMBIN TIME 15.2 SEC (11.4-15.4)
[2018-08-29 20:26] LABS: LIPASE 13.2 U/L (23-300); PHOSPHORUS 3.5 mg/dL (2.5-4.5)
[2018-08-29 20:37] LABS: CREATINE KINASE MB 1.61 ng/mL (<4.55)
[2018-08-29 20:38] LABS: TROPONIN I < 0.012 ng/mL
[2018-08-29] MEDS: CEFTRIAXONE 1 GM/D5W RTU 1 GM/50 ML RTUPB IV SCH (21:40)
--- NOTE | 2018-08-29 23:58 | EKG REPORT ---
SEVERITY:- BORDERLINE ECG - SINUS RHYTHM PROBABLE LEFT ATRIAL ABNORMALITY : Confirmed by: Dante Canchola 29-Aug-2018 23:57:27
[2018-08-30] MEDS: CIPROFLOXACIN 400 MG/D5W RTU 400 MG/200 ML RTUPB IV SCH ×2 (00:07→12:18)
[2018-08-30] MEDS: OXYCODONE HCL IR 5 MG TABLET PO PRN ×4 (01:52→19:50)
[2018-08-30 01:59] LABS: TROPONIN I < 0.012 ng/mL
[2018-08-30 06:18] LABS: ABSOLUTE EOSINOPHILS # (AUTO) 0.2 10^3/uL (0.0-0.6); ABSOLUTE LYMPHOCYTES (AUTO) 1.2 10^3/uL (0.5-4.7); ABSOLUTE MONOCYTES (AUTO) 0.9 10^3/uL (0.1-1.4); ABSOLUTE NEUT (AUTO) 5.1 10^3/uL (1.7-8.2); BASOPHILS % (AUTO) 0.5 % (0-2); EOSINOPHILS % (AUTO) 2.5 % (0-6); HEMATOCRIT 26.2 % (36.0-47.0); HEMOGLOBIN 8.7 g/dL (12.0-15.5); LYMPHOCYTES % (AUTO) 16.2 % (13-45); MEAN CORPUSCULAR HEMOGLOBIN 28.8 pg (27.0-33.4); MEAN CORPUSCULAR HGB CONC 33.3 g/dL (32.0-36.0); MEAN CORPUSCULAR VOLUME 86 fl (80-97); MONOCYTES % (AUTO) 12.2 % (3-13); PLATELET COUNT 252 10^3/uL (150-450); RED BLOOD COUNT 3.03 10^6/uL (3.72-5.28); RED CELL DISTRIBUTION WIDTH 18.6 % (11.5-14.0); SEGMENTED NEUTROPHILS % (AUTO) 68.6 % (42-78); TOTAL CELLS COUNTED % (AUTO) 100 %; WHITE BLOOD COUNT 7.5 10^3/uL (4.0-10.5)
[2018-08-30 06:32] LABS: ALANINE AMINOTRANSFERASE 17 U/L (9-52); ALBUMIN 2.8 g/dL (3.5-5.0); ALKALINE PHOSPHATASE 301 U/L (38-126); ANION GAP 7 (5-19); ASPARTATE AMINO TRANSFERASE 12 U/L (14-36); BILIRUBIN,DIRECT 0.2 mg/dL (0.0-0.4); BILIRUBIN,TOTAL 0.3 mg/dL (0.2-1.3); BLOOD UREA NITROGEN 14 mg/dL (7-20); CARBON DIOXIDE 22 mmol/L (22-30); CHLORIDE 113 mmol/L (98-107); CHOLESTEROL 107.96 mg/dL (0-200); CREATINE KINASE 98 U/L (30-135); GLUCOSE 95 mg/dL (75-110); POTASSIUM 4.2 mmol/L (3.6-5.0); SODIUM 142.3 mmol/L (137-145); TOTAL PROTEIN 6.6 g/dL (6.3-8.2); TRIGLYCERIDES 63 mg/dL (<150)
[2018-08-30 06:44] LABS: CREATINE KINASE MB 1.11 ng/mL (<4.55); DIRECT LDL 52 mg/dL (<100)
[2018-08-30 06:50] LABS: CALCIUM 5.9 mg/dL (8.4-10.2); TROPONIN I < 0.012 ng/mL
--- NOTE | 2018-08-30 08:36 | RADIOLOGY REPORT (SQ) ---
EXAM DESCRIPTION: VENOUS BILATERAL LOWER COMPLETED DATE/TIME: 08/29/2018 7:16 pm REASON FOR STUDY: lower extremity swelling COMPARISON: 01/13/2018 TECHNIQUE: Dynamic and static herrera scale and color images acquired of both lower extremity venous sy stems. Selected spectral images acquired with additional compression and augmentation maneuvers. Imag es stored on PACS. LIMITATIONS: Difficult examination due to patient inability to position, inability to tolerate movem ent, and inability to tolerate compressions. FINDINGS: RIGHT LEG COMMON FEMORAL AND FEMORAL: Normal phasicity, compression and augmentation. No visualized echogenic m aterial on herrera scale. No defects on color images. POPLITEAL: Normal compression and augmentation. No visualized echogenic material on herrera scale. No de fects on color images. CALF VESSELS: Normal compression and augmentation. No visualized echogenic material on herrera scale. No defects on color image. GSV AND SSV: Normal compression. No visualized echogenic material on herrera scale. No defects on color images. ANY DEEP VENOUS INSUFFICIENCY: Not evaluated. ANY EVIDENCE OF POPLITEAL CYST: No. OTHER: Soft tissue edema. LEFT LEG COMMON FEMORAL AND FEMORAL: Normal phasicity, compression and augmentation. No visualized echogenic m aterial on herrera scale. No defects on color images. POPLITEAL: Normal compression and augmentation. No visualized echogenic material on herrera scale. No de fects on color images. CALF VESSELS: Normal compression and augmentation. No visualized echogenic material on herrera scale. No defects on color images. GSV AND SSV: Normal compression. No visualized echogenic material on herrera scale. No defects on color images. ANY DEEP VENOUS INSUFFICIENCY: Not evaluated. ANY EVIDENCE POPLITEAL CYST: No. OTHER: Soft tissue edema. IMPRESSION: Very limited examination. No evidence of deep venous thrombosis in the bilateral lower extremities. TECHNICAL DOCUMENTATION: JOB ID: [id number] [employer]- All Rights Reserved Reading location - IP/workstation name: [email or web address]
[2018-08-30] MEDS: NORMAL SALINE 1000 ML 1,000 ML IV PRN ×2 (09:50→09:51)
[2018-08-30] MEDS: ENOXAPARIN SODIUM INJ 40 MG/0.4 ML DISP.SYRIN SUBCUT SCH (12:19)
--- NOTE | 2018-08-30 20:00 | RADIOLOGY REPORT (SQ) ---
EXAM DESCRIPTION: CT ABD/PELVIS WITH IV ONLY; CT CHEST WITH COMPLETED DATE/TIME: 08/30/2018 7:33 pm REASON FOR STUDY: unexplain weight loss ; weight loss COMPARISON: CT chest 08/18/2018 CT abdomen pelvis 01/10/2018 CONTRAST TYPE AND DOSE: contrast/concentration: Isovue 350.00 mg/ml; Total Contrast Delivered: 160.0 ml; Total Saline Delivered: 110.0 ml RENAL FUNCTION: Creatinine 0.9 TECHNIQUE: CT scan of the chest performed using helical scanning technique with dynamic intravenous contrast injection. Images reviewed with lung, soft tissue and bone windows. Reconstructed coronal a nd sagittal MPR images reviewed. All images stored on PACS. CT scan of the abdomen and pelvis performed with intravenous and without oral contrastusing helical s bryn technique with dynamic intravenous contrast injection. Images reviewed with lung, soft tissu e and bone windows. Reconstructed coronal and sagittal MPR images reviewed. Delayed images for eval uation of the urinary system also acquired and evaluated. All images stored on PACS. All CT scanners at this facility use dose modulation, iterative reconstruction, and/or weight based d osing when appropriate to reduce radiation dose to as low as reasonably achievable (ALARA). [facility]: Dose Right [facility]: CareDose [facility]: Dose Right [facility]: Teradose 4D [facility]: [employer] RADIATION DOSE: CT Rad equipment meets quality standard of care and radiation dose reduction techniq ues were employed. CTDIvol: 11.4 - 16.1 mGy. DLP: 2072 mGy-cm. . LIMITATIONS: None. FINDINGS: CHEST: LUNGS AND PLEURA: There is minimal bibasilar bandlike scarring or atelectasis unchanged from 9. No fluffy acute infiltrates worrisome for edema or pneumonia. No pleural effusion or pneumothora x. HILAR AND MEDIASTINAL STRUCTURES: No identified masses or abnormal nodes. HEART AND VASCULAR STRUCTURES: No aneurysm or dissection. No central pulmonary emboli. No pericardi al effusion. HARDWARE: Left-sided permanent central line tip in the right atrium. THYROID AND OTHER SOFT TISSUES: No masses. No adenopathy. BONES: Convex rightward thoracic curvature OTHER: No other significant finding. ABDOMEN AND PELVIS: LIVER: Normal size. No masses. Air in intrahepatic bile ducts likely due to prior sphincterotomy SPLEEN: Normal size. No focal lesions. PANCREAS: No masses. No significant calcifications. No adjacent inflammation or peripancreatic fluid collections. Pancreatic duct not dilated. GALLBLADDER: Surgically absent. ADRENAL GLANDS: No significant masses or asymmetry. RIGHT KIDNEY AND URETER: Superior atrophy. No acute findings LEFT KIDNEY AND URETER: Left-sided dilated extrarenal pelvis with double-J stent coursing from the re nal pelvis to the bladder. No gross renal masses. No cysts. No stones. AORTA AND VESSELS: No aneurysm. No dissection. Renal arteries, SMA, celiac without stenosis. RETROPERITONEUM: No retroperitoneal adenopathy, hemorrhage or masses. BOWEL AND PERITONEAL CAVITY: Moderate stool in the colon. Grossly nonobstructive bowel gas pattern APPENDIX: Not identified ABDOMINAL WALL: No masses. No hernias. PELVIS: Bilateral superior and inferior pubic ramus fractures. Old nonunited bilateral subcapital fe moral neck fractures. Post hysterectomy. Urinary bladder unremarkable BONES: Bilateral superior and inferior pubic ramus fractures, nonunited bilateral subcapital femoral neck fractures, lag screws are present on the right OTHER: No other significant finding. IMPRESSION: No acute findings. No CT findings to explain history of weight loss TECHNICAL DOCUMENTATION: JOB ID: [id number] Quality ID # [id number]: Final reports with documentation of one or more dose reduction techniques (e.g., Au tomated exposure control, adjustment of the mA and/or kV according to patient size, use of iterative reconstruction technique) 2010 [employer]- All Rights Reserved Reading location - IP/workstation name: [email or web address]
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
[2018-08-30] MEDS ORDERED: CALCIUM GLUCONATE 1,000 MG in DEXTROSE 5%-WATER 50 ML IV ONE (20:36)
[2018-08-30] MEDS ORDERED: ONDANSETRON 4 MG TAB.RAPDIS PO PRN (20:38)
[2018-08-30] MEDS ORDERED: (PENDING PHARMACY ID) (Morphine Sulfate/Naltrexone [Embeda Er 50-2 Mg Capsule] 1 CAP) PO SCH (20:45)
--- NOTE | 2018-08-30 20:54 | PDOC PROGRESS REPORT ---
Subjective Progress Note for:: 08/30/18 Subjective:: Patient was seen by the bedside, she has a CAT scan of the chest abdomen and pelvis with IV contrast for evaluation of weight loss, it was negative for any mass lesion, there was a left-sided dilated J stent there is no explanation for the weight loss on the basis of the CT scan of the chest pelvis and abdomen. Reason For Visit: UTI,HYPOCALCEMIA,BILATERAL LOWER EDEMA Physical Exam Vital Signs: Temp Pulse Resp BP Pulse Ox 99.0 F 106 H 16 152/77 H 95 08/30/18 19:54 08/30/18 19:54 08/30/18 19:54 08/30/18 19:54 08/30/18 19:54 Intake & Output 08/29/18 08/30/18 08/31/18 06:59 06:59 06:59 Intake Total 450 1609 Balance 450 1609 Weight 68.1 kg General appearance: PRESENT: no acute distress Eye exam: PRESENT: PERRLA Respiratory exam: PRESENT: clear to auscultation jamel Cardiovascular exam: PRESENT: +S1, +S2 GI/Abdominal exam: PRESENT: soft Extremities exam: PRESENT: pedal edema Neurological exam: PRESENT: alert Results Laboratory Results: 08/30/18 06:05 08/30/18 06:05 08/29/18 08/30/18 08/30/18 20:01 06:05 06:05 WBC 7.5 RBC 3.03 L Hgb 8.7 L Hct 26.2 L MCV 86 MCH 28.8 MCHC 33.3 RDW 18.6 H Plt Count 252 Seg Neutrophils % 68.6 Lymphocytes % 16.2 Monocytes % 12.2 Eosinophils % 2.5 Basophils % 0.5 Absolute Neutrophils 5.1 Absolute Lymphocytes 1.2 Absolute Monocytes 0.9 Absolute Eosinophils 0.2 Absolute Basophils 0.0 Sodium 142.3 Potassium 4.2 Chloride 113 H Carbon Dioxide 22 Anion Gap 7 BUN 14 Creatinine 0.82 Est GFR ( Amer) > 60 Est GFR (Non-Af Amer) > 60 Glucose 95 Calcium 5.9 L* Total Bilirubin 0.3 AST 12 L ALT 17 Alkaline Phosphatase 301 H Total Protein 6.6 Albumin 2.8 L Triglycerides 63 Cholesterol 107.96 LDL Cholesterol Direct 52 VLDL Cholesterol 13.0 HDL Cholesterol 50 TSH 1.86 08/29/18 08/29/18 08/29/18 14:54 14:54 20:01 Creatine Kinase 104 108 CK-MB (CK-2) 1.56 Troponin I < 0.012 NT-Pro-B Natriuret Pep 345 08/29/18 08/29/18 08/30/18 20:01 20:01 01:20 Creatine Kinase 98 CK-MB (CK-2) 1.61 Troponin I < 0.012 NT-Pro-B Natriuret Pep 360 08/30/18 08/30/18 08/30/18 01:20 06:05 06:05 Creatine Kinase 98 CK-MB (CK-2) 1.30 1.11 Troponin I < 0.012 < 0.012 NT-Pro-B Natriuret Pep Impressions: Venous Doppler Study 08/29/18 00:00 IMPRESSION: Very limited examination. No evidence of deep venous thrombosis in the bilateral lower extremities. Chest X-Ray 08/29/18 15:55 IMPRESSION: NO ACUTE DISEASE. Abdomen/Pelvis CT 08/30/18 00:00 IMPRESSION: No acute findings. No CT findings to explain history of weight loss Chest CT 08/30/18 00:00 IMPRESSION: No acute findings. No CT findings to explain history of weight loss Assessment & Plan - Diagnosis (1) Hypocalcemia Is this a current diagnosis for this admission?: Yes Plan: Give, calcium start vitamin D (2) Hypoalbuminemia Is this a current diagnosis for this admission?: Yes Plan: The differential diagnosis includes protein losing nephropathy, the urine dipstick showed on the plus protein suggesting albuminuria, the urine protein creatinine ratio to be obtained this correlates to 24-hour urine protein measurement. It could also be from liver disease the liver enzymes are normal there is no suggestion of liver disease or it could be a manifestation of undernutrition. Gave albumin 25 g IV (3) Urinary tract infection Qualifiers: Urinary tract infection type: site unspecified Hematuria presence: without hematuria Qualified Code(s): N39.0 - Urinary tract infection, site not specified Is this a current diagnosis for this admission?: Yes Plan: Continue IV antibiotic (4) Secondary hyperparathyroidism, non-renal Is this a current diagnosis for this admission?: Yes (5) Anasarca Is this a current diagnosis for this admission?: Yes Plan: Give Lasix 80 mg IV
[2018-08-30] MEDS ORDERED: FUROSEMIDE INJ/PF 40 MG/4 ML SDV IV ONE (20:55)
[2018-08-30] MEDS: AMLODIPINE BESYLATE 10 MG TABLET PO SCH (21:06)
[2018-08-30] MEDS: MAGNESIUM SULFATE/D5W 1 GM/100 ML RTUPB IV SCH ×2 (21:07→22:58)
[2018-08-30] MEDS ORDERED: FUROSEMIDE INJ/PF 100 MG/10 ML SDV IV ONE (21:30)
[2018-08-30] MEDS: OXYCODONE HCL IR 5 MG TABLET PO SCH (21:54)
[2018-08-30] MEDS ORDERED: CALCIUM GLUCONATE 1000 MG/10 ML INJ IV ONE (22:00)
[2018-08-30] MEDS: CEFTRIAXONE 1 GM/D5W RTU 1 GM/50 ML RTUPB IV SCH (22:11)
[2018-08-30] MEDS: CLONIDINE HCL 0.2 MG TABLET PO SCH (22:14)
[2018-08-30] MEDS: CHOLECALCIFEROL (D3) 400 UNIT TABLET PO SCH (22:14)
[2018-08-30] MEDS: CALCITRIOL 0.25 MCG CAPSULE PO SCH (22:14)
[2018-08-30] MEDS: CYCLOBENZAPRINE HCL 10 MG TABLET PO SCH (22:14)
[2018-08-30] MEDS: METOPROLOL TARTRATE 100 MG TABLET PO SCH (22:16)
[2018-08-31] MEDS: ALBUMIN HUMAN 12.5 GM/50 ML RTUINJ IV SCH ×4 (00:05→22:00)
[2018-08-31] MEDS: NORMAL SALINE 1000 ML 1,000 ML IV PRN ×2 (01:04→01:11)
[2018-08-31] MEDS: OXYCODONE HCL IR 5 MG TABLET PO PRN (02:00)
[2018-08-31] MEDS: OXYCODONE HCL IR 5 MG TABLET PO SCH ×4 (03:21→21:01)
[2018-08-31] MEDS: CYCLOBENZAPRINE HCL 10 MG TABLET PO SCH ×3 (05:02→21:20)
[2018-08-31] MEDS: LANSOPRAZOLE 30 MG TAB.RAP.DR PO SCH ×2 (05:02→17:35)
[2018-08-31 06:26] LABS: ABSOLUTE EOSINOPHILS # (AUTO) 0.2 10^3/uL (0.0-0.6); ABSOLUTE LYMPHOCYTES (AUTO) 1.3 10^3/uL (0.5-4.7); ABSOLUTE MONOCYTES (AUTO) 0.8 10^3/uL (0.1-1.4); ABSOLUTE NEUT (AUTO) 4.4 10^3/uL (1.7-8.2); BASOPHILS % (AUTO) 0.5 % (0-2); EOSINOPHILS % (AUTO) 3.1 % (0-6); HEMATOCRIT 26.8 % (36.0-47.0); LYMPHOCYTES % (AUTO) 19.4 % (13-45); MEAN CORPUSCULAR HEMOGLOBIN 29.1 pg (27.0-33.4); MEAN CORPUSCULAR HGB CONC 33.5 g/dL (32.0-36.0); MEAN CORPUSCULAR VOLUME 87 fl (80-97); MONOCYTES % (AUTO) 11.6 % (3-13); PLATELET COUNT 265 10^3/uL (150-450); RED BLOOD COUNT 3.08 10^6/uL (3.72-5.28); RED CELL DISTRIBUTION WIDTH 18.6 % (11.5-14.0); SEGMENTED NEUTROPHILS % (AUTO) 65.4 % (42-78); TOTAL CELLS COUNTED % (AUTO) 100 %; WHITE BLOOD COUNT 6.7 10^3/uL (4.0-10.5)
[2018-08-31 07:00] LABS: ALANINE AMINOTRANSFERASE 12 U/L (9-52); ALBUMIN 3.3 g/dL (3.5-5.0); ALKALINE PHOSPHATASE 287 U/L (38-126); ANION GAP 7 (5-19); ASPARTATE AMINO TRANSFERASE 14 U/L (14-36); BILIRUBIN,DIRECT 0.2 mg/dL (0.0-0.4); BILIRUBIN,TOTAL 0.2 mg/dL (0.2-1.3); BLOOD UREA NITROGEN 10 mg/dL (7-20); CARBON DIOXIDE 24 mmol/L (22-30); CHLORIDE 113 mmol/L (98-107); GLUCOSE 120 mg/dL (75-110); POTASSIUM 3.9 mmol/L (3.6-5.0); SODIUM 143.9 mmol/L (137-145); TOTAL PROTEIN 7.1 g/dL (6.3-8.2)
[2018-08-31 07:16] LABS: CALCIUM 6.5 mg/dL (8.4-10.2)
[2018-08-31] MEDS: AMLODIPINE BESYLATE 10 MG TABLET PO SCH (09:34)
[2018-08-31] MEDS: TAMSULOSIN HCL 0.4 MG CAP.SR.24H PO SCH (09:34)
[2018-08-31] MEDS: CHOLECALCIFEROL (D3) 400 UNIT TABLET PO SCH (09:34)
[2018-08-31] MEDS: CLONIDINE HCL 0.2 MG TABLET PO SCH ×2 (09:34→21:21)
[2018-08-31] MEDS: CALCITRIOL 0.25 MCG CAPSULE PO SCH (09:34)
[2018-08-31] MEDS: METOPROLOL TARTRATE 100 MG TABLET PO SCH ×2 (09:35→21:21)
[2018-08-31] MEDS: ENOXAPARIN SODIUM INJ 40 MG/0.4 ML DISP.SYRIN SUBCUT SCH (09:35)
--- NOTE | 2018-08-31 18:34 | PDOC PROGRESS REPORT ---
Subjective Progress Note for:: 08/31/18 Subjective:: Patient was seen by the bedside, she has severe hypocalcemia with secondary hyperparathyroidism. She has low serum calcium even after correcting for the serum albumin, she has severe hypoalbuminemia with associated anasarca. Consultation is obtained from dietary to assist with nutrition recommendation she is obviously malnourished though the BMI is 26 which is probably more water than muscle mass Reason For Visit: UTI,HYPOCALCEMIA,BILATERAL LOWER EDEMA Physical Exam Vital Signs: Temp Pulse Resp BP Pulse Ox 98.8 F 76 16 139/69 H 94 08/31/18 16:07 08/31/18 16:07 08/31/18 16:07 08/31/18 16:07 08/31/18 16:07 Intake & Output 08/30/18 08/31/18 09/01/18 06:59 06:59 06:59 Intake Total 450 3117 910 Balance 450 3117 910 Weight 68.1 kg 58.4 kg General appearance: PRESENT: no acute distress Eye exam: PRESENT: PERRLA Respiratory exam: PRESENT: clear to auscultation jamel Cardiovascular exam: PRESENT: +S1, +S2 Extremities exam: PRESENT: other - There is a lichenification of the lower ectremity Results Laboratory Results: 08/31/18 05:05 08/31/18 05:05 08/31/18 08/31/18 05:05 05:05 WBC 6.7 RBC 3.08 L Hgb 9.0 L Hct 26.8 L MCV 87 MCH 29.1 MCHC 33.5 RDW 18.6 H Plt Count 265 Seg Neutrophils % 65.4 Lymphocytes % 19.4 Monocytes % 11.6 Eosinophils % 3.1 Basophils % 0.5 Absolute Neutrophils 4.4 Absolute Lymphocytes 1.3 Absolute Monocytes 0.8 Absolute Eosinophils 0.2 Absolute Basophils 0.0 Sodium 143.9 Potassium 3.9 Chloride 113 H Carbon Dioxide 24 Anion Gap 7 BUN 10 Creatinine 0.74 Est GFR ( Amer) > 60 Est GFR (Non-Af Amer) > 60 Glucose 120 H Calcium 6.5 L* Total Bilirubin 0.2 AST 14 ALT 12 Alkaline Phosphatase 287 H Total Protein 7.1 Albumin 3.3 L 08/29/18 08/29/18 08/29/18 14:54 14:54 20:01 Creatine Kinase 104 108 CK-MB (CK-2) 1.56 Troponin I < 0.012 NT-Pro-B Natriuret Pep 345 08/29/18 08/29/18 08/30/18 20:01 20:01 01:20 Creatine Kinase 98 CK-MB (CK-2) 1.61 Troponin I < 0.012 NT-Pro-B Natriuret Pep 360 08/30/18 08/30/18 08/30/18 01:20 06:05 06:05 Creatine Kinase 98 CK-MB (CK-2) 1.30 1.11 Troponin I < 0.012 < 0.012 NT-Pro-B Natriuret Pep 08/30/18 06:05 Creatine Kinase CK-MB (CK-2) Troponin I NT-Pro-B Natriuret Pep 313 Impressions: Venous Doppler Study 08/29/18 00:00 IMPRESSION: Very limited examination. No evidence of deep venous thrombosis in the bilateral lower extremities. Chest X-Ray 08/29/18 15:55 IMPRESSION: NO ACUTE DISEASE. Abdomen/Pelvis CT 08/30/18 00:00 IMPRESSION: No acute findings. No CT findings to explain history of weight loss Chest CT 08/30/18 00:00 IMPRESSION: No acute findings. No CT findings to explain history of weight loss Assessment & Plan - Diagnosis (1) Hypocalcemia Is this a current diagnosis for this admission?: Yes Plan: Start calcium carbonate 500 mg p.o. 3 times a day (2) Hypoalbuminemia Is this a current diagnosis for this admission?: Yes Plan: Consultation from nutrition, the urine protein creatinine ratio is pending (3) Urinary tract infection Qualifiers: Urinary tract infection type: site unspecified Hematuria presence: without hematuria Qualified Code(s): N39.0 - Urinary tract infection, site not spec ified Is this a current diagnosis for this admission?: Yes Plan: She has E. coli UTI sensitive to ceftriaxone, (4) Secondary hyperparathyroidism, non-renal Is this a current diagnosis for this admission?: Yes Plan: Continue calcitriol (5) Anasarca Is this a current diagnosis for this admission?: Yes Plan: Administer bolus dose of albumin with Lasix (6) E. coli UTI Is this a current diagnosis for this admission?: Yes Plan: Continue IV ceftriaxone
[2018-08-31] MEDS ORDERED: FUROSEMIDE INJ/PF 40 MG/4 ML SDV IV ONE (19:30)
[2018-08-31] MEDS: LIPASE/PROTEASE/AMYLASE 1 CAP CAPSULE.DR PO SCH (21:20)
[2018-08-31] MEDS: CALCIUM CARBONATE 500 MG TABLET PO SCH (21:21)
[2018-08-31] MEDS: CEFTRIAXONE 1 GM/D5W RTU 1 GM/50 ML RTUPB IV SCH (23:00)
[2018-09-01] MEDS: OXYCODONE HCL IR 5 MG TABLET PO SCH ×4 (03:55→21:19)
[2018-09-01 04:25] LABS: ABSOLUTE EOSINOPHILS # (AUTO) 0.2 10^3/uL (0.0-0.6); ABSOLUTE LYMPHOCYTES (AUTO) 1.2 10^3/uL (0.5-4.7); ABSOLUTE MONOCYTES (AUTO) 0.6 10^3/uL (0.1-1.4); ABSOLUTE NEUT (AUTO) 3.9 10^3/uL (1.7-8.2); BASOPHILS % (AUTO) 0.5 % (0-2); EOSINOPHILS % (AUTO) 3.9 % (0-6); HEMATOCRIT 24.2 % (36.0-47.0); LYMPHOCYTES % (AUTO) 20.8 % (13-45); MEAN CORPUSCULAR HEMOGLOBIN 28.1 pg (27.0-33.4); MEAN CORPUSCULAR HGB CONC 32.7 g/dL (32.0-36.0); MEAN CORPUSCULAR VOLUME 86 fl (80-97); MONOCYTES % (AUTO) 10.4 % (3-13); PLATELET COUNT 248 10^3/uL (150-450); RED BLOOD COUNT 2.81 10^6/uL (3.72-5.28); RED CELL DISTRIBUTION WIDTH 18.2 % (11.5-14.0); SEGMENTED NEUTROPHILS % (AUTO) 64.4 % (42-78); TOTAL CELLS COUNTED % (AUTO) 100 %
[2018-09-01 04:29] LABS: HEMOGLOBIN 7.9 g/dL (12.0-15.5)
[2018-09-01 04:41] LABS: ALANINE AMINOTRANSFERASE 12 U/L (9-52); ALBUMIN 2.8 g/dL (3.5-5.0); ALKALINE PHOSPHATASE 236 U/L (38-126); ANION GAP 8 (5-19); ASPARTATE AMINO TRANSFERASE 12 U/L (14-36); BILIRUBIN,DIRECT 0.2 mg/dL (0.0-0.4); BILIRUBIN,TOTAL 0.2 mg/dL (0.2-1.3); BLOOD UREA NITROGEN 8 mg/dL (7-20); CARBON DIOXIDE 25 mmol/L (22-30); CHLORIDE 111 mmol/L (98-107); GLUCOSE 102 mg/dL (75-110); POTASSIUM 3.2 mmol/L (3.6-5.0); SODIUM 143.8 mmol/L (137-145); TOTAL PROTEIN 6.3 g/dL (6.3-8.2)
[2018-09-01 05:00] LABS: CALCIUM 6.4 mg/dL (8.4-10.2)
[2018-09-01] MEDS: CALCIUM CARBONATE 500 MG TABLET PO SCH ×3 (05:56→21:19)
[2018-09-01] MEDS: LANSOPRAZOLE 30 MG TAB.RAP.DR PO SCH ×2 (05:56→16:14)
[2018-09-01] MEDS: CYCLOBENZAPRINE HCL 10 MG TABLET PO SCH ×3 (06:21→21:20)
[2018-09-01] MEDS: CALCITRIOL 0.25 MCG CAPSULE PO SCH (10:35)
[2018-09-01] MEDS: LIPASE/PROTEASE/AMYLASE 1 CAP CAPSULE.DR PO SCH ×2 (10:35→16:13)
[2018-09-01] MEDS: METOPROLOL TARTRATE 100 MG TABLET PO SCH ×2 (10:36→21:20)
[2018-09-01] MEDS: CLONIDINE HCL 0.2 MG TABLET PO SCH ×2 (10:36→21:19)
[2018-09-01] MEDS: CHOLECALCIFEROL (D3) 400 UNIT TABLET PO SCH (10:36)
[2018-09-01] MEDS: TAMSULOSIN HCL 0.4 MG CAP.SR.24H PO SCH (10:36)
[2018-09-01] MEDS: AMLODIPINE BESYLATE 10 MG TABLET PO SCH (10:36)
[2018-09-01] MEDS: ENOXAPARIN SODIUM INJ 40 MG/0.4 ML DISP.SYRIN SUBCUT SCH (10:37)
[2018-09-01 16:00] LABS: UR PRO/CREAT RATIO RESULT 1.1 mg/mg (0.0-0.2); URINE CREATININE 52.1 mg/dL (15-278); URINE PROTEIN 58.9 mg/dL (<12)
--- NOTE | 2018-09-01 18:27 | PDOC PROGRESS REPORT ---
Subjective Progress Note for:: 09/01/18 Subjective:: Patient seen by the bedside,The urine protein creatinine ratio is 1.1 Reason For Visit: UTI,HYPOCALCEMIA,BILATERAL LOWER EDEMA Physical Exam Vital Signs: Temp Pulse Resp BP Pulse Ox 98.6 F 65 16 114/56 L 97 09/01/18 16:08 09/01/18 16:08 09/01/18 16:08 09/01/18 16:08 09/01/18 16:08 Intake & Output 08/31/18 09/01/18 09/02/18 06:59 06:59 06:59 Intake Total 3117 1782 1018 Output Total 300 Balance 3117 1482 1018 Weight 58.4 kg 62.7 kg General appearance: PRESENT: no acute distress Eye exam: PRESENT: PERRLA Respiratory exam: PRESENT: clear to auscultation jamel Cardiovascular exam: PRESENT: +S1, +S2 GI/Abdominal exam: PRESENT: soft Results Laboratory Results: 09/01/18 04:00 09/01/18 04:00 09/01/18 09/01/18 04:00 04:00 WBC 6.0 RBC 2.81 L Hgb 7.9 L Hct 24.2 L MCV 86 MCH 28.1 MCHC 32.7 RDW 18.2 H Plt Count 248 Seg Neutrophils % 64.4 Lymphocytes % 20.8 Monocytes % 10.4 Eosinophils % 3.9 Basophils % 0.5 Absolute Neutrophils 3.9 Absolute Lymphocytes 1.2 Absolute Monocytes 0.6 Absolute Eosinophils 0.2 Absolute Basophils 0.0 Sodium 143.8 Potassium 3.2 L Chloride 111 H Carbon Dioxide 25 Anion Gap 8 BUN 8 Creatinine 0.70 Est GFR ( Amer) > 60 Est GFR (Non-Af Amer) > 60 Glucose 102 Calcium 6.4 L* Total Bilirubin 0.2 AST 12 L ALT 12 Alkaline Phosphatase 236 H Total Protein 6.3 Albumin 2.8 L 08/29/18 14:54 Catheterized Urine Urine Culture - Final Escherichia Coli Klebsiella Oxytoca 08/29/18 08/29/18 08/29/18 14:54 14:54 20:01 Creatine Kinase 104 108 CK-MB (CK-2) 1.56 Troponin I < 0.012 NT-Pro-B Natriuret Pep 345 08/29/18 08/29/18 08/30/18 20:01 20:01 01:20 Creatine Kinase 98 CK-MB (CK-2) 1.61 Troponin I < 0.012 NT-Pro-B Natriuret Pep 360 08/30/18 08/30/18 08/30/18 01:20 06:05 06:05 Creatine Kinase 98 CK-MB (CK-2) 1.30 1.11 Troponin I < 0.012 < 0.012 NT-Pro-B Natriuret Pep 08/30/18 06:05 Creatine Kinase CK-MB (CK-2) Troponin I NT-Pro-B Natriuret Pep 313 Impressions: Venous Doppler Study 08/29/18 00:00 IMPRESSION: Very limited examination. No evidence of deep venous thrombosis in the bilateral lower extremities. Chest X-Ray 08/29/18 15:55 IMPRESSION: NO ACUTE DISEASE. Abdomen/Pelvis CT 08/30/18 00:00 IMPRESSION: No acute findings. No CT findings to explain history of weight loss Chest CT 08/30/18 00:00 IMPRESSION: No acute findings. No CT findings to explain history of weight loss Assessment & Plan - Diagnosis (1) Hypocalcemia Is this a current diagnosis for this admission?: Yes (2) Hypoalbuminemia Is this a current diagnosis for this admission?: Yes Plan: Patient was seen by nutrition/dietary, the urine protein creatinine ratio is 1.1,, low serum albumin is most likely from malnutrition proteinuria is not significant enough to cause significant hypoalbuminemia (3) Urinary tract infection Qualifiers: Urinary tract infection type: site unspecified Hematuria presence: without hematuria Qualified Code(s): N39.0 - Urinary tract infection, site not specified Is this a current diagnosis for this admission?: Yes Plan: She has E. coli UTI sensitive to ceftriaxone, (4) Secondary hyperparathyroidism, non-renal Is this a current diagnosis for this admission?: Yes Plan: Continue calcitriol (5) Anasarca Is this a current diagnosis for this admission?: Yes Plan: Improved (6) E. coli UTI Is this a current diagnosis for this admission?: Yes Plan: Continue IV antibiotic
[2018-09-01] MEDS: CEFTRIAXONE 1 GM/D5W RTU 1 GM/50 ML RTUPB IV SCH (21:20)
[2018-09-02] MEDS: OXYCODONE HCL IR 5 MG TABLET PO SCH ×4 (03:46→21:10)
[2018-09-02] MEDS: CYCLOBENZAPRINE HCL 10 MG TABLET PO SCH ×3 (05:39→21:13)
[2018-09-02] MEDS: CALCIUM CARBONATE 500 MG TABLET PO SCH ×3 (05:43→21:11)
[2018-09-02] MEDS: LANSOPRAZOLE 30 MG TAB.RAP.DR PO SCH ×2 (05:44→18:02)
[2018-09-02 09:29] LABS: ABSOLUTE BASOPHILS # (AUTO) 0.1 10^3/uL (0.0-0.2); ABSOLUTE EOSINOPHILS # (AUTO) 0.3 10^3/uL (0.0-0.6); ABSOLUTE LYMPHOCYTES (AUTO) 1.4 10^3/uL (0.5-4.7); ABSOLUTE MONOCYTES (AUTO) 0.5 10^3/uL (0.1-1.4); ABSOLUTE NEUT (AUTO) 3.8 10^3/uL (1.7-8.2); BASOPHILS % (AUTO) 1.4 % (0-2); EOSINOPHILS % (AUTO) 4.3 % (0-6); HEMATOCRIT 25.7 % (36.0-47.0); HEMOGLOBIN 8.4 g/dL (12.0-15.5); LYMPHOCYTES % (AUTO) 23.5 % (13-45); MEAN CORPUSCULAR HEMOGLOBIN 28.3 pg (27.0-33.4); MEAN CORPUSCULAR HGB CONC 32.6 g/dL (32.0-36.0); MEAN CORPUSCULAR VOLUME 87 fl (80-97); MONOCYTES % (AUTO) 8.1 % (3-13); PLATELET COUNT 252 10^3/uL (150-450); RED BLOOD COUNT 2.96 10^6/uL (3.72-5.28); RED CELL DISTRIBUTION WIDTH 18.3 % (11.5-14.0); SEGMENTED NEUTROPHILS % (AUTO) 62.7 % (42-78); TOTAL CELLS COUNTED % (AUTO) 100 %; WHITE BLOOD COUNT 6.1 10^3/uL (4.0-10.5)
[2018-09-02] MEDS: LIPASE/PROTEASE/AMYLASE 1 CAP CAPSULE.DR PO SCH ×2 (09:44→15:47)
[2018-09-02] MEDS: METOPROLOL TARTRATE 100 MG TABLET PO SCH ×2 (09:45→21:11)
[2018-09-02] MEDS: CHOLECALCIFEROL (D3) 400 UNIT TABLET PO SCH (09:45)
[2018-09-02] MEDS: CALCITRIOL 0.25 MCG CAPSULE PO SCH (09:45)
[2018-09-02] MEDS: AMLODIPINE BESYLATE 10 MG TABLET PO SCH (09:45)
[2018-09-02] MEDS: TAMSULOSIN HCL 0.4 MG CAP.SR.24H PO SCH (09:45)
[2018-09-02 09:46] LABS: ALANINE AMINOTRANSFERASE 24 U/L (9-52); ALBUMIN 2.7 g/dL (3.5-5.0); ALKALINE PHOSPHATASE 230 U/L (38-126); ANION GAP 7 (5-19); ASPARTATE AMINO TRANSFERASE 11 U/L (14-36); BILIRUBIN,DIRECT 0.3 mg/dL (0.0-0.4); BILIRUBIN,TOTAL 0.3 mg/dL (0.2-1.3); BLOOD UREA NITROGEN 7 mg/dL (7-20); CARBON DIOXIDE 26 mmol/L (22-30); CHLORIDE 110 mmol/L (98-107); GLUCOSE 122 mg/dL (75-110); POTASSIUM 3.2 mmol/L (3.6-5.0); SODIUM 142.6 mmol/L (137-145); TOTAL PROTEIN 6.1 g/dL (6.3-8.2)
[2018-09-02] MEDS: CLONIDINE HCL 0.2 MG TABLET PO SCH ×2 (09:46→21:11)
[2018-09-02] MEDS: ENOXAPARIN SODIUM INJ 40 MG/0.4 ML DISP.SYRIN SUBCUT SCH (09:46)
[2018-09-02 09:57] LABS: CALCIUM 6.5 mg/dL (8.4-10.2)
[2018-09-02] MEDS: CHOLESTYRAMINE/ASPARTAME 4 GM PACKET PO SCH ×2 (16:51→21:12)
--- NOTE | 2018-09-02 19:20 | PDOC PROGRESS REPORT ---
Subjective Progress Note for:: 09/02/18 Subjective:: Patient was seen by the bedside, she looks much better she has severe hypocalcemia associated with secondary hyperparathyroidism, she also has UTI due to E. coli on IV antibiotic, Reason For Visit: UTI,HYPOCALCEMIA,BILATERAL LOWER EDEMA Physical Exam Vital Signs: Temp Pulse Resp BP Pulse Ox 98.6 F 68 16 116/61 97 09/02/18 15:51 09/02/18 15:51 09/02/18 15:51 09/02/18 15:51 09/02/18 15:51 Intake & Output 09/01/18 09/02/18 09/03/18 06:59 06:59 06:59 Intake Total 1782 1949 777 Output Total 300 Balance 1482 1949 777 Weight 62.7 kg 55.9 kg General appearance: PRESENT: no acute distress Eye exam: PRESENT: PERRLA Respiratory exam: PRESENT: clear to auscultation jamel Cardiovascular exam: PRESENT: +S1, +S2 GI/Abdominal exam: PRESENT: soft Neurological exam: PRESENT: alert Results Laboratory Results: 09/02/18 09:17 09/02/18 09:17 09/02/18 09/02/18 09:17 09:17 WBC 6.1 RBC 2.96 L Hgb 8.4 L Hct 25.7 L MCV 87 MCH 28.3 MCHC 32.6 RDW 18.3 H Plt Count 252 Seg Neutrophils % 62.7 Lymphocytes % 23.5 Monocytes % 8.1 Eosinophils % 4.3 Basophils % 1.4 Absolute Neutrophils 3.8 Absolute Lymphocytes 1.4 Absolute Monocytes 0.5 Absolute Eosinophils 0.3 Absolute Basophils 0.1 Sodium 142.6 Potassium 3.2 L Chloride 110 H Carbon Dioxide 26 Anion Gap 7 BUN 7 Creatinine 0.64 Est GFR ( Amer) > 60 Est GFR (Non-Af Amer) > 60 Glucose 122 H Calcium 6.5 L* Total Bilirubin 0.3 AST 11 L ALT 24 Alkaline Phosphatase 230 H Total Protein 6.1 L Albumin 2.7 L 08/29/18 08/29/18 08/29/18 14:54 14:54 20:01 Creatine Kinase 104 108 CK-MB (CK-2) 1.56 Troponin I < 0.012 NT-Pro-B Natriuret Pep 345 08/29/18 08/29/18 08/30/18 20:01 20:01 01:20 Creatine Kinase 98 CK-MB (CK-2) 1.61 Troponin I < 0.012 NT-Pro-B Natriuret Pep 360 08/30/18 08/30/18 08/30/18 01:20 06:05 06:05 Creatine Kinase 98 CK-MB (CK-2) 1.30 1.11 Troponin I < 0.012 < 0.012 NT-Pro-B Natriuret Pep 08/30/18 06:05 Creatine Kinase CK-MB (CK-2) Troponin I NT-Pro-B Natriuret Pep 313 Impressions: Venous Doppler Study 08/29/18 00:00 IMPRESSION: Very limited examination. No evidence of deep venous thrombosis in the bilateral lower extremities. Chest X-Ray 08/29/18 15:55 IMPRESSION: NO ACUTE DISEASE. Abdomen/Pelvis CT 08/30/18 00:00 IMPRESSION: No acute findings. No CT findings to explain history of weight loss Chest CT 08/30/18 00:00 IMPRESSION: No acute findings. No CT findings to explain history of weight loss Assessment & Plan - Diagnosis (1) Hypocalcemia Is this a current diagnosis for this admission?: Yes (2) Hypoalbuminemia Is this a current diagnosis for this admission?: Yes (3) Urinary tract infection Qualifiers: Urinary tract infection type: site unspecified Hematuria presence: without hematuria Qualified Code(s): N39.0 - Urinary tract infection, site not specified Is this a current diagnosis for this admission?: Yes (4) Secondary hyperparathyroidism, non-renal Is this a current diagnosis for this admission?: Yes (5) Anasarca Is this a current diagnosis for this admission?: Yes (6) E. coli UTI Is this a current diagnosis for this admission?: Yes - Plan Summary Plan Summary: Continue present medication/treatment
[2018-09-02] MEDS: CEFTRIAXONE 1 GM/D5W RTU 1 GM/50 ML RTUPB IV SCH (21:11)
[2018-09-02] MEDS ORDERED: CHOLESTYRAMINE/ASPARTAME 4 GM PACKET PO SCH (22:00)
[2018-09-03] MEDS: OXYCODONE HCL IR 5 MG TABLET PO SCH ×4 (02:45→21:22)
[2018-09-03] MEDS: CALCIUM CARBONATE 500 MG TABLET PO SCH ×3 (06:30→21:22)
[2018-09-03] MEDS: LANSOPRAZOLE 30 MG TAB.RAP.DR PO SCH ×2 (06:30→16:09)
[2018-09-03] MEDS: CYCLOBENZAPRINE HCL 10 MG TABLET PO SCH ×3 (06:31→21:24)
[2018-09-03 09:18] LABS: ABSOLUTE BASOPHILS # (AUTO) 0.1 10^3/uL (0.0-0.2); ABSOLUTE EOSINOPHILS # (AUTO) 0.3 10^3/uL (0.0-0.6); ABSOLUTE LYMPHOCYTES (AUTO) 1.5 10^3/uL (0.5-4.7); ABSOLUTE MONOCYTES (AUTO) 0.5 10^3/uL (0.1-1.4); ABSOLUTE NEUT (AUTO) 4.3 10^3/uL (1.7-8.2); BASOPHILS % (AUTO) 0.8 % (0-2); EOSINOPHILS % (AUTO) 4.6 % (0-6); HEMATOCRIT 25.8 % (36.0-47.0); HEMOGLOBIN 8.6 g/dL (12.0-15.5); LYMPHOCYTES % (AUTO) 22.8 % (13-45); MEAN CORPUSCULAR HEMOGLOBIN 28.6 pg (27.0-33.4); MEAN CORPUSCULAR HGB CONC 33.2 g/dL (32.0-36.0); MEAN CORPUSCULAR VOLUME 86 fl (80-97); MONOCYTES % (AUTO) 7.4 % (3-13); PLATELET COUNT 256 10^3/uL (150-450); RED CELL DISTRIBUTION WIDTH 18.3 % (11.5-14.0); SEGMENTED NEUTROPHILS % (AUTO) 64.4 % (42-78); TOTAL CELLS COUNTED % (AUTO) 100 %; WHITE BLOOD COUNT 6.7 10^3/uL (4.0-10.5)
[2018-09-03] MEDS: CLONIDINE HCL 0.2 MG TABLET PO SCH ×2 (09:18→21:22)
[2018-09-03] MEDS: LIPASE/PROTEASE/AMYLASE 1 CAP CAPSULE.DR PO SCH ×2 (09:18→15:05)
[2018-09-03] MEDS: CALCITRIOL 0.25 MCG CAPSULE PO SCH (09:18)
[2018-09-03] MEDS: CHOLECALCIFEROL (D3) 400 UNIT TABLET PO SCH (09:18)
[2018-09-03] MEDS: METOPROLOL TARTRATE 100 MG TABLET PO SCH ×2 (09:19→21:22)
[2018-09-03] MEDS: AMLODIPINE BESYLATE 10 MG TABLET PO SCH (09:19)
[2018-09-03] MEDS: TAMSULOSIN HCL 0.4 MG CAP.SR.24H PO SCH (09:19)
[2018-09-03] MEDS: CHOLESTYRAMINE/ASPARTAME 4 GM PACKET PO SCH ×5 (09:20→21:24)
[2018-09-03] MEDS: ENOXAPARIN SODIUM INJ 40 MG/0.4 ML DISP.SYRIN SUBCUT SCH (09:20)
[2018-09-03 09:41] LABS: ALANINE AMINOTRANSFERASE 8 U/L (9-52); ALBUMIN 2.6 g/dL (3.5-5.0); ALKALINE PHOSPHATASE 227 U/L (38-126); ANION GAP 7 (5-19); ASPARTATE AMINO TRANSFERASE 10 U/L (14-36); BILIRUBIN,DIRECT 0.2 mg/dL (0.0-0.4); BILIRUBIN,TOTAL 0.2 mg/dL (0.2-1.3); BLOOD UREA NITROGEN 8 mg/dL (7-20); CARBON DIOXIDE 23 mmol/L (22-30); CHLORIDE 112 mmol/L (98-107); GLUCOSE 121 mg/dL (75-110); POTASSIUM 3.3 mmol/L (3.6-5.0); SODIUM 141.8 mmol/L (137-145); TOTAL PROTEIN 6.1 g/dL (6.3-8.2)
[2018-09-03 09:51] LABS: CALCIUM 6.8 mg/dL (8.4-10.2)
--- NOTE | 2018-09-03 20:17 | PDOC PROGRESS REPORT ---
Subjective Progress Note for:: 09/03/18 Subjective:: Patient seen by the bedside,She still complained of diarrhea Reason For Visit: UTI,HYPOCALCEMIA,BILATERAL LOWER EDEMA Physical Exam Vital Signs: Temp Pulse Resp BP Pulse Ox 98.4 F 81 17 118/51 L 100 09/03/18 15:11 09/03/18 15:11 09/03/18 15:11 09/03/18 15:11 09/03/18 15:11 Intake & Output 09/02/18 09/03/18 09/04/18 06:59 06:59 06:59 Intake Total 1948 1127 1058 Balance 1949 1127 1058 Weight 55.9 kg 57.5 kg General appearance: PRESENT: no acute distress Eye exam: PRESENT: PERRLA Respiratory exam: PRESENT: clear to auscultation jamel Cardiovascular exam: PRESENT: +S1, +S2, systolic murmur GI/Abdominal exam: PRESENT: soft Neurological exam: PRESENT: alert Results Laboratory Results: 09/03/18 09:05 09/03/18 09:05 09/03/18 09/03/18 09:05 09:05 WBC 6.7 RBC 3.00 L Hgb 8.6 L Hct 25.8 L MCV 86 MCH 28.6 MCHC 33.2 RDW 18.3 H Plt Count 256 Seg Neutrophils % 64.4 Lymphocytes % 22.8 Monocytes % 7.4 Eosinophils % 4.6 Basophils % 0.8 Absolute Neutrophils 4.3 Absolute Lymphocytes 1.5 Absolute Monocytes 0.5 Absolute Eosinophils 0.3 Absolute Basophils 0.1 Sodium 141.8 Potassium 3.3 L Chloride 112 H Carbon Dioxide 23 Anion Gap 7 BUN 8 Creatinine 0.62 Est GFR ( Amer) > 60 Est GFR (Non-Af Amer) > 60 Glucose 121 H Calcium 6.8 L* Total Bilirubin 0.2 AST 10 L ALT 8 L Alkaline Phosphatase 227 H Total Protein 6.1 L Albumin 2.6 L 08/29/18 16:25 Blood Blood Culture - Final NO GROWTH IN 5 DAYS 08/29/18 14:54 Blood Blood Culture - Final NO GROWTH IN 5 DAYS 08/29/18 08/29/18 08/29/18 14:54 14:54 20:01 Creatine Kinase 104 108 CK-MB (CK-2) 1.56 Troponin I < 0.012 NT-Pro-B Natriuret Pep 345 08/29/18 08/29/18 08/30/18 20:01 20:01 01:20 Creatine Kinase 98 CK-MB (CK-2) 1.61 Troponin I < 0.012 NT-Pro-B Natriuret Pep 360 08/30/18 08/30/18 08/30/18 01:20 06:05 06:05 Creatine Kinase 98 CK-MB (CK-2) 1.30 1.11 Troponin I < 0.012 < 0.012 NT-Pro-B Natriuret Pep 08/30/18 06:05 Creatine Kinase CK-MB (CK-2) Troponin I NT-Pro-B Natriuret Pep 313 Impressions: Venous Doppler Study 08/29/18 00:00 IMPRESSION: Very limited examination. No evidence of deep venous thrombosis in the bilateral lower extremities. Chest X-Ray 08/29/18 15:55 IMPRESSION: NO ACUTE DISEASE. Abdomen/Pelvis CT 08/30/18 00:00 IMPRESSION: No acute findings. No CT findings to explain history of weight loss Chest CT 08/30/18 00:00 IMPRESSION: No acute findings. No CT findings to explain history of weight loss Assessment & Plan - Diagnosis (1) Hypocalcemia Is this a current diagnosis for this admission?: Yes (2) Hypoalbuminemia Is this a current diagnosis for this admission?: Yes (3) Urinary tract infection Qualifiers: Urinary tract infection type: site unspecified Hematuria presence: without hematuria Qualified Code(s): N39.0 - Urinary tract infection, site not specified Is this a current diagnosis for this admission?: Yes (4) Secondary hyperparathyroidism, non-renal Is this a current diagnosis for this admission?: Yes (5) Anasarca Is this a current diagnosis for this admission?: Yes (6) E. coli UTI Is this a current diagnosis for this admission?: Yes (7) Diarrhea Qualifiers: Diarrhea type: unspecified type Qualified Code(s): R19.7 - Diarrhea, unspecified Is this a current diagnosis for this admission?: Yes Plan: she is on choletrysamine ,she said the medication is not effective
[2018-09-03] MEDS: CEFTRIAXONE 1 GM/D5W RTU 1 GM/50 ML RTUPB IV SCH (21:23)
[2018-09-03] MEDS: POTASSIUM CHLORIDE 10 MEQ CAPSULE.ER PO SCH (21:27)
[2018-09-04] MEDS: OXYCODONE HCL IR 5 MG TABLET PO SCH ×4 (02:54→21:04)
[2018-09-04] MEDS: CYCLOBENZAPRINE HCL 10 MG TABLET PO SCH ×3 (06:00→21:05)
[2018-09-04] MEDS: CALCIUM CARBONATE 500 MG TABLET PO SCH ×3 (06:00→21:04)
[2018-09-04] MEDS: LANSOPRAZOLE 30 MG TAB.RAP.DR PO SCH ×2 (06:00→17:36)
[2018-09-04] MEDS: CHOLESTYRAMINE/ASPARTAME 4 GM PACKET PO SCH ×4 (08:16→21:04)
[2018-09-04] MEDS: LIPASE/PROTEASE/AMYLASE 1 CAP CAPSULE.DR PO SCH ×2 (08:16→17:36)
[2018-09-04] MEDS: METOPROLOL TARTRATE 100 MG TABLET PO SCH ×2 (09:50→21:04)
[2018-09-04] MEDS: AMLODIPINE BESYLATE 10 MG TABLET PO SCH (09:50)
[2018-09-04] MEDS: CALCITRIOL 0.25 MCG CAPSULE PO SCH (09:50)
[2018-09-04] MEDS: CHOLECALCIFEROL (D3) 400 UNIT TABLET PO SCH (09:51)
[2018-09-04] MEDS: POTASSIUM CHLORIDE 10 MEQ CAPSULE.ER PO SCH (09:51)
[2018-09-04] MEDS: CLONIDINE HCL 0.2 MG TABLET PO SCH ×2 (09:51→21:05)
[2018-09-04] MEDS: ENOXAPARIN SODIUM INJ 40 MG/0.4 ML DISP.SYRIN SUBCUT SCH (09:51)
[2018-09-04] MEDS: TAMSULOSIN HCL 0.4 MG CAP.SR.24H PO SCH (09:51)
--- NOTE | 2018-09-04 16:38 | PDOC PROGRESS REPORT ---
Subjective Progress Note for:: 09/04/18 Subjective:: No chest pain or difficulty with breathing. No nausea, vomiting, or abdominal pain. No fever or chills. Reason For Visit: UTI,HYPOCALCEMIA,BILATERAL LOWER EDEMA Physical Exam Vital Signs: Temp Pulse Resp BP Pulse Ox 98.6 F 67 18 131/65 H 94 09/04/18 11:22 09/04/18 11:22 09/04/18 11:22 09/04/18 11:22 09/04/18 11:22 Intake & Output 09/03/18 09/04/18 09/05/18 06:59 06:59 06:59 Intake Total 1127 1108 Balance 1127 1108 Weight 57.5 kg 55.8 kg General appearance: PRESENT: no acute distress, well-developed, well-nourished Head exam: PRESENT: atraumatic, normocephalic Ear exam: PRESENT: normal external ear exam Mouth exam: PRESENT: moist Respiratory exam: PRESENT: clear to auscultation jamel Cardiovascular exam: PRESENT: RRR. ABSENT: diastolic murmur, rubs, systolic murmur Vascular exam: ABSENT: pallor GI/Abdominal exam: PRESENT: normal bowel sounds, soft. ABSENT: distended, guarding, mass, organolmegaly, rebound, tenderness Extremities exam: ABSENT: pedal edema Musculoskeletal exam: PRESENT: deformity - multiple joints involvement with arthritis Neurological exam: PRESENT: alert, awake, oriented to person, oriented to place, oriented to time, oriented to situation, CN II-XII grossly intact. ABSENT: motor sensory deficit Psychiatric exam: PRESENT: appropriate affect, normal mood. ABSENT: homicidal ideation, suicidal ideation Skin exam: PRESENT: dry, warm Results Laboratory Results: 09/03/18 09:05 09/03/18 09:05 08/29/18 16:25 Blood Blood Culture - Final NO GROWTH IN 5 DAYS 08/29/18 14:54 Blood Blood Culture - Final NO GROWTH IN 5 DAYS 08/29/18 08/29/18 08/29/18 14:54 14:54 20:01 Creatine Kinase 104 108 CK-MB (CK-2) 1.56 Troponin I < 0.012 NT-Pro-B Natriuret Pep 345 08/29/18 08/29/18 08/30/18 20:01 20:01 01:20 Creatine Kinase 98 CK-MB (CK-2) 1.61 Troponin I < 0.012 NT-Pro-B Natriuret Pep 360 08/30/18 08/30/18 08/30/18 01:20 06:05 06:05 Creatine Kinase 98 CK-MB (CK-2) 1.30 1.11 Troponin I < 0.012 < 0.012 NT-Pro-B Natriuret Pep 08/30/18 06:05 Creatine Kinase CK-MB (CK-2) Troponin I NT-Pro-B Natriuret Pep 313 Impressions: Venous Doppler Study 08/29/18 00:00 IMPRESSION: Very limited examination. No evidence of deep venous thrombosis in the bilateral lower extremities. Chest X-Ray 08/29/18 15:55 IMPRESSION: NO ACUTE DISEASE. Abdomen/Pelvis CT 08/30/18 00:00 IMPRESSION: No acute findings. No CT findings to explain history of weight loss Chest CT 08/30/18 00:00 IMPRESSION: No acute findings. No CT findings to explain history of weight los s Assessment & Plan - Diagnosis (1) Urinary tract infection Qualifiers: Urinary tract infection type: site unspecified Hematuria presence: without hematuria Qualified Code(s): N39.0 - Urinary tract infection, site not specified Is this a current diagnosis for this admission?: Yes Plan: Continue Ceftriaxone coverage for E. Coli and [place] Oxytoca infection. (2) Hypoalbuminemia Is this a current diagnosis for this admission?: Yes Plan: Continue nutritional supplementation. (3) Hypocalcemia Is this a current diagnosis for this admission?: Yes Plan: Obtain ionized calcium, BMP and Mag level. (4) Essential hypertension Is this a current diagnosis for this admission?: Yes Plan: Continue current medication management. - Time Time Spent with patient: 25-34 minutes Medications reviewed and adjusted accordingly: Yes Anticipated discharge: Home with Homehealth Within: Other - Inpatient Certification Based on my medical assessment, after consideration of the patient's comorbidities, presenting symptoms, or acuity I expect that the services needed warrant INPATIENT care.: Yes I certify that my determination is in accordance with my understanding of Medicare's requirements for reasonable and necessary INPATIENT services [42 CFR 412.3e].: Yes Medical Necessity: Need Close Monitoring Due to Risk of Patient Decompensation, Need For IV Fluids, Need For Continuous Telemetry Monitoring, Need for IV Antibiotics, Risk of Complication if Not Cared For in Hospital, Risk of Diagnosis Which Will Require Inpatient Eval/Care/Monitoring Post Hospital Care: D/C [employer] Documentation - Plan Summary Plan Summary: Continue current medication management. Follow up on pending lab results.
[2018-09-04 18:09] LABS: ANION GAP 7 (5-19); BLOOD UREA NITROGEN 8 mg/dL (7-20); CARBON DIOXIDE 20 mmol/L (22-30); CHLORIDE 115 mmol/L (98-107); GLUCOSE 102 mg/dL (75-110); POTASSIUM 3.9 mmol/L (3.6-5.0); SODIUM 141.9 mmol/L (137-145)
[2018-09-04 18:18] LABS: CALCIUM 6.9 mg/dL (8.4-10.2)
[2018-09-04] MEDS: CEFTRIAXONE 1 GM/D5W RTU 1 GM/50 ML RTUPB IV SCH (21:04)
[2018-09-05] MEDS: OXYCODONE HCL IR 5 MG TABLET PO SCH ×4 (03:11→21:01)
[2018-09-05] MEDS: LANSOPRAZOLE 30 MG TAB.RAP.DR PO SCH ×2 (05:18→17:32)
[2018-09-05] MEDS: CALCIUM CARBONATE 500 MG TABLET PO SCH ×3 (05:18→21:03)
[2018-09-05] MEDS: CYCLOBENZAPRINE HCL 10 MG TABLET PO SCH ×3 (05:18→21:03)
[2018-09-05] MEDS: CHOLESTYRAMINE/ASPARTAME 4 GM PACKET PO SCH ×4 (08:51→21:08)
[2018-09-05] MEDS: LIPASE/PROTEASE/AMYLASE 1 CAP CAPSULE.DR PO SCH ×2 (08:51→15:31)
--- NOTE | 2018-09-05 10:03 | PDOC PROGRESS REPORT ---
Subjective Progress Note for:: 09/05/18 Subjective:: She denied any chest pain or difficulty with breathing. No nausea, vomiting, or abdominal pain. No fever or chills. Reason For Visit: UTI,HYPOCALCEMIA,BILATERAL LOWER EDEMA Physical Exam Vital Signs: Temp Pulse Resp BP Pulse Ox 98.5 F 72 18 131/58 H 96 09/05/18 08:07 09/05/18 08:07 09/05/18 08:07 09/05/18 08:07 09/05/18 08:07 Intake & Output 09/04/18 09/05/18 09/06/18 06:59 06:59 06:59 Intake Total 1108 894 Balance 1108 894 Weight 55.8 kg 57.5 kg Physical Exam: General appearance: PRESENT: no acute distress, well-developed, well-nourished Head exam: PRESENT: atraumatic, normocephalic Respiratory exam: PRESENT: clear to auscultation jamel Cardiovascular exam: PRESENT: RRR. ABSENT: diastolic murmur, rubs, systolic murmur Vascular exam: ABSENT: pallor GI/Abdominal exam: PRESENT: normal bowel sounds, soft. ABSENT: distended, guarding, mass, organomegaly, rebound, tenderness Extremities exam: ABSENT: pedal edema Musculoskeletal exam: PRESENT: deformity - multiple joints involvement with arthritis Neurological exam: PRESENT: alert, awake, oriented to person, oriented to place, oriented to time, oriented to situation, CN II-XII grossly intact. ABSENT: motor sensory deficit Psychiatric exam: PRESENT: appropriate affect, normal mood. ABSENT: homicidal ideation, suicidal ideation Skin exam: PRESENT: dry, warm Results Laboratory Results: 09/03/18 09:05 09/04/18 17:24 09/04/18 09/04/18 17:24 17:24 Sodium 141.9 Potassium 3.9 Chloride 115 H Carbon Dioxide 20 L Anion Gap 7 BUN 8 Creatinine 0.55 Est GFR ( Amer) > 60 Est GFR (Non-Af Amer) > 60 Glucose 102 Calcium 6.9 L* Ionized Calcium Gurwinder 1.07 L Magnesium 1.5 L 08/29/18 08/29/18 08/29/18 14:54 14:54 20:01 Creatine Kinase 104 108 CK-MB (CK-2) 1.56 Troponin I < 0.012 NT-Pro-B Natriuret Pep 345 08/29/18 08/29/18 08/30/18 20:01 20:01 01:20 Creatine Kinase 98 CK-MB (CK-2) 1.61 Troponin I < 0.012 NT-Pro-B Natriuret Pep 360 08/30/18 08/30/18 08/30/18 01:20 06:05 06:05 Creatine Kinase 98 CK-MB (CK-2) 1.30 1.11 Troponin I < 0.012 < 0.012 NT-Pro-B Natriuret Pep 08/30/18 06:05 Creatine Kinase CK-MB (CK-2) Troponin I NT-Pro-B Natriuret Pep 313 Impressions: Venous Doppler Study 08/29/18 00:00 IMPRESSION: Very limited examination. No evidence of deep venous thrombosis in the bilateral lower extremities. Chest X-Ray 08/29/18 15:55 IMPRESSION: NO ACUTE DISEASE. Abdomen/Pelvis CT 08/30/18 00:00 IMPRESSION: No acute findings. No CT findings to explain history of weight loss Chest CT 08/30/18 00:00 IMPRESSION: No acute findings. No CT findings to explain history of weight lo ss Assessment & Plan - Diagnosis (1) Urinary tract infection Qualifiers: Urinary tract infection type: site unspecified Hematuria presence: without hematuria Qualified Code(s): N39.0 - Urinary tract infection, site not specified Is this a current diagnosis for this admission?: Yes (2) Hypoalbuminemia Is this a current diagnosis for this admission?: Yes (3) Hypocalcemia Is this a current diagnosis for this admission?: Yes (4) Essential hypertension Is this a current diagnosis for this admission?: Yes - Time Time Spent with patient: 25-34 minutes Medications reviewed and adjusted accordingly: Yes Anticipated discharge: Home with Homehealth Within: Other - Inpatient Certification Based on my medical assessment, after consideration of the patient's comor bidities, presenting symptoms, or acuity I expect that the services needed warrant INPATIENT care.: Yes I certify that my determination is in accordance with my understanding of Medicare's requirements for reasonable and necessary INPATIENT services [42 CFR 412.3e].: Yes Medical Necessity: Significant Comorbidiites Make Outpatient Treatment Too Risky, Need Close Monitoring Due to Risk of Patient Decompensation, Need For IV Fluids, Need For Continuous Telemetry Monitoring, Need for IV Antibiotics, Risk of Complication if Not Cared For in Hospital, Risk of Diagnosis Which Will Require Inpatient Eval/Care/Monitoring Post Hospital Care: D/C [employer] Documentation, D/C or Transfer Summary - Plan Summary Plan Summary: Continue current medication management. She may benefit from short term rehabilitation upon discharge.
[2018-09-05] MEDS: CHOLECALCIFEROL (D3) 400 UNIT TABLET PO SCH (10:44)
[2018-09-05] MEDS: TAMSULOSIN HCL 0.4 MG CAP.SR.24H PO SCH (10:44)
[2018-09-05] MEDS: CLONIDINE HCL 0.2 MG TABLET PO SCH ×2 (10:45→21:02)
[2018-09-05] MEDS: MAGNESIUM OXIDE 400 MG TABLET PO SCH (10:45)
[2018-09-05] MEDS: AMLODIPINE BESYLATE 10 MG TABLET PO SCH (10:45)
[2018-09-05] MEDS: POTASSIUM CHLORIDE 10 MEQ CAPSULE.ER PO SCH (10:45)
[2018-09-05] MEDS: METOPROLOL TARTRATE 100 MG TABLET PO SCH ×2 (10:45→21:02)
[2018-09-05] MEDS: CALCITRIOL 0.25 MCG CAPSULE PO SCH (10:46)
[2018-09-05] MEDS: ENOXAPARIN SODIUM INJ 40 MG/0.4 ML DISP.SYRIN SUBCUT SCH (10:46)
[2018-09-06] MEDS: OXYCODONE HCL IR 5 MG TABLET PO SCH ×4 (04:18→22:29)
[2018-09-06] MEDS: CYCLOBENZAPRINE HCL 10 MG TABLET PO SCH ×4 (06:17→22:34)
[2018-09-06] MEDS: LANSOPRAZOLE 30 MG TAB.RAP.DR PO SCH ×2 (06:18→17:37)
[2018-09-06] MEDS: CALCIUM CARBONATE 500 MG TABLET PO SCH ×3 (06:18→22:30)
[2018-09-06] MEDS: CHOLESTYRAMINE/ASPARTAME 4 GM PACKET PO SCH ×4 (09:57→22:30)
[2018-09-06] MEDS: CALCITRIOL 0.25 MCG CAPSULE PO SCH (09:57)
[2018-09-06] MEDS: CLONIDINE HCL 0.2 MG TABLET PO SCH ×2 (09:57→22:29)
[2018-09-06] MEDS: POTASSIUM CHLORIDE 10 MEQ CAPSULE.ER PO SCH (09:57)
[2018-09-06] MEDS: AMLODIPINE BESYLATE 10 MG TABLET PO SCH (09:57)
[2018-09-06] MEDS: CHOLECALCIFEROL (D3) 400 UNIT TABLET PO SCH (09:57)
[2018-09-06] MEDS: MAGNESIUM OXIDE 400 MG TABLET PO SCH (09:57)
[2018-09-06] MEDS: METOPROLOL TARTRATE 100 MG TABLET PO SCH ×2 (09:58→22:30)
[2018-09-06] MEDS: LIPASE/PROTEASE/AMYLASE 1 CAP CAPSULE.DR PO SCH ×2 (09:58→17:37)
[2018-09-06] MEDS: TAMSULOSIN HCL 0.4 MG CAP.SR.24H PO SCH (09:59)
[2018-09-06] MEDS: ENOXAPARIN SODIUM INJ 40 MG/0.4 ML DISP.SYRIN SUBCUT SCH (09:59)
[2018-09-06 14:29] LABS: ANION GAP 6 (5-19); BLOOD UREA NITROGEN 9 mg/dL (7-20); CALCIUM 7.5 mg/dL (8.4-10.2); CARBON DIOXIDE 19 mmol/L (22-30); CHLORIDE 117 mmol/L (98-107); GLUCOSE 130 mg/dL (75-110); POTASSIUM 4.2 mmol/L (3.6-5.0); SODIUM 142.1 mmol/L (137-145)
[2018-09-06] MEDS ORDERED: OXYCODONE HCL IR 5 MG TABLET PO PRN (19:07)
--- NOTE | 2018-09-06 20:18 | PDOC PROGRESS REPORT ---
Subjective Progress Note for:: 09/06/18 Subjective:: Patient was seen by the bedside, she still have diarrhea, she was treated with cholestyramine, she said the medication is not very effective in the control of the symptoms of diarrhea. The serum calcium is improving on present regimen Reason For Visit: UTI,HYPOCALCEMIA,BILATERAL LOWER EDEMA Physical Exam Vital Signs: Temp Pulse Resp BP Pulse Ox 98.3 F 65 16 136/61 H 96 09/06/18 15:10 09/06/18 15:10 09/06/18 15:10 09/06/18 15:10 09/06/18 15:10 Intake & Output 09/05/18 09/06/18 09/07/18 06:59 06:59 06:59 Intake Total 894 1937 Balance 894 1937 Weight 57.5 kg 51.6 kg General appearance: PRESENT: no acute distress Eye exam: PRESENT: PERRLA Respiratory exam: PRESENT: clear to auscultation jamel Cardiovascular exam: PRESENT: +S1, +S2 GI/Abdominal exam: PRESENT: soft Neurological exam: PRESENT: alert Results Laboratory Results: 09/03/18 09:05 09/06/18 13:38 09/06/18 13:38 Sodium 142.1 Potassium 4.2 Chloride 117 H Carbon Dioxide 19 L Anion Gap 6 BUN 9 Creatinine 0.73 Est GFR ( Amer) > 60 Est GFR (Non-Af Amer) > 60 Glucose 130 H Calcium 7.5 L Magnesium 1.6 08/29/18 08/29/18 08/29/18 14:54 14:54 20:01 Creatine Kinase 104 108 CK-MB (CK-2) 1.56 Troponin I < 0.012 NT-Pro-B Natriuret Pep 345 08/29/18 08/29/18 08/30/18 20:01 20:01 01:20 Creatine Kinase 98 CK-MB (CK-2) 1.61 Troponin I < 0.012 NT-Pro-B Natriuret Pep 360 08/30/18 08/30/18 08/30/18 01:20 06:05 06:05 Creatine Kinase 98 CK-MB (CK-2) 1.30 1.11 Troponin I < 0.012 < 0.012 NT-Pro-B Natriuret Pep 08/30/18 06:05 Creatine Kinase CK-MB (CK-2) Troponin I NT-Pro-B Natriuret Pep 313 Impressions: Venous Doppler Study 08/29/18 00:00 IMPRESSION: Very limited examination. No evidence of deep venous thrombosis in the bilateral lower extremities. Chest X-Ray 08/29/18 15:55 IMPRESSION: NO ACUTE DISEASE. Abdomen/Pelvis CT 08/30/18 00:00 IMPRESSION: No acute findings. No CT findings to explain history of weight loss Chest CT 08/30/18 00:00 IMPRESSION: No acute findings. No CT findings to explain history of weight loss Assessment & Plan - Diagnosis (1) Hypocalcemia Is this a current diagnosis for this admission?: Yes Plan: Improving (2) Hypoalbuminemia Is this a current diagnosis for this admission?: Yes (3) Urinary tract infection Qualifiers: Urinary tract infection type: site unspecified Hematuria presence: without hematuria Qualified Code(s): N39.0 - Urinary tract infection, site not specified Is this a current diagnosis for this admission?: Yes (4) Secondary hyperparathyroidism, non-renal Is this a current diagnosis for this admission?: Yes (5) Anasarca Is this a current diagnosis for this admission?: Yes (6) E. coli UTI Is this a current diagnosis for this admission?: Yes (7) Diarrhea Qualifiers: Diarrhea type: unspecified type Qualified Code(s): R19.7 - Diarrhea, unspecified Is this a current diagnosis for this admission?: Yes Plan: start lomotil ,1 tablet PO Q6 Hour prn (8) Proteinuria Qualifiers: Proteinuria type: unspecified Qualified Code(s): R80.9 - Proteinuria, unspecified Is this a current diagnosis for this admission?: Yes
[2018-09-06] MEDS: DIPHENOXYLATE HCL/ATROP SULF 2.5-0.025 MG TABLET PO SCH (23:11)
[2018-09-07] MEDS: OXYCODONE HCL IR 5 MG TABLET PO SCH ×4 (03:24→21:48)
[2018-09-07] MEDS: CYCLOBENZAPRINE HCL 10 MG TABLET PO SCH ×3 (05:19→21:49)
[2018-09-07] MEDS: DIPHENOXYLATE HCL/ATROP SULF 2.5-0.025 MG TABLET PO SCH ×4 (05:38→23:02)
[2018-09-07] MEDS: LANSOPRAZOLE 30 MG TAB.RAP.DR PO SCH ×2 (05:38→16:21)
[2018-09-07] MEDS: CALCIUM CARBONATE 500 MG TABLET PO SCH ×3 (05:38→21:49)
[2018-09-07 06:24] LABS: CALCIUM 7.6 mg/dL (8.4-10.2)
[2018-09-07] MEDS: LIPASE/PROTEASE/AMYLASE 1 CAP CAPSULE.DR PO SCH ×2 (08:36→15:08)
[2018-09-07] MEDS: CHOLESTYRAMINE/ASPARTAME 4 GM PACKET PO SCH ×4 (08:37→21:49)
[2018-09-07] MEDS: CLONIDINE HCL 0.2 MG TABLET PO SCH ×2 (10:29→21:50)
[2018-09-07] MEDS: TAMSULOSIN HCL 0.4 MG CAP.SR.24H PO SCH (10:30)
[2018-09-07] MEDS: ENOXAPARIN SODIUM INJ 40 MG/0.4 ML DISP.SYRIN SUBCUT SCH (10:30)
[2018-09-07] MEDS: METOPROLOL TARTRATE 100 MG TABLET PO SCH ×2 (10:30→21:50)
[2018-09-07] MEDS: POTASSIUM CHLORIDE 10 MEQ CAPSULE.ER PO SCH (10:30)
[2018-09-07] MEDS: CHOLECALCIFEROL (D3) 400 UNIT TABLET PO SCH (10:31)
[2018-09-07] MEDS: CALCITRIOL 0.25 MCG CAPSULE PO SCH (10:31)
[2018-09-07] MEDS: MAGNESIUM OXIDE 400 MG TABLET PO SCH (10:31)
[2018-09-07] MEDS: AMLODIPINE BESYLATE 10 MG TABLET PO SCH (10:31)
[2018-09-07 23:20] LABS: ABSOLUTE BASOPHILS # (AUTO) 0.1 10^3/uL (0.0-0.2); ABSOLUTE EOSINOPHILS # (AUTO) 0.2 10^3/uL (0.0-0.6); ABSOLUTE LYMPHOCYTES (AUTO) 1.6 10^3/uL (0.5-4.7); ABSOLUTE MONOCYTES (AUTO) 0.6 10^3/uL (0.1-1.4); ABSOLUTE NEUT (AUTO) 4.8 10^3/uL (1.7-8.2); BASOPHILS % (AUTO) 0.7 % (0-2); EOSINOPHILS % (AUTO) 3.1 % (0-6); HEMATOCRIT 26.1 % (36.0-47.0); HEMOGLOBIN 8.7 g/dL (12.0-15.5); LYMPHOCYTES % (AUTO) 22.5 % (13-45); MEAN CORPUSCULAR HEMOGLOBIN 28.9 pg (27.0-33.4); MEAN CORPUSCULAR HGB CONC 33.1 g/dL (32.0-36.0); MEAN CORPUSCULAR VOLUME 87 fl (80-97); MONOCYTES % (AUTO) 8.3 % (3-13); PLATELET COUNT 243 10^3/uL (150-450); RED CELL DISTRIBUTION WIDTH 18.5 % (11.5-14.0); SEGMENTED NEUTROPHILS % (AUTO) 65.4 % (42-78); TOTAL CELLS COUNTED % (AUTO) 100 %; WHITE BLOOD COUNT 7.3 10^3/uL (4.0-10.5)
[2018-09-07 23:45] LABS: ALANINE AMINOTRANSFERASE 17 U/L (9-52); ALBUMIN 2.5 g/dL (3.5-5.0); ALKALINE PHOSPHATASE 231 U/L (38-126); ANION GAP 7 (5-19); ASPARTATE AMINO TRANSFERASE 11 U/L (14-36); BLOOD UREA NITROGEN 9 mg/dL (7-20); CALCIUM 7.7 mg/dL (8.4-10.2); CARBON DIOXIDE 18 mmol/L (22-30); CHLORIDE 115 mmol/L (98-107); GLUCOSE 113 mg/dL (75-110); POTASSIUM 4.1 mmol/L (3.6-5.0); SODIUM 140.2 mmol/L (137-145); TOTAL PROTEIN 5.9 g/dL (6.3-8.2)
[2018-09-07 23:49] LABS: BILIRUBIN,TOTAL < 0.1 mg/dL (0.2-1.3)
[2018-09-08] MEDS: OXYCODONE HCL IR 5 MG TABLET PO SCH ×3 (05:41→14:59)
[2018-09-08] MEDS: DIPHENOXYLATE HCL/ATROP SULF 2.5-0.025 MG TABLET PO SCH ×3 (05:41→17:16)
[2018-09-08] MEDS: LANSOPRAZOLE 30 MG TAB.RAP.DR PO SCH ×2 (05:41→17:06)
[2018-09-08] MEDS: CALCIUM CARBONATE 500 MG TABLET PO SCH ×2 (05:41→14:58)
[2018-09-08] MEDS: CYCLOBENZAPRINE HCL 10 MG TABLET PO SCH ×2 (05:42→15:21)
[2018-09-08] MEDS: LIPASE/PROTEASE/AMYLASE 1 CAP CAPSULE.DR PO SCH ×2 (07:56→17:06)
[2018-09-08] MEDS: CHOLESTYRAMINE/ASPARTAME 4 GM PACKET PO SCH ×3 (07:57→17:06)
[2018-09-08] MEDS: POTASSIUM CHLORIDE 10 MEQ CAPSULE.ER PO SCH (10:13)
[2018-09-08] MEDS: CLONIDINE HCL 0.2 MG TABLET PO SCH (10:13)
[2018-09-08] MEDS: ENOXAPARIN SODIUM INJ 40 MG/0.4 ML DISP.SYRIN SUBCUT SCH (10:13)
[2018-09-08] MEDS: TAMSULOSIN HCL 0.4 MG CAP.SR.24H PO SCH (10:13)
[2018-09-08] MEDS: METOPROLOL TARTRATE 100 MG TABLET PO SCH (10:14)
[2018-09-08] MEDS: CALCITRIOL 0.25 MCG CAPSULE PO SCH (10:14)
[2018-09-08] MEDS: AMLODIPINE BESYLATE 10 MG TABLET PO SCH (10:15)
[2018-09-08] MEDS: CHOLECALCIFEROL (D3) 400 UNIT TABLET PO SCH (10:15)
[2018-09-08] MEDS: MAGNESIUM OXIDE 400 MG TABLET PO SCH (10:15)
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
[2018-09-08 16:50] VITALS: BP 116/61
== END 2018-09-08 17:59 | disposition home or self-care (01) | DRG 641 ==
LOC: ER 14:06 → EH 17:56 → 3W 08-30 10:38
PROVIDERS: ADMIT Internal Medicine; ATTEND Internal Medicine
DX: E83.51 Hypocalcemia (principal); N25.81 Secondary hyperparathyroidism of renal origin; E46 Unspecified protein-calorie malnutrition; N39.0 Urinary tract infection, site not specified; B96.20 Unspecified Escherichia coli [E. coli] as the cause of diseases classified elsewhere; E88.09 Other disorders of plasma-protein metabolism, not elsewhere classified; R60.1 Generalized edema; R19.7 Diarrhea, unspecified; R80.9 Proteinuria, unspecified; L89.891 Pressure ulcer of other site, stage 1; I10 Essential (primary) hypertension; I73.9 Peripheral vascular disease, unspecified; Z68.26 Body mass index [BMI] 26.0-26.9, adult; Z79.899 Other long term (current) drug therapy; Z87.442 Personal history of urinary calculi; Z90.49 Acquired absence of other specified parts of digestive tract; Z90.710 Acquired absence of both cervix and uterus; Z96.651 Presence of right artificial knee joint; F17.200 Nicotine dependence, unspecified, uncomplicated; Z88.8 Allergy status to other drugs, medicaments and biological substances
CPT/HCPCS: 36415; 51701; 71045; 71260; 74177; 80048; 80053; 80061; 80076; 80307; 81001; 82140; 82150; 82310; 82330; 82550; 82553; 82570; 83036; 83690; 83735; 83880; 83970; 84100; 84156; 84443; 84484; 85025; 85610; 85730; 87040; 87086; 87088; 87186; 93005; 93010; 93970; 96365; 96375; 99285; J0610; J0696; J0744; J1650; J1940; J2270; J2405; J3475; J3490; J7030; P9047

== ENCOUNTER 2018-10-04 16:47 | Emergency (ER) | payer MEDICARE, MEDICAID ==
--- NOTE | 2018-10-04 17:28 | ER Document Report ---
ED Medical Screen (RME) - General Chief Complaint: Abdominal Pain Stated Complaint: ABDOMINAL PAIN, NAUSEA/VOMITING Time Seen by Provider: 10/04/18 17:25 Primary Care Provider: SHARDA MAYS MD [Primary Care Provider] - Follow up as needed Mode of Arrival: Wheelchair Information source: Relative - Daughter Notes: Patient presents to the emergency department with her daughter for complaints of abdominal pain nausea vomiting and excessive urination. Daughter reports patient had urinary stent placed July 13, 2018. She is experiencing urinary incontinence. Patient also has A. fib pancreatitis. I have greeted and performed a rapid initial assessment of this patient. A comprehensive ED assessment and evaluation of the patient, analysis of test re sults and completion of the medical decision making process will be conducted by additional ED providers. TRAVEL OUTSIDE OF THE [place] IN LAST 30 DAYS: No - Related Data Allergies/Adverse Reactions: sulfamethoxazole [From Bactrim] Allergy (Verified 12/29/17 12:45) trimethoprim [From Bactrim] Allergy (Verified 12/29/17 12:45) Past Medical History - Past Medical History Cardiac Medical History: Reports: Hx Congestive Heart Failure, Hx Hypertension, Hx Peripheral Vascular Disease Pulmonary Medical History: Reports: Hx COPD Neurological Medical History: Reports: Hx Cerebrovascular Accident - aphasia. Denies: Hx Seizures Renal/ Medical History: Denies: Hx Peritoneal Dialysis GI Medical History: Reports: Hx Gastroesophageal Reflux Disease, Hx Ulcer - pep tic Musculoskeltal Medical History: Reports Hx Arthritis - RA Psychiatric Medical History: Reports: Hx Depression Past Surgical History: Reports: Hx Abdominal Surgery - STOMACH ULCER, Hx Bowel Surgery, Hx Cholecystectomy - 05/2017, Hx Hysterectomy, Hx Orthopedic Surgery - LT HIP REMOVAL OF "HEAD", SCREWS RT HIP, RT KNEE REPLACEMENT, Other - lysis of adhesions - Immunizations History of Influenza Vaccine for 04/2017 - 09/2017 Season: No Doctor's Discharge - Discharge Referrals: SHARDA MAYS MD [Primary Care Provider] - Follow up as needed
[2018-10-04 18:12] LABS: ABSOLUTE BASOPHILS # (AUTO) 0.1 10^3/uL (0.0-0.2); ABSOLUTE LYMPHOCYTES (AUTO) 1.3 10^3/uL (0.5-4.7); ABSOLUTE MONOCYTES (AUTO) 0.2 10^3/uL (0.1-1.4); ABSOLUTE NEUT (AUTO) 4.7 10^3/uL (1.7-8.2); EOSINOPHILS % (AUTO) 0.2 % (0-6); HEMATOCRIT 47.2 % (36.0-47.0); HEMOGLOBIN 15.9 g/dL (12.0-15.5); LYMPHOCYTES % (AUTO) 20.1 % (13-45); MEAN CORPUSCULAR HEMOGLOBIN 29.8 pg (27.0-33.4); MEAN CORPUSCULAR HGB CONC 33.7 g/dL (32.0-36.0); MEAN CORPUSCULAR VOLUME 88 fl (80-97); MONOCYTES % (AUTO) 3.2 % (3-13); RED BLOOD COUNT 5.35 10^6/uL (3.72-5.28); RED CELL DISTRIBUTION WIDTH 18.4 % (11.5-14.0); SEGMENTED NEUTROPHILS % (AUTO) 75.5 % (42-78); TOTAL CELLS COUNTED % (AUTO) 100 %; WHITE BLOOD COUNT 6.3 10^3/uL (4.0-10.5)
[2018-10-04 18:30] LABS: PLATELET COUNT 182 10^3/uL (150-450)
[2018-10-04 19:14] LABS: APPEARANCE,URINE CLEAR; BILIRUBIN,URINE NEGATIVE (NEGATIVE); COLOR,URINE STRAW; GLUCOSE, URINE NEGATIVE (NEGATIVE); KETONES,URINE TRACE mg/dL (NEGATIVE); LEUKOCYTE ESTERASE,URINE LARGE (NEGATIVE); NITRITE,URINE NEGATIVE (NEGATIVE); PROTEIN,URINE 30 mg/dL (NEGATIVE); URINE SPECIFIC GRAVITY 1.008; UROBILINOGEN,URINE NEGATIVE mg/dL (<2.0)
[2018-10-04] MEDS ORDERED: ONDANSETRON HCL INJ/PF 4 MG/2 ML SDV IV ONE (19:56)
[2018-10-04] MEDS: MORPHINE SULFATE 10 MG/ML INJ IV PRN ×2 (20:27→22:34)
--- NOTE | 2018-10-04 20:42 | RADIOLOGY REPORT (SQ) ---
EXAM DESCRIPTION: CT ABDOMEN PELVIS WITHOUT IV CONTRAST COMPLETED DATE/TME: 10/04/2018 19:30 CLINICAL HISTORY: 78 years, Female, eval kidney stone This exam was performed according to our departmental dose-optimization program which includes automated exposure control, adjustment of the mA and/or kVp according to patient size and/or use of iterative reconstruction technique where applicable. Compared to CT abdomen pelvis dated 01/10/2018. FINDINGS: Visualized lung bases are within normal limits. Liver demonstrates mild pneumobilia. Status post cholecystectomy. The spleen, pancreas and adrenal glands are within normal limits. Left-sided ureteral stent is in place. There is moderate left hydronephrosis. Significant right renal atrophy with right hydronephrosis is noted, chronic finding. No dilated loops of bowel to suggest obstruction. Mild amount of stool in the colon. Abdominal aorta mildly calcified without aneurysm. No evidence for abdominal or pelvic lymphadenopathy. Gynecologic organs are unremarkable. IMPRESSION: Interval development of significant left hydronephrosis with a left indwelling ureteral stent in place. Chronic right renal atrophy again noted, unchanged.
[2018-10-04 21:09] LABS: ALANINE AMINOTRANSFERASE 27 U/L (9-52); ALBUMIN 4.1 g/dL (3.5-5.0); ALKALINE PHOSPHATASE 422 U/L (38-126); ANION GAP 12 (5-19); ASPARTATE AMINO TRANSFERASE 24 U/L (14-36); BILIRUBIN,DIRECT 0.3 mg/dL (0.0-0.4); BILIRUBIN,TOTAL 0.5 mg/dL (0.2-1.3); BLOOD UREA NITROGEN 6 mg/dL (7-20); CARBON DIOXIDE 21 mmol/L (22-30); CHLORIDE 102 mmol/L (98-107); GLUCOSE 147 mg/dL (75-110); LIPASE 38.5 U/L (23-300); POTASSIUM 3.5 mmol/L (3.6-5.0); SODIUM 135.2 mmol/L (137-145); TOTAL PROTEIN 8.2 g/dL (6.3-8.2)
--- NOTE | 2018-10-04 21:53 | ER Document Report ---
ED General - General Chief Complaint: Abdominal Pain Stated Complaint: ABDOMINAL PAIN, NAUSEA/VOMITING Time Seen by Provider: 10/04/18 17:25 Primary Care Provider: SHARDA MAYS MD [Primary Care Provider] - Follow up as needed Mode of Arrival: Wheelchair Notes: Patient is a 78-year old female with a past medical history of anasarca, hypertension, atrophic right kidney, history of kidney stones who presents with nausea, vomiting, as well as general abdominal pain worse on the left. The pain is described as a throbbing, aching, moderate to severe discomfort. Nothing seems to improve or worsen the discomfort. Has had nausea and vomiting but has been able to tolerate oral intake in between these episodes of vomiting. Uncertain of whether or not she has had similar symptoms in the past. Has not seen her primary doctor regarding today's concerns. Denies fever or constitutional symptoms. Has had regular bowel movements. No melena or hematochezia. She did have a ureteral stent placed in June 2018, has not had that removed or followed up with urology since that time. TRAVEL OUTSIDE OF THE [place] IN LAST 30 DAYS: No - Related Data Allergies/Adverse Reactions: sulfamethoxazole [From Bactrim] Allergy (Verified 10/04/18 18:22) trimethoprim [From Bactrim] Allergy (Verified 10/04/18 18:22) Past Medical History - General Information source: Relative - Daughter - Social History Smoking Status: Current Every Day Smoker Chew tobacco use (# tins/day): No Frequency of alcohol use: None Drug Abuse: None Lives with: Family Family History: Reviewed & Not Pertinent Patient has suicidal ideation: No Patient has homicidal ideation: No - Past Medical History Cardiac Medical History: Reports: Hx Congestive Heart Failure, Hx Hypertension, Hx Peripheral Vascular Disease Pulmonary Medical History: Reports: Hx COPD Neurological Medical History: Reports: Hx Cerebrovascular Accident - aphasia. Denies: Hx Seizures Renal/ Medical History: Denies: Hx Peritoneal Dialysis GI Medical History: Reports: Hx Gastroesophageal Reflux Disease, Hx Ulcer - peptic Musculoskeletal Medical History: Reports Hx Arthritis - RA Psychiatric Medical History: Reports: Hx Depression Past Surgical History: Reports: Hx Abdominal Surgery - STOMACH ULCER, Hx Bowel Surgery, Hx Cholecystectomy - 05/2017, Hx Hysterectomy, Hx Orthopedic Surgery - LT HIP REMOVAL OF "HEAD", SCREWS RT HIP, RT KNEE REPLACEMENT, Other - lysis of adhesions - Immunizations Hx Pneumococcal Vaccination: 07/20/11 Review of Systems - Review of Systems Notes: Constitutional: Negative for fever. HENT: Negative for sore throat. Eyes: Negative for visual changes. Cardiovascular: Negative for chest pain. Respiratory: Negative for shortness of breath. Gastrointestinal: Positive for abdominal pain, vomiting Genitourinary: Negative for dysuria. Musculoskeletal: Negative for back pain. Skin: Negative for rash. Neurological: Negative for headaches, weakness or numbness. 10 point ROS negative except as marked above and in HPI. Physical Exam - Vital signs Vitals: Temp Pulse Resp BP Pulse Ox 98.4 F 68 16 192/75 H 99 10/04/18 17:22 10/04/18 17:22 10/04/18 17:22 10/04/18 17:22 10/04/18 17:22 Interpretation: Hypertensive Notes: PHYSICAL EXAMINATION: GENERAL: Somewhat frail, elderly female in no acute distress. HEAD: Atraumatic, normocephalic. EYES: Pupils equal round and reactive to light, extraocular movements intact, sclera anicteric, conjunctiva are normal. ENT: nares patent, oropharynx clear without exudates. Moderately dry mucous membranes. NECK: Normal range of motion, supple without lymphadenopathy LUNGS: Breath sounds clear to auscultation bilaterally and equal. No wheezes rales or rhonchi. HEART: Regular rate and rhythm without murmurs ABDOMEN: Soft, left CVA tenderness no other localized areas of tenderness, normoactive bowel sounds. No guarding, no rebound. No masses appreciated. EXTREMITIES: Normal range of motion, 1+ pitting edema in the bilateral lower extremities that is equal and symmetric. NEUROLOGICAL: No focal neurological deficits. Moves all extremities s pontaneously and on command. PSYCH: Normal mood, normal affect. SKIN: Warm, Dry, normal turgor, no rashes or lesions noted. Course - Re-evaluation Re-evalutation: 10/04/18 21:53 Patient presents with vomiting, abdominal pain more focused to the left flank found to have new onset left-sided hydronephrosis with a left ureteral stent in place. Patient has chronic right kidney atrophy, only one viable kidney. Source of hydronephrosis uncertain particular given that the ureteral stent remains in place. Labs do not show any evidence of renal failure, urinalysis shows scant blood and white blood cells, not entirely consistent with a true urinary tract infection. Vitals otherwise within acceptable limits. Even that the patient has only one functioning kidney which is profoundly with hydronephrosis at this time will consult urology at [facility] 10/04/18 22:08 I did consult with Dr. Moran at [facility] urology. We reviewed all pertinent data and he believes patient is stable for outpatient follow-up and management. Patient has tolerated p.o. intake. I provided her with contact information for [facility] and instruct her to follow-up within the next 3-5 days. She has been empirically started on cephalexin. First dose given here in the emergency department. At this time will discharge with return precautions and follow-up recommendations. Verbal discharge instructions given a the bedside and opportunity for questions given. Medication warnings reviewed. Patient is in agreement with this plan and has verbalized understanding of return precautions and the need for primary care follow-up in the next 24-72 hours. - Vital Signs Vital signs: Temp Pulse Resp BP Pulse Ox 98.4 F 59 L 18 167/64 H 99 10/04/18 23:00 10/04/18 23:00 10/04/18 23:00 10/04/18 23:00 10/04/18 23:00 - Laboratory Result Diagrams: 10/04/18 17:47 10/04/18 20:20 Laboratory results interpreted by me: 10/04/18 10/04/18 10/04/18 17:47 18:35 20:20 RBC 5.35 H Hgb 15.9 H Hct 47.2 H RDW 18.4 H Sodium 135.2 L Potassium 3.5 L Carbon Dioxide 21 L BUN 6 L Creatinine 0.36 L Glucose 147 H Alkaline Phosphatase 422 H Urine Protein 30 H Urine Ketones TRACE H Urine Blood SMALL H Ur Leukocyte Esterase LARGE H - Diagnostic Test Radiology reviewed: Reports reviewed Discharge - Discharge Clinical Impression: Hydronephrosis, left Nausea and vomiting Qualifiers: Vomiting type: unspecified Vomiting Intractability: non-intractable Qualified Code(s): R11.2 - Nausea with vomiting, unspecified Abdominal pain Qualifiers: Abdominal location: unspecified location Qualified Code(s): R10.9 - Unspecified abdominal pain Condition: Stable Disposition: HOME, SELF-CARE Additional Instructions: You need to follow-up with urology next week to have reevaluation of your kidney functions as well as likely have replacement of the left ureteral stent. You have been started on antibiotics based on the recommendations of the urologist that I spoke to today Dr. Moran. Please take all antibiotic until completed. Please return to the emergency department immediately if you have worsening pain, persistent vomiting, fever greater than 100.4 F, or any other symptoms that are worrisome to you. [facility] Contact Office Hours Thursday - Thursday 8:30 AM - 5:[address] [place] [id number] Prescriptions: Cephalexin Monohydrate [Keflex 500 mg Capsule] 500 mg PO Q6H 7 Days capsule Referrals: SHARDA MAYS MD [Primary Care Provider] - Follow up as needed
[2018-10-04] MEDS ORDERED: CEPHALEXIN 500 MG CAPSULE PO ONE (22:09)
[2018-10-04 23:08] VITALS: BP 167/64
== END 2018-10-04 23:00 | disposition home or self-care (01) ==
LOC: ER 16:47
DX: N39.0 Urinary tract infection, site not specified (principal); N13.30 Unspecified hydronephrosis; F11.20 Opioid dependence, uncomplicated; R11.2 Nausea with vomiting, unspecified; R10.9 Unspecified abdominal pain; R10.84 Generalized abdominal pain; R19.7 Diarrhea, unspecified; F17.200 Nicotine dependence, unspecified, uncomplicated; I50.9 Heart failure, unspecified; I11.0 Hypertensive heart disease with heart failure; J44.9 Chronic obstructive pulmonary disease, unspecified
CPT/HCPCS: 36591; 99284; 96374; 96375; 36415; 87086; 83690; 85025; 87088; 80053; 81001; 87186; 74176; A9270; J2270; J2405

== ENCOUNTER 2018-10-05 12:12 | Observation (INO) | payer MEDICARE, MEDICAID ==
[2018-10-05] MEDS ORDERED: MORPHINE SULFATE 10 MG/ML INJ IV ONE ×2 (12:55→15:38)
[2018-10-05] MEDS ORDERED: ONDANSETRON HCL INJ/PF 4 MG/2 ML SDV IV ONE ×2 (12:55→15:56)
--- NOTE | 2018-10-05 12:59 | ER Document Report ---
ED GI/ - General Chief Complaint: Flank Pain Stated Complaint: ABDOMINAL PAIN Time Seen by Provider: 10/05/18 12:33 Mode of Arrival: Medic Information source: Patient, Relative Notes: Patient presents complaining of generalized abdominal pain with nausea and vomiting. Patient states she has not been able to keep her usual medications down. Patient was seen for this problem yesterday and was advised to come back if she was worse. Patient was diagnosed with a UTI last night and only was able to keep down one dose of the medication. Patient has not gotten her prescription for the antibiotic filled as a left late last night. TRAVEL OUTSIDE OF THE [place] IN LAST 30 DAYS: No - HPI Patient complains to provider of: Abdominal pain, Vomiting Onset: Yesterday Timing/Duration: Persistent Quality of pain: Achy, Sharp Pain Level: 4 Location: Other - Generalized lower abdomen Associated symptoms: Diarrhea - Chronic diarrhea, Nausea, Vomiting. denies: Dysuria, Fever, Urinary hesitancy, Urinary frequency Exacerbated by: Denies Relieved by: Denies Similar symptoms previously: Yes Recently seen / treated by doctor: Yes - Related Data Allergies/Adverse Reactions: ketorolac [From Toradol] Allergy (Verified 10/05/18 12:19) sulfamethoxazole [From Bactrim] Allergy (Verified 10/05/18 12:18) trimethoprim [From Bactrim] Allergy (Verified 10/05/18 12:18) Past Medical History - General Information source: Patient - Social History Smoking Status: Current Every Day Smoker Chew tobacco use (# tins/day): No Frequency of alcohol use: None Drug Abuse: None Lives with: Family Family History: Reviewed & Not Pertinent Patient has suicidal ideation: No Patient has homicidal ideation: No - Past Medical History Cardiac Medical History: Reports: Hx Congestive Heart Failure, Hx Hypertension, Hx Peripheral Vascular Disease Pulmonary Medical History: Reports: Hx COPD Neurological Medical History: Reports: Hx Cerebrovascular Accident - aphasia. Denies: Hx Seizures Renal/ Medical History: Denies: Hx Peritoneal Dialysis Malignancy Medical History: Reports: Other - Vaginal cancer GI Medical History: Reports: Hx Gastroesophageal Reflux Disease, Hx Ulcer - peptic Musculoskeletal Medical History: Reports Hx Arthritis - RA Psychiatric Medical History: Reports: Hx Depression Past Surgical History: Reports: Hx Abdominal Surgery - STOMACH ULCER, Hx Bowel Surgery, Hx Cholecystectomy - 05/2017, Hx Hysterectomy, Hx Orthopedic Surgery - LT HIP REMOVAL OF "HEAD", SCREWS RT HIP, RT KNEE REPLACEMENT, Other - lysis of a dhesions - Immunizations Hx Pneumococcal Vaccination: 07/20/11 Review of Systems - Review of Systems Constitutional: Recent illness - Treated yesterday for UTI. denies: Fever EENT: No symptoms reported Cardiovascular: No symptoms reported. denies: Chest pain Respiratory: No symptoms reported. denies: Cough, Short of breath Gastrointestinal: Abdominal pain, Diarrhea - Chronic diarrhea, Nausea, Vomiting Genitourinary: Incontinence - Tonic incontinence Female Genitourinary: No symptoms reported Musculoskeletal: No symptoms reported Skin: No symptoms reported Hematologic/Lymphatic: No symptoms reported Neurological/Psychological: No symptoms reported. denies: Headaches Physical Exam - Vital signs Vitals: Temp Pulse Resp BP Pulse Ox 98.8 F 93 20 189/93 H 80 L 10/05/18 12:18 10/05/18 12:18 10/05/18 12:18 10/05/18 12:18 10/05/18 12:18 - General General appearance: Appears well, Alert In distress: None - HEENT Head: Normocephalic, Atraumatic Eyes: Normal Conjunctiva: Normal Nasal: Normal Mouth/Lips: Normal Mucous membranes: Normal Neck: Normal, Supple. No: Lymphadenopathy - Respiratory Respiratory status: No respiratory distress Chest status: Nontender Breath sounds: Normal. No: Rales, Rhonchi, Stridor, Wheezing Chest palpation: Normal - Cardiovascular Rhythm: Irregularly irregular Heart sounds: S1 appreciated, S2 appreciated - Abdominal Inspection: Other - Scars to abdomen from previous surgery Distension: No distension Bowel sounds: Normal Tenderness: Tender - Diffuse abdominal tenderness Organomegaly: No organomegaly - Back Back: Normal, Nontender. No: CVA tenderness - Extremities General upper extremity: Normal inspection, Normal ROM General lower extremity: Edema - 1+ edema bilaterally, Normal ROM - Neurological Neuro grossly intact: Yes Cognition: Normal Cory Coma Scale Eye Opening: Spontaneous Sandy Coma Scale Verbal: Oriented Sandy Coma Scale Motor: Obeys Commands Sandy Coma Scale Total: 15 - Psychological Associated symptoms: Normal affect, Normal mood - Skin Skin Temperature: Warm Skin Moisture: Dry Skin Color: Normal Course - Re-evaluation Re-evalutation: 10/05/18 15:[address] Ledesma regarding patient presentation, recommends consultation with radiologist to see if they will compare patient CT scans performed last night as well as her most recent CT scan performed in August of this year to further evaluate the left-sided hydronephrosis. 10/05/18 15:04 Consulted with radiologist, Dr Oropeza, who will review patient's images and call back. 10/05/18 15:[address] Smith who reviewed patient's CT scan from last night as well as comparison from December 2017 as well as September 07. States that patient did have hydronephrosis noted in August that seems to be worsened on the last night CT images. Consulted again with Dr. Ledesma who recommends consultation with urology at [facility]. 10/05/18 15:[address] Clayton at the [facility] urology clinic. Discussed patient's presentation and complaint. Dr. Clayton was able to access patient's records and review her CT scan. Recommends placing a Galicia catheter, as he is concerned that she has a full bladder and that she may be having some urinary reflux that is leading to UTI in addition to concerned about poorly functioning stent on the left side. Recommends having patient follow-up with their office either locally in the [place] [facility] or in the clinic within the next week. Advises discharging patient home with the Galicia catheter and s tarting her on antibiotics. Agrees with plan to continue the Keflex that was prescribed last night. 10/05/18 16:30 Patient's daughter at bedside, discussed anticipated plan of care per Dr. Clayton. Patient's daughter is not happy with [facility] urology as she has heard that they were not good providers and plans instead to follow-up with [facility]. Daughter was able to confirm patient's usual dosages of her pain medication. Patient continues with nominal pain. Patient with small amount of clear sputum to emesis bag at bedside. Discussed conversation with urologist Dr. Clayton and recommendation for Galicia catheter placement. 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 After reviewing patient's pain medications with her daughter, it is suspected that patient's pain is not relieved as we have not neared her usual dose of narcotics that she takes daily. Daughter declines allowing catheter insertion without consultation with her primary doctor. 10/05/18 16:[address] Polanco who does agree to accept patient for admission to medical floor stating that he will admit her and if needed can arrange for transfer to [facility] for urology services. Daughter and patient are agreeable with admission at this time. - Vital Signs Vital signs: Temp Pulse Resp BP Pulse Ox 98.8 F 93 12 181/94 H 97 10/05/18 12:18 10/05/18 12:18 10/05/18 18:00 10/05/18 17:01 10/05/18 18:00 - Laboratory Result Diagrams: 10/05/18 13:45 10/05/18 13:45 Laboratory results interpreted by me: 10/05/18 10/05/18 10/05/18 13:45 13:45 14:24 WBC 10.6 H RDW 17.8 H Seg Neutrophils % 78.5 H Absolute Neutrophils 8.4 H Sodium 135.5 L Potassium 3.1 L Creatinine 0.48 L Glucose 137 H Alkaline Phosphatase 460 H Total Protein 8.9 H Lipase 375.4 H Urine Protein 100 H Urine Ketones 20 H Urine Blood MODERATE H Ur Leukocyte Esterase LARGE H - Diagnostic Test Radiology reviewed: Reports reviewed Discharge - Discharge Clinical Impression: Chronic, continuous use of opioids Abdominal pain Qualifiers: Abdominal location: unspecified location Qualified Code(s): R10.9 - Unspecified abdominal pain Nausea and vomiting Qualifiers: Vomiting type: unspecified Vomiting Intractability: unspecified Qualified Code(s): R11.2 - Nausea with vomiting, unspecified Urinary tract infection Qualifiers: Urinary tract infection type: site unspecified Hematuria presence: with hematuria Qualified Code(s): N39.0 - Urinary tract infection, site not specified Hydronephrosis Qualifiers: Hydronephrosis type: unspecified Qualified Code(s): N13.30 - Unspecified hydronephrosis Condition: Stable Disposition: ADMITTED INPATIENT Admitting Provider: Sherri Unit Admitted: Medical Floor
--- NOTE | 2018-10-05 13:54 | RADIOLOGY REPORT (SQ) ---
EXAM DESCRIPTION: ACUTE ABDOMEN SERIES COMPLETED DATE/TIME: 10/05/2018 1:32 pm REASON FOR STUDY: abd pain, n/v COMPARISON: 10/04/2018 NUMBER OF VIEWS: Three views. TECHNIQUE: Frontal chest, supine abdomen and upright/decubitus abdomen radiographic images acquired. LIMITATIONS: None. FINDINGS: CHEST: Lungs clear of infiltrates. FREE AIR: None. No abnormal gas collections. BOWEL GAS PATTERN: Nonobstructive pattern. No dilated loops or air fluid levels. CALCIFICATIONS: No suspicious calcifications. HARDWARE: Partially visualized left-sided chest port with catheter tip at right atrium. Multiple manuel gical clips overlie upper abdomen. Left ureteral stent in expected location. SOFT TISSUES: No gross mass or suggestion of organomegaly. BONES: Osteopenia. Dextroconvex thoracolumbar curvature. No acute findings. Dysmorphic, fragmented bilateral hips with chronic subluxation, similar to prior. Right femoral neck screws present. OTHER: No other significant finding. IMPRESSION: Stable appearance of the left ureteral stent. Previously seen left-sided hydronephrosis is not evaluated on this exam. No additional evidence of acute intraabdominal or thoracic process. Additional chronic findings as above. TECHNICAL DOCUMENTATION: JOB ID: [id number] [employer]- All Rights Reserved Reading location - IP/workstation name: [email or web address]
[2018-10-05 14:26] LABS: ABSOLUTE BASOPHILS # (AUTO) 0.1 10^3/uL (0.0-0.2); ABSOLUTE LYMPHOCYTES (AUTO) 1.5 10^3/uL (0.5-4.7); ABSOLUTE MONOCYTES (AUTO) 0.7 10^3/uL (0.1-1.4); ABSOLUTE NEUT (AUTO) 8.4 10^3/uL (1.7-8.2); BASOPHILS % (AUTO) 0.8 % (0-2); EOSINOPHILS % (AUTO) 0.1 % (0-6); HEMATOCRIT 42.4 % (36.0-47.0); HEMOGLOBIN 14.2 g/dL (12.0-15.5); LYMPHOCYTES % (AUTO) 13.7 % (13-45); MEAN CORPUSCULAR HEMOGLOBIN 29.6 pg (27.0-33.4); MEAN CORPUSCULAR HGB CONC 33.5 g/dL (32.0-36.0); MEAN CORPUSCULAR VOLUME 88 fl (80-97); MONOCYTES % (AUTO) 6.9 % (3-13); PLATELET COUNT 214 10^3/uL (150-450); RED CELL DISTRIBUTION WIDTH 17.8 % (11.5-14.0); SEGMENTED NEUTROPHILS % (AUTO) 78.5 % (42-78); TOTAL CELLS COUNTED % (AUTO) 100 %; WHITE BLOOD COUNT 10.6 10^3/uL (4.0-10.5)
[2018-10-05 14:42] LABS: ALANINE AMINOTRANSFERASE 29 U/L (9-52); ALBUMIN 4.1 g/dL (3.5-5.0); ALKALINE PHOSPHATASE 460 U/L (38-126); ANION GAP 13 (5-19); ASPARTATE AMINO TRANSFERASE 25 U/L (14-36); BILIRUBIN,DIRECT 0.2 mg/dL (0.0-0.4); BILIRUBIN,TOTAL 0.5 mg/dL (0.2-1.3); BLOOD UREA NITROGEN 7 mg/dL (7-20); CALCIUM 8.7 mg/dL (8.4-10.2); CARBON DIOXIDE 23 mmol/L (22-30); CHLORIDE 100 mmol/L (98-107); GLUCOSE 137 mg/dL (75-110); LIPASE 375.4 U/L (23-300); POTASSIUM 3.1 mmol/L (3.6-5.0); SODIUM 135.5 mmol/L (137-145); TOTAL PROTEIN 8.9 g/dL (6.3-8.2)
[2018-10-05] MEDS ORDERED: CEFTRIAXONE 1 GM/D5W RTU 1 GM/50 ML RTUPB IV ONE (14:49)
[2018-10-05 14:51] LABS: APPEARANCE,URINE SLIGHTLY-CLOUDY; BILIRUBIN,URINE NEGATIVE (NEGATIVE); COLOR,URINE YELLOW; GLUCOSE, URINE NEGATIVE (NEGATIVE); KETONES,URINE 20 mg/dL (NEGATIVE); LEUKOCYTE ESTERASE,URINE LARGE (NEGATIVE); NITRITE,URINE NEGATIVE (NEGATIVE); PROTEIN,URINE 100 mg/dL (NEGATIVE); URINE SPECIFIC GRAVITY 1.011; UROBILINOGEN,URINE NEGATIVE mg/dL (<2.0)
[2018-10-05] MEDS ORDERED: METOPROLOL TARTRATE 100 MG TABLET PO ONE (14:51)
[2018-10-05] MEDS ORDERED: POTASSIUM CHLORIDE 10 MEQ CAPSULE.ER PO ONE (15:04)
[2018-10-05] MEDS ORDERED: AMLODIPINE BESYLATE 10 MG TABLET PO ONE (16:09)
--- NOTE | 2018-10-05 17:00 | EKG REPORT ---
SEVERITY:- ABNORMAL ECG - ECTOPIC ATRIAL RHYTHM NONSPECIFIC INTRAVENTRICULAR CONDUCTION DELAY PROBABLE LEFT VENTRICULAR HYPERTROPHY CONSIDER INFERIOR INFARCT OLD : Confirmed by: Dante Canchola 05-Oct-2018 16:59:38
[2018-10-05] MEDS ORDERED: CLONIDINE HCL 0.2 MG TABLET PO ONE (18:35)
[2018-10-05] MEDS ORDERED: (PENDING PHARMACY ID) (Colestipol Hcl [Colestid 1 Gm Tablet] 2 GM) PO SCH (21:15)
[2018-10-05] MEDS ORDERED: METOPROLOL TARTRATE 100 MG TABLET PO SCH (21:15)
[2018-10-05] MEDS ORDERED: LACTOBACILLUS COMBO NO 10 PO SCH (21:15)
[2018-10-05] MEDS ORDERED: CLONIDINE HCL 0.2 MG TABLET PO SCH (21:15)
[2018-10-05] MEDS ORDERED: (PENDING PHARMACY ID) (Morphine Sulfate/Naltrexone [Embeda Er 50-2 Mg Capsule] 1 CAP) PO SCH (21:15)
[2018-10-05] MEDS: CLONIDINE HCL 0.2 MG TABLET PO SCH (21:43)
[2018-10-05] MEDS: ENOXAPARIN SODIUM INJ 30 MG/0.3 ML DISP.SYRIN SUBCUT SCH (22:28)
[2018-10-05] MEDS: CALCIUM CARBONATE 500 MG TABLET PO SCH (22:29)
[2018-10-05] MEDS: LACTOBACILLUS ACIDOPHILUS 250 MG TAB PO SCH (22:29)
[2018-10-05] MEDS: DULOXETINE HCL 30 MG CAPSULE.DR PO SCH (22:29)
[2018-10-05] MEDS: LIPASE/PROTEASE/AMYLASE 1 CAP CAPSULE.DR PO SCH (22:29)
[2018-10-05] MEDS: PANTOPRAZOLE SODIUM 40 MG TABLET.DR PO SCH (22:30)
[2018-10-05] MEDS: AMLODIPINE BESYLATE 10 MG TABLET PO SCH (22:30)
[2018-10-05] MEDS: METOPROLOL TARTRATE 100 MG TABLET PO SCH (22:31)
[2018-10-05] MEDS: CALCITRIOL 0.25 MCG CAPSULE PO SCH (22:32)
[2018-10-05] MEDS: POTASSI CL 40 MEQ/NS 1L 1,000 ML IV PRN (22:34)
[2018-10-05 22:44] LABS: INTERNATIONAL RATION (INR) 1.01; PROTHROMBIN TIME 13.9 SEC (11.4-15.4)
[2018-10-05 22:55] LABS: FREE T4 (FREE THYROXINE) 1.85 ng/dL (0.78-2.19)
[2018-10-05 23:00] LABS: LIPASE 178.1 U/L (23-300)
[2018-10-05 23:09] LABS: THYROID STIMULATING HORMONE 0.61 uIU/mL (0.47-4.68)
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
[2018-10-05] MEDS: OXYCODONE HCL IR 5 MG TABLET PO SCH (23:33)
[2018-10-05] MEDS: ONDANSETRON 4 MG TAB.RAPDIS PO PRN (23:33)
[2018-10-06] MEDS: CALCIUM CARBONATE 500 MG TABLET PO SCH ×3 (05:10→21:40)
[2018-10-06] MEDS: OXYCODONE HCL IR 5 MG TABLET PO SCH ×4 (05:10→23:52)
[2018-10-06 05:32] LABS: ABSOLUTE BASOPHILS # (AUTO) 0.1 10^3/uL (0.0-0.2); ABSOLUTE MONOCYTES (AUTO) 0.7 10^3/uL (0.1-1.4); ABSOLUTE NEUT (AUTO) 6.9 10^3/uL (1.7-8.2); BASOPHILS % (AUTO) 0.9 % (0-2); EOSINOPHILS % (AUTO) 0.2 % (0-6); HEMATOCRIT 42.7 % (36.0-47.0); HEMOGLOBIN 14.2 g/dL (12.0-15.5); LYMPHOCYTES % (AUTO) 20.2 % (13-45); MEAN CORPUSCULAR HEMOGLOBIN 29.3 pg (27.0-33.4); MEAN CORPUSCULAR HGB CONC 33.3 g/dL (32.0-36.0); MEAN CORPUSCULAR VOLUME 88 fl (80-97); MONOCYTES % (AUTO) 7.6 % (3-13); PLATELET COUNT 213 10^3/uL (150-450); RED BLOOD COUNT 4.85 10^6/uL (3.72-5.28); RED CELL DISTRIBUTION WIDTH 18.1 % (11.5-14.0); SEGMENTED NEUTROPHILS % (AUTO) 71.1 % (42-78); TOTAL CELLS COUNTED % (AUTO) 100 %; WHITE BLOOD COUNT 9.7 10^3/uL (4.0-10.5)
[2018-10-06 05:45] LABS: ALANINE AMINOTRANSFERASE 31 U/L (9-52); ALBUMIN 3.9 g/dL (3.5-5.0); ALKALINE PHOSPHATASE 417 U/L (38-126); ANION GAP 12 (5-19); ASPARTATE AMINO TRANSFERASE 38 U/L (14-36); BILIRUBIN,DIRECT 0.2 mg/dL (0.0-0.4); BILIRUBIN,TOTAL 0.6 mg/dL (0.2-1.3); BLOOD UREA NITROGEN 9 mg/dL (7-20); CALCIUM 8.9 mg/dL (8.4-10.2); CARBON DIOXIDE 22 mmol/L (22-30); CHLORIDE 105 mmol/L (98-107); CHOLESTEROL 139.29 mg/dL (0-200); GLUCOSE 102 mg/dL (75-110); SODIUM 138.9 mmol/L (137-145); TOTAL PROTEIN 8.7 g/dL (6.3-8.2); TRIGLYCERIDES 121 mg/dL (<150)
[2018-10-06 06:00] LABS: DIRECT LDL 51 mg/dL (<100)
[2018-10-06 06:15] LABS: POTASSIUM 4.1 mmol/L (3.6-5.0)
[2018-10-06] MEDS: METOPROLOL TARTRATE 100 MG TABLET PO SCH ×2 (10:37→21:39)
[2018-10-06] MEDS: CALCITRIOL 0.25 MCG CAPSULE PO SCH (10:37)
[2018-10-06] MEDS: LACTOBACILLUS ACIDOPHILUS 250 MG TAB PO SCH (10:38)
[2018-10-06] MEDS: DULOXETINE HCL 30 MG CAPSULE.DR PO SCH (10:38)
[2018-10-06] MEDS: CLONIDINE HCL 0.2 MG TABLET PO SCH ×2 (10:38→21:40)
[2018-10-06] MEDS: LIPASE/PROTEASE/AMYLASE 1 CAP CAPSULE.DR PO SCH ×3 (10:39→17:24)
[2018-10-06] MEDS: ENOXAPARIN SODIUM INJ 30 MG/0.3 ML DISP.SYRIN SUBCUT SCH (10:39)
[2018-10-06] MEDS: ONDANSETRON 4 MG TAB.RAPDIS PO PRN ×2 (10:39→21:39)
[2018-10-06] MEDS: PANTOPRAZOLE SODIUM 40 MG TABLET.DR PO SCH ×2 (10:39→21:39)
[2018-10-06] MEDS: AMLODIPINE BESYLATE 10 MG TABLET PO SCH (10:39)
[2018-10-06] MEDS: POTASSI CL 40 MEQ/NS 1L 1,000 ML IV PRN (11:20)
[2018-10-07] MEDS: POTASSI CL 40 MEQ/NS 1L 1,000 ML IV PRN (01:32)
[2018-10-07] MEDS: CALCIUM CARBONATE 500 MG TABLET PO SCH ×3 (05:24→21:04)
[2018-10-07] MEDS: OXYCODONE HCL IR 5 MG TABLET PO SCH ×3 (05:24→18:43)
[2018-10-07 06:11] LABS: ABSOLUTE BASOPHILS # (AUTO) 0.1 10^3/uL (0.0-0.2); ABSOLUTE LYMPHOCYTES (AUTO) 2.2 10^3/uL (0.5-4.7); ABSOLUTE MONOCYTES (AUTO) 0.6 10^3/uL (0.1-1.4); ABSOLUTE NEUT (AUTO) 3.9 10^3/uL (1.7-8.2); BASOPHILS % (AUTO) 0.8 % (0-2); EOSINOPHILS % (AUTO) 0.5 % (0-6); HEMATOCRIT 34.7 % (36.0-47.0); LYMPHOCYTES % (AUTO) 32.3 % (13-45); MEAN CORPUSCULAR HEMOGLOBIN 29.7 pg (27.0-33.4); MEAN CORPUSCULAR HGB CONC 33.3 g/dL (32.0-36.0); MEAN CORPUSCULAR VOLUME 89 fl (80-97); MONOCYTES % (AUTO) 9.3 % (3-13); PLATELET COUNT 165 10^3/uL (150-450); RED BLOOD COUNT 3.89 10^6/uL (3.72-5.28); RED CELL DISTRIBUTION WIDTH 18.2 % (11.5-14.0); SEGMENTED NEUTROPHILS % (AUTO) 57.1 % (42-78); TOTAL CELLS COUNTED % (AUTO) 100 %; WHITE BLOOD COUNT 6.8 10^3/uL (4.0-10.5)
[2018-10-07 06:23] LABS: ALANINE AMINOTRANSFERASE 26 U/L (9-52); ALBUMIN 2.8 g/dL (3.5-5.0); ALKALINE PHOSPHATASE 298 U/L (38-126); ANION GAP 6 (5-19); ASPARTATE AMINO TRANSFERASE 18 U/L (14-36); BILIRUBIN,DIRECT 0.1 mg/dL (0.0-0.4); BILIRUBIN,TOTAL 0.5 mg/dL (0.2-1.3); BLOOD UREA NITROGEN 13 mg/dL (7-20); CALCIUM 8.5 mg/dL (8.4-10.2); CARBON DIOXIDE 22 mmol/L (22-30); CHLORIDE 109 mmol/L (98-107); POTASSIUM 4.8 mmol/L (3.6-5.0); SODIUM 137.1 mmol/L (137-145); TOTAL PROTEIN 6.4 g/dL (6.3-8.2)
[2018-10-07 06:25] LABS: GLUCOSE 64 mg/dL (75-110)
[2018-10-07 07:31] LABS: HEMOGLOBIN 11.6 g/dL (12.0-15.5)
[2018-10-07] MEDS: CALCITRIOL 0.25 MCG CAPSULE PO SCH (10:48)
[2018-10-07] MEDS: CLONIDINE HCL 0.2 MG TABLET PO SCH ×2 (10:48→21:04)
[2018-10-07] MEDS: LIPASE/PROTEASE/AMYLASE 1 CAP CAPSULE.DR PO SCH ×3 (10:49→18:43)
[2018-10-07] MEDS: ENOXAPARIN SODIUM INJ 30 MG/0.3 ML DISP.SYRIN SUBCUT SCH (10:49)
[2018-10-07] MEDS: PANTOPRAZOLE SODIUM 40 MG TABLET.DR PO SCH ×2 (10:49→21:04)
[2018-10-07] MEDS: AMLODIPINE BESYLATE 10 MG TABLET PO SCH (10:49)
[2018-10-07] MEDS: LACTOBACILLUS ACIDOPHILUS 250 MG TAB PO SCH (10:50)
[2018-10-07] MEDS: DULOXETINE HCL 30 MG CAPSULE.DR PO SCH (10:50)
[2018-10-07] MEDS: METOPROLOL TARTRATE 100 MG TABLET PO SCH ×2 (10:50→21:04)
[2018-10-07] MEDS: ONDANSETRON 4 MG TAB.RAPDIS PO PRN (13:59)
--- NOTE | 2018-10-07 18:51 | PDOC PROGRESS REPORT ---
Subjective Progress Note for:: 10/07/18 Subjective:: Patient was seen by the bedside I called [facility] urology yesterday requesting for a transfer to [facility] urology, the urologist said there was no indication for transfer at this time because the kidney function was normal though she has a stent the ureter with hydronephrosis and does not believe the vomiting is from the hydronephrosis. I explained to the patient today that [facility] is recommending that she follows with urology outpatient to have the stent removed but there is no immediate need for transfer at this time Reason For Visit: INTRACTABLE VOMITING, LEFT HYDRONEPHROSIS, WITH Physical Exam Vital Signs: Temp Pulse Resp BP Pulse Ox 98 F 72 18 159/73 H 96 10/07/18 15:00 10/07/18 15:00 10/07/18 15:00 10/07/18 15:00 10/07/18 15:00 Intake & Output 10/06/18 10/07/18 10/08/18 06:59 06:59 06:59 Intake Total 50 2128 3070 Output Total 1320 Balance 50 808 3070 Weight 44.4 kg 44.4 kg General appearance: PRESENT: no acute distress Eye exam: PRESENT: PERRLA Respiratory exam: PRESENT: clear to auscultation jamel Cardiovascular exam: PRESENT: +S1, +S2 GI/Abdominal exam: PRESENT: soft Results Laboratory Results: 10/07/18 05:30 10/07/18 05:30 10/07/18 10/07/18 05:30 05:30 WBC 6.8 RBC 3.89 Hgb 11.6 L D Hct 34.7 L MCV 89 MCH 29.7 MCHC 33.3 RDW 18.2 H Plt Count 165 Seg Neutrophils % 57.1 Lymphocytes % 32.3 Monocytes % 9.3 Eosinophils % 0.5 Basophils % 0.8 Absolute Neutrophils 3.9 Absolute Lymphocytes 2.2 Absolute Monocytes 0.6 Absolute Eosinophils 0.0 Absolute Basophils 0.1 Sodium 137.1 Potassium 4.8 Chloride 109 H Carbon Dioxide 22 Anion Gap 6 BUN 13 Creatinine 0.72 Est GFR ( Amer) > 60 Est GFR (Non-Af Amer) > 60 Glucose 64 L Calcium 8.5 Total Bilirubin 0.5 AST 18 ALT 26 Alkaline Phosphatase 298 H Total Protein 6.4 Albumin 2.8 L 10/05/18 14:24 Catheterized Urine Urine Culture - Final Enterococcus Faecalis(Group D) 10/05/18 13:45 Troponin I < 0.012 Impressions: Acute Abdomen Series 10/05/18 12:54 IMPRESSION: Stable appearance of the left ureteral stent. Previously seen l eft-sided hydronephrosis is not evaluated on this exam. No additional evidence of acute intraabdominal or thoracic process. Additional chronic findings as above. Assessment & Plan - Diagnosis (1) Persistent vomiting Is this a current diagnosis for this admission?: Yes (2) Hydronephrosis of left kidney Is this a current diagnosis for this admission?: Yes (3) Left ureteral calculus Is this a current diagnosis for this admission?: Yes
[2018-10-08] MEDS: OXYCODONE HCL IR 5 MG TABLET PO SCH ×5 (00:37→23:25)
[2018-10-08] MEDS: CALCIUM CARBONATE 500 MG TABLET PO SCH ×3 (05:02→21:26)
[2018-10-08 05:30] LABS: ABSOLUTE LYMPHOCYTES (AUTO) 1.7 10^3/uL (0.5-4.7); ABSOLUTE MONOCYTES (AUTO) 0.5 10^3/uL (0.1-1.4); BASOPHILS % (AUTO) 0.5 % (0-2); EOSINOPHILS % (AUTO) 0.8 % (0-6); HEMATOCRIT 32.1 % (36.0-47.0); HEMOGLOBIN 10.7 g/dL (12.0-15.5); MEAN CORPUSCULAR HEMOGLOBIN 29.7 pg (27.0-33.4); MEAN CORPUSCULAR HGB CONC 33.2 g/dL (32.0-36.0); MEAN CORPUSCULAR VOLUME 90 fl (80-97); MONOCYTES % (AUTO) 8.3 % (3-13); PLATELET COUNT 142 10^3/uL (150-450); RED BLOOD COUNT 3.59 10^6/uL (3.72-5.28); RED CELL DISTRIBUTION WIDTH 17.8 % (11.5-14.0); SEGMENTED NEUTROPHILS % (AUTO) 63.4 % (42-78); TOTAL CELLS COUNTED % (AUTO) 100 %; WHITE BLOOD COUNT 6.3 10^3/uL (4.0-10.5)
[2018-10-08 05:49] LABS: ALANINE AMINOTRANSFERASE 30 U/L (9-52); ALBUMIN 2.7 g/dL (3.5-5.0); ALKALINE PHOSPHATASE 256 U/L (38-126); ANION GAP 6 (5-19); ASPARTATE AMINO TRANSFERASE 11 U/L (14-36); BILIRUBIN,DIRECT 0.1 mg/dL (0.0-0.4); BILIRUBIN,TOTAL 0.4 mg/dL (0.2-1.3); BLOOD UREA NITROGEN 14 mg/dL (7-20); CALCIUM 8.6 mg/dL (8.4-10.2); CARBON DIOXIDE 24 mmol/L (22-30); CHLORIDE 107 mmol/L (98-107); GLUCOSE 86 mg/dL (75-110); POTASSIUM 4.4 mmol/L (3.6-5.0); SODIUM 136.6 mmol/L (137-145); TOTAL PROTEIN 6.2 g/dL (6.3-8.2)
[2018-10-08] MEDS: ENOXAPARIN SODIUM INJ 30 MG/0.3 ML DISP.SYRIN SUBCUT SCH (10:12)
[2018-10-08] MEDS: METOPROLOL TARTRATE 100 MG TABLET PO SCH ×2 (10:16→21:27)
[2018-10-08] MEDS: DULOXETINE HCL 30 MG CAPSULE.DR PO SCH (10:16)
[2018-10-08] MEDS: PANTOPRAZOLE SODIUM 40 MG TABLET.DR PO SCH ×2 (10:16→21:27)
[2018-10-08] MEDS: AMLODIPINE BESYLATE 10 MG TABLET PO SCH (10:16)
[2018-10-08] MEDS: CLONIDINE HCL 0.2 MG TABLET PO SCH ×2 (10:16→21:26)
[2018-10-08] MEDS: LACTOBACILLUS ACIDOPHILUS 250 MG TAB PO SCH (10:17)
[2018-10-08] MEDS: CALCITRIOL 0.25 MCG CAPSULE PO SCH (10:17)
[2018-10-08] MEDS: LIPASE/PROTEASE/AMYLASE 1 CAP CAPSULE.DR PO SCH ×3 (10:17→18:00)
[2018-10-09] MEDS: OXYCODONE HCL IR 5 MG TABLET PO SCH ×2 (05:14→11:28)
[2018-10-09] MEDS: CALCIUM CARBONATE 500 MG TABLET PO SCH (05:14)
[2018-10-09] MEDS: AMLODIPINE BESYLATE 10 MG TABLET PO SCH (09:05)
[2018-10-09] MEDS: LACTOBACILLUS ACIDOPHILUS 250 MG TAB PO SCH (09:05)
[2018-10-09] MEDS: METOPROLOL TARTRATE 100 MG TABLET PO SCH (09:05)
[2018-10-09] MEDS: PANTOPRAZOLE SODIUM 40 MG TABLET.DR PO SCH (09:05)
[2018-10-09] MEDS: CLONIDINE HCL 0.2 MG TABLET PO SCH (09:05)
[2018-10-09] MEDS: DULOXETINE HCL 30 MG CAPSULE.DR PO SCH (09:05)
[2018-10-09] MEDS: LIPASE/PROTEASE/AMYLASE 1 CAP CAPSULE.DR PO SCH (09:06)
[2018-10-09] MEDS: ENOXAPARIN SODIUM INJ 30 MG/0.3 ML DISP.SYRIN SUBCUT SCH (09:06)
[2018-10-09] MEDS: CALCITRIOL 0.25 MCG CAPSULE PO SCH (09:07)
[2018-10-09 12:03] VITALS: BP 123/61
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
== END 2018-10-09 13:45 | disposition home health service (06) ==
LOC: ER 12:12 → EH 17:26 → UNDOADMIN 17:26 → EH 17:39 → INTOOBSV 17:39 → 4S 20:30
PROVIDERS: ADMIT Internal Medicine; ATTEND Internal Medicine
DX: R11.2 Nausea with vomiting, unspecified (principal); N13.2 Hydronephrosis with renal and ureteral calculous obstruction; N39.0 Urinary tract infection, site not specified; B95.2 Enterococcus as the cause of diseases classified elsewhere; I73.9 Peripheral vascular disease, unspecified; R63.0 Anorexia; F17.200 Nicotine dependence, unspecified, uncomplicated; K52.9 Noninfective gastroenteritis and colitis, unspecified; R32 Unspecified urinary incontinence; K21.9 Gastro-esophageal reflux disease without esophagitis; I10 Essential (primary) hypertension; M06.9 Rheumatoid arthritis, unspecified; Z79.899 Other long term (current) drug therapy; Z96.0 Presence of urogenital implants; Z85.44 Personal history of malignant neoplasm of other female genital organs; Z90.49 Acquired absence of other specified parts of digestive tract; Z90.710 Acquired absence of both cervix and uterus; Z87.11 Personal history of peptic ulcer disease; Z98.890 Other specified postprocedural states; Z79.891 Long term (current) use of opiate analgesic
CPT/HCPCS: 93005; 36591; 96376; 99285; 51701; 96375; 96365; 36415 ×2; 87040 ×2; 87086; 84439; 82962; 82140; 82150; 83690; 83735; 84443; 85025 ×4; 85610; 85730; 87088; 80076 ×3; 80048 ×3; 80053; 81001; 84484; 87186; 83036; 80061; 74022; 93010; A9270 ×46; J2270; J2405; J1650 ×3; J0696; J3480 ×3; J3490 ×5; S0119

== ENCOUNTER 2018-12-14 13:02 | Inpatient (IN) | payer MEDICARE, MEDICAID ==
[2018-12-14 13:36] LABS: ABSOLUTE BASOPHILS # (AUTO) 0.1 10^3/uL (0.0-0.2); ABSOLUTE LYMPHOCYTES (AUTO) 1.7 10^3/uL (0.5-4.7); ABSOLUTE MONOCYTES (AUTO) 0.4 10^3/uL (0.1-1.4); ABSOLUTE NEUT (AUTO) 5.9 10^3/uL (1.7-8.2); BASOPHILS % (AUTO) 0.8 % (0-2); EOSINOPHILS % (AUTO) 0.4 % (0-6); HEMATOCRIT 43.7 % (36.0-47.0); HEMOGLOBIN 14.1 g/dL (12.0-15.5); LYMPHOCYTES % (AUTO) 21.1 % (13-45); MEAN CORPUSCULAR HEMOGLOBIN 28.2 pg (27.0-33.4); MEAN CORPUSCULAR HGB CONC 32.2 g/dL (32.0-36.0); MEAN CORPUSCULAR VOLUME 87 fl (80-97); MONOCYTES % (AUTO) 4.9 % (3-13); PLATELET COUNT 198 10^3/uL (150-450); RED CELL DISTRIBUTION WIDTH 16.5 % (11.5-14.0); SEGMENTED NEUTROPHILS % (AUTO) 72.8 % (42-78); TOTAL CELLS COUNTED % (AUTO) 100 %; WHITE BLOOD COUNT 8.1 10^3/uL (4.0-10.5)
[2018-12-14] MEDS ORDERED: ONDANSETRON HCL INJ/PF 4 MG/2 ML SDV IV ONE (13:42)
[2018-12-14] MEDS ORDERED: FENTANYL CITRATE INJ/PF 100 MCG/2 ML AMPUL IV ONE (13:48)
[2018-12-14 13:56] LABS: ALANINE AMINOTRANSFERASE 51 U/L (9-52); ALBUMIN 4.3 g/dL (3.5-5.0); ALKALINE PHOSPHATASE 352 U/L (38-126); ANION GAP 13 (5-19); ASPARTATE AMINO TRANSFERASE 55 U/L (14-36); BILIRUBIN,DIRECT 0.2 mg/dL (0.0-0.4); BILIRUBIN,TOTAL 0.4 mg/dL (0.2-1.3); BLOOD UREA NITROGEN 6 mg/dL (7-20); CALCIUM 8.9 mg/dL (8.4-10.2); CARBON DIOXIDE 24 mmol/L (22-30); CHLORIDE 106 mmol/L (98-107); GLUCOSE 134 mg/dL (75-110); LIPASE 35.8 U/L (23-300); POTASSIUM 3.8 mmol/L (3.6-5.0); SODIUM 142.8 mmol/L (137-145); TOTAL PROTEIN 8.7 g/dL (6.3-8.2)
[2018-12-14] MEDS ORDERED: PROMETHAZINE HCL INJ 25 MG/1 ML VIAL IV ONE (14:45)
--- NOTE | 2018-12-14 14:52 | RADIOLOGY REPORT (SQ) ---
EXAM DESCRIPTION: CT ABD/PELVIS WITH IV ONLY COMPLETED DATE/TIME: 12/14/2018 2:36 pm REASON FOR STUDY: general pain COMPARISON: 08/30/2018 TECHNIQUE: CT scan of the abdomen and pelvis performed using helical scanning technique with dynamic intravenous contrast injection. No oral contrast. Images reviewed with lung, soft tissue, and bone windows. Reconstructed coronal and sagittal MPR images reviewed. Delayed images for evaluation of the urinary system also acquired. All images stored on PACS. All CT scanners at this facility use dose modulation, iterative reconstruction, and/or weight based d osing when appropriate to reduce radiation dose to as low as reasonably achievable (ALARA). [facility]: Dose Right [facility]: CareDose [facility]: Dose Right [facility]: Teradose 4D [facility]: TripletPlus CONTRAST TYPE AND DOSE: contrast/concentration: Isovue 350.00 mg/ml; Total Contrast Delivered: 56.0 ml; Total Saline Delivered: 65.0 ml RENAL FUNCTION: BUN 6 creatinine 0.5 RADIATION DOSE: CT Rad equipment meets quality standard of care and radiation dose reduction techniq ues were employed. CTDIvol: 5.1 - 6.4 mGy. DLP: 718 mGy-cm.. LIMITATIONS: None. FINDINGS: LOWER CHEST: No significant findings. No nodules or infiltrates. LIVER: Biliary air. No hepatic mass. SPLEEN: Normal size. No focal lesions. PANCREAS: No masses. No significant calcifications. No adjacent inflammation or peripancreatic fluid collections. Pancreatic duct not dilated. GALLBLADDER: Surgically absent. ADRENAL GLANDS: No significant masses or asymmetry. RIGHT KIDNEY AND URETER: Hypoplastic. LEFT KIDNEY AND URETER: Compensatory hypertrophy. No solid masses. Hydronephrosis. A ureteral sten t is present. AORTA AND VESSELS: No aneurysm. No dissection. Renal arteries, SMA, celiac without stenosis. RETROPERITONEUM: No retroperitoneal adenopathy, hemorrhage or masses. BOWEL AND PERITONEAL CAVITY: No masses or inflammatory changes. No free fluid or peritoneal masses. APPENDIX: Not identified. PELVIS: No mass. No free fluid. Normal bladder. ABDOMINAL WALL: No masses. No hernias. BONES: Chronic deformity of both hips. Marked scoliosis. No osseous lesion. Grade 1 anterolisthesi s of L5 on S1. OTHER: No other significant finding. 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 There is left hydro nephrosis. A ureteral stent is present. Osseous findings as described. TECHNICAL DOCUMENTATION: JOB ID: [id number] Quality ID # [id number]: Final reports with documentation of one or more dose reduction techniques (e.g., Au tomated exposure control, adjustment of the mA and/or kV according to patient size, use of iterative reconstruction technique) 2010 [employer]- All Rights Reserved Reading location - IP/workstation name: [email or web address]
[2018-12-14 15:21] LABS: APPEARANCE,URINE TURBID; BILIRUBIN,URINE NEGATIVE (NEGATIVE); COLOR,URINE YELLOW; GLUCOSE, URINE NEGATIVE (NEGATIVE); KETONES,URINE TRACE mg/dL (NEGATIVE); LEUKOCYTE ESTERASE,URINE LARGE (NEGATIVE); NITRITE,URINE NEGATIVE (NEGATIVE); PROTEIN,URINE 30 mg/dL (NEGATIVE); UROBILINOGEN,URINE NEGATIVE mg/dL (<2.0)
[2018-12-14] MEDS ORDERED: CEFTRIAXONE 1 GM/D5W RTU 50 ML IV ONE (15:46)
[2018-12-14] MEDS ORDERED: AMPICILLIN SOD/SULBACTAM 3 GM VIAL IV ONE (15:52)
[2018-12-14] MEDS ORDERED: CEFTRIAXONE 1 GM/D5W RTU 1 GM/50 ML RTUPB IV ONE (15:52)
[2018-12-14] MEDS ORDERED: NORMAL SALINE 1000 ML 1,000 ML IV ONE (15:53)
--- NOTE | 2018-12-14 16:22 | ER Document Report ---
ED General - General Chief Complaint: Nausea/Vomiting Stated Complaint: ABDOMINAL PAIN Time Seen by Provider: 12/14/18 13:18 Notes: RN Note obtained from EMS: Pt presents to the ED today c/o sudden onset of abd pain accompanied by N/V. Per EMS pt has a long hx of chronic pancreatitis and is admitted most times when she has these s/sx. pt states the pain began around 1000 today and that she took her home nausea and pain medications and states she vomited it immediately. during assessment pt is actively retching and vomiting what looks like thick clear mucus. pt aox4 speaking in complete sentences. e/u respirations. nad. MY HPI: Same as above. In discussing patient's symptoms she is bedridden and wears an adult diaper. In reviewing past charts she has been to this facility every month for the last 4 months for urinary tract infections. Patient states most of her pain is in her lower back and generalized lower abdomen. Patient has been unable to take any of her medications today due to the vomiting. Patient is denying any fevers. TRAVEL OUTSIDE OF THE [place] IN LAST 30 DAYS: No - Related Data Allergies/Adverse Reactions: ketorolac [From Toradol] Allergy (Verified 10/05/18 12:19) sulfamethoxazole [From Bactrim] Allergy (Verified 10/05/18 12:18) trimethoprim [From Bactrim] Allergy (Verified 10/05/18 12:18) Past Medical History - General Information source: Patient, Relative - Social History Smoking Status: Current Every Day Smoker Chew tobacco use (# tins/day): No Frequency of alcohol use: None Drug Abuse: None Family History: Reviewed & Not Pertinent Patient has suicidal ideation: No Patient has homicidal ideation: No - Past Medical History Cardiac Medical History: Reports: Hx Congestive Heart Failure, Hx Hypertension, Hx Peripheral Vascular Disease Pulmonary Medical History: Reports: Hx COPD Neurological Medical History: Reports: Hx Cerebrovascular Accident - aphasia. Denies: Hx Seizures Renal/ Medical History: Denies: Hx Peritoneal Dialysis GI Medical History: Reports: Hx Gastroesophageal Reflux Disease, Hx Ulcer - peptic Musculoskeletal Medical History: Reports Hx Arthritis - RA Psychiatric Medical History: Reports: Hx Depression Past Surgical History: Reports: Hx Abdominal Surgery - STOMACH ULCER, Hx Bowel Surgery, Hx Cholecystectomy - 05/2017, Hx Hysterectomy, Hx Orthopedic Surgery - LT HIP REMOVAL OF "HEAD", SCREWS RT HIP, RT KNEE REPLACEMENT, Other - lysis of adhesions - Immunizations Hx Pneumococcal Vaccination: 07/20/11 Review of Systems - Review of Systems Constitutional: denies: Fever EENT: No symptoms reported Cardiovascular: No symptoms reported Respiratory: No symptoms reported Gastrointestinal: See HPI Genitourinary: Flank pain. denies: Burning, Dysuria Female Genitourinary: No symptoms reported Musculoskeletal: See HPI Skin: No symptoms reported Hematologic/Lymphatic: No symptoms reported Neurological/Psychological: No symptoms reported Physical Exam - Vital signs Vitals: Temp 98.1 F 12/14/18 13:04 - Notes Notes: GENERAL: Alert, interacts well. Actively vomiting HEAD: Normocephalic, atraumatic. EYES: Pupils equal, round, and reactive to light. Extraocular movements intact. ENT: Oral mucosa moist, tongue midline. NECK: Full range of motion. Supple. Trachea midline. LUNGS: Clear to auscultation bilaterally, no wheezes, rales, or rhonchi. No resp iratory distress. HEART: Regular rate and rhythm. No murmur ABDOMEN: Soft, Non-distended. Bowel sounds present in all 4 quadrants. Generalized tenderness noted all 4 quadrants EXTREMITIES: Moves all 4 extremities spontaneously. No edema, normal radial and dorsalis pedis pulses bilaterally. No cyanosis. 4-5 strength bilateral upper extremities 1 out of 1 strength bilateral lower extremities NEUROLOGICAL: Alert and oriented x3. Normal speech. cranial nerves II through XII grossly intact PSYCH: Normal affect, normal mood. SKIN: Warm, dry, normal turgor. No rashes or lesions noted. Course - Re-evaluation Re-evalutation: 12/14/18 16:31 Laboratory 12/14/18 12/14/18 12/14/18 13:20 13:20 14:45 WBC 8.1 RBC 5.00 Hgb 14.1 Hct 43.7 MCV 87 MCH 28.2 MCHC 32.2 RDW 16.5 H Plt Count 198 Seg Neutrophils % 72.8 Lymphocytes % 21.1 Monocytes % 4.9 Eosinophils % 0.4 Basophils % 0.8 Absolute Neutrophils 5.9 Absolute Lymphocytes 1.7 Absolute Monocytes 0.4 Absolute Eosinophils 0.0 Absolute Basophils 0.1 Sodium 142.8 Potassium 3.8 Chloride 106 Carbon Dioxide 24 Anion Gap 13 BUN 6 L Creatinine 0.49 L Est GFR ( Amer) > 60 Est GFR (Non-Af Amer) > 60 Glucose 134 H Calcium 8.9 Total Bilirubin 0.4 Direct Bilirubin 0.2 Neonat Total Bilirubin Not Reportable Neonat Direct Bilirubin Not Reportable Neonat Indirect Bili Not Reportable AST 55 H ALT 51 Alkaline Phosphatase 352 H Total Protein 8.7 H Albumin 4.3 Lipase 35.8 Urine Color YELLOW Urine Appearance TURBID Urine pH 8.0 Ur Specific [place] 1.020 Urine Protein 30 H Urine Glucose (UA) NEGATIVE Urine Ketones TRACE H Urine Blood LARGE H Urine Nitrite NEGATIVE Urine Bilirubin NEGATIVE Urine Urobilinogen NEGATIVE Ur Leukocyte Esterase LARGE H Urine WBC (Auto) >182 Urine RBC (Auto) >182 Urine Bacteria (Auto) 1+ Urine WBC Clumps MANY Urine Ascorbic Acid NEGATIVE Abdomen/Pelvis CT 12/14/18 13:18 IMPRESSION: 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 There is left hydronephrosis. A ureteral stent is present. Osseous findings as described. Patients labs show no signs of leukocytosis. Urine does show signs of infection sent for culture. I have started treating with Rocephin. I have looked back at patient's past culture results. It does appear that the patient has been here once a month every month for urinary tract infection. Typically grows out group D enterococci. That is susceptible to Unasyn so I have started Unasyn. Upon reexamination of the patient's abdomen she continues with nausea. While I am in the room she does have one episode of emesis. Patient has received Zofran and Phenergan or vomiting. At this point time I have discussed this case with Dr. Polanco. It is my recommendation the patient gets admitted for intractable vomiting, urinary tract infection, left hydronephrosis. Dr. Polanco is in agreements. Patient admitted to [facility]. - Vital Signs Vital signs: Temp Pulse Resp BP Pulse Ox 98.1 F 14 219/88 H 100 12/14/18 13:04 12/14/18 14:01 12/14/18 17:01 12/14/18 17:00 - Laboratory Result Diagrams: 12/14/18 13:20 12/14/18 13:20 Laboratory results interpreted by me: 12/14/18 12/14/18 12/14/18 13:20 13:20 14:45 RDW 16.5 H BUN 6 L Creatinine 0.49 L Glucose 134 H AST 55 H Alkaline Phosphatase 352 H Total Protein 8.7 H Urine Protein 30 H Urine Ketones TRACE H Urine Blood LARGE H Ur Leukocyte Esterase LARGE H Discharge - Discharge Clinical Impression: Urinary tract infection Qualifiers: Urinary tract infection type: acute pyelonephritis Qualified Code(s): N10 - Acute pyelonephritis Intractable vomiting Qualifiers: Vomiting type: unspecified Nausea presence: with nausea Qualified Code(s): R11.2 - Nausea with vomiting, unspecified Condition: Fair Disposition: ADMITTED INPATIENT Admitting Provider: [facility] Admitted: [facility]
[2018-12-14] MEDS ORDERED: METOPROLOL TARTRATE PF/INJ 5 MG/5 ML SDV IV ONE (16:26)
[2018-12-14] MEDS ORDERED: AMYLASE PO SCH (19:45)
[2018-12-14] MEDS ORDERED: (PENDING PHARMACY ID) (Morphine Sulfate/Naltrexone [Embeda Er 50-2 Mg Capsule] 1 CAP) PO SCH (19:45)
[2018-12-14] MEDS ORDERED: LIPASE PO SCH (19:45)
[2018-12-14] MEDS ORDERED: PROTEASE PO SCH (19:45)
[2018-12-14] MEDS ORDERED: (PENDING PHARMACY ID) (Colestipol Hcl [Colestid 1 Gm Tablet] 2 GM) PO SCH (19:45)
[2018-12-14] MEDS: OXYCODONE HCL IR 5 MG TABLET PO PRN (20:13)
[2018-12-14] MEDS: AMLODIPINE BESYLATE 10 MG TABLET PO SCH ×2 (20:13→21:09)
[2018-12-14] MEDS: DULOXETINE HCL 30 MG CAPSULE.DR PO SCH ×2 (20:13→21:09)
[2018-12-14] MEDS: CALCITRIOL 0.25 MCG CAPSULE PO SCH ×2 (20:13→21:09)
[2018-12-14] MEDS: PANTOPRAZOLE SODIUM 40 MG TABLET.DR PO SCH (21:09)
[2018-12-14] MEDS: HYDROMORPHONE HCL INJ/PF 2 MG/ML AMPULE IV PRN (23:53)
[2018-12-14] MEDS: ONDANSETRON HCL INJ/PF 4 MG/2 ML SDV IV PRN (23:54)
[2018-12-14] MEDS: CLONIDINE HCL 0.2 MG TABLET PO SCH (23:57)
[2018-12-14] MEDS: METOPROLOL TARTRATE 100 MG TABLET PO SCH (23:57)
[2018-12-14] MEDS: CALCIUM CARBONATE 500 MG TABLET PO SCH (23:58)
[2018-12-15] MEDS: ENALAPRILAT DIHYDRATE INJ/PF 2.5 MG/2 ML SDV IV SCH ×5 (00:01→23:54)
[2018-12-15] MEDS: NORMAL SALINE 1000 ML 1,000 ML IV PRN ×2 (00:06→12:04)
[2018-12-15 03:42] LABS: ANION GAP 15 (5-19); BLOOD UREA NITROGEN 6 mg/dL (7-20); CALCIUM 8.8 mg/dL (8.4-10.2); CARBON DIOXIDE 21 mmol/L (22-30); CHLORIDE 105 mmol/L (98-107); GLUCOSE 178 mg/dL (75-110); POTASSIUM 3.3 mmol/L (3.6-5.0); SODIUM 140.7 mmol/L (137-145)
[2018-12-15] MEDS: OXYCODONE HCL IR 5 MG TABLET PO PRN ×3 (04:57→23:54)
[2018-12-15] MEDS: CALCIUM CARBONATE 500 MG TABLET PO SCH ×3 (05:36→21:44)
[2018-12-15] MEDS: HYDROMORPHONE HCL INJ/PF 2 MG/ML AMPULE IV PRN ×8 (06:21→20:45)
[2018-12-15] MEDS: ONDANSETRON HCL INJ/PF 4 MG/2 ML SDV IV PRN ×5 (06:22→21:43)
[2018-12-15] MEDS ORDERED: CEFTRIAXONE 1 GM/D5W RTU 1 GM/50 ML RTUPB IV SCH (10:00)
[2018-12-15] MEDS: PANTOPRAZOLE SODIUM 40 MG TABLET.DR PO SCH (11:25)
[2018-12-15] MEDS: AMLODIPINE BESYLATE 10 MG TABLET PO SCH (11:25)
[2018-12-15] MEDS: DULOXETINE HCL 30 MG CAPSULE.DR PO SCH (11:25)
[2018-12-15] MEDS: CLONIDINE HCL 0.2 MG TABLET PO SCH ×2 (11:26→21:43)
[2018-12-15] MEDS: METOPROLOL TARTRATE 100 MG TABLET PO SCH ×2 (11:26→21:43)
[2018-12-15] MEDS: CEFTRIAXONE SODIUM 1,000 MG in DEXTROSE 5%-WATER 50 ML IV SCH (11:29)
[2018-12-15] MEDS: CALCITRIOL 0.25 MCG CAPSULE PO SCH (11:41)
--- NOTE | 2018-12-15 17:09 | PDOC H&P ---
History of Present Illness Admission Date/PCP: 12/14/18 16:30 SHARDA MAYS MD History of Present Illness: NICKO FERRO is a 78 year old female,She came to the emergency room for evaluation of Persistent vomiting, she was unable to hold any food down, in the emergency room a CAT scan of the abdomen and pelvis was obtained it demonstrated a hypoplastic right kidney with compensatory hypertrophy of the left kidney with hydronephrosis.She has history of chronic pancreatitis, She has episode of persistent, intractable vomiting Past Medical History Cardiac Medical History: Reports: Hypertension, Peripheral Vascular Disease Pulmonary Medical History: Reports: Chronic Obstructive Pulmonary Disease (COPD) GI Medical History: Reports: Gastroesophageal Reflux Disease, Other - chronic pancreatitis Musculoskeltal Medical History: Reports: Arthritis - RA Psychiatric Medical History: Reports: Depression Past Surgical History Past Surgical History: Reports: Cholecystectomy - 05/2017, Hysterectomy, Orthopedic Surgery - LT HIP REMOVAL OF "HEAD", SCREWS RT HIP, RT KNEE REPLACEMENT, Other - lysis of adhesions Social History Smoking Status: Current Every Day Smoker Frequency of Alcohol Use: None Hx Recreational Drug Use: No Drugs: None Hx Prescription Drug Abuse: No Family History Family History: Reviewed & Not Pertinent Parental Family History Reviewed: Yes Children Family History Reviewed: Yes Sibling(s) Family History Reviewed.: Yes Medication/Allergy Home Medications: Amlodipine Besylate [Norvasc 10 mg Tablet] 10 mg PO DAILY 12/14/18 Calcitriol [Rocaltrol 0.25 mcg Capsule] 0.25 mcg PO DAILY 12/14/18 Calcium Carbonate [Calcium] 500 mg PO Q8 12/14/18 Clonidine HCl [Catapres 0.2 mg Tablet] 0.2 mg PO Q12 12/14/18 Colestipol HCl [Colestid 1 gm Tablet] 2 gm PO TID 12/14/18 Duloxetine HCl [Cymbalta] 60 mg PO DAILY 12/14/18 Lipase/Protease/Amylase [Zenpep Dr 15,000 Unit Capsule] 3 cap PO TID 12/14/18 Metoprolol Tartrate [Lopressor 100 mg Tablet] 100 mg PO Q12 12/14/18 Morphine Sulfate/Naltrexone [Embeda ER 50-2 mg Capsule] 1 cap PO DAILY 12/14/18 Oxycodone HCl 15 mg PO Q6HP PRN 12/14/18 Pantoprazole Sodium [Protonix [address] Tablet] 40 mg PO DAILY 12/14/18 Allergies/Adverse Reactions: ketorolac [From Toradol] Allergy (Verified 10/05/18 12:19) sulfamethoxazole [From Bactrim] Allergy (Verified 10/05/18 12:18) trimethoprim [From Bactrim] Allergy (Verified 10/05/18 12:18) Review of Systems Constitutional: ABSENT: chills, fever(s), headache(s), weight gain, weight loss Eyes: ABSENT: visual disturbances Ears: ABSENT: hearing changes Cardiovascular: ABSENT: chest pain, dyspnea on exertion, edema, orthropnea, palpitations Respiratory: ABSENT: cough, hemoptysis Gastrointestinal: PRESENT: abdominal pain, vomiting Genitourinary: ABSENT: dysuria, hematuria Musculoskeletal: ABSENT: joint swelling Integumentary: ABSENT: rash, wounds Neurological: ABSENT: abnormal gait, abnormal speech, confusion, dizziness, focal weakness, syncope Psychiatric: ABSENT: anxiety, depression, homidical ideation, suicidal ideation Endocrine: ABSENT: cold intolerance, heat intolerance, menstrual abnormalities, polydipsia, polyuria Hematologic/Lymphatic: ABSENT: easy bleeding, easy bruising, lymphadenopathy Physical Exam Vital Signs: Temp Pulse Resp BP Pulse Ox 98.4 F 67 16 187/106 H 98 12/15/18 07:53 12/15/18 14:00 12/15/18 07:53 12/15/18 07:53 12/15/18 07:53 Intake & Output 12/14/18 12/15/18 12/16/18 06:59 06:59 06:59 Intake Total 1050 1038 Balance 1050 1038 Weight 42.3 kg General appearance: PRESENT: thin Head exam: PRESENT: atraumatic, normocephalic Eye exam: PRESENT: PERRLA Ear exam: PRESENT: normal external ear exam Mouth exam: PRESENT: moist, tongue midline Neck exam: PRESENT: full ROM Respiratory exam: PRESENT: clear to auscultation jamel Cardiovascular exam: PRESENT: RRR, +S1, +S2 Vascular exam: PRESENT: normal capillary refill GI/Abdominal exam: PRESENT: normal bowel sounds, soft Rectal exam: PRESENT: deferred Neurological exam: PRESENT: alert, CN II-XII grossly intact Skin exam: PRESENT: dry, intact, warm Results Laboratory Results: 12/14/18 13:20 Impressions: Abdomen/Pelvis CT 12/14/18 13:18 IMPRESSION: 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 There is left hydronephrosis. A ureteral stent is present. Osseous findings as described. Assessment & Plan - Diagnosis (1) Intractable vomiting Qualifiers: Vomiting type: unspecified Nausea presence: with nausea Qualified Code(s): R11.2 - Nausea with vomiting, unspecified Is this a current diagnosis for this admission?: Yes Plan: Patient is admitted to the hospital for management of persistent vomiting (2) Chronic pancreatitis Qualifiers: Pancreatitis type: unspecified pancreatitis type Qualified Code(s): K86.1 - Other chronic pancreatitis Is this a current diagnosis for this admission?: Yes Plan: She has history of chronic pancreatitis usually lipase level is normal in previous episode of acute pancreatitis
[2018-12-15] MEDS ORDERED: PROMETHAZINE HCL INJ 25 MG/1 ML VIAL ONE (17:42)
--- NOTE | 2018-12-15 17:52 | PDOC PROGRESS REPORT ---
Subjective Progress Note for:: 12/15/18 Subjective:: Patient seen by the bedside,she still have difficulty taking orally ,she was admitted yesterday for protracted vomiting Reason For Visit: URINARY TRACT INFECTION, INTRACTABLE VOMITING Physical Exam Vital Signs: Temp Pulse Resp BP Pulse Ox 98.4 F 67 16 187/106 H 98 12/15/18 07:53 12/15/18 14:00 12/15/18 07:53 12/15/18 07:53 12/15/18 07:53 Intake & Output 12/14/18 12/15/18 12/16/18 06:59 06:59 06:59 Intake Total 1050 1088 Balance 1050 1088 Weight 42.3 kg General appearance: PRESENT: no acute distress Eye exam: PRESENT: PERRLA Respiratory exam: PRESENT: clear to auscultation jamel Cardiovascular exam: PRESENT: +S1, +S2 GI/Abdominal exam: PRESENT: soft Neurological exam: PRESENT: alert Results Laboratory Results: 12/14/18 13:20 Impressions: Abdomen/Pelvis CT 12/14/18 13:18 IMPRESSION: 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 There is left hydronephrosis. A ureteral stent is present. Osseous findings as described. Assessment & Plan - Diagnosis (1) Intractable vomiting Qualifiers: Vomiting type: unspecified Nausea presence: with nausea Qualified Code(s): R11.2 - Nausea with vomiting, unspecified Is this a current diagnosis for this admission?: Yes (2) Chronic pancreatitis Qualifiers: Pancreatitis type: unspecified pancreatitis type Qualified Code(s): K86.1 - Other chronic pancreatitis Is this a current diagnosis for this admission?: Yes Plan: She has history of chronic pancreatitis usually lipase level is normal in previous episode of acute pancreatitis (3) Urinary tract infection Qualifiers: Urinary tract infection type: site unspecified Hematuria presence: without hematuria Qualified Code(s): N39.0 - Urinary tract infection, site not specified Is this a current diagnosis for this admission?: Yes Plan: Continue IV antibiotic
--- NOTE | 2018-12-15 22:16 | EKG REPORT ---
SEVERITY:- ABNORMAL ECG - ATRIAL FLUTTER, A-RATE 300 VENTRICULAR BIGEMINY LVH WITH SECONDARY REPOLARIZATION ABNORMALITY : Confirmed by: Britany Kenny MD 15-Dec-2018 22:15:32
[2018-12-16] MEDS: HYDROMORPHONE HCL INJ/PF 2 MG/ML AMPULE IV PRN ×7 (00:10→23:03)
[2018-12-16] MEDS: NORMAL SALINE 1000 ML 1,000 ML IV PRN ×2 (04:06→20:10)
[2018-12-16] MEDS: ONDANSETRON HCL INJ/PF 4 MG/2 ML SDV IV PRN ×3 (04:07→18:19)
[2018-12-16] MEDS: CALCIUM CARBONATE 500 MG TABLET PO SCH ×3 (05:19→22:49)
[2018-12-16] MEDS: ENALAPRILAT DIHYDRATE INJ/PF 2.5 MG/2 ML SDV IV SCH ×4 (05:22→23:46)
[2018-12-16] MEDS ORDERED: PROTEASE PO SCH (08:00)
[2018-12-16] MEDS ORDERED: LIPASE PO SCH (08:00)
[2018-12-16] MEDS ORDERED: AMYLASE PO SCH (08:00)
[2018-12-16] MEDS: CLONIDINE HCL 0.2 MG TABLET PO SCH ×2 (10:32→21:13)
[2018-12-16] MEDS: AMLODIPINE BESYLATE 10 MG TABLET PO SCH (10:33)
[2018-12-16] MEDS: METOPROLOL TARTRATE 100 MG TABLET PO SCH ×2 (10:33→21:14)
[2018-12-16] MEDS: PANTOPRAZOLE SODIUM 40 MG TABLET.DR PO SCH (10:33)
[2018-12-16] MEDS: CEFTRIAXONE SODIUM 1,000 MG in DEXTROSE 5%-WATER 50 ML IV SCH (10:34)
[2018-12-16] MEDS: DULOXETINE HCL 30 MG CAPSULE.DR PO SCH (10:34)
[2018-12-16] MEDS: CALCITRIOL 0.25 MCG CAPSULE PO SCH (10:34)
[2018-12-16] MEDS: AMYLASE PO SCH ×2 (11:39→18:13)
[2018-12-16] MEDS: PROTEASE PO SCH ×2 (11:39→18:13)
[2018-12-16] MEDS: LIPASE PO SCH ×2 (11:39→18:13)
--- NOTE | 2018-12-16 17:08 | Progress Note ---
Provider Note Provider Note: ID Consult Note Asked to review patient's chart by pharmacy regarding antibiotic management in light of urine culture result. Pt not seen or examined. Reviewed VS, lab results, imaging reports, provider reports. Pt was admitted for protracted vomiting on 12/15/18. Pt is 78 years old. She has PMH including GERD, RA, and chronic pancreatitis. She has had prior episodes of persistent vomiting that have required admission. Per ED provider's note pt had sudden onset of nausea, vomiting and abdominal pain. She admitted to having most of her pain in the lower back and lower abdomen. ROS was positive for "flank pain" but no fever or burning with urination and on exam, the abdominal tendernes was generalized. Per H&P, pt again did not have dysuria, fever or chills. She was not initially suspected of having a UTI. She has not objectively had a fever. She was markedly hypertensive in the ED with BP 219/88. Her WBC count was normal. She had pyuria on U/A. 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 UCx grew Enterococcus faecalis. Blood cultures have been negative. Impression/Recommendations This appears to be most consistent with asymptomatic bacteriuria. She has a history of admissions for intractable nausea and vomiting. Finding inflammatory cells in the urine is not unexpected whenever there is a foreign body, whether that is a catheter or a stent. It does not provide specific information to establish a diagnosis of UTI. The same is true for urine culture growth. Urine colonization becomes increasingly common with advancing age, and finding asymptomatic bacteriuria does not establish presence of UTI and does not require treatment in absence of symptoms outside of situations of or impending invasive urinary procedure. Would discontinue Rocephin. Leonardo Mejias MD [facility] pager [phone]
--- NOTE | 2018-12-16 20:58 | PDOC PROGRESS REPORT ---
Subjective Progress Note for:: 12/16/18 Subjective:: Patient was seen by the bedside, she has less vomiting today, Reason For Visit: URINARY TRACT INFECTION, INTRACTABLE VOMITING Physical Exam Vital Signs: Temp Pulse Resp BP Pulse Ox 98.1 F 58 L 20 124/52 L 94 12/16/18 19:24 12/16/18 19:24 12/16/18 19:24 12/16/18 19:24 12/16/18 19:24 Intake & Output 12/15/18 12/16/18 12/17/18 06:59 06:59 06:59 Intake Total 1050 2910 1494 Output Total 3 Balance 1050 2907 1494 Weight 42.3 kg 43.4 kg General appearance: PRESENT: no acute distress Eye exam: PRESENT: PERRLA Respiratory exam: PRESENT: clear to auscultation jamel Cardiovascular exam: PRESENT: +S1, +S2 GI/Abdominal exam: PRESENT: soft Neurological exam: PRESENT: alert Results Laboratory Results: 12/14/18 13:20 12/14/18 14:45 Catheterized Urine Urine Culture - Final Enterococcus Faecalis(Group D) Impressions: Abdomen/Pelvis CT 12/14/18 13:18 IMPRESSION: 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 There is left hydronephrosis. A ureteral stent is present. Osseous findings as described. Assessment & Plan - Diagnosis (1) Intractable vomiting Qualifiers: Vomiting type: unspecified Nausea presence: with nausea Qualified Code(s): R11.2 - Nausea with vomiting, unspecified Is this a current diagnosis for this admission?: Yes (2) Chronic pancreatitis Qualifiers: Pancreatitis type: unspecified pancreatitis type Qualified Code(s): K86.1 - Other chronic pancreatitis Is this a current diagnosis for this admission?: Yes (3) Urinary tract infection Qualifiers: Urinary tract infection type: site unspecified Hematuria presence: without hematuria Qualified Code(s): N39.0 - Urinary tract infection, site not specified Is this a current diagnosis for this admission?: Yes - Plan Summary Plan Summary: Continue present treatment strategy, start p.o. feeds
[2018-12-17] MEDS: ONDANSETRON HCL INJ/PF 4 MG/2 ML SDV IV PRN ×5 (03:35→21:06)
[2018-12-17] MEDS: HYDROMORPHONE HCL INJ/PF 2 MG/ML AMPULE IV PRN ×5 (03:35→19:31)
[2018-12-17] MEDS: CALCIUM CARBONATE 500 MG TABLET PO SCH ×3 (05:00→21:06)
[2018-12-17] MEDS: ENALAPRILAT DIHYDRATE INJ/PF 2.5 MG/2 ML SDV IV SCH ×3 (05:05→17:38)
[2018-12-17] MEDS: PROTEASE PO SCH ×3 (08:10→17:38)
[2018-12-17] MEDS: LIPASE PO SCH ×3 (08:10→17:38)
[2018-12-17] MEDS: AMYLASE PO SCH ×3 (08:10→17:38)
[2018-12-17] MEDS: METOPROLOL TARTRATE 100 MG TABLET PO SCH ×2 (09:11→21:05)
[2018-12-17] MEDS: AMLODIPINE BESYLATE 10 MG TABLET PO SCH (09:11)
[2018-12-17] MEDS: CALCITRIOL 0.25 MCG CAPSULE PO SCH (09:11)
[2018-12-17] MEDS: DULOXETINE HCL 30 MG CAPSULE.DR PO SCH (09:11)
[2018-12-17] MEDS: PANTOPRAZOLE SODIUM 40 MG TABLET.DR PO SCH (09:12)
[2018-12-17] MEDS: CEFTRIAXONE SODIUM 1,000 MG in DEXTROSE 5%-WATER 50 ML IV SCH (09:12)
[2018-12-17] MEDS: NORMAL SALINE 1000 ML 1,000 ML IV PRN (09:12)
[2018-12-17] MEDS: CLONIDINE HCL 0.2 MG TABLET PO SCH ×2 (09:12→21:05)
[2018-12-17] MEDS ORDERED: AMPICILLIN SODIUM 1.5 GM in NORMAL SALINE 100 ML IV SCH (12:00)
[2018-12-17] MEDS: AMPICILLIN SODIUM 1 GM in NORMAL SALINE 50 ML IV SCH (17:34)
--- NOTE | 2018-12-17 19:56 | PDOC PROGRESS REPORT ---
Subjective Progress Note for:: 12/17/18 Subjective:: Patient was seen by the bedside, she was admitted for the management of intractable vomiting, the exact cause was not clear, it was felt that this could be from acute pancreatitis, though there was no evidence of acute pancreatitis the CAT scan was negative for inflamed pancreas, the serum lipase was normal, she was found to have grossly abnormal urinalysis, she had a history of complicated UTI she has atrophic right kidney and she has a history of ureteric stone with hydronephrosis that is indwelling stent in the ureter. Patient was empirically initially treated with ceftriaxone for UTI, the urine culture grew E faecalis sensitive to ampicillin, the antibiotic was changed today to ampicillin. She has significant colony count for the E faecalis. Reason For Visit: URINARY TRACT INFECTION, INTRACTABLE VOMITING Physical Exam Vital Signs: Temp Pulse Resp BP Pulse Ox 98.4 F 55 L 17 121/58 L 96 12/17/18 15:14 12/17/18 17:38 12/17/18 15:14 12/17/18 17:38 12/17/18 15:14 Intake & Output 12/16/18 12/17/18 12/18/18 06:59 06:59 06:59 Intake Total 2910 1716 1666 Output Total 3 Balance 2907 1716 1666 Weight 43.4 kg 44.4 kg General appearance: PRESENT: no acute distress Eye exam: PRESENT: PERRLA Respiratory exam: PRESENT: clear to auscultation jamel Cardiovascular exam: PRESENT: +S1, +S2 GI/Abdominal exam: PRESENT: soft Neurological exam: PRESENT: alert Results Laboratory Results: 12/14/18 13:20 Impressions: Abdomen/Pelvis CT 12/14/18 13:18 IMPRESSION: 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 There is left hydronephrosis. A ureteral stent is present. Osseous findings as described. Assessment & Plan - Diagnosis (1) Intractable vomiting Qualifiers: Vomiting type: unspecified Nausea presence: with nausea Qualified Code(s): R11.2 - Nausea with vomiting, unspecified Is this a current diagnosis for this admission?: Yes (2) Chronic pancreatitis Qualifiers: Pancreatitis type: unspecified pancreatitis type Qualified Code(s): K86.1 - Other chronic pancreatitis Is this a current diagnosis for this admission?: Yes (3) Urinary tract infection Qualifiers: Urinary tract infection type: site unspecified Hematuria presence: without hematuria Qualified Code(s): N39.0 - Urinary tract infection, site not specified Is this a current diagnosis for this admission?: Yes (4) UTI (urinary tract infection) due to Enterococcus Is this a current diagnosis for this admission?: Yes Plan: Start ampicillin for enterococcus faecalis UTI
[2018-12-18] MEDS: AMPICILLIN SODIUM 1 GM in NORMAL SALINE 50 ML IV SCH ×5 (00:02→23:25)
[2018-12-18] MEDS: HYDROMORPHONE HCL INJ/PF 2 MG/ML AMPULE IV PRN ×7 (00:07→23:34)
[2018-12-18] MEDS: ENALAPRILAT DIHYDRATE INJ/PF 2.5 MG/2 ML SDV IV SCH ×5 (00:44→23:59)
[2018-12-18] MEDS: NORMAL SALINE 1000 ML 1,000 ML IV PRN ×2 (00:44→16:23)
[2018-12-18] MEDS: ONDANSETRON HCL INJ/PF 4 MG/2 ML SDV IV PRN ×3 (04:03→20:04)
[2018-12-18] MEDS: CALCIUM CARBONATE 500 MG TABLET PO SCH ×3 (05:26→21:07)
[2018-12-18] MEDS: LIPASE PO SCH ×3 (08:30→16:00)
[2018-12-18] MEDS: AMYLASE PO SCH ×3 (08:30→16:00)
[2018-12-18] MEDS: PROTEASE PO SCH ×3 (08:30→16:00)
[2018-12-18] MEDS: DULOXETINE HCL 30 MG CAPSULE.DR PO SCH (09:20)
[2018-12-18] MEDS: CLONIDINE HCL 0.2 MG TABLET PO SCH ×2 (09:20→21:06)
[2018-12-18] MEDS: PANTOPRAZOLE SODIUM 40 MG TABLET.DR PO SCH (09:20)
[2018-12-18] MEDS: AMLODIPINE BESYLATE 10 MG TABLET PO SCH (09:20)
[2018-12-18] MEDS: METOPROLOL TARTRATE 100 MG TABLET PO SCH ×2 (09:20→21:06)
[2018-12-18] MEDS: CALCITRIOL 0.25 MCG CAPSULE PO SCH (09:21)
--- NOTE | 2018-12-18 10:16 | PDOC PROGRESS REPORT ---
Subjective Progress Note for:: 12/18/18 Subjective:: Patient is currently doing fair Patient's admitted with intractable nausea vomiting abdominal pain with unclear etiology possible chronic pancreatitis Patient is currently on a clear liquid diet Patient is denied any chest pain denied any shortness of the breath Still complaining of abdominal pain Reason For Visit: URINARY TRACT INFECTION, INTRACTABLE VOMITING Physical Exam Vital Signs: Temp Pulse Resp BP Pulse Ox 97.8 F 55 L 18 131/63 H 95 12/18/18 07:46 12/18/18 07:46 12/18/18 07:46 12/18/18 07:46 12/18/18 07:46 Intake & Output 12/17/18 12/18/18 12/19/18 06:59 06:59 06:59 Intake Total 1716 2991 Balance 1716 2991 Weight 44.4 kg 46.3 kg General appearance: PRESENT: no acute distress, well-developed, well-nourished Head exam: PRESENT: atraumatic, normocephalic Eye exam: PRESENT: conjunctiva pink, EOMI, PERRLA. ABSENT: scleral icterus Ear exam: PRESENT: normal external ear exam Mouth exam: PRESENT: moist, tongue midline Neck exam: PRESENT: full ROM. ABSENT: carotid bruit, JVD, lymphadenopathy, thyromegaly Respiratory exam: PRESENT: clear to auscultation jamel Cardiovascular exam: PRESENT: RRR. ABSENT: diastolic murmur, rubs, systolic murmur Pulses: PRESENT: normal dorsalis pedis pul, +2 pedal pulses bilateral Vascular exam: PRESENT: normal capillary refill GI/Abdominal exam: PRESENT: normal bowel sounds, soft, tenderness. ABSENT: dist ended, guarding, mass, organolmegaly, rebound Rectal exam: PRESENT: deferred Neurological exam: PRESENT: alert, awake, oriented to person, oriented to place. ABSENT: motor sensory deficit Psychiatric exam: PRESENT: appropriate affect, normal mood. ABSENT: homicidal ideation, suicidal ideation Skin exam: PRESENT: dry, intact, warm. 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 There is left hydronephrosis. A ureteral stent is present. Osseous findings as described. Assessment & Plan - Diagnosis (1) Chronic pancreatitis Qualifiers: Pancreatitis type: unspecified pancreatitis type Qualified Code(s): K86.1 - Other chronic pancreatitis Is this a current diagnosis for this admission?: Yes Plan: We will check the lipase (2) Intractable vomiting Qualifiers: Vomiting type: unspecified Nausea presence: with nausea Qualified Code(s): R11.2 - Nausea with vomiting, unspecified Is this a current diagnosis for this admission?: Yes Plan: 2 new a current medications (3) UTI (urinary tract infection) due to Enterococcus Is this a current diagnosis for this admission?: Yes Plan: Continues to IV antibiotic - Time Time Spent with patient: 15-24 minutes Medications reviewed and adjusted accordingly: Yes Anticipated discharge: Other Within: Other - Plan Summary Plan Summary: We will advance the patient's diet Check the blood work
[2018-12-18 11:29] LABS: ALANINE AMINOTRANSFERASE 32 U/L (9-52); ALBUMIN 2.7 g/dL (3.5-5.0); ALKALINE PHOSPHATASE 193 U/L (38-126); ANION GAP 6 (5-19); ASPARTATE AMINO TRANSFERASE 16 U/L (14-36); BILIRUBIN,DIRECT 0.2 mg/dL (0.0-0.4); BILIRUBIN,TOTAL 0.4 mg/dL (0.2-1.3); BLOOD UREA NITROGEN 4 mg/dL (7-20); CALCIUM 7.5 mg/dL (8.4-10.2); CARBON DIOXIDE 26 mmol/L (22-30); CHLORIDE 109 mmol/L (98-107); GLUCOSE 104 mg/dL (75-110); LIPASE 23.6 U/L (23-300); SODIUM 141.2 mmol/L (137-145); TOTAL PROTEIN 5.6 g/dL (6.3-8.2)
[2018-12-18 11:36] LABS: POTASSIUM 2.8 mmol/L (3.6-5.0)
[2018-12-18] MEDS ORDERED: POTASSIUM CHLORIDE 20 MEQ/50 ML RTU IV ONE (12:30)
[2018-12-18] MEDS ORDERED: POTASSIUM CHLORIDE 10 MEQ CAPSULE.ER PO ONE (12:30)
[2018-12-18] MEDS ORDERED: MAGNESIUM SULFATE/D5W 1 GM/100 ML RTUPB IV ONE (16:30)
[2018-12-19] MEDS: ONDANSETRON HCL INJ/PF 4 MG/2 ML SDV IV PRN ×2 (03:31→19:20)
[2018-12-19] MEDS: HYDROMORPHONE HCL INJ/PF 2 MG/ML AMPULE IV PRN ×6 (03:31→23:23)
[2018-12-19] MEDS: AMPICILLIN SODIUM 1 GM in NORMAL SALINE 50 ML IV SCH ×4 (05:14→23:23)
[2018-12-19] MEDS: CALCIUM CARBONATE 500 MG TABLET PO SCH ×3 (05:16→21:23)
[2018-12-19 06:09] LABS: ANION GAP 6 (5-19); CARBON DIOXIDE 26 mmol/L (22-30); CHLORIDE 110 mmol/L (98-107); GLUCOSE 117 mg/dL (75-110); POTASSIUM 3.2 mmol/L (3.6-5.0); SODIUM 141.8 mmol/L (137-145)
[2018-12-19 06:19] LABS: BLOOD UREA NITROGEN < 2 mg/dL (7-20)
[2018-12-19] MEDS: ENALAPRILAT DIHYDRATE INJ/PF 2.5 MG/2 ML SDV IV SCH (06:35)
[2018-12-19] MEDS: LIPASE PO SCH ×3 (08:02→17:02)
[2018-12-19] MEDS: AMYLASE PO SCH ×3 (08:02→17:02)
[2018-12-19] MEDS: PROTEASE PO SCH ×3 (08:02→17:02)
[2018-12-19] MEDS: NORMAL SALINE 1000 ML 1,000 ML IV PRN (08:03)
--- NOTE | 2018-12-19 09:25 | PDOC PROGRESS REPORT ---
Subjective Progress Note for:: 12/19/18 Reason For Visit: URINARY TRACT INFECTION, INTRACTABLE VOMITING Patient is currently doing well Still complains some abdominal discomfort the patient lipase is all stable Patient's potassium and magnesium was low currently replaced No chest pain no short of breath Physical Exam Vital Signs: Temp Pulse Resp BP Pulse Ox 97.8 F 51 L 16 147/69 H 96 12/19/18 07:44 12/19/18 07:44 12/19/18 07:44 12/19/18 07:44 12/19/18 07:44 Intake & Output 12/18/18 12/19/18 12/20/18 06:59 06:59 06:59 Intake Total 2991 4938 Balance 2991 4938 Weight 46.3 kg 45.5 kg General appearance: PRESENT: no acute distress, well-developed, well-nourished Head exam: PRESENT: atraumatic, normocephalic Eye exam: PRESENT: conjunctiva pink, EOMI, PERRLA. ABSENT: scleral icterus Ear exam: PRESENT: normal external ear exam Mouth exam: PRESENT: moist, tongue midline Neck exam: PRESENT: full ROM. ABSENT: carotid bruit, JVD, lymphadenopathy, thyromegaly Cardiovascular exam: PRESENT: RRR. ABSENT: diastolic murmur, rubs, systolic murmur Pulses: PRESENT: normal dorsalis pedis pul, +2 pedal pulses bilateral Vascular exam: PRESENT: normal capillary refill GI/Abdominal exam: PRESENT: normal bowel sounds, soft. ABSENT: distended, guarding, mass, organolmegaly, rebound, tenderness Rectal exam: PRESENT: deferred Extremities exam: ABSENT: pedal edema Neurological exam: PRESENT: alert, awake, oriented to person, oriented to place, oriented to time, oriented to situation, CN II-XII grossly intact. ABSENT: motor sensory deficit Psychiatric exam: PRESENT: appropriate affect, normal mood. ABSENT: homicidal ideation, suicidal ideation Skin exam: PRESENT: dry, intact, warm. 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 There is left hydronephrosis. A ureteral stent is present. Osseous findings as described. Assessment & Plan - Diagnosis (1) Chronic pancreatitis Qualifiers: Pancreatitis type: unspecified pancreatitis type Qualified Code(s): K86.1 - Other chronic pancreatitis Is this a current diagnosis for this admission?: Yes Plan: Advance to full liquid to the soft diet (2) Intractable vomiting Qualifiers: Vomiting type: unspecified Nausea presence: with nausea Qualified Code(s): R11.2 - Nausea with vomiting, unspecified Is this a current diagnosis for this admission?: Yes Plan: 2 new a current medications (3) UTI (urinary tract infection) due to Enterococcus Is this a current diagnosis for this admission?: Yes Plan: Continues to IV antibiotic (4) Hypokalemia Is this a current diagnosis for this admission?: Yes Plan: Replace the p.o. potassium's (5) Hypomagnesemia Is this a current diagnosis for this admission?: Yes Plan: Replace the magnesium's - Time Time Spent with patient: 15-24 minutes Medications reviewed and adjusted accordingly: Yes Anticipated discharge: Other - Plan Summary Plan Summary: Replace the electrolytes Advance the diet
[2018-12-19] MEDS: CLONIDINE HCL 0.2 MG TABLET PO SCH ×2 (09:36→21:21)
[2018-12-19] MEDS: METOPROLOL TARTRATE 100 MG TABLET PO SCH ×2 (09:36→21:21)
[2018-12-19] MEDS: PANTOPRAZOLE SODIUM 40 MG TABLET.DR PO SCH (09:36)
[2018-12-19] MEDS: CALCITRIOL 0.25 MCG CAPSULE PO SCH (09:36)
[2018-12-19] MEDS: DULOXETINE HCL 30 MG CAPSULE.DR PO SCH (09:36)
[2018-12-19] MEDS: AMLODIPINE BESYLATE 10 MG TABLET PO SCH (09:36)
[2018-12-19] MEDS ORDERED: MAGNESIUM SULFATE/D5W 1 GM/100 ML RTUPB IV ONE (09:45)
[2018-12-19] MEDS ORDERED: POTASSIUM CHLORIDE 10 MEQ CAPSULE.ER PO ONE (10:00)
[2018-12-19] MEDS: LISINOPRIL 5 MG TABLET PO SCH ×2 (11:58→21:21)
[2018-12-19] MEDS ORDERED: NYSTATIN TOPICAL POWDER 15 GM TP ONE (19:15)
[2018-12-20] MEDS: NORMAL SALINE 1000 ML 1,000 ML IV PRN ×2 (01:06→16:32)
[2018-12-20] MEDS: HYDROMORPHONE HCL INJ/PF 2 MG/ML AMPULE IV PRN ×7 (03:07→23:26)
[2018-12-20] MEDS: AMPICILLIN SODIUM 1 GM in NORMAL SALINE 50 ML IV SCH ×4 (05:32→23:01)
[2018-12-20] MEDS: CALCIUM CARBONATE 500 MG TABLET PO SCH ×3 (05:34→21:27)
[2018-12-20] MEDS: ONDANSETRON HCL INJ/PF 4 MG/2 ML SDV IV PRN ×2 (06:16→19:43)
[2018-12-20] MEDS: METOPROLOL TARTRATE 100 MG TABLET PO SCH ×2 (09:20→21:27)
[2018-12-20] MEDS: PANTOPRAZOLE SODIUM 40 MG TABLET.DR PO SCH (09:21)
[2018-12-20] MEDS: DULOXETINE HCL 30 MG CAPSULE.DR PO SCH (09:21)
[2018-12-20] MEDS: CLONIDINE HCL 0.2 MG TABLET PO SCH ×2 (09:21→21:27)
[2018-12-20] MEDS: LISINOPRIL 5 MG TABLET PO SCH ×2 (09:21→21:27)
[2018-12-20] MEDS: AMLODIPINE BESYLATE 10 MG TABLET PO SCH (09:21)
[2018-12-20] MEDS: PROTEASE PO SCH ×3 (09:26→18:19)
[2018-12-20] MEDS: AMYLASE PO SCH ×3 (09:26→18:19)
[2018-12-20] MEDS: LIPASE PO SCH ×3 (09:26→18:19)
[2018-12-20] MEDS: CALCITRIOL 0.25 MCG CAPSULE PO SCH (09:29)
[2018-12-20] MEDS: NYSTATIN TOPICAL POWDER 15 GM TP SCH ×2 (09:34→18:20)
[2018-12-20 17:19] LABS: ABSOLUTE EOSINOPHILS # (AUTO) 0.3 10^3/uL (0.0-0.6); ABSOLUTE LYMPHOCYTES (AUTO) 2.3 10^3/uL (0.5-4.7); ABSOLUTE MONOCYTES (AUTO) 0.5 10^3/uL (0.1-1.4); ABSOLUTE NEUT (AUTO) 3.2 10^3/uL (1.7-8.2); BASOPHILS % (AUTO) 0.5 % (0-2); EOSINOPHILS % (AUTO) 4.1 % (0-6); HEMATOCRIT 35.2 % (36.0-47.0); HEMOGLOBIN 11.5 g/dL (12.0-15.5); LYMPHOCYTES % (AUTO) 36.5 % (13-45); MEAN CORPUSCULAR HEMOGLOBIN 28.3 pg (27.0-33.4); MEAN CORPUSCULAR HGB CONC 32.5 g/dL (32.0-36.0); MEAN CORPUSCULAR VOLUME 87 fl (80-97); MONOCYTES % (AUTO) 7.9 % (3-13); PLATELET COUNT 141 10^3/uL (150-450); RED BLOOD COUNT 4.05 10^6/uL (3.72-5.28); TOTAL CELLS COUNTED % (AUTO) 100 %; WHITE BLOOD COUNT 6.3 10^3/uL (4.0-10.5)
[2018-12-20 17:39] LABS: ALANINE AMINOTRANSFERASE 25 U/L (9-52); ALBUMIN 2.7 g/dL (3.5-5.0); ALKALINE PHOSPHATASE 212 U/L (38-126); ANION GAP 5 (5-19); ASPARTATE AMINO TRANSFERASE 14 U/L (14-36); BILIRUBIN,DIRECT 0.2 mg/dL (0.0-0.4); BILIRUBIN,TOTAL 0.2 mg/dL (0.2-1.3); CALCIUM 8.4 mg/dL (8.4-10.2); CARBON DIOXIDE 26 mmol/L (22-30); CHLORIDE 108 mmol/L (98-107); GLUCOSE 76 mg/dL (75-110); POTASSIUM 3.6 mmol/L (3.6-5.0); SODIUM 139.4 mmol/L (137-145); TOTAL PROTEIN 5.9 g/dL (6.3-8.2)
[2018-12-20 17:42] LABS: BLOOD UREA NITROGEN < 2 mg/dL (7-20)
--- NOTE | 2018-12-20 20:35 | PDOC DISCHARGE SUMMARY ---
General - Admit/Disc Date/PCP Admission Date/Primary Care Provider: 12/14/18 16:30 SHARDA MAYS MD Discharge Date: 12/21/18 - Discharge Diagnosis (1) Intractable vomiting Is this a current diagnosis for this admission?: Yes (2) Chronic pancreatitis Is this a current diagnosis for this admission?: Yes (3) Urinary tract infection Is this a current diagnosis for this admission?: Yes (4) UTI (urinary tract infection) due to Enterococcus Is this a current diagnosis for this admission?: Yes - Additional Information Home Medications: Amlodipine Besylate [Norvasc 10 mg Tablet] 10 mg PO DAILY 12/14/18 Calcitriol [Rocaltrol 0.25 mcg Capsule] 0.25 mcg PO DAILY 12/14/18 Calcium Carbonate [Calcium] 500 mg PO Q8 12/14/18 Clonidine HCl [Catapres 0.2 mg Tablet] 0.2 mg PO Q12 12/14/18 Colestipol HCl [Colestid 1 gm Tablet] 2 gm PO TID 12/14/18 Duloxetine HCl [Cymbalta] 60 mg PO DAILY 12/14/18 Lipase/Protease/Amylase [Zenpep Dr 15,000 Unit Capsule] 3 cap PO TID 12/14/18 Metoprolol Tartrate [Lopressor 100 mg Tablet] 100 mg PO Q12 12/14/18 Morphine Sulfate/Naltrexone [Embeda ER 50-2 mg Capsule] 1 cap PO DAILY 12/14/18 Oxycodone HCl 15 mg PO Q6HP PRN 12/14/18 Pantoprazole Sodium [Protonix [address] Tablet] 40 mg PO DAILY 12/14/18 History of Present Illness History of Present Illness: NICKO FERRO is a 78 year old female,She came to the emergency room for evaluation of Persistent vomiting, she was unable to hold any food down, in the emergency room a CAT scan of the abdomen and pelvis was obtained it demonstrated a hypoplastic right kidney with compensatory hypertrophy of the left kidney with hydronephrosis.She has history of chronic pancreatitis, She has episode of persi stent, intractable vomiting Hospital Course Hospital Course: Patient was admitted for the management of persistent, intractable vomiting, the urine culture grew enterococcus faecalis. Initially on presentation the exact etiology of the protracted, intractable vomiting was not clear, the urinalysis was grossly abnormal it was felt that UTI could be a contributing factor she was empirically treated with IV antibiotic, with Rocephin, subsequent urine culture grew Enterococcus faecalis with significant bacteriuria, more than 100,000 colony count, the antibiotic was transitioned to intravenous ampicillin.Patient have chronic pain syndrome on chronic opioid usage GI motility is affected with chronic opioid usage, she is on opioid chronically for chronic pain the persistent vomiting which is intermittent could also be related to the use of chronic opioid usage this potential etiology was also discussed with the patient Physical Exam Vital Signs: Temp Pulse Resp BP Pulse Ox 98.3 F 65 16 132/58 H 96 12/20/18 20:05 12/20/18 20:05 12/20/18 20:05 12/20/18 20:05 12/20/18 20:05 Intake & Output 12/19/18 12/20/18 12/21/18 06:59 06:59 06:59 Intake Total 4938 5508 3085 Balance 4938 5508 3085 Weight 45.5 kg 46.3 kg General appearance: PRESENT: no acute distress Eye exam: PRESENT: PERRLA Respiratory exam: PRESENT: clear to auscultation jamel Cardiovascular exam: PRESENT: +S1, +S2 GI/Abdominal exam: PRESENT: soft Neurological exam: PRESENT: alert Results Laboratory Results: 12/20/18 16:30 12/20/18 16:30 12/15/18 12/20/18 12/20/18 03:13 16:30 16:30 WBC 6.3 RBC 4.05 Hgb 11.5 L Hct 35.2 L MCV 87 MCH 28.3 MCHC 32.5 RDW 16.0 H Plt Count 141 L Seg Neutrophils % 51.0 Lymphocytes % 36.5 Monocytes % 7.9 Eosinophils % 4.1 Basophils % 0.5 Absolute Neutrophils 3.2 Absolute Lymphocytes 2.3 Absolute Monocytes 0.5 Absolute Eosinophils 0.3 Absolute Basophils 0.0 Sodium 140.7 139.4 Potassium 3.3 L 3.6 Chloride 105 108 H Carbon Dioxide 21 L 26 Anion Gap 15 5 BUN 6 L < 2 L Creatinine 0.41 L 0.43 L Est GFR ( Amer) > 60 > 60 Est GFR (Non-Af Amer) > 60 > 60 Glucose 178 H 76 Calcium 8.8 8.4 Magnesium 1.5 L Total Bilirubin 0.2 AST 14 ALT 25 Alkaline Phosphatase 212 H Total Protein 5.9 L Albumin 2.7 L 12/20/18 16:30 WBC RBC Hgb Hct MCV MCH MCHC RDW Plt Count Seg Neutrophils % Lymphocytes % Monocytes % Eosinophils % Basophils % Absolute Neutrophils Absolute Lymphocytes Absolute Monocytes Absolute Eosinophils Absolute Basophils Sodium Cancelled Potassium Cancelled Chloride Cancelled Carbon Dioxide Cancelled Anion Gap Cancelled BUN Cancelled Creatinine Cancelled Est GFR ( Amer) Cancelled Est GFR (Non-Af Amer) Cancelled Glucose Cancelled Calcium Cancelled Magnesium 1.5 L Total Bilirubin AST ALT Alkaline Phosphatase Total Protein Albumin 12/14/18 17:21 Blood Blood Culture - Final NO GROWTH IN 5 DAYS 12/14/18 16:15 Blood Blood Culture - Final NO GROWTH IN 5 DAYS Impressions: Abdomen/Pelvis CT 12/14/18 13:18 IMPRESSION: 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 There is left hydronephrosis. A ureteral stent is present. Osseous findings as described. Qualifiers - * PATIENT BEING DISCHARGED WITH ANY OF THE FOLLOWING DIAGNOSIS: No Acute Heart Failure Is this a Heart Failure Patient?: No
[2018-12-21] MEDS: AMPICILLIN SODIUM 1 GM in NORMAL SALINE 50 ML IV SCH ×2 (05:58→12:40)
[2018-12-21] MEDS: HYDROMORPHONE HCL INJ/PF 2 MG/ML AMPULE IV PRN ×2 (05:58→09:53)
[2018-12-21] MEDS: ONDANSETRON HCL INJ/PF 4 MG/2 ML SDV IV PRN (06:09)
[2018-12-21] MEDS: LIPASE PO SCH ×2 (08:48→12:16)
[2018-12-21] MEDS: PROTEASE PO SCH ×2 (08:48→12:16)
[2018-12-21] MEDS: AMYLASE PO SCH ×2 (08:48→12:16)
[2018-12-21] MEDS: CALCIUM CARBONATE 500 MG TABLET PO SCH (08:49)
[2018-12-21] MEDS: AMLODIPINE BESYLATE 10 MG TABLET PO SCH (09:53)
[2018-12-21] MEDS: METOPROLOL TARTRATE 100 MG TABLET PO SCH (09:54)
[2018-12-21] MEDS: LISINOPRIL 5 MG TABLET PO SCH (09:54)
[2018-12-21] MEDS: DULOXETINE HCL 30 MG CAPSULE.DR PO SCH (09:54)
[2018-12-21] MEDS: CALCITRIOL 0.25 MCG CAPSULE PO SCH (09:54)
[2018-12-21] MEDS: CLONIDINE HCL 0.2 MG TABLET PO SCH (09:54)
[2018-12-21] MEDS: PANTOPRAZOLE SODIUM 40 MG TABLET.DR PO SCH (09:54)
[2018-12-21] MEDS: NYSTATIN TOPICAL POWDER 15 GM TP SCH (09:54)
[2018-12-21 10:10] VITALS: BP 119/60
== END 2018-12-21 14:05 | disposition home health service (06) | DRG 690 ==
LOC: ER 13:02 → EH 16:30 → 3N 20:25
PROVIDERS: ADMIT Internal Medicine; ATTEND Internal Medicine
DX: N10 Acute pyelonephritis (principal); K86.1 Other chronic pancreatitis; Q60.3 Renal hypoplasia, unilateral; B95.2 Enterococcus as the cause of diseases classified elsewhere; I10 Essential (primary) hypertension; N13.30 Unspecified hydronephrosis; J44.9 Chronic obstructive pulmonary disease, unspecified; K21.9 Gastro-esophageal reflux disease without esophagitis; M06.9 Rheumatoid arthritis, unspecified; F32.9 Major depressive disorder, single episode, unspecified; R11.2 Nausea with vomiting, unspecified; I73.9 Peripheral vascular disease, unspecified; E87.6 Hypokalemia; F17.200 Nicotine dependence, unspecified, uncomplicated; E83.42 Hypomagnesemia; Z96.651 Presence of right artificial knee joint; I69.920 Aphasia following unspecified cerebrovascular disease; Z90.49 Acquired absence of other specified parts of digestive tract; Z90.710 Acquired absence of both cervix and uterus; Z79.899 Other long term (current) drug therapy; Z88.3 Allergy status to other anti-infective agents; Z88.8 Allergy status to other drugs, medicaments and biological substances; Z74.01 Bed confinement status; Z87.11 Personal history of peptic ulcer disease
CPT/HCPCS: 36415; 51701; 74177; 80048; 80053; 81001; 83690; 83735; 85025; 87040; 87086; 87088; 87186; 93005; 93010; 96374; 96375; 99285; J0290; J0295; J0696; J1170; J1642; J2405; J2550; J3010; J3475; J3480; J3490; J7030; J7060

== ENCOUNTER 2019-02-02 15:36 | Inpatient (IN) | payer MEDICARE, MEDICAID ==
[2019-02-02] MEDS ORDERED: ONDANSETRON HCL INJ/PF 4 MG/2 ML SDV IV ONE ×2 (16:24→18:46)
[2019-02-02 16:26] LABS: ABSOLUTE BASOPHILS # (AUTO) 0.1 10^3/uL (0.0-0.2); ABSOLUTE LYMPHOCYTES (AUTO) 1.3 10^3/uL (0.5-4.7); ABSOLUTE MONOCYTES (AUTO) 0.3 10^3/uL (0.1-1.4); ABSOLUTE NEUT (AUTO) 6.2 10^3/uL (1.7-8.2); BASOPHILS % (AUTO) 0.8 % (0-2); EOSINOPHILS % (AUTO) 0.1 % (0-6); HEMATOCRIT 41.2 % (36.0-47.0); HEMOGLOBIN 13.6 g/dL (12.0-15.5); LYMPHOCYTES % (AUTO) 16.2 % (13-45); MEAN CORPUSCULAR HEMOGLOBIN 29.3 pg (27.0-33.4); MEAN CORPUSCULAR VOLUME 89 fl (80-97); MONOCYTES % (AUTO) 4.1 % (3-13); PLATELET COUNT 199 10^3/uL (150-450); RED BLOOD COUNT 4.63 10^6/uL (3.72-5.28); RED CELL DISTRIBUTION WIDTH 18.4 % (11.5-14.0); SEGMENTED NEUTROPHILS % (AUTO) 78.8 % (42-78); TOTAL CELLS COUNTED % (AUTO) 100 %; WHITE BLOOD COUNT 7.9 10^3/uL (4.0-10.5)
[2019-02-02] MEDS ORDERED: MORPHINE SULFATE 10 MG/ML INJ IV ONE (16:28)
--- NOTE | 2019-02-02 16:28 | ER Document Report ---
ED GI/ - General Chief Complaint: Nausea/Vomiting Stated Complaint: STOMACH PAIN Time Seen by Provider: 02/02/19 16:10 Notes: 78-year-old female patient prescribed chief complaint of abdominal pain. Patient has long-standing history of pancreatitis. States that she thinks she has pancreatitis again. Has been vomiting all day. Patient was admitted in October for the same. Cannot seem to keep anything down. Denies any diarrhea. No fever. TRAVEL OUTSIDE OF THE [place] IN LAST 30 DAYS: No - HPI Patient complains to provider of: Abdominal pain, Vomiting Timing/Duration: Gradual, Worse Quality of pain: Throbbing Severity at maximum: Moderate Severity in ED: Moderate Location: Epigastric - Related Data Allergies/Adverse Reactions: ketorolac [From Toradol] Allergy (Verified 10/05/18 12:19) sulfamethoxazole [From Bactrim] Allergy (Verified 10/05/18 12:18) trimethoprim [From Bactrim] Allergy (Verified 10/05/18 12:18) Past Medical History - General Information source: Patient - Social History Smoking Status: Current Every Day Smoker Frequency of alcohol use: None Family History: Reviewed & Not Pertinent Patient has suicidal ideation: No Patient has homicidal ideation: No - Past Medical History Cardiac Medical History: Reports: Hx Congestive Heart Failure, Hx Hypertension, Hx Peripheral Vascular Disease Pulmonary Medical History: Reports: Hx COPD Neurological Medical History: Reports: Hx Cerebrovascular Accident - aphasia. Denies: Hx Seizures Renal/ Medical History: Denies: Hx Peritoneal Dialysis GI Medical History: Reports: Hx Gastroesophageal Reflux Disease, Hx Ulcer - peptic Musculoskeletal Medical History: Reports Hx Arthritis - RA Psychiatric Medical History: Reports: Hx Depression Past Surgical History: Reports: Hx Abdominal Surgery - STOMACH ULCER, Hx Bowel Surgery, Hx Cholecystectomy - 05/2017, Hx Hysterectomy, Hx Orthopedic Surgery - LT HIP REMOVAL OF "HEAD", SCREWS RT HIP, RT KNEE REPLACEMENT, Other - lysis of adhesions - Immunizations Hx Pneumococcal Vaccination: 07/20/11 Review of Systems - Review of Systems Notes: Constitutional: denies: Chills, Diaphoresis, Fever, Malaise, Weakness EENT: denies: Eye discharge, Blurred vision, Tearing, Double vision, Nose congestion, Nose discharge, Throat swelling, Mouth pain Cardiovascular: denies: Palpitations, Heart racing, Orthopnea, Dyspnea, Chest pain Respiratory: denies: Cough, Hurts to breathe, Wheezing, Shortness of breath Gastrointestinal: Planing of abdominal pain, nausea, vomiting. No diarrhea. Genitourinary: denies: Burning, Dysuria, Discharge, Frequency, Flank pain, Nguyễn turia Musculoskeletal: denies: Joint pain, Joint swelling, Muscle pain, Muscle stiffness, back pain Hematologic/Lymphatic: denies: Anemia, Easy bleeding, Easy bruising, Blood clots Neurological/Psychological: denies: Confusion, Dementia, Depression, Loss of consciousness Skin: No lesions, no masses, no skin breakdown, no abscesses Physical Exam - Vital signs Vitals: Resp Pulse Ox 9 L 99 02/02/19 15:55 02/02/19 15:55 Interpretation: Normal - General General appearance: Appears well, Alert - HEENT Head: Normocephalic, Atraumatic Eyes: Normal Pupils: PERRL - Respiratory Respiratory status: No respiratory distress Chest status: Nontender Breath sounds: Normal Chest palpation: Normal - Cardiovascular Rhythm: Regular Heart sounds: Normal auscultation Murmur: No - Abdominal Inspection: Normal Distension: No distension Bowel sounds: Normal Tenderness: Tender - Tenderness in the epigastric region. No guarding or rebound. Organomegaly: No organomegaly - Back Back: Normal, Nontender - Extremities General upper extremity: Normal inspection, Nontender, Normal color, Normal ROM, Normal temperature General lower extremity: Normal inspection, Nontender, Normal color, Normal ROM, Normal temperature, Normal weight bearing. No: Viktoria's sign - Neurological Neuro grossly intact: Yes Cognition: Normal Orientation: AAOx4 Cerulean Coma Scale Eye Opening: Spontaneous Sandy Coma Scale Verbal: Oriented Cerulean Coma Scale Motor: Obeys Commands Cerulean Coma Scale Total: 15 Speech: Normal Motor strength normal: LUE, RUE, LLE, RLE Sensory: Normal - Psychological Associated symptoms: Normal affect, Normal mood - Skin Skin Temperature: Warm Skin Moisture: Dry Skin Color: Normal Course - Re-evaluation Re-evalutation: 02/02/19 17:15 Laboratory 02/02/19 02/02/19 16:06 16:06 WBC 7.9 RBC 4.63 Hgb 13.6 Hct 41.2 MCV 89 MCH 29.3 MCHC 33.0 RDW 18.4 H Plt Count 199 Seg Neutrophils % 78.8 H Lymphocytes % 16.2 Monocytes % 4.1 Eosinophils % 0.1 Basophils % 0.8 Absolute Neutrophils 6.2 Absolute Lymphocytes 1.3 Absolute Monocytes 0.3 Absolute Eosinophils 0.0 Absolute Basophils 0.1 Sodium 140.6 Potassium 3.8 Chloride 108 H Carbon Dioxide 21 L Anion Gap 12 BUN 12 Creatinine 0.52 Est GFR ( Amer) > 60 Est GFR (Non-Af Amer) > 60 Glucose 159 H Calcium 9.1 Total Bilirubin 0.4 Direct Bilirubin 0.3 Neonat Total Bilirubin Not Reportable Neonat Direct Bilirubin Not Reportable Neonat Indirect Bili Not Reportable AST 105 H ALT 141 H Alkaline Phosphatase 358 H Total Protein 8.6 H Albumin 4.3 Lipase 44.0 02/02/19 17:30 Patient has a acute hepatitis. Does not have a gallbladder and her bilirubin is normal. I did order a CT scan but patient will need to be admitted to the hospital for hydration and pain control. I have consulted with Dr. Polanco who is graciously agreed to admit the patient for further treatment. 02/03/19 09:41 Abdomen/Pelvis CT 02/02/19 17:13 IMPRESSION: No acute findings identified. - Vital Signs Vital signs: Temp Pulse Resp BP Pulse Ox 99.2 F 85 14 188/88 H 98 02/03/19 07:32 02/03/19 07:32 02/03/19 07:32 02/03/19 09:12 02/03/19 07:32 - Laboratory Result Diagrams: 02/03/19 05:30 02/03/19 05:30 Laboratory results interpreted by me: 02/02/19 02/02/19 02/02/19 16:06 16:06 16:06 RDW 18.4 H Seg Neutrophils % 78.8 H Chloride 108 H Carbon Dioxide 21 L Glucose 159 H AST 105 H ALT 141 H Alkaline Phosphatase 358 H Total Protein 8.6 H TSH Acetaminophen < 10 L 02/02/19 16:06 RDW Seg Neutrophils % Chloride Carbon Dioxide Glucose AST ALT Alkaline Phosphatase Total Protein TSH 0.45 L Acetaminophen Discharge - Discharge Clinical Impression: Acute hepatitis Intractable vomiting Qualifiers: Vomiting type: cyclical vomiting Nausea presence: with nausea Qualified Code(s): G43.A1 - Cyclical vomiting, intractable Abdominal pain Qualifiers: Abdominal location: upper abdomen, unspecified Qualified Code(s): R10.10 - Upper abdominal pain, unspecified Condition: Good Disposition: ADMITTED INPATIENT Admitting Provider: Sherri Unit Admitted: Telemetry
[2019-02-02] MEDS ORDERED: NORMAL SALINE 1000 ML 1,000 ML IV ONE ×2 (16:29→17:33)
[2019-02-02 16:37] LABS: ALANINE AMINOTRANSFERASE 141 U/L (9-52); ALBUMIN 4.3 g/dL (3.5-5.0); ALKALINE PHOSPHATASE 358 U/L (38-126); ANION GAP 12 (5-19); ASPARTATE AMINO TRANSFERASE 105 U/L (14-36); BILIRUBIN,DIRECT 0.3 mg/dL (0.0-0.4); BILIRUBIN,TOTAL 0.4 mg/dL (0.2-1.3); BLOOD UREA NITROGEN 12 mg/dL (7-20); CALCIUM 9.1 mg/dL (8.4-10.2); CARBON DIOXIDE 21 mmol/L (22-30); CHLORIDE 108 mmol/L (98-107); GLUCOSE 159 mg/dL (75-110); POTASSIUM 3.8 mmol/L (3.6-5.0); TOTAL PROTEIN 8.6 g/dL (6.3-8.2)
[2019-02-02] MEDS ORDERED: HYDROMORPHONE HCL INJ/PF 2 MG/ML AMPULE IV ONE (17:13)
[2019-02-02] MEDS ORDERED: PROCHLORPERAZINE EDISYLATE INJ 10 MG/2 ML VIAL IV ONE (18:47)
--- NOTE | 2019-02-02 19:08 | RADIOLOGY REPORT (SQ) ---
EXAM DESCRIPTION: CT ABD/PELVIS WITH IV ONLY COMPLETED DATE/TIME: 02/02/2019 5:58 pm REASON FOR STUDY: abd pain COMPARISON: 12/06/2018 TECHNIQUE: CT scan of the abdomen and pelvis performed using helical scanning technique with dynamic intravenous contrast injection. No oral contrast. Images reviewed with lung, soft tissue, and bone w indows. Reconstructed coronal and sagittal MPR images reviewed. Delayed images for evaluation of the urinary system also acquired. All images stored on PACS. All CT scanners at this facility use dose modulation, iterative reconstruction, and/or weight based d osing when appropriate to reduce radiation dose to as low as reasonably achievable (ALARA). [facility]: Dose Right [facility]: CareDose [facility]: Dose Right [facility]: Teradose 4D [facility]: [employer] CONTRAST TYPE AND DOSE: contrast/concentration: Isovue 350.00 mg/ml; Total Contrast Delivered: 55.0 ml; Total Saline Delivered: 65.0 ml RENAL FUNCTION: GFR > 60. RADIATION DOSE: CT Rad equipment meets quality standard of care and radiation dose reduction techniq ues were employed. CTDIvol: 5.1 - 6.4 mGy. DLP: 530 mGy-cm.. LIMITATIONS: None. FINDINGS: LOWER CHEST: No significant findings. LIVER: Normal size. No enhancing masses. No dilated ducts. SPLEEN: Normal size. No focal lesions. PANCREAS: No masses identified. No significant calcifications. No adjacent inflammation or peripancre atic fluid collections. Pancreatic duct not dilated. GALLBLADDER: Surgically absent. ADRENAL GLANDS: No significant masses. RIGHT KIDNEY AND URETER: Atrophic. No cysts identified. No solid masses identified. No calcified st ones. Similar hydronephrosis - hydroureter. LEFT KIDNEY AND URETER: No cysts identified. No solid masses identified. No calcified stones. Simila r hydronephrosis - hydroureter with stent. AORTA AND VESSELS: No aneurysm. No dissection. Renal arteries, SMA, celiac without significant stenos is. RETROPERITONEUM: No bulky retroperitoneal adenopathy. BOWEL AND PERITONEAL CAVITY: No obstruction or inflammatory changes. No free fluid. APPENDIX: Not visualized. PELVIS: No free fluid. Mildly distended bladder. ABDOMINAL WALL: No masses. No hernias. BONES: No acute findings. OTHER: No other significant finding. IMPRESSION: No acute findings identified. TECHNICAL DOCUMENTATION: JOB ID: [id number] [place]-72 Quality ID # [id number]: Final reports with documentation of one or more dose reduction techniques (e.g., Au tomated exposure control, adjustment of the mA and/or kV according to patient size, use of iterative reconstruction technique) 2010 [employer]- All Rights Reserved Reading location - IP/workstation name: [email or web address]
[2019-02-02] MEDS ORDERED: LIPASE PO SCH (19:30)
[2019-02-02] MEDS ORDERED: AMYLASE PO SCH (19:30)
[2019-02-02] MEDS ORDERED: (PENDING PHARMACY ID) (Morphine Sulfate/Naltrexone [Embeda Er 50-2 Mg Capsule] 1 CAP) PO SCH (19:30)
[2019-02-02] MEDS ORDERED: PROTEASE PO SCH (19:30)
[2019-02-02] MEDS ORDERED: (PENDING PHARMACY ID) (Colestipol Hcl [Colestid 1 Gm Tablet] 2 GM) PO SCH (19:30)
[2019-02-02 20:27] LABS: FREE T4 (FREE THYROXINE) 1.49 ng/dL (0.78-2.19)
[2019-02-02 20:41] LABS: THYROID STIMULATING HORMONE 0.45 uIU/mL (0.47-4.68)
[2019-02-02] MEDS: ONDANSETRON HCL INJ/PF 4 MG/2 ML SDV IV PRN (21:18)
[2019-02-02] MEDS: OXYCODONE HCL IR 5 MG TABLET PO PRN (21:20)
[2019-02-02] MEDS: CLONIDINE HCL 0.2 MG TABLET PO SCH (21:23)
[2019-02-02] MEDS: DULOXETINE HCL 30 MG CAPSULE.DR PO SCH (21:48)
[2019-02-02] MEDS: METOPROLOL TARTRATE 100 MG TABLET PO SCH (21:49)
[2019-02-02] MEDS: AMLODIPINE BESYLATE 10 MG TABLET PO SCH (21:49)
[2019-02-02] MEDS: CALCITRIOL 0.25 MCG CAPSULE PO SCH (21:49)
[2019-02-02] MEDS: CALCIUM CARBONATE 500 MG TABLET PO SCH (21:49)
[2019-02-02] MEDS: PANTOPRAZOLE SODIUM 40 MG TABLET.DR PO SCH (21:49)
[2019-02-02] MEDS ORDERED: ENALAPRILAT DIHYDRATE INJ/PF 2.5 MG/2 ML SDV IV ONE ×2 (22:07→22:30)
[2019-02-03] MEDS: ONDANSETRON HCL INJ/PF 4 MG/2 ML SDV IV PRN ×5 (01:12→21:16)
[2019-02-03] MEDS: NORMAL SALINE 1000 ML 1,000 ML IV PRN ×3 (01:12→21:16)
[2019-02-03] MEDS: ENALAPRILAT DIHYDRATE INJ/PF 2.5 MG/2 ML SDV IV SCH ×4 (02:43→21:17)
[2019-02-03] MEDS: OXYCODONE HCL IR 5 MG TABLET PO PRN ×2 (03:12→12:50)
[2019-02-03] MEDS: CALCIUM CARBONATE 500 MG TABLET PO SCH ×3 (05:06→21:22)
[2019-02-03 05:58] LABS: ABSOLUTE BASOPHILS # (AUTO) 0.1 10^3/uL (0.0-0.2); ABSOLUTE LYMPHOCYTES (AUTO) 1.6 10^3/uL (0.5-4.7); ABSOLUTE MONOCYTES (AUTO) 0.7 10^3/uL (0.1-1.4); ABSOLUTE NEUT (AUTO) 7.3 10^3/uL (1.7-8.2); BASOPHILS % (AUTO) 0.8 % (0-2); HEMATOCRIT 42.1 % (36.0-47.0); HEMOGLOBIN 13.8 g/dL (12.0-15.5); LYMPHOCYTES % (AUTO) 16.8 % (13-45); MEAN CORPUSCULAR HEMOGLOBIN 28.8 pg (27.0-33.4); MEAN CORPUSCULAR HGB CONC 32.8 g/dL (32.0-36.0); MEAN CORPUSCULAR VOLUME 88 fl (80-97); MONOCYTES % (AUTO) 7.6 % (3-13); PLATELET COUNT 191 10^3/uL (150-450); RED BLOOD COUNT 4.78 10^6/uL (3.72-5.28); RED CELL DISTRIBUTION WIDTH 18.5 % (11.5-14.0); SEGMENTED NEUTROPHILS % (AUTO) 74.8 % (42-78); TOTAL CELLS COUNTED % (AUTO) 100 %; WHITE BLOOD COUNT 9.7 10^3/uL (4.0-10.5)
[2019-02-03 06:22] LABS: ALANINE AMINOTRANSFERASE 118 U/L (9-52); ALKALINE PHOSPHATASE 308 U/L (38-126); ANION GAP 10 (5-19); ASPARTATE AMINO TRANSFERASE 73 U/L (14-36); BILIRUBIN,DIRECT 0.2 mg/dL (0.0-0.4); BILIRUBIN,TOTAL 0.4 mg/dL (0.2-1.3); BLOOD UREA NITROGEN 7 mg/dL (7-20); CARBON DIOXIDE 24 mmol/L (22-30); CHLORIDE 107 mmol/L (98-107); GLUCOSE 166 mg/dL (75-110); POTASSIUM 3.2 mmol/L (3.6-5.0); TOTAL PROTEIN 8.1 g/dL (6.3-8.2)
[2019-02-03 06:24] LABS: APPEARANCE,URINE CLEAR; BILIRUBIN,URINE NEGATIVE (NEGATIVE); COLOR,URINE STRAW; GLUCOSE, URINE NEGATIVE (NEGATIVE); KETONES,URINE NEGATIVE (NEGATIVE); LEUKOCYTE ESTERASE,URINE SMALL (NEGATIVE); NITRITE,URINE NEGATIVE (NEGATIVE); PROTEIN,URINE NEGATIVE (NEGATIVE); URINE SPECIFIC GRAVITY 1.006; UROBILINOGEN,URINE NEGATIVE mg/dL (<2.0)
[2019-02-03] MEDS: POTASSIUM CHLORIDE 20 MEQ/50 ML RTU IV SCH ×2 (08:48→10:40)
[2019-02-03] MEDS: HYDROMORPHONE HCL INJ/PF 2 MG/ML AMPULE IV PRN ×3 (09:11→21:16)
[2019-02-03] MEDS: ENOXAPARIN SODIUM INJ 40 MG/0.4 ML DISP.SYRIN SUBCUT SCH (10:40)
[2019-02-03] MEDS: DULOXETINE HCL 30 MG CAPSULE.DR PO SCH (10:49)
[2019-02-03] MEDS: AMLODIPINE BESYLATE 10 MG TABLET PO SCH (10:49)
[2019-02-03] MEDS: METOPROLOL TARTRATE 100 MG TABLET PO SCH ×2 (10:49→21:17)
[2019-02-03] MEDS: CLONIDINE HCL 0.2 MG TABLET PO SCH ×2 (10:49→21:17)
[2019-02-03] MEDS: CALCITRIOL 0.25 MCG CAPSULE PO SCH (10:50)
[2019-02-03] MEDS: PANTOPRAZOLE SODIUM 40 MG TABLET.DR PO SCH (11:18)
--- NOTE | 2019-02-03 21:38 | PDOC H&P ---
History of Present Illness Admission Date/PCP: 02/02/19 17:44 SHARDA MAYS MD History of Present Illness: NICKO FERRO is a 78 year old female, She has history of recurrent abdominal pain associated with vomiting, she presented to the emergency room for evaluation of abdominal pain with vomiting. 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 Past Medical History Cardiac Medical History: Reports: Hypertension, Peripheral Vascular Disease Pulmonary Medical History: Reports: Chronic Obstructive Pulmonary Disease (COPD) GI Medical History: Reports: Gastroesophageal Reflux Disease Musculoskeltal Medical History: Reports: Arthritis - RA Psychiatric Medical History: Reports: Depression Past Surgical History Past Surgical History: Reports: Cholecystectomy - 05/2017, Hysterectomy, Orthopedic Surgery - LT HIP REMOVAL OF "HEAD", SCREWS RT HIP, RT KNEE REPLACEMENT, Other - lysis of adhesions Social History Smoking Status: Current Every Day Smoker Frequency of Alcohol Use: None Hx Recreational Drug Use: No Drugs: None Hx Prescription Drug Abuse: No - Advance Directive Resuscitation Status: Full Code Family History Family History: Reviewed & Not Pertinent Parental Family History Reviewed: Yes Children Family History Reviewed: Yes Sibling(s) Family History Reviewed.: Yes Medication/Allergy Home Medications: RX: Amlodipine Besylate [Norvasc 10 mg Tablet] 10 mg PO DAILY 12/14/18 RX: Calcitriol [Rocaltrol 0.25 mcg Capsule] 0.25 mcg PO DAILY 12/14/18 RX: Clonidine HCl [Catapres 0.2 mg Tablet] 0.2 mg PO Q12 12/14/18 RX: Colestipol HCl [Colestid 1 gm Tablet] 2 gm PO TID 12/14/18 RX: Duloxetine HCl [Cymbalta] 60 mg PO DAILY 12/14/18 RX: Lipase/Protease/Amylase [Zenpep Dr 15,000 Unit Capsule] 3 cap PO TID 12/14/18 RX: Metoprolol Tartrate [Lopressor 100 mg Tablet] 100 mg PO Q12 12/14/18 RX: Morphine Sulfate/Naltrexone [Embeda ER 50-2 mg Capsule] 1 cap PO DAILY 12/14/18 RX: Oxycodone HCl 15 mg PO Q6HP PRN MDD 4 tabs 12/14/18 RX: Pantoprazole Sodium [Protonix [address] Tablet] 40 mg PO DAILY 12/14/18 RX: Calcium Carbonate [Os-Franck 500 mg Tablet (Oyster-Shell)] 500 mg PO Q8 02/02/19 Allergies/Adverse Reactions: ketorolac [From Toradol] Allergy (Verified 10/05/18 12:19) sulfamethoxazole [From Bactrim] Allergy (Verified 10/05/18 12:18) trimethoprim [From Bactrim] Allergy (Verified 10/05/18 12:18) Review of Systems Constitutional: ABSENT: chills, fever(s), headache(s), weight gain, weight loss Eyes: ABSENT: visual disturbances Ears: ABSENT: hearing changes Cardiovascular: ABSENT: chest pain, dyspnea on exertion, edema, orthropnea, palpitations Respiratory: ABSENT: cough, hemoptysis Gastrointestinal: PRESENT: abdominal pain, vomiting. ABSENT: constipation, diarrhea, hematemesis, hematochezia, nausea Genitourinary: ABSENT: dysuria, hematuria Musculoskeletal: ABSENT: joint swelling Integumentary: ABSENT: rash, wounds Neurological: ABSENT: abnormal gait, abnormal speech, confusion, dizziness, foca l weakness, syncope Psychiatric: ABSENT: anxiety, depression, homidical ideation, suicidal ideation Endocrine: ABSENT: cold intolerance, heat intolerance, menstrual abnormalities, polydipsia, polyuria Hematologic/Lymphatic: ABSENT: easy bleeding, easy bruising, lymphadenopathy Physical Exam Vital Signs: Temp Pulse Resp BP Pulse Ox 98.2 F 110 H 19 173/126 H 92 02/03/19 19:39 02/03/19 19:39 02/03/19 19:39 02/03/19 19:39 02/03/19 19:39 Intake & Output 02/02/19 02/03/19 02/04/19 06:59 06:59 06:59 Intake Total 2422 1401 Balance 2422 1401 Weight 46.3 kg Head exam: PRESENT: atraumatic, normocephalic Eye exam: PRESENT: conjunctiva pink, EOMI, PERRLA Ear exam: PRESENT: normal external ear exam Mouth exam: PRESENT: moist, tongue midline Neck exam: PRESENT: full ROM Respiratory exam: PRESENT: clear to auscultation jamel, rhonchi Cardiovascular exam: PRESENT: RRR, +S1, +S2 Pulses: PRESENT: normal dorsalis pedis pul, +2 pedal pulses bilateral Vascular exam: PRESENT: normal capillary refill GI/Abdominal exam: PRESENT: normal bowel sounds, soft Rectal exam: PRESENT: deferred Neurological exam: PRESENT: alert Psychiatric exam: PRESENT: appropriate affect, normal mood Skin exam: PRESENT: dry, intact, warm Results Laboratory Results: 02/03/19 05:30 02/03/19 05:30 02/03/19 02/03/19 02/03/19 05:30 05:30 05:39 WBC 9.7 RBC 4.78 Hgb 13.8 Hct 42.1 MCV 88 MCH 28.8 MCHC 32.8 RDW 18.5 H Plt Count 191 Seg Neutrophils % 74.8 Lymphocytes % 16.8 Monocytes % 7.6 Eosinophils % 0.0 Basophils % 0.8 Absolute Neutrophils 7.3 Absolute Lymphocytes 1.6 Absolute Monocytes 0.7 Absolute Eosinophils 0.0 Absolute Basophils 0.1 Sodium 141.0 Potassium 3.2 L Chloride 107 Carbon Dioxide 24 Anion Gap 10 BUN 7 Creatinine 0.40 L Est GFR ( Amer) > 60 Est GFR (Non-Af Amer) > 60 Glucose 166 H Calcium 8.0 L Total Bilirubin 0.4 AST 73 H ALT 118 H Alkaline Phosphatase 308 H Total Protein 8.1 Albumin 4.0 Urine Color STRAW Urine Appearance CLEAR Urine pH 8.0 Ur Specific Musc[place] 1.006 Urine Protein NEGATIVE Urine Glucose (UA) NEGATIVE Urine Ketones NEGATIVE Urine Blood SMALL H Urine Nitrite NEGATIVE Ur Leukocyte Esterase SMALL H Urine RBC (Auto) 14 Impressions: Abdomen/Pelvis CT 02/02/19 17:13 IMPRESSION: No acute findings identified. Assessment & Plan - Diagnosis (1) Abdominal pain Qualifiers: Abdominal location: generalized Qualified Code(s): R10.84 - Generalized abdominal pain Is this a current diagnosis for this admission?: Yes Plan: Patient is admitted for management the cause of the pain is not clear (2) Intractable vomiting Qualifiers: Vomiting type: unspecified Is this a current diagnosis for this admission?: Yes
[2019-02-03] MEDS ORDERED: ENALAPRILAT DIHYDRATE INJ/PF 2.5 MG/2 ML SDV IV SCH (22:15)
[2019-02-04] MEDS: ONDANSETRON HCL INJ/PF 4 MG/2 ML SDV IV PRN ×3 (03:25→11:42)
[2019-02-04] MEDS: HYDROMORPHONE HCL INJ/PF 2 MG/ML AMPULE IV PRN ×4 (03:25→22:30)
[2019-02-04] MEDS: ENALAPRILAT DIHYDRATE INJ/PF 2.5 MG/2 ML SDV IV SCH ×4 (03:32→21:11)
[2019-02-04] MEDS: CALCIUM CARBONATE 500 MG TABLET PO SCH ×3 (05:28→21:11)
[2019-02-04] MEDS: OXYCODONE HCL IR 5 MG TABLET PO PRN ×2 (07:30→18:54)
[2019-02-04 08:42] LABS: ABSOLUTE BASOPHILS # (AUTO) 0.1 10^3/uL (0.0-0.2); ABSOLUTE LYMPHOCYTES (AUTO) 1.8 10^3/uL (0.5-4.7); ABSOLUTE MONOCYTES (AUTO) 0.7 10^3/uL (0.1-1.4); ABSOLUTE NEUT (AUTO) 6.9 10^3/uL (1.7-8.2); BASOPHILS % (AUTO) 0.9 % (0-2); EOSINOPHILS % (AUTO) 0.1 % (0-6); HEMATOCRIT 47.2 % (36.0-47.0); HEMOGLOBIN 15.6 g/dL (12.0-15.5); LYMPHOCYTES % (AUTO) 19.1 % (13-45); MEAN CORPUSCULAR HEMOGLOBIN 29.1 pg (27.0-33.4); MEAN CORPUSCULAR HGB CONC 33.1 g/dL (32.0-36.0); MEAN CORPUSCULAR VOLUME 88 fl (80-97); MONOCYTES % (AUTO) 7.5 % (3-13); PLATELET COUNT 181 10^3/uL (150-450); RED BLOOD COUNT 5.37 10^6/uL (3.72-5.28); RED CELL DISTRIBUTION WIDTH 18.6 % (11.5-14.0); SEGMENTED NEUTROPHILS % (AUTO) 72.4 % (42-78); TOTAL CELLS COUNTED % (AUTO) 100 %; WHITE BLOOD COUNT 9.5 10^3/uL (4.0-10.5)
[2019-02-04 09:03] LABS: ALANINE AMINOTRANSFERASE 102 U/L (9-52); ALBUMIN 4.2 g/dL (3.5-5.0); ALKALINE PHOSPHATASE 330 U/L (38-126); ANION GAP 10 (5-19); ASPARTATE AMINO TRANSFERASE 65 U/L (14-36); BILIRUBIN,DIRECT 0.3 mg/dL (0.0-0.4); BILIRUBIN,TOTAL 0.9 mg/dL (0.2-1.3); BLOOD UREA NITROGEN 11 mg/dL (7-20); CALCIUM 8.7 mg/dL (8.4-10.2); CARBON DIOXIDE 24 mmol/L (22-30); CHLORIDE 107 mmol/L (98-107); GLUCOSE 111 mg/dL (75-110); POTASSIUM 3.4 mmol/L (3.6-5.0); TOTAL PROTEIN 8.5 g/dL (6.3-8.2)
[2019-02-04] MEDS: CLONIDINE HCL 0.2 MG TABLET PO SCH ×4 (09:06→21:11)
[2019-02-04] MEDS: CALCITRIOL 0.25 MCG CAPSULE PO SCH ×2 (09:06→09:13)
[2019-02-04] MEDS: DULOXETINE HCL 30 MG CAPSULE.DR PO SCH ×2 (09:06→09:13)
[2019-02-04] MEDS: METOPROLOL TARTRATE 100 MG TABLET PO SCH ×4 (09:06→21:11)
[2019-02-04] MEDS: AMLODIPINE BESYLATE 10 MG TABLET PO SCH ×3 (09:06→11:45)
[2019-02-04] MEDS: PANTOPRAZOLE SODIUM 40 MG TABLET.DR PO SCH ×2 (09:06→09:13)
[2019-02-04] MEDS: ENOXAPARIN SODIUM INJ 40 MG/0.4 ML DISP.SYRIN SUBCUT SCH (09:08)
[2019-02-04] MEDS: NORMAL SALINE 1000 ML 1,000 ML IV PRN ×2 (09:09→18:54)
[2019-02-04 11:37] LABS: HEPATITS B SURFACE ANTIGEN Negative (Negative)
[2019-02-04 16:04] LABS: HEPATITIS C VIRUS ANTIBODY >11.0 s/co ratio (0.0-0.9)
[2019-02-04] MEDS: PROMETHAZINE HCL INJ 25 MG/1 ML VIAL IV PRN (18:54)
--- NOTE | 2019-02-04 20:49 | PDOC PROGRESS REPORT ---
Subjective Progress Note for:: 02/04/19 Subjective:: Patient continues to vomit, the etiology is not clear, she had elevated liver enzymes hepatitis screen came back positive for hep C antibody, hep C RNA titer ordered, case discussed with patient and daughter Reason For Visit: INTRACTABLE N/V, ABD PAIN Physical Exam Vital Signs: Temp Pulse Resp BP Pulse Ox 98.3 F 64 16 155/80 H 96 02/04/19 16:00 02/04/19 16:00 02/04/19 16:00 02/04/19 16:00 02/04/19 16:00 Intake & Output 02/03/19 02/04/19 02/05/19 06:59 06:59 06:59 Intake Total 2422 1519 2455 Output Total 700 Balance 2422 819 2455 Weight 46.3 kg 46.6 kg General appearance: PRESENT: no acute distress Eye exam: PRESENT: PERRLA Respiratory exam: PRESENT: clear to auscultation jamel Cardiovascular exam: PRESENT: +S1, +S2 GI/Abdominal exam: PRESENT: soft Neurological exam: PRESENT: alert, CN II-XII grossly intact Results Laboratory Results: 02/04/19 08:10 02/04/19 08:10 02/04/19 02/04/19 08:10 08:10 WBC 9.5 RBC 5.37 H Hgb 15.6 H Hct 47.2 H MCV 88 MCH 29.1 MCHC 33.1 RDW 18.6 H Plt Count 181 Seg Neutrophils % 72.4 Lymphocytes % 19.1 Monocytes % 7.5 Eosinophils % 0.1 Basophils % 0.9 Absolute Neutrophils 6.9 Absolute Lymphocytes 1.8 Absolute Monocytes 0.7 Absolute Eosinophils 0.0 Absolute Basophils 0.1 Sodium 140.9 Potassium 3.4 L Chloride 107 Carbon Dioxide 24 Anion Gap 10 BUN 11 Creatinine 0.53 Est GFR ( Amer) > 60 Est GFR (Non-Af Amer) > 60 Glucose 111 H Calcium 8.7 Total Bilirubin 0.9 AST 65 H ALT 102 H Alkaline Phosphatase 330 H Total Protein 8.5 H Albumin 4.2 Impressions: Abdomen/Pelvis CT 02/02/19 17:13 IMPRESSION: No acute findings identified. Assessment & Plan - Diagnosis (1) Abdominal pain Qualifiers: Abdominal location: generalized Qualified Code(s): R10.84 - Generalized abdominal pain Is this a current diagnosis for this admission?: Yes Plan: Patient is admitted for management ,the cause of the pain is not clear (2) Intractable vomiting Qualifiers: Vomiting type: unspecified Is this a current diagnosis for this admission?: Yes (3) Elevated liver enzymes Is this a current diagnosis for this admission?: Yes
[2019-02-05] MEDS: HYDROMORPHONE HCL INJ/PF 2 MG/ML AMPULE IV PRN ×3 (05:11→18:26)
[2019-02-05] MEDS: ENALAPRILAT DIHYDRATE INJ/PF 2.5 MG/2 ML SDV IV SCH ×4 (05:11→21:59)
[2019-02-05] MEDS: CALCIUM CARBONATE 500 MG TABLET PO SCH ×3 (05:11→22:33)
[2019-02-05] MEDS: NORMAL SALINE 1000 ML 1,000 ML IV PRN ×2 (05:12→15:06)
[2019-02-05] MEDS: PROMETHAZINE HCL INJ 25 MG/1 ML VIAL IV PRN (05:12)
[2019-02-05 05:39] LABS: ABSOLUTE BASOPHILS # (AUTO) 0.1 10^3/uL (0.0-0.2); ABSOLUTE MONOCYTES (AUTO) 0.7 10^3/uL (0.1-1.4); ABSOLUTE NEUT (AUTO) 5.3 10^3/uL (1.7-8.2); BASOPHILS % (AUTO) 0.7 % (0-2); EOSINOPHILS % (AUTO) 0.3 % (0-6); MEAN CORPUSCULAR HEMOGLOBIN 29.3 pg (27.0-33.4); MEAN CORPUSCULAR HGB CONC 33.1 g/dL (32.0-36.0); MEAN CORPUSCULAR VOLUME 89 fl (80-97); MONOCYTES % (AUTO) 8.5 % (3-13); PLATELET COUNT 163 10^3/uL (150-450); RED CELL DISTRIBUTION WIDTH 18.5 % (11.5-14.0); SEGMENTED NEUTROPHILS % (AUTO) 65.5 % (42-78); TOTAL CELLS COUNTED % (AUTO) 100 %; WHITE BLOOD COUNT 8.1 10^3/uL (4.0-10.5)
[2019-02-05 05:43] LABS: HEMOGLOBIN 12.9 g/dL (12.0-15.5)
[2019-02-05 05:55] LABS: ALANINE AMINOTRANSFERASE 81 U/L (9-52); ALBUMIN 3.3 g/dL (3.5-5.0); ALKALINE PHOSPHATASE 250 U/L (38-126); ANION GAP 7 (5-19); ASPARTATE AMINO TRANSFERASE 35 U/L (14-36); BILIRUBIN,DIRECT 0.3 mg/dL (0.0-0.4); BILIRUBIN,TOTAL 0.9 mg/dL (0.2-1.3); BLOOD UREA NITROGEN 15 mg/dL (7-20); CALCIUM 8.3 mg/dL (8.4-10.2); CARBON DIOXIDE 24 mmol/L (22-30); CHLORIDE 108 mmol/L (98-107); GLUCOSE 72 mg/dL (75-110); POTASSIUM 3.2 mmol/L (3.6-5.0); TOTAL PROTEIN 6.8 g/dL (6.3-8.2)
[2019-02-05] MEDS: METOPROLOL TARTRATE 100 MG TABLET PO SCH ×2 (09:25→22:33)
[2019-02-05] MEDS: ENOXAPARIN SODIUM INJ 40 MG/0.4 ML DISP.SYRIN SUBCUT SCH (09:25)
[2019-02-05] MEDS: DULOXETINE HCL 30 MG CAPSULE.DR PO SCH (09:25)
[2019-02-05] MEDS: CLONIDINE HCL 0.2 MG TABLET PO SCH ×2 (09:25→22:33)
[2019-02-05] MEDS: CALCITRIOL 0.25 MCG CAPSULE PO SCH (09:26)
[2019-02-05] MEDS: AMLODIPINE BESYLATE 10 MG TABLET PO SCH (09:26)
[2019-02-05] MEDS: PANTOPRAZOLE SODIUM 40 MG TABLET.DR PO SCH (09:26)
[2019-02-05] MEDS ORDERED: POTASSIUM CHLORIDE 10 MEQ CAPSULE.ER PO ONE (10:00)
[2019-02-05] MEDS: OXYCODONE HCL IR 5 MG TABLET PO PRN ×3 (10:25→22:31)
--- NOTE | 2019-02-05 10:59 | PDOC PROGRESS REPORT ---
Subjective Progress Note for:: 02/05/19 Subjective:: Patient is currently doing fair still complaining some nausea vomiting Patient CT scan is all stable Patient's hepatitis panel back to positive for the hep C's order for the hep C titer Patient also on the pain medications which may contribute the patient's symptoms to Reason For Visit: INTRACTABLE N/V, ABD PAIN Physical Exam Vital Signs: Temp Pulse Resp BP Pulse Ox 97.4 F 59 L 17 157/81 H 97 02/05/19 08:00 02/05/19 08:00 02/05/19 08:00 02/05/19 08:00 02/05/19 08:00 Intake & Output 02/04/19 02/05/19 02/06/19 06:59 06:59 06:59 Intake Total 1519 4481 Output Total 700 Balance 819 4481 Weight 46.6 kg 46.3 kg General appearance: PRESENT: no acute distress, well-developed, well-nourished Head exam: PRESENT: atraumatic, normocephalic Eye exam: PRESENT: conjunctiva pink, EOMI, PERRLA. ABSENT: scleral icterus Ear exam: PRESENT: normal external ear exam Mouth exam: PRESENT: moist, tongue midline Neck exam: PRESENT: full ROM. ABSENT: carotid bruit, JVD, lymphadenopathy, t hyromegaly Respiratory exam: PRESENT: clear to auscultation jamel Cardiovascular exam: PRESENT: RRR. ABSENT: diastolic murmur, rubs, systolic murmur Vascular exam: PRESENT: normal capillary refill GI/Abdominal exam: PRESENT: normal bowel sounds, soft. ABSENT: distended, guarding, mass, organolmegaly, rebound, tenderness Rectal exam: PRESENT: deferred Extremities exam: ABSENT: pedal edema Neurological exam: PRESENT: alert, awake, oriented to person, oriented to place, oriented to time, oriented to situation, CN II-XII grossly intact. ABSENT: motor sensory deficit Psychiatric exam: PRESENT: appropriate affect, normal mood. ABSENT: homicidal ideation, suicidal ideation Skin exam: PRESENT: dry, intact, warm. ABSENT: cyanosis, rash Results Laboratory Results: 02/05/19 05:00 02/05/19 05:00 02/05/19 02/05/19 05:00 05:00 WBC 8.1 RBC 4.40 Hgb 12.9 D Hct 39.0 MCV 89 MCH 29.3 MCHC 33.1 RDW 18.5 H Plt Count 163 Seg Neutrophils % 65.5 Lymphocytes % 25.0 Monocytes % 8.5 Eosinophils % 0.3 Basophils % 0.7 Absolute Neutrophils 5.3 Absolute Lymphocytes 2.0 Absolute Monocytes 0.7 Absolute Eosinophils 0.0 Absolute Basophils 0.1 Sodium 139.4 Potassium 3.2 L Chloride 108 H Carbon Dioxide 24 Anion Gap 7 BUN 15 Creatinine 0.61 Est GFR ( Amer) > 60 Est GFR (Non-Af Amer) > 60 Glucose 72 L Calcium 8.3 L Total Bilirubin 0.9 AST 35 ALT 81 H Alkaline Phosphatase 250 H Total Protein 6.8 Albumin 3.3 L Impressions: Abdomen/Pelvis CT 02/02/19 17:13 IMPRESSION: No acute findings identified. Assessment & Plan - Diagnosis (1) Abdominal pain Qualifiers: Abdominal location: upper abdomen, unspecified Qualified Code(s): R10.10 - Upper abdominal pain, unspecified Is this a current diagnosis for this admission?: Yes Plan: We will consult GI on a Thursday when available (2) Elevated liver enzymes Is this a current diagnosis for this admission?: Yes Plan: Will wait for hepatitis (3) Intractable vomiting Qualifiers: Vomiting type: cyclical vomiting Nausea presence: with nausea Qualified Code(s): G43.A1 - Cyclical vomiting, intractable Is this a current diagnosis for this admission?: Yes Plan: Continue supportive management (4) Chronic pain syndrome Is this a current diagnosis for this admission?: Yes - Time Time Spent with patient: 15-24 minutes Medications reviewed and adjusted accordingly: Yes Anticipated discharge: Other Within: Other - Plan Summary Plan Summary: We will consider MRI of the abdomen if his persistent symptoms We will consult the GI
[2019-02-05] MEDS: ONDANSETRON HCL INJ/PF 4 MG/2 ML SDV IV PRN ×2 (12:34→18:27)
[2019-02-06] MEDS: NORMAL SALINE 1000 ML 1,000 ML IV PRN ×2 (00:55→12:40)
[2019-02-06] MEDS: PROMETHAZINE HCL INJ 25 MG/1 ML VIAL IV PRN ×4 (00:56→18:27)
[2019-02-06] MEDS: HYDROMORPHONE HCL INJ/PF 2 MG/ML AMPULE IV PRN ×4 (00:56→20:23)
[2019-02-06] MEDS: ENALAPRILAT DIHYDRATE INJ/PF 2.5 MG/2 ML SDV IV SCH ×4 (03:54→21:19)
[2019-02-06] MEDS: CALCIUM CARBONATE 500 MG TABLET PO SCH ×3 (06:14→21:19)
[2019-02-06] MEDS: OXYCODONE HCL IR 5 MG TABLET PO PRN ×3 (06:14→18:28)
[2019-02-06 07:11] LABS: ABSOLUTE EOSINOPHILS # (AUTO) 0.1 10^3/uL (0.0-0.6); ABSOLUTE LYMPHOCYTES (AUTO) 1.9 10^3/uL (0.5-4.7); ABSOLUTE MONOCYTES (AUTO) 0.5 10^3/uL (0.1-1.4); ABSOLUTE NEUT (AUTO) 3.3 10^3/uL (1.7-8.2); BASOPHILS % (AUTO) 0.6 % (0-2); EOSINOPHILS % (AUTO) 0.9 % (0-6); HEMATOCRIT 34.4 % (36.0-47.0); HEMOGLOBIN 11.3 g/dL (12.0-15.5); LYMPHOCYTES % (AUTO) 32.7 % (13-45); MEAN CORPUSCULAR HEMOGLOBIN 29.3 pg (27.0-33.4); MEAN CORPUSCULAR HGB CONC 32.9 g/dL (32.0-36.0); MEAN CORPUSCULAR VOLUME 89 fl (80-97); MONOCYTES % (AUTO) 8.2 % (3-13); PLATELET COUNT 130 10^3/uL (150-450); RED BLOOD COUNT 3.86 10^6/uL (3.72-5.28); RED CELL DISTRIBUTION WIDTH 18.1 % (11.5-14.0); SEGMENTED NEUTROPHILS % (AUTO) 57.6 % (42-78); TOTAL CELLS COUNTED % (AUTO) 100 %; WHITE BLOOD COUNT 5.7 10^3/uL (4.0-10.5)
[2019-02-06 07:25] LABS: ANION GAP 6 (5-19); BLOOD UREA NITROGEN 14 mg/dL (7-20); CALCIUM 7.9 mg/dL (8.4-10.2); CARBON DIOXIDE 23 mmol/L (22-30); CHLORIDE 112 mmol/L (98-107); GLUCOSE 94 mg/dL (75-110); POTASSIUM 3.2 mmol/L (3.6-5.0)
--- NOTE | 2019-02-06 09:56 | PDOC PROGRESS REPORT ---
Subjective Progress Note for:: 02/06/19 Subjective:: Patient is currently doing well Denied any chest pain to than any shortness of the breath No nausea no vomiting today Able to eat and keep food down Patient hep C viral load is still pending Patient's potassium is still low Reason For Visit: INTRACTABLE N/V, ABD PAIN Physical Exam Vital Signs: Temp Pulse Resp BP Pulse Ox 97.8 F 57 L 14 140/62 H 96 02/06/19 08:00 02/06/19 08:00 02/06/19 08:00 02/06/19 08:00 02/06/19 08:00 Intake & Output 02/05/19 02/06/19 02/07/19 06:59 06:59 06:59 Intake Total 4481 3775 Balance 4481 3775 Weight 46.3 kg 48 kg General appearance: PRESENT: no acute distress, well-developed, well-nourished Head exam: PRESENT: atraumatic, normocephalic Eye exam: PRESENT: conjunctiva pink, EOMI, PERRLA. ABSENT: scleral icterus Ear exam: PRESENT: normal external ear exam Mouth exam: PRESENT: moist, tongue midline Neck exam: PRESENT: full ROM. ABSENT: carotid bruit, JVD, lymphadenopathy, thyromegaly Respiratory exam: PRESENT: clear to auscultation jamel Cardiovascular exam: PRESENT: RRR. ABSENT: diastolic murmur, rubs, systolic murmur Pulses: PRESENT: normal dorsalis pedis pul, +2 pedal pulses bilateral Vascular exam: PRESENT: normal capillary refill GI/Abdominal exam: PRESENT: normal bowel sounds, soft. ABSENT: distended, gu arding, mass, organolmegaly, rebound, tenderness Rectal exam: PRESENT: deferred Extremities exam: ABSENT: pedal edema Neurological exam: PRESENT: alert, awake, oriented to person, oriented to place, oriented to time, oriented to situation, CN II-XII grossly intact. ABSENT: motor sensory deficit Psychiatric exam: PRESENT: appropriate affect, normal mood. ABSENT: homicidal ideation, suicidal ideation Skin exam: PRESENT: dry, intact, warm. ABSENT: cyanosis, rash Results Laboratory Results: 02/06/19 06:00 02/06/19 06:00 02/06/19 02/06/19 06:00 06:00 WBC 5.7 RBC 3.86 Hgb 11.3 L Hct 34.4 L MCV 89 MCH 29.3 MCHC 32.9 RDW 18.1 H Plt Count 130 L Seg Neutrophils % 57.6 Lymphocytes % 32.7 Monocytes % 8.2 Eosinophils % 0.9 Basophils % 0.6 Absolute Neutrophils 3.3 Absolute Lymphocytes 1.9 Absolute Monocytes 0.5 Absolute Eosinophils 0.1 Absolute Basophils 0.0 Sodium 141.3 Potassium 3.2 L Chloride 112 H Carbon Dioxide 23 Anion Gap 6 BUN 14 Creatinine 0.50 L Est GFR ( Amer) > 60 Est GFR (Non-Af Amer) > 60 Glucose 94 Calcium 7.9 L Impressions: Abdomen/Pelvis CT 02/02/19 17:13 IMPRESSION: No acute findings identified. Assessment & Plan - Diagnosis (1) Abdominal pain Qualifiers: Abdominal location: upper abdomen, unspecified Qualified Code(s): R10.10 - Upper abdominal pain, unspecified Is this a current diagnosis for this admission?: Yes Plan: We will consult GI on a Thursday when available (2) Elevated liver enzymes Is this a current diagnosis for this admission?: Yes Plan: Will wait for hepatitis (3) Intractable vomiting Qualifiers: Vomiting type: cyclical vomiting Nausea presence: with nausea Qualified Code(s): G43.A1 - Cyclical vomiting, intractable Is this a current diagnosis for this admission?: Yes Plan: Continue supportive management (4) Chronic pain syndrome Is this a current diagnosis for this admission?: Yes - Time Time Spent with patient: 15-24 minutes Medications reviewed and adjusted accordingly: Yes Anticipated discharge: Other Within: Other - Plan Summary Plan Summary: Replace the potassium Cut down the IV fluid to 60 cc
[2019-02-06] MEDS: CLONIDINE HCL 0.2 MG TABLET PO SCH ×2 (09:57→21:19)
[2019-02-06] MEDS: DULOXETINE HCL 30 MG CAPSULE.DR PO SCH (09:57)
[2019-02-06] MEDS: ENOXAPARIN SODIUM INJ 40 MG/0.4 ML DISP.SYRIN SUBCUT SCH (09:58)
[2019-02-06] MEDS: PANTOPRAZOLE SODIUM 40 MG TABLET.DR PO SCH (09:58)
[2019-02-06] MEDS: METOPROLOL TARTRATE 100 MG TABLET PO SCH ×2 (09:58→21:20)
[2019-02-06] MEDS: CALCITRIOL 0.25 MCG CAPSULE PO SCH (09:58)
[2019-02-06] MEDS: AMLODIPINE BESYLATE 10 MG TABLET PO SCH (09:58)
[2019-02-06] MEDS ORDERED: POTASSIUM CHLORIDE 10 MEQ CAPSULE.ER PO ONE (12:00)
[2019-02-06] MEDS: ONDANSETRON HCL INJ/PF 4 MG/2 ML SDV IV PRN (20:23)
[2019-02-07] MEDS ORDERED: ENALAPRILAT DIHYDRATE INJ/PF 2.5 MG/2 ML SDV IV ONE (02:45)
[2019-02-07] MEDS: ENALAPRILAT DIHYDRATE INJ/PF 2.5 MG/2 ML SDV IV SCH ×4 (03:02→21:44)
[2019-02-07] MEDS: HYDROMORPHONE HCL INJ/PF 2 MG/ML AMPULE IV PRN ×4 (03:02→21:45)
[2019-02-07] MEDS: PROMETHAZINE HCL INJ 25 MG/1 ML VIAL IV PRN ×4 (03:05→21:46)
[2019-02-07] MEDS: CALCIUM CARBONATE 500 MG TABLET PO SCH ×3 (05:38→21:46)
[2019-02-07 05:55] LABS: ABSOLUTE EOSINOPHILS # (AUTO) 0.1 10^3/uL (0.0-0.6); ABSOLUTE LYMPHOCYTES (AUTO) 1.9 10^3/uL (0.5-4.7); ABSOLUTE MONOCYTES (AUTO) 0.6 10^3/uL (0.1-1.4); ABSOLUTE NEUT (AUTO) 3.9 10^3/uL (1.7-8.2); BASOPHILS % (AUTO) 0.6 % (0-2); HEMATOCRIT 32.8 % (36.0-47.0); HEMOGLOBIN 10.8 g/dL (12.0-15.5); LYMPHOCYTES % (AUTO) 28.8 % (13-45); MEAN CORPUSCULAR HEMOGLOBIN 29.6 pg (27.0-33.4); MEAN CORPUSCULAR VOLUME 90 fl (80-97); MONOCYTES % (AUTO) 8.9 % (3-13); PLATELET COUNT 127 10^3/uL (150-450); RED BLOOD COUNT 3.66 10^6/uL (3.72-5.28); RED CELL DISTRIBUTION WIDTH 18.3 % (11.5-14.0); SEGMENTED NEUTROPHILS % (AUTO) 60.7 % (42-78); TOTAL CELLS COUNTED % (AUTO) 100 %; WHITE BLOOD COUNT 6.5 10^3/uL (4.0-10.5)
[2019-02-07 06:27] LABS: ANION GAP 6 (5-19); BLOOD UREA NITROGEN 15 mg/dL (7-20); CALCIUM 7.4 mg/dL (8.4-10.2); CARBON DIOXIDE 21 mmol/L (22-30); CHLORIDE 113 mmol/L (98-107); GLUCOSE 118 mg/dL (75-110); POTASSIUM 3.7 mmol/L (3.6-5.0)
[2019-02-07] MEDS: OXYCODONE HCL IR 5 MG TABLET PO PRN ×2 (07:57→18:39)
[2019-02-07] MEDS: NORMAL SALINE 1000 ML 1,000 ML IV PRN (07:57)
[2019-02-07] MEDS: CLONIDINE HCL 0.2 MG TABLET PO SCH ×2 (09:09→21:46)
[2019-02-07] MEDS: CALCITRIOL 0.25 MCG CAPSULE PO SCH (09:09)
[2019-02-07] MEDS: PANTOPRAZOLE SODIUM 40 MG TABLET.DR PO SCH (09:09)
[2019-02-07] MEDS: AMLODIPINE BESYLATE 10 MG TABLET PO SCH (09:09)
[2019-02-07] MEDS: DULOXETINE HCL 30 MG CAPSULE.DR PO SCH (09:10)
[2019-02-07] MEDS: METOPROLOL TARTRATE 100 MG TABLET PO SCH ×2 (09:10→21:45)
[2019-02-07] MEDS: ENOXAPARIN SODIUM INJ 40 MG/0.4 ML DISP.SYRIN SUBCUT SCH (09:19)
--- NOTE | 2019-02-07 20:03 | PDOC PROGRESS REPORT ---
Subjective Progress Note for:: 02/07/19 Subjective:: Patient continues to require pain medication and Phenergan Reason For Visit: INTRACTABLE N/V, ABD PAIN Physical Exam Vital Signs: Temp Pulse Resp BP Pulse Ox 99.0 F 64 16 132/70 H 97 02/07/19 15:47 02/07/19 15:47 02/07/19 15:47 02/07/19 15:47 02/07/19 15:47 Intake & Output 02/06/19 02/07/19 02/08/19 06:59 06:59 06:59 Intake Total 3775 3970 840 Balance 3775 3970 840 Weight 48 kg 48 kg General appearance: PRESENT: no acute distress Eye exam: PRESENT: PERRLA Respiratory exam: PRESENT: clear to auscultation jamel Cardiovascular exam: PRESENT: +S1, +S2 GI/Abdominal exam: PRESENT: soft Neurological exam: PRESENT: alert Results Laboratory Results: 02/07/19 05:41 02/07/19 05:41 02/07/19 02/07/19 05:41 05:41 WBC 6.5 RBC 3.66 L Hgb 10.8 L Hct 32.8 L MCV 90 MCH 29.6 MCHC 33.0 RDW 18.3 H Plt Count 127 L Seg Neutrophils % 60.7 Lymphocytes % 28.8 Monocytes % 8.9 Eosinophils % 1.0 Basophils % 0.6 Absolute Neutrophils 3.9 Absolute Lymphocytes 1.9 Absolute Monocytes 0.6 Absolute Eosinophils 0.1 Absolute Basophils 0.0 Sodium 140.4 Potassium 3.7 Chloride 113 H Carbon Dioxide 21 L Anion Gap 6 BUN 15 Creatinine 0.47 L Est GFR ( Amer) > 60 Est GFR (Non-Af Amer) > 60 Glucose 118 H Calcium 7.4 L Impressions: Abdomen/Pelvis CT 02/02/19 17:13 IMPRESSION: No acute findings identified. Assessment & Plan - Diagnosis (1) Abdominal pain Qualifiers: Abdominal location: generalized Qualified Code(s): R10.84 - Generalized abdominal pain Is this a current diagnosis for this admission?: Yes (2) Intractable vomiting Qualifiers: Vomiting type: unspecified Is this a current diagnosis for this admission?: Yes (3) Elevated liver enzymes Is this a current diagnosis for this admission?: Yes - Plan Summary Plan Summary: order upper GI series
[2019-02-08] MEDS: OXYCODONE HCL IR 5 MG TABLET PO PRN ×2 (02:37→21:16)
[2019-02-08] MEDS: ENALAPRILAT DIHYDRATE INJ/PF 2.5 MG/2 ML SDV IV SCH ×4 (02:38→21:12)
[2019-02-08] MEDS: CALCIUM CARBONATE 500 MG TABLET PO SCH ×3 (05:27→21:16)
[2019-02-08 05:33] LABS: ANION GAP 6 (5-19); BLOOD UREA NITROGEN 13 mg/dL (7-20); CALCIUM 7.4 mg/dL (8.4-10.2); CARBON DIOXIDE 23 mmol/L (22-30); CHLORIDE 111 mmol/L (98-107); GLUCOSE 108 mg/dL (75-110); POTASSIUM 3.4 mmol/L (3.6-5.0)
[2019-02-08] MEDS: HYDROMORPHONE HCL INJ/PF 2 MG/ML AMPULE IV PRN ×3 (06:10→18:31)
[2019-02-08] MEDS: PROMETHAZINE HCL INJ 25 MG/1 ML VIAL IV PRN ×3 (06:10→18:30)
[2019-02-08] MEDS: NORMAL SALINE 1000 ML 1,000 ML IV PRN ×2 (06:11→08:57)
[2019-02-08] MEDS: DULOXETINE HCL 30 MG CAPSULE.DR PO SCH (09:01)
[2019-02-08] MEDS: ENOXAPARIN SODIUM INJ 40 MG/0.4 ML DISP.SYRIN SUBCUT SCH (09:01)
[2019-02-08] MEDS: CLONIDINE HCL 0.2 MG TABLET PO SCH ×3 (09:01→21:15)
[2019-02-08] MEDS: METOPROLOL TARTRATE 100 MG TABLET PO SCH ×3 (09:01→21:15)
[2019-02-08] MEDS: AMLODIPINE BESYLATE 10 MG TABLET PO SCH ×2 (09:01→15:17)
[2019-02-08] MEDS: CALCITRIOL 0.25 MCG CAPSULE PO SCH (09:02)
[2019-02-08] MEDS: PANTOPRAZOLE SODIUM 40 MG TABLET.DR PO SCH (09:02)
--- NOTE | 2019-02-08 16:46 | RADIOLOGY REPORT (SQ) ---
EXAM DESCRIPTION: UPPER GI/SM BOWEL COMPLETED DATE/TIME: 02/08/2019 2:28 pm REASON FOR STUDY: EPIGASTRIC PAIN COMPARISON: None. TECHNIQUE: Under fluoroscopic guidance, patient ingested effervescent granules followed by thick an d thin barium. Fluoroscopic spot images and routine radiographic images acquired and stored on PACS . Following evaluation of esophagus and stomach, additional barium administered with serial delayed ab dominal radiographs until colonic identification. Fluoroscopic images recorded of the terminal ileu m. FLUOROSCOPY TIME: 3.9 minutes of fluoroscopy was used. 35 images saved to PACS. LIMITATIONS: None. FINDINGS: NEUROMUSCULAR COORDINATION OF SWALLOW: Normal. No aspiration. ESOPHAGEAL MOTILITY: Tertiary contractions seen throughout the esophagus. No strictures identified ESOPHAGEAL MUCOSA: Normal mucosa without masses or ulceration. GASTRO-ESOPHAGEAL JUNCTION: Small sliding hiatal hernia with mild reflux but STOMACH: Normal without masses or ulcerations. GASTRIC OUTLET: No delay in emptying. Normal pylorus. SMALL BOWEL: Mild dilatation of the proximal small bowel without evidence of obstruction. Contrast flows slowly through the small bowel requiring 3.5 hours to reached the colon. TERMINAL ILEUM AND ILEO-CECAL VALVE: Normal mucosal pattern without cobble-stoning or stricture. Ridge y difficult to compress the terminal ileum due to patient's condition. PROXIMAL COLON: Incompletely imaged. Large amount of fecal material seen in the ascending colon. NON-GI TRACT STRUCTURES: No significant finding. OTHER: No other significant finding. IMPRESSION: 1. SMALL SLIDING HIATAL HERNIA WITH MILD REFLUX. PRESBYESOPHAGUS. 2. STOMACH AND DUODENUM ARE UNREMARKABLE. 3. MILD DILATATION OF THE PROXIMAL SMALL BOWEL WITHOUT EVIDENCE OF OBSTRUCTION. MINUTE SMALL BOWEL IS UNREMARKABLE. NO EVIDENCE OF SMALL-BOWEL OBSTRUCTION. COMMENT: Quality ID [id number]: Final reports for procedures using fluoroscopy that document radiation exp osure indices, or exposure time and number of fluorographic images (if radiation exposure indices are not available) TECHNICAL DOCUMENTATION: JOB ID: [id number] [email or web address]- All Rights Reserved Reading location - IP/workstation name: [email or web address]
[2019-02-08] MEDS: METOCLOPRAMIDE HCL INJ/PF 10 MG/2 ML SDV IV SCH (18:50)
--- NOTE | 2019-02-08 20:01 | PDOC PROGRESS REPORT ---
Subjective Progress Note for:: 02/08/19 Subjective:: Patient was seen by the bedside upper GI series was done, it demonstrated mild dilatation of the proximal small bowel without obstruction. Contrast flows slowly through the small bowel Reason For Visit: INTRACTABLE N/V, ABD PAIN Physical Exam Vital Signs: Temp Pulse Resp BP Pulse Ox 99.2 F 64 16 124/62 95 02/08/19 19:55 02/08/19 19:55 02/08/19 19:55 02/08/19 19:55 02/08/19 19:55 Intake & Output 02/07/19 02/08/19 02/09/19 06:59 06:59 06:59 Intake Total 3970 1840 646 Balance 3970 1840 646 Weight 48 kg 48.2 kg General appearance: PRESENT: no acute distress Eye exam: PRESENT: PERRLA Respiratory exam: PRESENT: clear to auscultation jamel Cardiovascular exam: PRESENT: +S1, +S2 GI/Abdominal exam: PRESENT: soft Neurological exam: PRESENT: alert Results Laboratory Results: 02/07/19 05:41 02/08/19 04:25 02/08/19 04:25 Sodium 140.1 Potassium 3.4 L Chloride 111 H Carbon Dioxide 23 Anion Gap 6 BUN 13 Creatinine 0.49 L Est GFR ( Amer) > 60 Est GFR (Non-Af Amer) > 60 Glucose 108 Calcium 7.4 L Impressions: Abdomen/Pelvis CT 02/02/19 17:13 IMPRESSION: No acute findings identified. Upper GI and Small Bowel X-Ray 02/08/19 00:00 IMPRESSION: 1. SMALL SLIDING HIATAL HERNIA WITH MILD REFLUX. PRESBYESOPHAGUS. 2. STOMACH AND DUODENUM ARE UNREMARKABLE. 3. MILD DILATATION OF THE PROXIMAL SMALL BOWEL WITHOUT EVIDENCE OF OBSTRUCTION. MINUTE SMALL BOWEL IS UNREMARKABLE. NO EVIDENCE OF SMALL-BOWEL OBSTRUCTION. Assessment & Plan - Diagnosis (1) Abdominal pain Qualifiers: Abdominal location: generalized Qualified Code(s): R10.84 - Generalized abdominal pain Is this a current diagnosis for this admission?: Yes (2) Intractable vomiting Qualifiers: Vomiting type: unspecified Is this a current diagnosis for this admission?: Yes (3) Elevated liver enzymes Is this a current diagnosis for this admission?: Yes (4) Generalized dysmotility of intestine Is this a current diagnosis for this admission?: Yes Plan: Treat with Reglan for 2 to 3 days
[2019-02-08] MEDS: ONDANSETRON HCL INJ/PF 4 MG/2 ML SDV IV PRN (21:16)
[2019-02-09] MEDS: NORMAL SALINE 1000 ML 1,000 ML IV PRN ×2 (00:52→16:02)
[2019-02-09] MEDS: HYDROMORPHONE HCL INJ/PF 2 MG/ML AMPULE IV PRN ×4 (00:52→19:34)
[2019-02-09] MEDS: METOCLOPRAMIDE HCL INJ/PF 10 MG/2 ML SDV IV SCH ×4 (00:53→17:07)
[2019-02-09] MEDS: PROMETHAZINE HCL INJ 25 MG/1 ML VIAL IV PRN ×3 (00:55→19:34)
[2019-02-09] MEDS: ENALAPRILAT DIHYDRATE INJ/PF 2.5 MG/2 ML SDV IV SCH ×4 (04:48→20:31)
[2019-02-09] MEDS: CALCIUM CARBONATE 500 MG TABLET PO SCH ×3 (05:05→21:48)
[2019-02-09] MEDS: OXYCODONE HCL IR 5 MG TABLET PO PRN ×3 (05:05→17:07)
[2019-02-09 06:59] LABS: ABSOLUTE EOSINOPHILS # (AUTO) 0.1 10^3/uL (0.0-0.6); ABSOLUTE LYMPHOCYTES (AUTO) 1.8 10^3/uL (0.5-4.7); ABSOLUTE MONOCYTES (AUTO) 0.7 10^3/uL (0.1-1.4); ABSOLUTE NEUT (AUTO) 3.8 10^3/uL (1.7-8.2); BASOPHILS % (AUTO) 0.5 % (0-2); EOSINOPHILS % (AUTO) 1.7 % (0-6); HEMATOCRIT 30.3 % (36.0-47.0); HEMOGLOBIN 10.1 g/dL (12.0-15.5); LYMPHOCYTES % (AUTO) 28.6 % (13-45); MEAN CORPUSCULAR HEMOGLOBIN 29.9 pg (27.0-33.4); MEAN CORPUSCULAR HGB CONC 33.3 g/dL (32.0-36.0); MEAN CORPUSCULAR VOLUME 90 fl (80-97); MONOCYTES % (AUTO) 10.3 % (3-13); PLATELET COUNT 109 10^3/uL (150-450); RED BLOOD COUNT 3.38 10^6/uL (3.72-5.28); RED CELL DISTRIBUTION WIDTH 18.4 % (11.5-14.0); SEGMENTED NEUTROPHILS % (AUTO) 58.9 % (42-78); TOTAL CELLS COUNTED % (AUTO) 100 %; WHITE BLOOD COUNT 6.5 10^3/uL (4.0-10.5)
[2019-02-09 07:23] LABS: ANION GAP 6 (5-19); BLOOD UREA NITROGEN 13 mg/dL (7-20); CALCIUM 7.2 mg/dL (8.4-10.2); CARBON DIOXIDE 25 mmol/L (22-30); CHLORIDE 109 mmol/L (98-107); GLUCOSE 90 mg/dL (75-110); POTASSIUM 3.6 mmol/L (3.6-5.0)
[2019-02-09] MEDS: METOPROLOL TARTRATE 100 MG TABLET PO SCH ×2 (09:03→21:48)
[2019-02-09] MEDS: CLONIDINE HCL 0.2 MG TABLET PO SCH ×2 (09:03→21:49)
[2019-02-09] MEDS: AMLODIPINE BESYLATE 10 MG TABLET PO SCH (09:03)
[2019-02-09] MEDS: CALCITRIOL 0.25 MCG CAPSULE PO SCH (09:03)
[2019-02-09] MEDS: DULOXETINE HCL 30 MG CAPSULE.DR PO SCH (09:03)
[2019-02-09] MEDS: PANTOPRAZOLE SODIUM 40 MG TABLET.DR PO SCH (09:03)
[2019-02-09] MEDS: ENOXAPARIN SODIUM INJ 40 MG/0.4 ML DISP.SYRIN SUBCUT SCH (09:04)
--- NOTE | 2019-02-09 15:33 | PDOC PROGRESS REPORT ---
Subjective Progress Note for:: 02/09/19 Subjective:: Patient was seen by the bedside upper GI series was done, it demonstrated mild dilatation of the proximal small bowel without obstruction. Contrast flows slowly through the small bowel Reason For Visit: INTRACTABLE N/V, ABD PAIN Physical Exam Vital Signs: Temp Pulse Resp BP Pulse Ox 98.2 F 57 L 17 108/56 L 98 02/09/19 12:00 02/09/19 14:00 02/09/19 12:00 02/09/19 12:00 02/09/19 12:00 Intake & Output 02/08/19 02/09/19 02/10/19 06:59 06:59 06:59 Intake Total 1840 2281 482 Balance 1840 2281 482 Weight 48.2 kg 48.2 kg General appearance: PRESENT: no acute distress Eye exam: PRESENT: PERRLA Respiratory exam: PRESENT: clear to auscultation jamel Cardiovascular exam: PRESENT: +S1, +S2 GI/Abdominal exam: PRESENT: soft Results Laboratory Results: 02/09/19 06:00 02/09/19 06:00 02/09/19 02/09/19 06:00 06:00 WBC 6.5 RBC 3.38 L Hgb 10.1 L Hct 30.3 L MCV 90 MCH 29.9 MCHC 33.3 RDW 18.4 H Plt Count 109 L Seg Neutrophils % 58.9 Lymphocytes % 28.6 Monocytes % 10.3 Eosinophils % 1.7 Basophils % 0.5 Absolute Neutrophils 3.8 Absolute Lymphocytes 1.8 Absolute Monocytes 0.7 Absolute Eosinophils 0.1 Absolute Basophils 0.0 Sodium 139.7 Potassium 3.6 Chloride 109 H Carbon Dioxide 25 Anion Gap 6 BUN 13 Creatinine 0.54 Est GFR ( Amer) > 60 Est GFR (Non-Af Amer) > 60 Glucose 90 Calcium 7.2 L Impressions: Abdomen/Pelvis CT 02/02/19 17:13 IMPRESSION: No acute findings identified. Upper GI and Small Bowel X-Ray 02/08/19 00:00 IMPRESSION: 1. SMALL SLIDING HIATAL HERNIA WITH MILD REFLUX. PRESBYESOPHAGUS. 2. STOMACH AND DUODENUM ARE UNREMARKABLE. 3. MILD DILATATION OF THE PROXIMAL SMALL BOWEL WITHOUT EVIDENCE OF OBSTRUCTION. MINUTE SMALL BOWEL IS UNREMARKABLE. NO EVIDENCE OF SMALL-BOWEL OBSTRUCTION. Assessment & Plan - Diagnosis (1) Abdominal pain Qualifiers: Abdominal location: generalized Qualified Code(s): R10.84 - Generalized abd ominal pain Is this a current diagnosis for this admission?: Yes (2) Intractable vomiting Qualifiers: Vomiting type: unspecified Is this a current diagnosis for this admission?: Yes (3) Elevated liver enzymes Is this a current diagnosis for this admission?: Yes Plan: negative hepatitis C RNA (4) Generalized dysmotility of intestine Is this a current diagnosis for this admission?: Yes Plan: Continue Reglan
[2019-02-10] MEDS: METOCLOPRAMIDE HCL INJ/PF 10 MG/2 ML SDV IV SCH ×4 (00:38→18:39)
[2019-02-10] MEDS: HYDROMORPHONE HCL INJ/PF 2 MG/ML AMPULE IV PRN ×4 (02:05→21:12)
[2019-02-10] MEDS: PROMETHAZINE HCL INJ 25 MG/1 ML VIAL IV PRN ×4 (02:06→21:12)
[2019-02-10] MEDS: ENALAPRILAT DIHYDRATE INJ/PF 2.5 MG/2 ML SDV IV SCH ×4 (02:08→20:44)
[2019-02-10] MEDS: CALCIUM CARBONATE 500 MG TABLET PO SCH ×3 (05:14→21:12)
[2019-02-10] MEDS: ENOXAPARIN SODIUM INJ 40 MG/0.4 ML DISP.SYRIN SUBCUT SCH (09:25)
[2019-02-10] MEDS: CALCITRIOL 0.25 MCG CAPSULE PO SCH (09:30)
[2019-02-10] MEDS: DULOXETINE HCL 30 MG CAPSULE.DR PO SCH (09:31)
[2019-02-10] MEDS: CLONIDINE HCL 0.2 MG TABLET PO SCH ×2 (09:31→21:11)
[2019-02-10] MEDS: AMLODIPINE BESYLATE 10 MG TABLET PO SCH (09:33)
[2019-02-10] MEDS: PANTOPRAZOLE SODIUM 40 MG TABLET.DR PO SCH (09:33)
[2019-02-10] MEDS: METOPROLOL TARTRATE 100 MG TABLET PO SCH ×2 (09:33→21:11)
[2019-02-10] MEDS: ZENPEP PO SCH ×2 (11:34→18:39)
--- NOTE | 2019-02-10 18:28 | PDOC PROGRESS REPORT ---
Subjective Progress Note for:: 02/10/19 Subjective:: Patient was seen by the bedside upper GI series was done, it demonstrated mild dilatation of the proximal small bowel without obstruction. Contrast flows slowly through the small bowel Reason For Visit: INTRACTABLE N/V, ABD PAIN Physical Exam Vital Signs: Temp Pulse Resp BP Pulse Ox 98.3 F 66 17 114/64 97 02/10/19 15:55 02/10/19 15:55 02/10/19 15:55 02/10/19 15:55 02/10/19 15:55 Intake & Output 02/09/19 02/10/19 02/11/19 06:59 06:59 06:59 Intake Total 2281 3112 1000 Balance 2281 3112 1000 Weight 48.2 kg 48.2 kg Head exam: PRESENT: atraumatic, normocephalic Eye exam: PRESENT: PERRLA Ear exam: PRESENT: normal external ear exam Mouth exam: PRESENT: moist, tongue midline Neck exam: PRESENT: full ROM Respiratory exam: PRESENT: clear to auscultation jamel Cardiovascular exam: PRESENT: +S1, +S2 Pulses: PRESENT: normal dorsalis pedis pul, +2 pedal pulses bilateral Vascular exam: PRESENT: normal capillary refill GI/Abdominal exam: PRESENT: normal bowel sounds, soft Rectal exam: PRESENT: deferred Neurological exam: PRESENT: alert Psychiatric exam: PRESENT: appropriate affect, normal mood Skin exam: PRESENT: dry, intact, warm Results Laboratory Results: 02/09/19 06:00 02/09/19 06:00 Impressions: Abdomen/Pelvis CT 02/02/19 17:13 IMPRESSION: No acute findings identified. Upper GI and Small Bowel X-Ray 02/08/19 00:00 IMPRESSION: 1. SMALL SLIDING HIATAL HERNIA WITH MILD REFLUX. PRESBYESOPHAGUS. 2. STOMACH AND DUODENUM ARE UNREMARKABLE. 3. MILD DILATATION OF THE PROXIMAL SMALL BOWEL WITHOUT EVIDENCE OF OBSTRUCTION. MINUTE SMALL BOWEL IS UNREMARKABLE. NO EVIDENCE OF SMALL-BOWEL OBSTRUCTION. Assessment & Plan - Diagnosis (1) Abdominal pain Qualifiers: Abdominal location: generalized Qualified Code(s): R10.84 - Generalized abdominal pain Is this a current diagnosis for this admission?: Yes (2) Intractable vomiting Qualifiers: Vomiting type: unspecified Is this a current diagnosis for this admission?: Yes (3) Elevated liver enzymes Is this a current diagnosis for this admission?: Yes (4) Generalized dysmotility of intestine Is this a current diagnosis for this admission?: Yes
[2019-02-11] MEDS: METOCLOPRAMIDE HCL INJ/PF 10 MG/2 ML SDV IV SCH ×5 (00:11→23:54)
[2019-02-11] MEDS: ENALAPRILAT DIHYDRATE INJ/PF 2.5 MG/2 ML SDV IV SCH ×4 (02:15→22:29)
[2019-02-11] MEDS: HYDROMORPHONE HCL INJ/PF 2 MG/ML AMPULE IV PRN ×4 (03:52→22:29)
[2019-02-11] MEDS: PROMETHAZINE HCL INJ 25 MG/1 ML VIAL IV PRN ×4 (03:52→22:29)
[2019-02-11] MEDS: NORMAL SALINE 1000 ML 1,000 ML IV PRN ×2 (03:57→22:28)
[2019-02-11] MEDS: CALCIUM CARBONATE 500 MG TABLET PO SCH ×3 (05:08→22:30)
[2019-02-11] MEDS: ZENPEP PO SCH ×3 (09:04→16:20)
[2019-02-11] MEDS: METOPROLOL TARTRATE 100 MG TABLET PO SCH ×2 (09:05→22:30)
[2019-02-11] MEDS: ENOXAPARIN SODIUM INJ 40 MG/0.4 ML DISP.SYRIN SUBCUT SCH (09:05)
[2019-02-11] MEDS: CALCITRIOL 0.25 MCG CAPSULE PO SCH (09:05)
[2019-02-11] MEDS: DULOXETINE HCL 30 MG CAPSULE.DR PO SCH (09:05)
[2019-02-11] MEDS: PANTOPRAZOLE SODIUM 40 MG TABLET.DR PO SCH (09:05)
[2019-02-11] MEDS: CLONIDINE HCL 0.2 MG TABLET PO SCH ×2 (09:05→22:30)
[2019-02-11] MEDS: AMLODIPINE BESYLATE 10 MG TABLET PO SCH (09:05)
--- NOTE | 2019-02-11 17:12 | PDOC DISCHARGE SUMMARY ---
General - Admit/Disc Date/PCP Admission Date/Primary Care Provider: 02/02/19 17:44 SHARDA MAYS MD Discharge Date: 02/11/19 - Discharge Diagnosis (1) Abdominal pain Is this a current diagnosis for this admission?: Yes (2) Intractable vomiting Is this a current diagnosis for this admission?: Yes (3) Elevated liver enzymes Is this a current diagnosis for this admission?: Yes (4) Generalized dysmotility of intestine Is this a current diagnosis for this admission?: Yes - Additional Information Resuscitation Status: Full Code Discharge Diet: Regular Discharge Activity: Activity As Tolerated Home Medications: RX: Amlodipine Besylate [Norvasc 10 mg Tablet] 10 mg PO DAILY 12/14/18 RX: Calcitriol [Rocaltrol 0.25 mcg Capsule] 0.25 mcg PO DAILY 12/14/18 RX: Clonidine HCl [Catapres 0.2 mg Tablet] 0.2 mg PO Q12 12/14/18 RX: Colestipol HCl [Colestid 1 gm Tablet] 2 gm PO TID 12/14/18 RX: Duloxetine HCl [Cymbalta] 60 mg PO DAILY 12/14/18 RX: Lipase/Protease/Amylase [Zenpep Dr 15,000 Unit Capsule] 3 cap PO TID 12/14/18 RX: Metoprolol Tartrate [Lopressor 100 mg Tablet] 100 mg PO Q12 12/14/18 RX: Morphine Sulfate/Naltrexone [Embeda ER 50-2 mg Capsule] 1 cap PO DAILY 12/14/18 RX: Oxycodone HCl 15 mg PO Q6HP PRN MDD 4 tabs 12/14/18 RX: Pantoprazole Sodium [Protonix [address] Tablet] 40 mg PO DAILY 12/14/18 RX: Calcium Carbonate [Os-Franck 500 mg Tablet (Oyster-Shell)] 500 mg PO Q8 02/02/19 History of Present Illness History of Present Illness: NICKO FERRO is a 78 year old female, She has history of recurrent abdominal pain associated with vomiting, she presented to the emergency room for evaluation of abdominal pain with vomiting. 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 Hospital Course Hospital Course: Patient was admitted for the management of persistent vomiting, abdominal pain, she requires intravenous fluid, IV pain medication, Dilaudid to achieve pain control, she was kept n.p.o. for prolonged period of time in the hospital. The exact cause was not clear she underwent upper GI series with follow-through, this demonstrated GI dysmotility with delayed transit time for the contrast suggesting that the vomiting is partly from GI dysmotility syndrome from opioid therapy. She also had elevated liver enzymes, hepatitis panel was ordered, this was positive for hepatitis C antibody but negative for hepatitis C RNA suggesting false positive results or previous treatment of hepatitis C which patient denies. Physical Exam Vital Signs: Temp Pulse Resp BP Pulse Ox 97.7 F 70 17 109/62 98 02/11/19 12:13 02/11/19 14:55 02/11/19 12:13 02/11/19 14:55 02/11/19 12:13 Intake & Output 02/10/19 02/11/19 02/12/19 06:59 06:59 06:59 Intake Total 3112 1999 Balance 3112 1999 Weight 48.2 kg 56.5 kg General appearance: PRESENT: no acute distress Head exam: PRESENT: atraumatic, normocephalic Eye exam: PRESENT: PERRLA Ear exam: PRESENT: normal external ear exam Mouth exam: PRESENT: moist, tongue midline Neck exam: PRESENT: full ROM Respiratory exam: PRESENT: clear to auscultation jamel Cardiovascular exam: PRESENT: RRR, +S1, +S2 Pulses: PRESENT: normal dorsalis pedis pul, +2 pedal pulses bilateral Vascular exam: PRESENT: normal capillary refill GI/Abdominal exam: PRESENT: normal bowel sounds, soft Rectal exam: PRESENT: deferred Neurological exam: PRESENT: alert, CN II-XII grossly intact Psychiatric exam: PRESENT: appropriate affect, normal mood Skin exam: PRESENT: dry, intact, warm Results Laboratory Results: 02/09/19 06:00 02/09/19 06:00 Impressions: Abdomen/Pelvis CT 02/02/19 17:13 IMPRESSION: No acute findings identified. Upper GI and Small Bowel X-Ray 02/08/19 00:00 IMPRESSION: 1. SMALL SLIDING HIATAL HERNIA WITH MILD REFLUX. PRESBYESOPHAGUS. 2. STOMACH AND DUODENUM ARE UNREMARKABLE. 3. MILD DILATATION OF THE PROXIMAL SMALL BOWEL WITHOUT EVIDENCE OF OBSTRUCTION. MINUTE SMALL BOWEL IS UNREMARKABLE. NO EVIDENCE OF SMALL-BOWEL OBSTRUCTION. Qualifiers - * PATIENT BEING DISCHARGED WITH ANY OF THE FOLLOWING DIAGNOSIS: No VTE patient discharged on overlapping Therapy?: No Reason(s) for not prescribing Overlap Therapy:: Not indicated Stroke Pt being discharged on Anti-thrombolytic therapy?: No Reason(s) for not prescribing Anti-thrombolytic therapy:: Not indicated Stroke Pt being discharged on Anti-coagulation therapy?: No Reason(s) for not prescribing Anti-coagulation therapy:: Not indicated Stroke Pt being discharged on Statins?: No Reason(s) for not prescribing Statins therapy:: Not indicated NV Pt being discharged on Aspirin therapy?: No Reason(s) for not prescribing Aspirin therapy:: Not indicated NV Pt being discharged on Statins?: No Reason(s) for not prescribing Statin therapy:: Not indicated NV Pt discharged ACEI/ARBS?: No Reason(s) for not prescribing ACEI/ARBS:: Not indicated Acute Heart Failure - Is this a Heart Failure Patient?: No e) For LVEF <35%, discharged on Aldosterone antagonist?: N/A (LVEF > or = 35%)
[2019-02-12] MEDS: ENALAPRILAT DIHYDRATE INJ/PF 2.5 MG/2 ML SDV IV SCH ×2 (05:10→09:02)
[2019-02-12] MEDS: CALCIUM CARBONATE 500 MG TABLET PO SCH (05:10)
[2019-02-12] MEDS: METOCLOPRAMIDE HCL INJ/PF 10 MG/2 ML SDV IV SCH (05:10)
[2019-02-12] MEDS: PROMETHAZINE HCL INJ 25 MG/1 ML VIAL IV PRN ×2 (05:11→10:08)
[2019-02-12] MEDS: HYDROMORPHONE HCL INJ/PF 2 MG/ML AMPULE IV PRN (05:11)
[2019-02-12 09:01] VITALS: BP 170/63
[2019-02-12] MEDS: DULOXETINE HCL 30 MG CAPSULE.DR PO SCH (09:02)
[2019-02-12] MEDS: CLONIDINE HCL 0.2 MG TABLET PO SCH (09:02)
[2019-02-12] MEDS: CALCITRIOL 0.25 MCG CAPSULE PO SCH (09:02)
[2019-02-12] MEDS: METOPROLOL TARTRATE 100 MG TABLET PO SCH (09:02)
[2019-02-12] MEDS: AMLODIPINE BESYLATE 10 MG TABLET PO SCH (09:02)
[2019-02-12] MEDS: PANTOPRAZOLE SODIUM 40 MG TABLET.DR PO SCH (09:02)
[2019-02-12] MEDS: ZENPEP PO SCH (09:02)
[2019-02-12] MEDS: ENOXAPARIN SODIUM INJ 40 MG/0.4 ML DISP.SYRIN SUBCUT SCH (09:02)
== END 2019-02-12 10:36 | disposition home or self-care (01) | DRG 392 ==
LOC: ER 15:36 → EH 17:44 → INTOOBSV 17:44 → OBSVTOIN 17:44 → 4N 20:57
PROVIDERS: ADMIT Internal Medicine; ATTEND Internal Medicine
DX: R10.10 Upper abdominal pain, unspecified (principal); J44.9 Chronic obstructive pulmonary disease, unspecified; M06.9 Rheumatoid arthritis, unspecified; I69.320 Aphasia following cerebral infarction; R11.2 Nausea with vomiting, unspecified; R94.5 Abnormal results of liver function studies; K30 Functional dyspepsia; I10 Essential (primary) hypertension; I73.9 Peripheral vascular disease, unspecified; K21.9 Gastro-esophageal reflux disease without esophagitis; F32.9 Major depressive disorder, single episode, unspecified; F17.200 Nicotine dependence, unspecified, uncomplicated; G89.4 Chronic pain syndrome; Z96.641 Presence of right artificial hip joint; Z96.651 Presence of right artificial knee joint; Z79.899 Other long term (current) drug therapy; Z90.49 Acquired absence of other specified parts of digestive tract; Z88.3 Allergy status to other anti-infective agents; Z88.2 Allergy status to sulfonamides; Z88.8 Allergy status to other drugs, medicaments and biological substances; Z87.11 Personal history of peptic ulcer disease
CPT/HCPCS: 36415; 74177; 74249; 80048; 80053; 80074; 80076; 80307; 81001; 82272; 82962; 83690; 84439; 84443; 85025; 87521; 96361; 96374; 96375; 99285; G0378; J0780; J1170; J1642; J1650; J2270; J2405; J2550; J2765; J3480; J3490; J7030